=== PATIENT | female | born 1995 ===

== ENCOUNTER 2016-05-05 08:54 | Day surgery (SDC) | payer BC, OTHER ==
[2016-04-29 16:13] VITALS: BMI 29.2
[~2016-05-05 08:54] MED LIST: SODIUM CHLORIDE 0.9% 1,000 ML IV SCH
[2016-05-05] MEDS ORDERED: SODIUM CHLORIDE 0.9% 500 ML IV ONE (09:19)
[2016-05-05 11:22] VITALS: BP 104/69; PULSE 76; RESP 18; TEMP 98
--- NOTE | 2016-05-05 15:03 | CE ---
DATE OF SERVICE: A 20-year-old female who underwent tilt table test for recurrent dizzy spells and presyncope. 12-LEAD ECG REPORT: 12-lead ECG shows sinus rhythm, normal ME, narrow QRS, no delta waves, no epsilon waves, normal QT interval, normal ST segments in the precordial leads. Tilt table test was performed. Baseline blood pressure 105/61 mmHg. Baseline heart rate 72 beats a minute. The patient was tilted upright at an angle of 70 degrees per protocol. There was no change in her heart rate or blood pressure. During the procedure, she was laid supine and she did feel nauseous towards the end of the procedure, but at that time her blood pressure was normal at 111/65 mmm. Heart rate was in the 80s. IMPRESSION: Normal heart rate and blood pressure response to upright tilting.
== END 2016-05-05 11:15 | disposition home or self-care (01) ==
LOC: CATHEP 08:54
PROVIDERS: ATTEND Internal Medicine Clinical Cardiac Electrophysiology
DX: R55 Syncope and collapse (principal); R00.2 Palpitations; Z82.49 Family history of ischemic heart disease and other diseases of the circulatory system; Z87.891 Personal history of nicotine dependence
CPT/HCPCS: 81025; 93005; 93660

== ENCOUNTER → 2016-08-21 | Outpatient (CLI) | payer BC, OTHER ==
--- NOTE | 2016-08-21 14:49 | MR ---
EXAMINATION TYPE: MR brain wo con DATE OF EXAM: 08/21/2016 COMPARISON: 07/31/2015 HISTORY: Migraine without aura CONTRAST: None TECHNIQUE: Multiplanar, multiecho imaging on a 3.0 Rossi magnet is performed through the brain. Stud y is performed within 24 hours of arrival to the hospital. The craniovertebral junction is normal. The pituitary is normal. Diffusion-weighted imaging is performed. No abnormal hyperintensity is present to suggest an acute i ntracranial infarct or acute ischemic change. There are scattered punctate areas of hyperintensity on T2 and Inversion Recovery weighted sequences which are non-specific but can be related to microvascular ischemic changes. These are predominantly within the subcortical white matter. Number and distribution appears similar to prior examination. Ventricles and sulci are appropriate for the patient age. IMPRESSIONS: 1. Multiple scattered bilateral punctate subcortical white matter changes, likely on the basis of chr onic white matter ischemic change. Findings could be related to migraine headaches. These are greater than expected for the patient age but stable from prior study.
== END ==
LOC: RADMRIMAIN 11:58
PROVIDERS: ATTEND Psychiatry & Neurology Neurology
DX: R90.89 Other abnormal findings on diagnostic imaging of central nervous system (principal); G43.009 Migraine without aura, not intractable, without status migrainosus
CPT/HCPCS: 70551

== ENCOUNTER 2017-07-01 16:55 | Inpatient (IN) | payer BC, MEDICAID ==
[2017-07-01] MEDS ORDERED: SODIUM CHLORIDE 0.9% 1,000 ML IV STA (17:20)
--- NOTE | 2017-07-01 17:20 | ED ---
Psych HPI - General Chief Complaint: Psychiatric Symptoms Stated Complaint: SUICIDAL Time Seen by Provider: 07/01/17 17:19 Source: patient Mode of arrival: ambulatory - History of Present Illness Initial Comments: Patient presents for suicidal ideation. Patient states she "just doesn't want to be here anymore". Patient states "it's all just become too much" in regards to her family, states she lives at home with her grandmother, cousin, cousin's girlfriend and baby. Patient states yesterday she took approximately half a bottle of Tylenol pills, but then immediately threw up almost all of them. Denies taking any other pills. Patient cannot give an exact amount of pills that she took. Patient states she is never attempted suicide in the past. States she has cut her wrists in the past however that was a long time ago. States when she was younger she saw a psychiatrist, but no longer falls with psychiatrist. Denies desire to hurt anyone else. Patient has no physical medical complaints at this time. - Related Data Home Medications Medication Instructions Recorded Confirmed Acetaminophen [Tylenol Extra 1,000 mg PO Q8H PRN 07/01/17 07/01/17 Strength] Allergies Allergy/AdvReac Type Severity Reaction Status Date / Time egg Allergy Anaphylaxis Verified 07/01/17 18:01 hydromorphone HCl Allergy Itching Verified 07/01/17 18:01 [From Dilaudid] milk Allergy Anaphylaxis Verified 07/01/17 18:01 gabapentin AdvReac Nausea Verified 07/01/17 18:01 Review of Systems ROS Statement: Those systems with pertinent positive or pertinent negative responses have been documented in the HPI. ROS Other: All systems not noted in ROS Statement are negative. Constitutional: Denies: fever, chills Eyes: Denies: vision change ENT: Denies: throat pain, hearing loss Respiratory: Denies: cough, dyspnea Cardiovascular: Denies: chest pain, palpitations Endocrine: Denies: fatigue Gastrointestinal: Denies: abdominal pain, nausea, vomiting, diarrhea, constipation Genitourinary: Denies: frequency, hematuria Musculoskeletal: Denies: back pain Skin: Denies: rash, change in color Neurological: Denies: headache, weakness, numbness, confusion Psychiatric: Reports: depression, suicidal thoughts. Denies: anxiety, auditory hallucinations, visual hallucinations, homicidal thoughts Past Medical History Past Medical History: GERD/Reflux, GI Bleed Additional Past Medical History / Comment(s): N & V , ABD PAIN History of Any Multi-Drug Resistant Organisms: C-DIFF Date of last positivie culture/infection: 2016 MDRO Source:: Stool Past Surgical History: Cholecystectomy Past Anesthesia/Blood Transfusion Reactions: No Reported Reaction Past Psychological History: Depression Smoking Status: Current every day smoker Past Alcohol Use History: Occasional Past Drug Use History: None Reported - Past Family History Mother Additional Family Medical History / Comment(s): NONE Father Additional Family Medical History / Comment(s): NONE General Exam - General Exam Comments Initial Comments: Sitting up in bed. No acute distress. Does not appear in pain. Well- appearing. Patient speaks softly, appears depressed. Limitations: no limitations General appearance: alert, in no apparent distress Head exam: Present: atraumatic, normocephalic Eye exam: Present: normal appearance, PERRL, EOMI ENT exam: Present: normal exam, normal oropharynx, mucous membranes moist Neck exam: Present: normal inspection Respiratory exam: Present: normal lung sounds bilaterally. Absent: respiratory distress, wheezes, rales Cardiovascular Exam: Present: regular rate, normal rhythm GI/Abdominal exam: Present: soft. Absent: distended, tenderness, guarding, rebound Extremities exam: Present: normal inspection Back exam: Present: normal inspection Neurological exam: Present: alert, oriented X3, other (GCS 15. Conversing normally. Alert and oriented 4. No focal neuro deficits on exam.) Psychiatric exam: Present: depressed, flat affect, suicidal ideation Skin exam: Present: warm, dry, intact, normal color. Absent: rash, cyanosis, diaphoretic, erythema, urticaria Course Vital Signs 07/01/17 07/01/17 17:01 19:27 Temperature 98.4 F Pulse Rate 117 H 96 Respiratory 20 18 Rate Blood Pressure 127/73 112/58 O2 Sat by Pulse 99 99 Oximetry Medical Decision Making - Medical Decision Making Isn't actively suicidal. Patient attempted suicide yesterday with pills. We' ll evaluate for any medical problems related to ingestion yesterday. EKG sinus tachycardia, heart rate 107, no ST or T-wave changes appreciated. QRS 94 ms, QTC 469 ms. No significant lab abnormalities UDS shows benzos. Liver panel normal, acetaminophen level negative. Patient seen by psychiatry in the ER. 20:46 Psych team states they will admit patient. Pt updated with plan. - Lab Data Result diagrams: 07/01/17 17:51 07/01/17 17:51 Lab Results 07/01/17 07/01/17 07/01/17 Range/Units 17:51 17:51 17:59 WBC 10.8 H (3.8-10.6) k/uL RBC 4.72 (3.80-5.40) m/uL Hgb 14.3 (11.4-16.0) gm/dL Hct 41.3 (34.0-46.0) % MCV 87.5 (80.0-100.0) fL MCH 30.2 (25.0-35.0) pg MCHC 34.5 (31.0-37.0) g/dL RDW 13.1 (11.5-15.5) % Plt Count 310 (150-450) k/uL Neutrophils % 64 % Lymphocytes % 28 % Monocytes % 3 % Eosinophils % 3 % Basophils % 0 % Neutrophils # 6.9 (1.3-7.7) k/uL Lymphocytes # 3.1 (1.0-4.8) k/uL Monocytes # 0.4 (0-1.0) k/uL Eosinophils # 0.3 (0-0.7) k/uL Basophils # 0.0 (0-0.2) k/uL Sodium 145 (137-145) mmol/L Potassium 3.9 (3.5-5.1) mmol/L Chloride 105 (98-107) mmol/L Carbon Dioxide 25 (22-30) mmol/L Anion Gap 15 mmol/L BUN 19 H (7-17) mg/dL Creatinine 0.60 (0.52-1.04) mg/dL Est GFR (CKD-EPI)AfAm >90 (>60 ml/min/1.73 sqM) Est GFR (CKD-EPI)NonAf >90 (>60 ml/min/1.73 sqM) Glucose 98 (74-99) mg/dL Calcium 9.8 (8.4-10.2) mg/dL Total Bilirubin 0.3 (0.2-1.3) mg/dL Conjugated Bilirubin 0.0 (0.0-0.3) mg/dL Unconjugated Bilirubin 0.0 (0.0-1.1) mg/dL Delta Bilirubin 0.3 H (0.0-0.2) mg/dL AST 25 (14-36) U/L ALT 22 (9-52) U/L Alkaline Phosphatase 89 (38-126) U/L Total Protein 7.5 (6.3-8.2) g/dL Albumin 4.5 (3.5-5.0) g/dL Urine Color Yellow Urine Appearance Clear (Clear) Urine pH 7.0 (5.0-8.0) Ur Specific [place] 1.023 (1.001-1.035) Urine Protein Trace H (Negative) Urine Glucose (UA) Negative (Negative) Urine Ketones Negative (Negative) Urine Blood Negative (Negative) Urine Nitrite Negative (Negative) Urine Bilirubin Negative (Negative) Urine Urobilinogen <2.0 (<2.0) mg/dL Ur Leukocyte Esterase Small H (Negative) Urine RBC <1 (0-5) /hpf Urine WBC 12 H (0-5) /hpf Ur Squamous Epith Cells 3 (0-4) /hpf Amorphous Sediment Rare H (None) /hpf Urine Mucus Rare H (None) /hpf Urine HCG, Qual (Not Detectd) Salicylates <1.0 mg/dL Urine Opiates Screen Not Detected (NotDetected) Ur Oxycodone Screen Not Detected (NotDetected) Urine Methadone Screen Not Detected (NotDetected) Ur Propoxyphene Screen Not Detected (NotDetected) Acetaminophen <10.0 ug/mL Ur Barbiturates Screen Not Detected (NotDetected) U Tricyclic Antidepress Not Detected (NotDetected) Ur Phencyclidine Scrn Not Detected (NotDetected) Ur Amphetamines Screen Not Detected (NotDetected) U Methamphetamines Scrn Not Detected (NotDetected) U Benzodiazepines Scrn Detected H (NotDetected) Urine Cocaine Screen Not Detected (NotDetected) U Marijuana (THC) Screen Not Detected (NotDetected) Serum Alcohol <10 mg/dL 07/01/17 Range/Units 17:59 WBC (3.8-10.6) k/uL RBC (3.80-5.40) m/uL Hgb (11.4-16.0) gm/dL Hct (34.0-46.0) % MCV (80.0-100.0) fL MCH (25.0-35.0) pg MCHC (31.0-37.0) g/dL RDW (11.5-15.5) % Plt Count (150-450) k/uL Neutrophils % % Lymphocytes % % Monocytes % % Eosinophils % % Basophils % % Neutrophils # (1.3-7.7) k/uL Lymphocytes # (1.0-4.8) k/uL Monocytes # (0-1.0) k/uL Eosinophils # (0-0.7) k/uL Basophils # (0-0.2) k/uL Sodium (137-145) mmol/L Potassium (3.5-5.1) mmol/L Chloride (98-107) mmol/L Carbon Dioxide (22-30) mmol/L Anion Gap mmol/L BUN (7-17) mg/dL Creatinine (0.52-1.04) mg/dL Est GFR (CKD-EPI)AfAm (>60 ml/min/1.73 sqM) Est GFR (CKD-EPI)NonAf (>60 ml/min/1.73 sqM) Glucose (74-99) mg/dL Calcium (8.4-10.2) mg/dL Total Bilirubin (0.2-1.3) mg/dL Conjugated Bilirubin (0.0-0.3) mg/dL Unconjugated Bilirubin (0.0-1.1) mg/dL Delta Bilirubin (0.0-0.2) mg/dL AST (14-36) U/L ALT (9-52) U/L Alkaline Phosphatase (38-126) U/L Total Protein (6.3-8.2) g/dL Albumin (3.5-5.0) g/dL Urine Color Urine Appearance (Clear) Urine pH (5.0-8.0) Ur Specific [place] (1.001-1.035) Urine Protein (Negative) Urine Glucose (UA) (Negative) Urine Ketones (Negative) Urine Blood (Negative) Urine Nitrite (Negative) Urine Bilirubin (Negative) Urine Urobilinogen (<2.0) mg/dL Ur Leukocyte Esterase (Negative) Urine RBC (0-5) /hpf Urine WBC (0-5) /hpf Ur Squamous Epith Cells (0-4) /hpf Amorphous Sediment (None) /hpf Urine Mucus (None) /hpf Urine HCG, Qual Not Detected (Not Detectd) Salicylates mg/dL Urine Opiates Screen (NotDetected) Ur Oxycodone Screen (NotDetected) Urine Methadone Screen (NotDetected) Ur Propoxyphene Screen (NotDetected) Acetaminophen ug/mL Ur Barbiturates Screen (NotDetected) U Tricyclic Antidepress (NotDetected) Ur Phencyclidine Scrn (NotDetected) Ur Amphetamines Screen (NotDetected) U Methamphetamines Scrn (NotDetected) U Benzodiazepines Scrn (NotDetected) Urine Cocaine Screen (NotDetected) U Marijuana (THC) Screen (NotDetected) Serum Alcohol mg/dL Disposition Clinical Impression: Suicidal ideation Disposition: ADMITTED IP TO THIS HOSP Condition: Good
[2017-07-01 18:04] LABS: Basophils % (A) 0 %; Eosinophils # (A) 0.3 k/uL (0-0.7); Eosinophils % (A) 3 %; HCT 41.3 % (34.0-46.0); HGB 14.3 gm/dL (11.4-16.0); Lymphocytes # (A) 3.1 k/uL (1.0-4.8); Lymphocytes % (A) 28 %; MCH 30.2 pg (25.0-35.0); MCHC 34.5 g/dL (31.0-37.0); MCV 87.5 fL (80.0-100.0); Mean Platelet Volume 7.3; Monocytes # (A) 0.4 k/uL (0-1.0); Monocytes % (A) 3 %; Neutrophils # (A) 6.9 k/uL (1.3-7.7); Neutrophils % (A) 64 %; Platelet Count 310 k/uL (150-450); RBC 4.72 m/uL (3.80-5.40); RDW 13.1 % (11.5-15.5); WBC 10.8 k/uL (3.8-10.6)
[2017-07-01 18:15] LABS: ALT 22 U/L (9-52); AST 25 U/L (14-36); Acetaminophen <10.0 ug/mL; Albumin 4.5 g/dL (3.5-5.0); Alcohol <10 mg/dL; Alkaline Phosphatase 89 U/L (38-126); Anion Gap 15 mmol/L; Bilirubin, Delta 0.3 mg/dL (0.0-0.2); Blood Urea Nitrogen 19 mg/dL (7-17); Calcium 9.8 mg/dL (8.4-10.2); Carbon Dioxide 25 mmol/L (22-30); Chloride 105 mmol/L (98-107); Glucose 98 mg/dL (74-99); Potassium 3.9 mmol/L (3.5-5.1); Salicylate <1.0 mg/dL; Sodium 145 mmol/L (137-145); Total Bilirubin 0.3 mg/dL (0.2-1.3); Total Protein 7.5 g/dL (6.3-8.2)
[2017-07-01 18:18] LABS: Amorphous Sediment,Urine Rare /hpf; Appearance,Urine Clear (Clear); Bilirubin,Urine Negative (Negative); Blood,Urine Negative (Negative); Color,Urine Yellow; Glucose,Urine (UA) Negative (Negative); Ketones,Urine Negative (Negative); Leukocyte Esterase,Urine Small (Negative); Mucus,Urine Rare /hpf; Nitrite,Urine Negative (Negative); Protein,Urine Trace (Negative); RBC,Urine <1 /hpf (0-5); Specific Gravity,Urine 1.023 (1.001-1.035); Squamous Epithelial Cell,Urine 3 /hpf (0-4); Urobilinogen,Urine <2.0 mg/dL (<2.0); WBC,Urine 12 /hpf (0-5)
[2017-07-01 18:29] LABS: Amphetamine Screen,Urine Not Detected (NotDetected); Barbiturate Screen,Urine Not Detected (NotDetected); Benzodiazepines Screen,Urine Detected (NotDetected); Cocaine Screen,Urine Not Detected (NotDetected); Methadone Screen, Urine Not Detected (NotDetected); Opiate Screen,Urine Not Detected (NotDetected); Oxycodone Screen, Urine Not Detected (NotDetected); Phencyclidine Screen,Urine Not Detected (NotDetected); Tricyclic Antidepressant,Urine Not Detected (NotDetected); Urn Cannabinoid Scrn Not Detected (NotDetected)
[2017-07-01] MEDS ORDERED: MAG HYDROX/AL HYDROX/SIMETH 30 ML CUP PO PRN (20:52)
[2017-07-01] MEDS ORDERED: LORazepam 1 MG TAB PO PRN (20:52)
[2017-07-01] MEDS ORDERED: ACETAMINOPHEN TAB 325 MG TAB PO PRN (20:52)
[2017-07-01] MEDS ORDERED: ZIPRASIDONE 20 MG VIAL IM PRN (20:52)
[2017-07-01] MEDS ORDERED: MAGNESIUM HYDROXIDE 2,400 MG/10 ML CUP PO PRN (20:52)
[2017-07-01] MEDS ORDERED: LORazepam 2 MG/ML INJ IM PRN (20:54)
[2017-07-02 05:57] VITALS: BMI 35.6
[2017-07-02] MEDS ORDERED: hydrOXYzine PAMOATE 25 MG CAP PO PRN (08:45)
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
[2017-07-02 09:31] LABS: Basophils % (A) 1 %; Eosinophils # (A) 0.3 k/uL (0-0.7); Eosinophils % (A) 3 %; HCT 39.8 % (34.0-46.0); HGB 13.8 gm/dL (11.4-16.0); Lymphocytes # (A) 2.5 k/uL (1.0-4.8); Lymphocytes % (A) 30 %; MCH 30.5 pg (25.0-35.0); MCHC 34.7 g/dL (31.0-37.0); MCV 88.1 fL (80.0-100.0); Monocytes # (A) 0.3 k/uL (0-1.0); Monocytes % (A) 4 %; Neutrophils % (A) 61 %; Platelet Count 304 k/uL (150-450); RBC 4.51 m/uL (3.80-5.40); WBC 8.3 k/uL (3.8-10.6)
[2017-07-02 09:45] LABS: ALT 34 U/L (9-52); AST 21 U/L (14-36); Albumin 4.7 g/dL (3.5-5.0); Alkaline Phosphatase 97 U/L (38-126); Anion Gap 15 mmol/L; Blood Urea Nitrogen 15 mg/dL (7-17); Calcium 9.8 mg/dL (8.4-10.2); Carbon Dioxide 24 mmol/L (22-30); Chloride 105 mmol/L (98-107); Glucose 98 mg/dL (74-99); Potassium 4.2 mmol/L (3.5-5.1); Sodium 144 mmol/L (137-145); Total Bilirubin 0.5 mg/dL (0.2-1.3); Total Protein 7.7 g/dL (6.3-8.2)
[2017-07-02] MEDS: NICOTINE 7MG/24HR PATCH TRANSDERM SCH (10:46)
[2017-07-02] MEDS: DICLOFENAC SODIUM GEL 100 GM TUBE TOPICAL SCH ×3 (14:16→22:36)
--- NOTE | 2017-07-02 14:38 | P.MDCNMH ---
History of Present Illness H&P Date: 07/02/17 Chief Complaint: Depression This is a 22-year-old female patient of Dr. Aldana with a past history of migraine headaches, gastric reflux, C. difficile colitis in 2016 or 2017, tobacco use and dependence. Patient states that she has a headache on the right side of her face into her forehead and back to her neck. She does complain of neck pain. 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 She is right-handed. She states she is not sleeping. When asked about suicidal ideation patient states "not all the time." Patient states that she has a lot of worries and stress but cannot identify these. Patient came into [facility] emergency center for evaluation. She apparently took Tylenol half a bottle the day before and then vomited those up. She has cut her wrists and the past but no previous attempted suicides. She no longer follows with a psychiatrist. Patient's vital signs were stable. Lab work essentially within normal limits. Urinalysis negative for urinary tract infection. Salicylate level acetaminophen and serum alcohol level all negative. Urine drug screen was positive for benzodiazepines. HCG was not detected. TSH was 1.570. Patient was admitted to the mental health unit. Review of Systems All systems: negative Constitutional: Reports chronic headaches, Reports daytime sleepiness, Reports fatigue, Denies chills, Denies fever Eyes: denies blurred vision, denies pain Ears, nose, mouth and throat: Denies headache, Denies sore throat Cardiovascular: Denies chest pain, Denies decreased exercise tolerance, Denies dyspnea on exertion, Denies leg edema, Denies shortness of breath, Denies syncope Respiratory: Denies cough, Denies cough with sputum, Denies dyspnea, Denies excessive sputum, Denies hemoptysis Gastrointestinal: Denies abdominal pain, Denies diarrhea, Denies nausea, Denies vomiting Genitourinary: Denies dysuria, Denies hematuria, Denies urgency Musculoskeletal: Reports neck pain, Denies myalgias Integumentary: Denies pruritus, Denies rash, Denies wounds Neurological: Denies numbness, Denies weakness Psychiatric: Reports change in sleep habits, Reports depression, Reports difficulty concentrating, Reports hopelessness, Reports insomnia, Reports suicidal ideation, Denies anxiety Endocrine: Denies fatigue, Denies weight change Past Medical History Past Medical History: GERD/Reflux, GI Bleed Additional Past Medical History / Comment(s): N & V , ABD PAIN History of Any Multi-Drug Resistant Organisms: C-DIFF Date of last positivie culture/infection: 2016 MDRO Source:: Stool Past Surgical History: Cholecystectomy Past Anesthesia/Blood Transfusion Reactions: No Reported Reaction Smoking Status: Current every day smoker - Past Family History Mother Additional Family Medical History / Comment(s): NONE Father Additional Family Medical History / Comment(s): NONE Medications and Allergies Home Medications Medication Instructions Recorded Confirmed Type Acetaminophen [Tylenol Extra 1,000 mg PO Q8H PRN 07/01/17 07/02/17 History Strength] Allergies Allergy/AdvReac Type Severity Reaction Status Date / Time egg Allergy Anaphylaxis Verified 07/02/17 05:34 hydromorphone HCl Allergy Itching Verified 07/02/17 05:34 [From Dilaudid] milk Allergy Anaphylaxis Verified 07/02/17 05:34 gabapentin AdvReac Nausea Verified 07/02/17 05:34 Physical Exam Vitals: Vital Signs Temp Pulse Pulse Resp BP BP Pulse Ox 07/02/17 06:42 97.7 F 80 18 117/65 07/02/17 05:49 97.1 F L 90 16 138/72 07/01/17 19:27 96 18 112/58 99 07/01/17 17:01 98.4 F 117 H 20 127/73 99 Intake and Output 07/01/17 07/02/17 07/02/17 22:59 06:59 14:59 Other: Weight 108.862 kg 115.9 kg Gen: This is an obese 22-year-old female. She is cooperative and appears to be in no acute distress. HEENT: Head is atraumatic, normocephalic. Pupils equal, round. Sclerae is anicteric. Tenderness to the right occipital area NECK: Supple. No JVD. No lymphadenopathy. No thyromegaly. LUNGS: Clear to auscultation. No wheezes or rhonchi. No intercostal retractions. HEART: Regular rate and rhythm. No murmur. ABDOMEN: Soft. Bowel sounds are present. No masses. No tenderness. EXTREMITIES: No pedal edema. No calf tenderness. NEUROLOGICAL: Patient is awake, alert and oriented x3. Cranial nerves 2 through 12 are grossly intact. Cranial Nerve Examination - Cranial Nerves Cranial Nerve II- Optic: Intact Cranial Nerve III- Oculomotor: Intact Cranial Nerve IV- Trochlear: Intact Cranial Nerve V- Trigeminal: Intact Cranial Nerve - Abducens: Intact Cranial Nerve VII- Facial: Intact Cranial Nerve VIII- Auditory: Intact Cranial Nerve IX- Glossopharyngeal: Intact Cranial Nerve X- Vagus: Intact Cranial Nerve XI- Accessory: Intact Cranial Nerve XII- Hypoglossal: Intact Results CBC & Chem 7: 07/02/17 08:58 07/02/17 08:58 Labs: Abnormal Lab Results - Last 24 Hours (Table) 07/01/17 07/01/17 07/01/17 Range/Units 17:51 17:51 17:59 WBC 10.8 H (3.8-10.6) k/uL BUN 19 H (7-17) mg/dL Delta Bilirubin 0.3 H (0.0-0.2) mg/dL Urine Protein Trace H (Negative) Ur Leukocyte Esterase Small H (Negative) Urine WBC 12 H (0-5) /hpf Amorphous Sediment Rare H (None) /hpf Urine Mucus Rare H (None) /hpf U Benzodiazepines Scrn Detected H (NotDetected) Assessment and Plan Plan: 1. Recurrent depression. Patient admitted to the mental health unit. Continue current plan of care. 2. Gastroesophageal reflux disease, stable. Not actively on medication. 3. History of C. difficile colitis in 2016 or 2016, stable. No active signs of recurrence. 4. Tobacco use and dependence. Nicotine patch. 5. Tension headache. Patient will be placed on Flexeril 5 g twice daily as needed and 10 mg at bedtime as well as Voltaren gel 4 times daily. Patient may also apply heat to the area.. Impression and plan of care have been directed as dictated by the signing physician. Eloina Lara nurse practitioner acting as scribe for signing physician.
[2017-07-02] MEDS: CYCLOBENZAPRINE 5 MG TAB PO PRN (20:59)
[2017-07-02] MEDS: DIVALPROEX ER 500 MG TAB.ER.24H PO SCH (20:59)
[2017-07-02] MEDS: CYCLOBENZAPRINE 10 MG TAB PO SCH (21:00)
[2017-07-03 06:41] VITALS: RESP 16
[2017-07-03] MEDS: NICOTINE 7MG/24HR PATCH TRANSDERM SCH (08:41)
[2017-07-03] MEDS: DICLOFENAC SODIUM GEL 100 GM TUBE TOPICAL SCH ×4 (08:41→21:37)
[2017-07-03] MEDS: CYCLOBENZAPRINE 5 MG TAB PO PRN (09:27)
--- NOTE | 2017-07-03 13:07 | P.PN ---
Progress Note - Text Progress Note Date: 07/03/17 Interval history: Patient is seen in cross coverage today. She says she feels about the same. Her mood is described as "numb." She describes being bothered by auditory hallucinations, describes them currently as whispering type. She thinks she may have had a bad reaction to either Abilify or Zoloft in the past. Mental status exam: She is alert and cooperative with the interview. Her mood is described as "numb." She describes auditory hallucinations which she currently describes as whispering type, she reports that these are bothersome. She denies any current thoughts of harm to self or others. She states that at times she has had thoughts of harm to others but she just doesn't do that. She does not show any current agitation. Plan: We'll initiate low dose of Latuda to help with her report of some auditory hallucinations, could also help augment for mood along with her Depakote. We'll continue to cover this patient through the weekend. Continue to monitor for any medication side effects and her ongoing response to treatment.
[2017-07-03] MEDS: LURASIDONE 40 MG TAB PO SCH (13:41)
[2017-07-03] MEDS: DIVALPROEX ER 500 MG TAB.ER.24H PO SCH (20:04)
[2017-07-03] MEDS: CYCLOBENZAPRINE 10 MG TAB PO SCH (21:37)
[2017-07-04 06:49] VITALS: TEMP 97.7
[2017-07-04] MEDS: NICOTINE 7MG/24HR PATCH TRANSDERM SCH (09:20)
[2017-07-04] MEDS: LURASIDONE 40 MG TAB PO SCH (09:20)
[2017-07-04] MEDS: DICLOFENAC SODIUM GEL 100 GM TUBE TOPICAL SCH ×4 (09:21→21:05)
[2017-07-04] MEDS: CYCLOBENZAPRINE 5 MG TAB PO PRN (12:01)
--- NOTE | 2017-07-04 15:16 | P.PN ---
Progress Note - Text Progress Note Date: 07/04/17 Interval history: Patient is seen again in cross coverage today. She describes that the auditory hallucinations are gone now. She has not been hearing any voices today. She says she feels a little bit tired but it's tolerable in terms of potential medication side effect. She feels like her mood is pretty level. Mental status exam: She is alert and cooperative with the interview. Her speech is fluent, not rapid or pressured. Thought processes are organized. Her mood she describes is level. She denies any auditory or visual hallucinations. She does not verbalize any thoughts of harm to self others. There is no agitation. Plan: We'll maintain current psychotropic medication regimen and continue to monitor for any medication side effects. We'll continue to monitor her ongoing response. Status is improved today.
[2017-07-04] MEDS: DIVALPROEX ER 500 MG TAB.ER.24H PO SCH (21:05)
[2017-07-04] MEDS: CYCLOBENZAPRINE 10 MG TAB PO SCH (21:05)
[2017-07-05 07:07] VITALS: BP 107/60; PULSE 86
[2017-07-05] MEDS: LURASIDONE 40 MG TAB PO SCH (09:45)
[2017-07-05] MEDS: NICOTINE 7MG/24HR PATCH TRANSDERM SCH (09:45)
[2017-07-05] MEDS: DICLOFENAC SODIUM GEL 100 GM TUBE TOPICAL SCH (09:47)
[2017-07-05] MEDS: CYCLOBENZAPRINE 5 MG TAB PO PRN (10:47)
--- NOTE | 2017-07-05 12:26 | P.DS ---
Providers Date of admission: 07/01/17 20:48 Expected date of discharge: 07/05/17 Attending physician: Bismark Mora Consults: 07/01/17 20:52 Consult Physician Routine Consulting Provider: Charley Mckenna Consult Reason/Comments: follow Up H & P Do you want consulting provider notified?: Yes Primary care physician: [facility] Course: Patient had her psychiatric evaluation, physical examination and psychosocial evaluation. After psychiatric examination she was started on Depakote 1500 mg at bedtime for "mood stabilization"and prevention of migraine headaches. She was seen by the weekend psychiatrist who put her on Latuda 20 mg a day. Patient said within 1 hour she stopped hearing voices and started to feel great. This seems to be more of a placebo effect than the pharmacological effect. Patient attended groups but she was not participating in the group activities. She has been socializing with other patients, interacting with staff and taking her medications without any adverse effect. She continues to deny suicide and homicide thoughts. She said she has a music class to attend this evening and would like to be discharged. She also agreed to continue with outpatient treatment. In view of all these it was agreed to discharge her. Condition on discharge: This is a tall overweight ambulatory white female with good hygiene. She is polite friendly and cooperative. She does not show any psychomotor agitation or retardation. Her speech is spontaneous relevant and goal-directed. Her mood is euthymic to cheerful and affect is appropriate. She continues not to have any evidence of psychotic thinking. She continues to deny suicide and homicide thoughts. She is well oriented with good memory concentration general fund of knowledge etc. Her insight and judgment are improving. Diagnosis on discharge: Borderline personality disorder F 60.3. ALLERGY to eggs, hydromorphone, milk and gabapentin. Migraine headaches. 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 Patient Condition at Discharge: Good Plan - Discharge Summary Discharge Rx Participant: No New Discharge Prescriptions: New Divalproex ER [Depakote ER] 1,500 mg PO HS 30 Days #30 tab.er.24h Lurasidone [Latuda] 20 mg PO DAILY 30 Days #30 tab Discontinued Acetaminophen [Tylenol Extra Strength] 1,000 mg PO Q8H PRN PRN Reason: Pain Discharge Medication List Divalproex ER [Depakote ER] 1,500 mg PO HS 30 Days #30 tab.er.24h 07/05/17 [Rx] Lurasidone [Latuda] 20 mg PO DAILY 30 Days #30 tab 07/05/17 [Rx] Follow up Appointment(s)/Referral(s): Dick Aldana MD [Primary Care Provider] - 1 Week
== END 2017-07-05 16:58 | disposition home or self-care (01) | DRG 883 ==
LOC: EC 16:55 → 3MHU 20:48
PROVIDERS: ADMIT Psychiatry & Neurology Psychiatry; ATTEND Psychiatry & Neurology Psychiatry
DX: F60.3 Borderline personality disorder (principal); R45.851 Suicidal ideations; R44.0 Auditory hallucinations; K21.9 Gastro-esophageal reflux disease without esophagitis; F17.210 Nicotine dependence, cigarettes, uncomplicated; Z71.6 Tobacco abuse counseling; G43.909 Migraine, unspecified, not intractable, without status migrainosus; E66.3 Overweight; Z68.36 Body mass index [BMI] 36.0-36.9, adult; R48.0 Dyslexia and alexia; Z91.5 Personal history of self-harm; Z90.49 Acquired absence of other specified parts of digestive tract; Z86.19 Personal history of other infectious and parasitic diseases; Z91.012 Allergy to eggs; Z88.5 Allergy status to narcotic agent; Z88.8 Allergy status to other drugs, medicaments and biological substances; Z91.011 Allergy to milk products; Z81.3 Family history of other psychoactive substance abuse and dependence; Z81.8 Family history of other mental and behavioral disorders
CPT/HCPCS: 36415; 80048; 80053; 80076; 80306; 80320; 81001; 81025; 83520; 84443; 85025; 93005; 96360; 96361; 99285

== ENCOUNTER → 2017-07-12 | Outpatient (CLI) | payer BC, OTHER ==
--- NOTE | 2017-07-12 13:44 | MR ---
EXAMINATION TYPE: MR cervical spine wo con DATE OF EXAM: 07/12/2017 COMPARISON: Prior MR cervical spine 02/10/2016 HISTORY: Neck pain TECHNIQUE: Multiplanar, multisequence images of the cervical spine were acquired. Findings are similar to previous exam. Bilateral neck nodes show a similar appearance C2-C3: No evidence for degenerative disc disease. No disc bulge/herniation or protrusion. No Canal stenosis. Foramina are patent bilaterally. C3-C4: Lateral extension of endplate disc complex encroaches somewhat on the foramina, there is no si gnificant central stenosis. No disc herniation. C4-C5: Lateral extension endplate disc complex causes some foraminal encroachment greater on the left than on the right, no significant central stenosis or disc herniation. C5-C6: Right posterior paracentral extension of endplate disc complex results in anterolateral mass e ffect on the thecal sac, there is lateral extension encroaching on the right neural foramen rather th an left. There is loss of disc height and signal compatible with disc desiccation and degenerative di sc disease. C6-C7: No evidence for degenerative disc disease. No disc bulge/herniation or protrusion. No Canal stenosis. Foramina are patent bilaterally. C7-T1: No evidence for degenerative disc disease. No disc bulge/herniation or protrusion. No Canal stenosis. Foramina are patent bilaterally. Cervical segments are intact. There is normal alignment. Cervical spinal cord is of normal signal. Craniovertebral junction relationships are within normal limits. IMPRESSION: Degenerative disc disease, multilevel foraminal encroachment. Findings are essentially stable.
== END | disposition home or self-care (01) ==
LOC: RADMRIMAIN 12:03
PROVIDERS: ATTEND Psychiatry & Neurology Neurology
DX: M50.30 Other cervical disc degeneration, unspecified cervical region (principal)
CPT/HCPCS: 72141

== ENCOUNTER 2017-09-04 15:53 | Emergency (ER) | payer BC, OTHER ==
[2017-09-04 16:11] VITALS: BP 107/72; PULSE 87; RESP 18; TEMP 98.8
--- NOTE | 2017-09-04 16:17 | ED ---
Lower Extremity Injury HPI - General Chief Complaint: Extremity Injury, Lower Stated Complaint: injured ankles (mis step) Time Seen by Provider: 09/04/17 16:10 Source: patient, RN notes reviewed Mode of arrival: wheelchair Limitations: physical limitation - History of Present Illness Initial Comments: This is a 22-year-old female presents emergency Department with chief complaint of bilateral ankle pain. She states that she was walking sort of missed stepped and states that she rolled both of her ankles. She complains of pain on the lateral aspect of both. She states she's had fractures of both of her ankles in the past. She denies any current foot pain or any paresthesias. Denies any proximal lower leg pain. Patient had no head injury no loss consciousness. Patient states she's able to bear weight slightly her left with the right hurts more when she bears weight. - Related Data Previous Rx's Medication Instructions Recorded Divalproex ER [Depakote ER] 1,500 mg PO HS 30 Days #30 07/05/17 tab.er.24h Ibuprofen [Motrin] 600 mg PO Q8HR PRN #30 tab 09/04/17 Allergies Allergy/AdvReac Type Severity Reaction Status Date / Time egg Allergy Anaphylaxis Verified 09/04/17 16:11 hydromorphone HCl Allergy Itching Verified 09/04/17 16:11 [From Dilaudid] milk Allergy Anaphylaxis Verified 09/04/17 16:11 gabapentin AdvReac Nausea Verified 09/04/17 16:11 Review of Systems ROS Statement: Those systems with pertinent positive or pertinent negative responses have been documented in the HPI. ROS Other: All systems not noted in ROS Statement are negative. Past Medical History Past Medical History: GERD/Reflux, GI Bleed Additional Past Medical History / Comment(s): N & V , ABD PAIN History of Any Multi-Drug Resistant Organisms: C-DIFF Date of last positivie culture/infection: 2016 MDRO Source:: Stool Past Surgical History: Cholecystectomy Past Anesthesia/Blood Transfusion Reactions: No Reported Reaction Past Psychological History: Anxiety, Depression Smoking Status: Current every day smoker Past Alcohol Use History: Occasional Past Drug Use History: None Reported - Past Family History Mother Additional Family Medical History / Comment(s): NONE Father Additional Family Medical History / Comment(s): NONE General Exam Limitations: physical limitation General appearance: alert, in no apparent distress Respiratory exam: Present: normal lung sounds bilaterally. Absent: respiratory distress, wheezes, rales, rhonchi, stridor Cardiovascular Exam: Present: regular rate, normal rhythm, normal heart sounds. Absent: systolic murmur, diastolic murmur, rubs, gallop, clicks Extremities exam: Present: other (Bilateral lower extremities neurovascular intact there is tenderness to both lateral malleoli region there is minimal swelling there is no foot tenderness and there is no proximal tib-fib tenderness ) Skin exam: Present: warm, dry, intact, normal color Course Vital Signs 09/04/17 16:08 Temperature 98.8 F Pulse Rate 87 Respiratory 18 Rate Blood Pressure 107/72 O2 Sat by Pulse 99 Oximetry Medical Decision Making - Medical Decision Making 22-year-old presented for bilateral ankle pain. Patient had an injury from a curb. Patient has no new fracture on x-ray there is noted old fracture in which she knew about. Patient's ankles wear Preet wrap and she will follow-up with her PCP and orthopedics as needed. Disposition Clinical Impression: Right ankle sprain, Left ankle sprain Disposition: HOME SELF-CARE Condition: Stable Instructions: Ankle Sprain (ED) Additional Instructions: Please return to the Emergency Department if symptoms worsen or any other concerns. Prescriptions: Ibuprofen [Motrin] 600 mg PO Q8HR PRN #30 tab PRN Reason: Pain Is patient prescribed a controlled substance at d/c from ED?: No Referrals: Dick Aldana MD [Primary Care Provider] - 1-2 days Time of Disposition: 16:47
--- NOTE | 2017-09-04 16:41 | XR ---
EXAMINATION TYPE: XR ankle complete bilateral DATE OF EXAM: 09/04/2017 CLINICAL HISTORY: Pain after fall injury today TECHNIQUE: Frontal, lateral and oblique images of the bilateral ankles are obtained. COMPARISON: None. FINDINGS: There is no acute fracture/dislocation evident in either ankle. There is 5 mm well-cortic ated defect without soft tissue swelling felt to reflect old avulsion fracture from lateral malleolus in the right ankle. The ankle mortise appears within normal limits bilaterally. The overlying soft tissue appears unremarkable bilaterally. IMPRESSION: There is no acute fracture or dislocation in either ankle.
== END 2017-09-04 16:50 | disposition home or self-care (01) ==
LOC: EC 15:53
DX: S93.401A Sprain of unspecified ligament of right ankle, initial encounter (principal); S93.402A Sprain of unspecified ligament of left ankle, initial encounter; F17.200 Nicotine dependence, unspecified, uncomplicated; Z91.012 Allergy to eggs; Z88.5 Allergy status to narcotic agent; Z91.011 Allergy to milk products; Z88.8 Allergy status to other drugs, medicaments and biological substances; W10.9XXA Fall (on) (from) unspecified stairs and steps, initial encounter; Y93.01 Activity, walking, marching and hiking
CPT/HCPCS: 99283

== ENCOUNTER 2017-11-11 13:06 | Emergency (ER) | payer BC, OTHER ==
[2017-11-11 13:41] VITALS: BP 118/69; PULSE 89; RESP 18; TEMP 97.9
--- NOTE | 2017-11-11 14:21 | XR ---
EXAMINATION TYPE: XR knee complete RT DATE OF EXAM: 11/11/2017 COMPARISON: NONE HISTORY: Pain TECHNIQUE: Four views are submitted. FINDINGS: Joint spaces are preserved. Osseous structures are intact. No acute fracture seen. Small amount of fluid in the suprapatellar bursa. IMPRESSION: 1. No acute fracture or dislocation.
--- NOTE | 2017-11-11 14:23 | XR ---
EXAMINATION TYPE: XR ankle complete RT DATE OF EXAM: 11/11/2017 COMPARISON: 09/04/2017 HISTORY: Pain FINDINGS: Three views of the ankle demonstrate the ankle mortise to be intact and symmetric. The joint spaces are preserved. The osseous structures are intact. Well-corticated density along the lateral malleol us. This is seen on the previous exam. IMPRESSION: 1. No definite acute fracture or dislocation, if symptoms persist follow-up study in 7 to 10 days wou ld be suggested.
--- NOTE | 2017-11-11 14:25 | XR ---
EXAMINATION TYPE: XR foot complete RT DATE OF EXAM: 11/11/2017 COMPARISON: NONE HISTORY: Pain TECHNIQUE: Three views are submitted. FINDINGS: The osseous structures are intact. There is no acute fracture or dislocation. Joint spaces are p reserved. Hammertoe deformities are seen. Arthropathy of the first MTP joint. IMPRESSION: 1. No acute fracture or dislocation. If symptoms persist, follow-up exam in 7 to 10 days could be ob tained.
--- NOTE | 2017-11-11 14:25 | ED ---
Lower Extremity Injury HPI - General Chief Complaint: Extremity Injury, Lower Stated Complaint: Knee/ankle pain Time Seen by Provider: 11/11/17 13:44 Source: patient, RN notes reviewed, old records reviewed Mode of arrival: ambulatory Limitations: no limitations - History of Present Illness Initial Comments: 22-year-old female presents emergency department today with chief complaint of right knee foot and ankle pain. Patient reports that she was doing a jump at dance yesterday and feels she landed and heard a pop in her ankle and complains of pain with full extension of her knee. Patient states she's had no fevers chills component for procedures, numbness or tingling or abdominal pain. She denies any back pain. - Related Data Previous Rx's Medication Instructions Recorded RX: Ibuprofen [Motrin] 600 mg PO Q6HR PRN #20 tab 11/11/17 Allergies Allergy/AdvReac Type Severity Reaction Status Date / Time egg Allergy Anaphylaxis Verified 11/11/17 13:59 hydromorphone HCl Allergy Itching Verified 11/11/17 13:59 [From Dilaudid] milk Allergy Anaphylaxis Verified 11/11/17 13:59 gabapentin AdvReac Nausea Verified 11/11/17 13:59 Review of Systems ROS Statement: Those systems with pertinent positive or pertinent negative responses have been documented in the HPI. ROS Other: All systems not noted in ROS Statement are negative. Past Medical History Past Medical History: GERD/Reflux, GI Bleed Additional Past Medical History / Comment(s): N & V , ABD PAIN History of Any Multi-Drug Resistant Organisms: C-DIFF Date of last positivie culture/infection: 2016 MDRO Source:: Stool Past Surgical History: Cholecystectomy Past Anesthesia/Blood Transfusion Reactions: No Reported Reaction Past Psychological History: Anxiety, Depression Smoking Status: Current every day smoker Past Alcohol Use History: Occasional Past Drug Use History: None Reported - Past Family History Mother Additional Family Medical History / Comment(s): NONE Father Additional Family Medical History / Comment(s): NONE General Exam - General Exam Comments Initial Comments: 22-year-old female. Alert and oriented. No acute distress. Limitations: no limitations General appearance: alert, in no apparent distress Head exam: Present: atraumatic, normocephalic, normal inspection Eye exam: Present: normal appearance, PERRL, EOMI. Absent: scleral icterus, conjunctival injection, periorbital swelling ENT exam: Present: normal exam, mucous membranes moist Neck exam: Present: normal inspection. Absent: tenderness, meningismus, lymphadenopathy Respiratory exam: Present: normal lung sounds bilaterally. Absent: respiratory distress, wheezes, rales, rhonchi, stridor Cardiovascular Exam: Present: regular rate, normal rhythm, normal heart sounds. Absent: systolic murmur, diastolic murmur, rubs, gallop, clicks GI/Abdominal exam: Present: soft, normal bowel sounds. Absent: distended, tenderness, guarding, rebound, rigid Extremities exam: Present: normal inspection, full ROM, normal capillary refill. Absent: tenderness, pedal edema, joint swelling, calf tenderness Back exam: Present: normal inspection Neurological exam: Present: alert, oriented X3, CN II-XII intact Psychiatric exam: Present: normal affect, normal mood Skin exam: Present: warm, dry, intact, normal color. Absent: rash Course Vital Signs 11/11/17 13:38 Temperature 97.9 F Pulse Rate 89 Respiratory 18 Rate Blood Pressure 118/69 O2 Sat by Pulse 96 Oximetry Medical Decision Making - Radiology Data Radiology results: report reviewed X-rays of the negative for any acute fracture dislocation. X-ray of the foot shows no evidence of any acute fracture dislocation. No acute fracture dislocation of the ankle. If symptoms persist follow-up in 7-10 days. Is a well-corticated and severe and lateral malleolus is seen on previous exam. Disposition Clinical Impression: Right ankle sprain, Knee sprain Disposition: HOME SELF-CARE Condition: Good Instructions: Knee Pain (ED), Ankle Sprain (ED) Additional Instructions: Patient has follow-up with orthopedic physician and primary care provider. Return to emergency department if any alarming signs or symptoms occur. Motrin Tylenol for pain. Ice the extremity for 20 minutes every few hours for few days. Prescriptions: RX: Ibuprofen [Motrin] 600 mg PO Q6HR PRN #20 tab PRN Reason: Pain Is patient prescribed a controlled substance at d/c from ED?: No Referrals: Dick Aldana MD [Primary Care Provider] - 1-2 days Mathew Carrizales DO [Doctor of Osteopathic Medicine] - 1-2 days Time of Disposition: 14:29
== END 2017-11-11 14:45 | disposition home or self-care (01) ==
LOC: EC 13:06
DX: S93.401A Sprain of unspecified ligament of right ankle, initial encounter (principal); S83.91XA Sprain of unspecified site of right knee, initial encounter; F17.200 Nicotine dependence, unspecified, uncomplicated; Z91.012 Allergy to eggs; Z88.5 Allergy status to narcotic agent; Z91.011 Allergy to milk products; Z88.8 Allergy status to other drugs, medicaments and biological substances; X58.XXXA Exposure to other specified factors, initial encounter; Y93.39 Activity, other involving climbing, rappelling and jumping off; Y92.009 Unspecified place in unspecified non-institutional (private) residence as the place of occurrence of the external cause
CPT/HCPCS: 99284

== ENCOUNTER 2018-12-16 19:31 | Emergency (ER) | payer BC, OTHER ==
[2018-12-16 19:37] VITALS: BP 122/79; PULSE 92; RESP 18; TEMP 97.7
--- NOTE | 2018-12-16 19:53 | ED ---
General Adult HPI - General Chief complaint: Psychiatric Symptoms Stated complaint: Mental Health Time Seen by Provider: 12/16/18 19:40 Source: patient, RN notes reviewed, old records reviewed Mode of arrival: ambulatory Limitations: no limitations - History of Present Illness Initial comments: 23 female patient with long psychiatric history of present see chief complaint of sensation of bugs on body. Patient was has been ongoing for approximately 2 days. Patient was a serious an inpatient psychiatric admission, as medication changes. Patient denies any suicidal homicidal ideations. Systemic: Pt denies fatigue, fever/chills, rash. Pt denies weakness, night sweats, weight loss. Neuro: Pt denies headache, visual disturbances, syncope or pre-syncope. HEENT: Pt denies ocular discharge or irritation, otalgia, rhinorrhea, pharyngitis or notable lymphadenopathy. Cardiopulmonary: Pt denies chest pain, SOB, heart palpitations, dyspnea on exertion. Abdominal/GI: Pt denies abdominal pain, n/v/d. : Pt denies dysuria, burning w/ urination, frequency/urgency. Denies new onset urinary or bowel incontinence. MSK: Pt denies myalgia, loss of strength or function in extremities. Neuro: Pt denies new onset weakness, paresthesias. - Related Data Home Medications Medication Instructions Recorded Confirmed ARIPiprazole [Abilify] 10 mg PO HS 12/16/18 12/16/18 Cetirizine HCl/Pseudoephedrine 1 tab PO Q12H PRN 12/16/18 12/16/18 [Zyrtec-D Tablet] Cholecalciferol [Vitamin D3 (25 5,000 unit PO DAILY 12/16/18 12/16/18 Mcg = 1000 Iu)] Fenofibrate [Lofibra] 54 mg PO DAILY 12/16/18 12/16/18 Haloperidol [Haldol] 5 mg PO DAILY 12/16/18 12/16/18 Invega Sust Inj Unknown Dose 1 dose IM DIRECTED 12/16/18 12/16/18 Melatonin 10 mg PO HS 12/16/18 12/16/18 [place]-3 Acid Ethyl Esters [Lovaza] 1 gm PO DAILY 12/16/18 12/16/18 Paliperidone [Paliperidone ER] 6 mg PO DAILY 12/16/18 12/16/18 Pantoprazole Sodium [Protonix] 20 mg PO DAILY 12/16/18 12/16/18 Prazosin [Minipress] 2 mg PO HS 12/16/18 12/16/18 Sertraline [Zoloft] 200 mg PO DAILY 12/16/18 12/16/18 hydrOXYzine PAMOATE 50 mg PO TID 12/16/18 12/16/18 traZODone HCL [Desyrel] 100 mg PO HS 12/16/18 12/16/18 Allergies Allergy/AdvReac Type Severity Reaction Status Date / Time egg Allergy Anaphylaxis Verified 12/16/18 20:47 hydromorphone HCl Allergy Itching Verified 12/16/18 20:47 [From Dilaudid] milk Allergy Anaphylaxis Verified 12/16/18 20:47 gabapentin AdvReac Nausea Verified 12/16/18 20:47 Review of Systems ROS Statement: Those systems with pertinent positive or pertinent negative responses have been documented in the HPI. ROS Other: All systems not noted in ROS Statement are negative. Past Medical History Past Medical History: GERD/Reflux, GI Bleed Additional Past Medical History / Comment(s): borderline personality History of Any Multi-Drug Resistant Organisms: C-DIFF Date of last positivie culture/infection: 2016 MDRO Source:: Stool Past Surgical History: Cholecystectomy, Tonsillectomy Past Anesthesia/Blood Transfusion Reactions: No Reported Reaction Past Psychological History: Anxiety, Depression, PTSD, Schizoaffective Disorder Smoking Status: Current every day smoker Past Alcohol Use History: Occasional Past Drug Use History: None Reported - Past Family History Mother Additional Family Medical History / Comment(s): NONE Father Additional Family Medical History / Comment(s): NONE General Exam - General Exam Comments Initial Comments: Constitutional: NAD, AOX3, Pt has pleasant affect. HEENT: NC/AT, trachea midline, neck supple, no lymphadenopathy. Posterior pharynx non erythematous, without exudates. External ears appear normal, without discharge. Mucous membranes moist. Eyes PERRLA, EOM intact. There is no scleral icterus. No pallor noted. Cardiopulmonary: RRR, no murmurs, rubs or gallops, no JVD noted. Lungs CTAB in anterior and posterior andrade. No peripheral edema. Abdominal exam: Abdomen soft and non-distended. Abdomen non-tender to palpation in all 4 quadrants. Bowel sounds active in LLQ. No hepatosplenomegaly. No ecchymosis Neuro: CN II-XII grossly intact. No nuchal rigidity. No raccon eyes, no silva sign, no hemotympanum. No cervical spinal tenderness. MSK: No posterior calf tenderness bilaterally, homans sign negative bilaterally. Posterior tibialis and radial pulse +2 bilaterally. Sensation intact in upper and lower extremities. Full active ROM in upper and lower extremities, 5/5 stregnth. Limitations: no limitations Course Vital Signs 12/16/18 19:32 Temperature 97.7 F Pulse Rate 92 Respiratory 18 Rate Blood Pressure 122/79 O2 Sat by Pulse 98 Oximetry Medical Decision Making - Medical Decision Making 23-year-old female patient with long psychiatric history presents EKG complaining of complaining of sensation of bugs crawling on her period has been ongoing for approximately 2 days. Denies any suicidal or homicidal ideations. Denies any other complaints. Physical exam essentially acute pathology. Patient was evaluated by emergency psychiatric services and cleared for discharge. Patient follow up with psychiatrist. Case discussed with Dr. Atkins. - Lab Data Lab Results 12/16/18 Range/Units 19:44 Urine Opiates Screen Not Detected (NotDetected) Ur Oxycodone Screen Not Detected (NotDetected) Urine Methadone Screen Not Detected (NotDetected) Ur Propoxyphene Screen Not Detected (NotDetected) Ur Barbiturates Screen Not Detected (NotDetected) U Tricyclic Antidepress Not Detected (NotDetected) Ur Phencyclidine Scrn Not Detected (NotDetected) Ur Amphetamines Screen Not Detected (NotDetected) U Methamphetamines Scrn Not Detected (NotDetected) U Benzodiazepines Scrn Not Detected (NotDetected) Urine Cocaine Screen Not Detected (NotDetected) U Marijuana (THC) Screen Not Detected (NotDetected) Disposition Clinical Impression: Psychiatric disorder Disposition: HOME SELF-CARE Condition: Stable Instructions (If sedation given, give patient instructions): Depression (ED) Additional Instructions: Patient to adhere to previously discussed treatment plan and will take medication(s) as directed. Patient to follow up with PCP in 1-2 days. Patient to return to ED if symptoms do not improve. Follow up with psychiatrist tomorrow, return to ER if condition worsens. Is patient prescribed a controlled substance at d/c from ED?: No Referrals: None,Stated [Primary Care Provider] - 1-2 days
[2018-12-16 20:13] LABS: Amphetamine Screen,Urine Not Detected (NotDetected); Barbiturate Screen,Urine Not Detected (NotDetected); Benzodiazepines Screen,Urine Not Detected (NotDetected); Cocaine Screen,Urine Not Detected (NotDetected); Methadone Screen, Urine Not Detected (NotDetected); Opiate Screen,Urine Not Detected (NotDetected); Oxycodone Screen, Urine Not Detected (NotDetected); Phencyclidine Screen,Urine Not Detected (NotDetected); Tricyclic Antidepressant,Urine Not Detected (NotDetected); Urn Cannabinoid Scrn Not Detected (NotDetected)
== END 2018-12-16 22:08 | disposition home or self-care (01) ==
LOC: EC 19:31
DX: F99 Mental disorder, not otherwise specified (principal); K21.9 Gastro-esophageal reflux disease without esophagitis; F32.9 Major depressive disorder, single episode, unspecified; F41.9 Anxiety disorder, unspecified; F25.9 Schizoaffective disorder, unspecified; F43.10 Post-traumatic stress disorder, unspecified; F17.200 Nicotine dependence, unspecified, uncomplicated; Z88.5 Allergy status to narcotic agent; Z88.8 Allergy status to other drugs, medicaments and biological substances; Z91.011 Allergy to milk products; Z91.012 Allergy to eggs; Z79.899 Other long term (current) drug therapy
CPT/HCPCS: 80306; 82075; 99284

== ENCOUNTER 2018-12-26 09:28 | Emergency (ER) | payer BC, OTHER ==
[2018-12-26 09:43] VITALS: RESP 18; TEMP 98.2
[2018-12-26] MEDS ORDERED: SODIUM CHLORIDE 0.9% 1,000 ML IV STA (09:57)
[2018-12-26] MEDS ORDERED: ONDANSETRON 4 MG/2 ML VIAL IVP STA (09:57)
[2018-12-26] MEDS ORDERED: KETOROLAC 30 MG/ML 1 ML VIAL IVP STA (09:57)
[2018-12-26 10:56] LABS: Appearance,Urine Clear (Clear); Bilirubin,Urine Negative (Negative); Blood,Urine Negative (Negative); Color,Urine Yellow; Glucose,Urine (UA) Negative (Negative); Ketones,Urine Negative (Negative); Leukocyte Esterase,Urine Negative (Negative); Nitrite,Urine Negative (Negative); PH, Urine 6.5 (5.0-8.0); Protein,Urine Negative (Negative); Specific Gravity,Urine 1.018 (1.001-1.035); Urobilinogen,Urine <2.0 mg/dL (<2.0)
--- NOTE | 2018-12-26 11:03 | ED ---
Abdominal Pain HPI - General Chief Complaint: Abdominal Pain Stated Complaint: rt abd pain Time Seen by Provider: 12/26/18 09:49 Source: patient, RN notes reviewed Mode of arrival: ambulatory Limitations: no limitations - History of Present Illness Initial Comments: 23-year-old female presents emergency Department chief complaint of right-sided abdominal pain. Patient states his pain has been going on for 1 month. Patient states has not changed. Patient states that she was seen at another emergency department had a CAT scan which she was told she was constipated. She's been taking medications for this with no relief of symptoms. She offers no dysuria no hematuria. Patient denies any current vomiting but states he is nauseated. Patient has no dysuria no hematuria denies any chance . Patient is on multiple antipsychotic medications believes this is what causing her symptoms. - Related Data Home Medications Medication Instructions Recorded Confirmed Cholecalciferol [Vitamin D3 (25 5,000 unit PO DAILY 12/16/18 12/26/18 Mcg = 1000 Iu)] Haloperidol [Haldol] 5 mg PO DAILY 12/16/18 12/26/18 Invega Sust Inj Unknown Dose 1 dose IM Q30D 12/16/18 12/26/18 Pantoprazole Sodium [Protonix] 20 mg PO DAILY 12/16/18 12/26/18 Sertraline [Zoloft] 200 mg PO DAILY 12/16/18 12/26/18 hydrOXYzine PAMOATE 50 mg PO TID 12/16/18 12/26/18 traZODone HCL [Desyrel] 100 mg PO HS 12/16/18 12/26/18 Previous Rx's Medication Instructions Recorded Dicyclomine [Bentyl] 20 mg PO TID #30 tablet 12/26/18 Allergies Allergy/AdvReac Type Severity Reaction Status Date / Time egg Allergy Anaphylaxis Verified 12/26/18 10:15 hydromorphone HCl Allergy Itching Verified 12/26/18 10:15 [From Dilaudid] milk Allergy Anaphylaxis Verified 12/26/18 10:15 gabapentin AdvReac Nausea Verified 12/26/18 10:15 Review of Systems ROS Statement: Those systems with pertinent positive or pertinent negative responses have been documented in the HPI. ROS Other: All systems not noted in ROS Statement are negative. Past Medical History Past Medical History: GERD/Reflux, GI Bleed Additional Past Medical History / Comment(s): borderline personality History of Any Multi-Drug Resistant Organisms: C-DIFF Date of last positivie culture/infection: 2017 MDRO Source:: Stool Past Surgical History: Cholecystectomy, Tonsillectomy Past Anesthesia/Blood Transfusion Reactions: No Reported Reaction Past Psychological History: Anxiety, Depression, PTSD, Schizoaffective Disorder Smoking Status: Current every day smoker Past Alcohol Use History: Occasional Past Drug Use History: None Reported - Past Family History Mother Additional Family Medical History / Comment(s): NONE Father Additional Family Medical History / Comment(s): NONE General Exam Limitations: no limitations General appearance: alert, in no apparent distress Head exam: Present: atraumatic, normocephalic, normal inspection Eye exam: Present: normal appearance, PERRL, EOMI. Absent: scleral icterus, conjunctival injection, periorbital swelling ENT exam: Present: normal exam, normal oropharynx, mucous membranes moist Neck exam: Present: normal inspection, full ROM. Absent: tenderness, meningismus, lymphadenopathy Respiratory exam: Present: normal lung sounds bilaterally. Absent: respiratory distress, wheezes, rales, rhonchi, stridor Cardiovascular Exam: Present: regular rate, normal rhythm, normal heart sounds. Absent: systolic murmur, diastolic murmur, rubs, gallop, clicks GI/Abdominal exam: Present: soft, tenderness (Mild right-sided), normal bowel sounds. Absent: distended, guarding, rebound, rigid Back exam: Absent: CVA tenderness (R), CVA tenderness (L) Course Vital Signs 12/26/18 09:41 Temperature 98.2 F Pulse Rate 92 Respiratory 18 Rate Blood Pressure 112/74 O2 Sat by Pulse 94 L Oximetry Medical Decision Making - Medical Decision Making Patient had labs, urinalysis and ultrasound no acute findings. Patient does have mild thickened endometrial lining though she states she does not have regular menstrual cycles. Patient may have some underlying IBS. She'll follow up with GI and [facility], return for any worsening symptoms. - Lab Data Result diagrams: 12/26/18 10:23 12/26/18 10:23 Lab Results 12/26/18 12/26/18 12/26/18 Range/Units 10:23 10:23 10:23 WBC (3.8-10.6) k/uL RBC (3.80-5.40) m/uL Hgb (11.4-16.0) gm/dL Hct (34.0-46.0) % MCV (80.0-100.0) fL MCH (25.0-35.0) pg MCHC (31.0-37.0) g/dL RDW (11.5-15.5) % Plt Count (150-450) k/uL Neutrophils % % Lymphocytes % % Monocytes % % Eosinophils % % Basophils % % Neutrophils # (1.3-7.7) k/uL Lymphocytes # (1.0-4.8) k/uL Monocytes # (0-1.0) k/uL Eosinophils # (0-0.7) k/uL Basophils # (0-0.2) k/uL Sodium 141 (137-145) mmol/L Potassium 4.6 (3.5-5.1) mmol/L Chloride 106 (98-107) mmol/L Carbon Dioxide 25 (22-30) mmol/L Anion Gap 10 mmol/L BUN 14 (7-17) mg/dL Creatinine 0.60 (0.52-1.04) mg/dL Est GFR (CKD-EPI)AfAm >90 (>60 ml/min/1.73 sqM) Est GFR (CKD-EPI)NonAf >90 (>60 ml/min/1.73 sqM) Glucose 101 H (74-99) mg/dL Calcium 10.1 (8.4-10.2) mg/dL Total Bilirubin 0.3 (0.2-1.3) mg/dL AST 31 (14-36) U/L ALT 47 (9-52) U/L Alkaline Phosphatase 71 (38-126) U/L Total Protein 8.1 (6.3-8.2) g/dL Albumin 4.7 (3.5-5.0) g/dL Amylase 63 (30-110) U/L Lipase 132 (23-300) U/L Urine Color Yellow Urine Appearance Clear (Clear) Urine pH 6.5 (5.0-8.0) Ur Specific [place] 1.018 (1.001-1.035) Urine Protein Negative (Negative) Urine Glucose (UA) Negative (Negative) Urine Ketones Negative (Negative) Urine Blood Negative (Negative) Urine Nitrite Negative (Negative) Urine Bilirubin Negative (Negative) Urine Urobilinogen <2.0 (<2.0) mg/dL Ur Leukocyte Esterase Negative (Negative) Urine HCG, Qual Not Detected (Not Detectd) 12/26/18 Range/Units 10:23 WBC 9.5 (3.8-10.6) k/uL RBC 4.52 (3.80-5.40) m/uL Hgb 13.8 (11.4-16.0) gm/dL Hct 41.2 (34.0-46.0) % MCV 91.2 (80.0-100.0) fL MCH 30.5 (25.0-35.0) pg MCHC 33.5 (31.0-37.0) g/dL RDW 12.4 (11.5-15.5) % Plt Count 331 (150-450) k/uL Neutrophils % 52 % Lymphocytes % 37 % Monocytes % 4 % Eosinophils % 4 % Basophils % 1 % Neutrophils # 5.0 (1.3-7.7) k/uL Lymphocytes # 3.5 (1.0-4.8) k/uL Monocytes # 0.3 (0-1.0) k/uL Eosinophils # 0.4 (0-0.7) k/uL Basophils # 0.1 (0-0.2) k/uL Sodium (137-145) mmol/L Potassium (3.5-5.1) mmol/L Chloride (98-107) mmol/L Carbon Dioxide (22-30) mmol/L Anion Gap mmol/L BUN (7-17) mg/dL Creatinine (0.52-1.04) mg/dL Est GFR (CKD-EPI)AfAm (>60 ml/min/1.73 sqM) Est GFR (CKD-EPI)NonAf (>60 ml/min/1.73 sqM) Glucose (74-99) mg/dL Calcium (8.4-10.2) mg/dL Total Bilirubin (0.2-1.3) mg/dL AST (14-36) U/L ALT (9-52) U/L Alkaline Phosphatase (38-126) U/L Total Protein (6.3-8.2) g/dL Albumin (3.5-5.0) g/dL Amylase (30-110) U/L Lipase (23-300) U/L Urine Color Urine Appearance (Clear) Urine pH (5.0-8.0) Ur Specific [place] (1.001-1.035) Urine Protein (Negative) Urine Glucose (UA) (Negative) Urine Ketones (Negative) Urine Blood (Negative) Urine Nitrite (Negative) Urine Bilirubin (Negative) Urine Urobilinogen (<2.0) mg/dL Ur Leukocyte Esterase (Negative) Urine HCG, Qual (Not Detectd) Disposition Clinical Impression: Abdominal pain Disposition: HOME SELF-CARE Condition: Stable Instructions (If sedation given, give patient instructions): Abdominal Pain (ED) Additional Instructions: Please return to the Emergency Department if symptoms worsen or any other concerns. Prescriptions: Dicyclomine [Bentyl] 20 mg PO TID #30 tablet Is patient prescribed a controlled substance at d/c from ED?: No Referrals: None,Stated [Primary Care Provider] - 1-2 days Fili Gallagher MD [STAFF PHYSICIAN] - 1-2 days Time of Disposition: 11:33
[2018-12-26 11:05] LABS: ALT 47 U/L (9-52); AST 31 U/L (14-36); African American GFR (CKD) >90 (>60 ml/min/1.73 sqM); Albumin 4.7 g/dL (3.5-5.0); Alkaline Phosphatase 71 U/L (38-126); Amylase 63 U/L (30-110); Anion Gap 10 mmol/L; Blood Urea Nitrogen 14 mg/dL (7-17); Calcium 10.1 mg/dL (8.4-10.2); Carbon Dioxide 25 mmol/L (22-30); Chloride 106 mmol/L (98-107); Glucose 101 mg/dL (74-99); Potassium 4.6 mmol/L (3.5-5.1); Sodium 141 mmol/L (137-145); Total Bilirubin 0.3 mg/dL (0.2-1.3); Total Protein 8.1 g/dL (6.3-8.2)
[2018-12-26 11:11] LABS: Basophils # (A) 0.1 k/uL (0-0.2); Basophils % (A) 1 %; Eosinophils # (A) 0.4 k/uL (0-0.7); Eosinophils % (A) 4 %; HCT 41.2 % (34.0-46.0); HGB 13.8 gm/dL (11.4-16.0); Lymphocytes # (A) 3.5 k/uL (1.0-4.8); Lymphocytes % (A) 37 %; MCH 30.5 pg (25.0-35.0); MCHC 33.5 g/dL (31.0-37.0); MCV 91.2 fL (80.0-100.0); Mean Platelet Volume 6.4; Monocytes # (A) 0.3 k/uL (0-1.0); Monocytes % (A) 4 %; Neutrophils % (A) 52 %; Platelet Count 331 k/uL (150-450); RBC 4.52 m/uL (3.80-5.40); RDW 12.4 % (11.5-15.5); WBC 9.5 k/uL (3.8-10.6)
--- NOTE | 2018-12-26 11:16 | US ---
EXAMINATION TYPE: US transvaginal DATE OF EXAM: 12/26/2018 COMPARISON: NONE CLINICAL HISTORY: pain, suprapubic, right sided. Pain TECHNIQUE: Transvaginal (TV). EXAM MEASUREMENTS: Uterus: 5.9 x 3.3 x 5.4 cm Endometrial Stripe: 1.0 cm Right Ovary: 4.8 x 2.6 x 2.3 cm Left Ovary: 4.4 x 2.3 x 2.9 cm 1. Uterus: Retroverted wnl 2. Endometrium: wnl 3. Right Ovary: Follicles seen. 4. Left Ovary: Follicles seen Spectral, color and waveform doppler imaging shows good arterial and venous flow within the ovaries ; there is no evidence for ovarian torsion. 5. Bilateral Adnexa: wnl 6. Posterior cul-de-sac: wnl IMPRESSION: 1. Endometrial stripe measures 1 cm. Correlate with phase of patient's menstrual cycle to exclude end ometrial pathology. Otherwise, no acute process.
[2018-12-26 11:49] VITALS: BP 108/71; PULSE 88
== END 2018-12-26 11:49 | disposition home or self-care (01) ==
LOC: EC 09:28
DX: R10.9 Unspecified abdominal pain (principal); R93.89 Abnormal findings on diagnostic imaging of other specified body structures; R11.0 Nausea; K59.00 Constipation, unspecified; K21.9 Gastro-esophageal reflux disease without esophagitis; F32.9 Major depressive disorder, single episode, unspecified; F41.9 Anxiety disorder, unspecified; F43.10 Post-traumatic stress disorder, unspecified; F25.9 Schizoaffective disorder, unspecified; F17.200 Nicotine dependence, unspecified, uncomplicated; Z88.5 Allergy status to narcotic agent; Z88.8 Allergy status to other drugs, medicaments and biological substances; Z91.011 Allergy to milk products; Z91.012 Allergy to eggs; Z79.899 Other long term (current) drug therapy; Z90.49 Acquired absence of other specified parts of digestive tract
CPT/HCPCS: 36415; 80053; 82150; 83690; 85025; 81003; 81025; 93975; 76830; 99284; 96374; 96375; 96361; J2405; J1885

== ENCOUNTER 2020-04-27 21:25 | Emergency (ER) | payer OTHER ==
[2020-04-27 21:43] VITALS: TEMP 98.2
[2020-04-27] MEDS ORDERED: SODIUM CHLORIDE 0.9% 500 ML 500 ML IV STA (21:59)
[2020-04-27] MEDS ORDERED: ONDANSETRON 4 MG/2 ML VIAL IVP STA (22:06)
--- NOTE | 2020-04-27 22:07 | ED ---
URI HPI - General Chief Complaint: Upper Respiratory Infection Stated Complaint: Vomiting, body aches Time Seen by Provider: 04/27/20 21:51 Source: patient, RN notes reviewed Mode of arrival: ambulatory Limitations: no limitations - History of Present Illness Initial Comments: Patient is a 24-year-old female, complaining of sore throat for the last several days. She notes that she has not had any cough. She notes that her ears there is been sore and difficult to swallow but. She has not or status and states that she doesn't regularly get menstrual cycles. She denied any pain while sitting up in bed during the interview and exam. She is noted that she will but nauseous and can't keep any food down. She denied chest pain shortness of breath headache vomiting diarrhea constipation fever fatigue chills. - Related Data Home Medications Medication Instructions Recorded Confirmed Cholecalciferol [Vitamin D3 (25 5,000 unit PO DAILY 12/16/18 12/26/18 Mcg = 1000 Iu)] Invega Sust Inj Unknown Dose 1 dose IM Q30D 12/16/18 12/26/18 Pantoprazole Sodium [Protonix] 20 mg PO DAILY 12/16/18 12/26/18 Sertraline [Zoloft] 200 mg PO DAILY 12/16/18 12/26/18 haloperidoL [Haldol] 5 mg PO DAILY 12/16/18 12/26/18 hydrOXYzine pamoate [hydrOXYzine 50 mg PO TID 12/16/18 12/26/18 PAMOATE] traZODone HCL [Desyrel] 100 mg PO HS 12/16/18 12/26/18 Previous Rx's Medication Instructions Recorded Dicyclomine [Bentyl] 20 mg PO TID #30 tablet 12/26/18 Allergies Allergy/AdvReac Type Severity Reaction Status Date / Time egg Allergy Anaphylaxis Verified 04/27/20 21:41 hydromorphone HCl Allergy Itching Verified 04/27/20 21:41 [From Dilaudid] milk Allergy Anaphylaxis Verified 04/27/20 21:41 gabapentin AdvReac Nausea Verified 04/27/20 21:41 Review of Systems ROS Statement: Those systems with pertinent positive or pertinent negative responses have been documented in the HPI. ROS Other: All systems not noted in ROS Statement are negative. Past Medical History Past Medical History: GERD/Reflux, GI Bleed Additional Past Medical History / Comment(s): borderline personality, History of Any Multi-Drug Resistant Organisms: C-DIFF Date of last positivie culture/infection: 2016 MDRO Source:: Stool Past Surgical History: Cholecystectomy, Tonsillectomy Past Anesthesia/Blood Transfusion Reactions: No Reported Reaction Past Psychological History: Anxiety, Depression, PTSD, Schizoaffective Disorder Smoking Status: Never smoker Past Alcohol Use History: Occasional Past Drug Use History: None Reported - Past Family History Mother Additional Family Medical History / Comment(s): NONE Father Additional Family Medical History / Comment(s): NONE General Exam Limitations: no limitations General appearance: alert, in no apparent distress, obese Head exam: Present: atraumatic, normocephalic, normal inspection Eye exam: Present: normal appearance, PERRL, EOMI. Absent: scleral icterus, conjunctival injection, periorbital swelling ENT exam: Present: normal exam, mucous membranes moist Neck exam: Present: normal inspection, tenderness (Submandibular bilaterally). Absent: meningismus, lymphadenopathy Respiratory exam: Present: normal lung sounds bilaterally. Absent: respiratory distress, wheezes, rales, rhonchi, stridor Cardiovascular Exam: Present: regular rate, normal rhythm, normal heart sounds. Absent: systolic murmur, diastolic murmur, rubs, gallop, clicks GI/Abdominal exam: Present: soft, normal bowel sounds. Absent: distended, tenderness, guarding, rebound, rigid Extremities exam: Present: normal inspection, full ROM, normal capillary refill. Absent: tenderness, pedal edema, joint swelling, calf tenderness Neurological exam: Present: alert, oriented X3, CN II-XII intact Psychiatric exam: Present: normal mood, flat affect Skin exam: Present: warm, dry, intact, normal color. Absent: rash Course Vital Signs 04/27/20 04/27/20 21:38 22:35 Temperature 98.2 F Pulse Rate 118 H 103 H Respiratory 18 16 Rate Blood Pressure 125/79 124/86 O2 Sat by Pulse 94 L 96 Oximetry Medical Decision Making - Medical Decision Making 24-year-old female complaining of a sore throat. Basic labs, 500 mL bolus of normal saline, 4 mg of Zofran ordered. Strep test negative. Case discussed with Dr. Atkins, was decided patient could discharge home with conservative management. - Lab Data Result diagrams: 04/27/20 22:27 04/27/20 22:27 Lab Results 04/27/20 04/27/20 04/27/20 Range/Units 21:50 22:27 22:27 WBC 9.6 (3.8-10.6) k/uL RBC 4.45 (3.80-5.40) m/uL Hgb 13.3 (11.4-16.0) gm/dL Hct 40.5 (34.0-46.0) % MCV 90.9 (80.0-100.0) fL MCH 29.8 (25.0-35.0) pg MCHC 32.7 (31.0-37.0) g/dL RDW 13.2 (11.5-15.5) % Plt Count 295 (150-450) k/uL MPV 7.6 Neutrophils % 58 % Lymphocytes % 35 % Monocytes % 4 % Eosinophils % 1 % Basophils % 0 % Neutrophils # 5.5 (1.3-7.7) k/uL Lymphocytes # 3.4 (1.0-4.8) k/uL Monocytes # 0.4 (0-1.0) k/uL Eosinophils # 0.1 (0-0.7) k/uL Basophils # 0.0 (0-0.2) k/uL Sodium 134 L (137-145) mmol/L Potassium 4.0 (3.5-5.1) mmol/L Chloride 103 (98-107) mmol/L Carbon Dioxide 20 L (22-30) mmol/L Anion Gap 11 mmol/L BUN 15 (7-17) mg/dL Creatinine 0.55 (0.52-1.04) mg/dL Est GFR (CKD-EPI)AfAm >90 (>60 ml/min/1.73 sqM) Est GFR (CKD-EPI)NonAf >90 (>60 ml/min/1.73 sqM) Glucose 226 H (74-99) mg/dL Calcium 9.3 (8.4-10.2) mg/dL Urine HCG, Qual Not Detected (Not Detectd) Group A Strep Rapid (Negative) 04/27/20 Range/Units 22:35 WBC (3.8-10.6) k/uL RBC (3.80-5.40) m/uL Hgb (11.4-16.0) gm/dL Hct (34.0-46.0) % MCV (80.0-100.0) fL MCH (25.0-35.0) pg MCHC (31.0-37.0) g/dL RDW (11.5-15.5) % Plt Count (150-450) k/uL MPV Neutrophils % % Lymphocytes % % Monocytes % % Eosinophils % % Basophils % % Neutrophils # (1.3-7.7) k/uL Lymphocytes # (1.0-4.8) k/uL Monocytes # (0-1.0) k/uL Eosinophils # (0-0.7) k/uL Basophils # (0-0.2) k/uL Sodium (137-145) mmol/L Potassium (3.5-5.1) mmol/L Chloride (98-107) mmol/L Carbon Dioxide (22-30) mmol/L Anion Gap mmol/L BUN (7-17) mg/dL Creatinine (0.52-1.04) mg/dL Est GFR (CKD-EPI)AfAm (>60 ml/min/1.73 sqM) Est GFR (CKD-EPI)NonAf (>60 ml/min/1.73 sqM) Glucose (74-99) mg/dL Calcium (8.4-10.2) mg/dL Urine HCG, Qual (Not Detectd) Group A Strep Rapid Negative (Negative) Disposition Clinical Impression: Acute upper respiratory infection Disposition: HOME SELF-CARE Condition: Stable Instructions (If sedation given, give patient instructions): Upper Respiratory Infection (ED) Additional Instructions: Please return to the Emergency Department if symptoms worsen or any other concerns. Follow-up with primary care in 2-4 days. Conservative visual with rest, [id number] pain medication for fever and aches, increase oral fluid intake. Is patient prescribed a controlled substance at d/c from ED?: No Referrals: Nonstaff,Physician [Primary Care Provider] - 1-2 days Time of Disposition: 23:01
[2020-04-27 22:35] VITALS: RESP 16
[2020-04-27 22:37] LABS: Basophils % (A) 0 %; Eosinophils # (A) 0.1 k/uL (0-0.7); Eosinophils % (A) 1 %; HCT 40.5 % (34.0-46.0); HGB 13.3 gm/dL (11.4-16.0); Lymphocytes # (A) 3.4 k/uL (1.0-4.8); Lymphocytes % (A) 35 %; MCH 29.8 pg (25.0-35.0); MCHC 32.7 g/dL (31.0-37.0); MCV 90.9 fL (80.0-100.0); Mean Platelet Volume 7.6; Monocytes # (A) 0.4 k/uL (0-1.0); Monocytes % (A) 4 %; Neutrophils # (A) 5.5 k/uL (1.3-7.7); Neutrophils % (A) 58 %; Platelet Count 295 k/uL (150-450); RBC 4.45 m/uL (3.80-5.40); RDW 13.2 % (11.5-15.5); WBC 9.6 k/uL (3.8-10.6)
[2020-04-27 23:01] LABS: African American GFR (CKD) >90 (>60 ml/min/1.73 sqM); Anion Gap 11 mmol/L; Blood Urea Nitrogen 15 mg/dL (7-17); Calcium 9.3 mg/dL (8.4-10.2); Carbon Dioxide 20 mmol/L (22-30); Chloride 103 mmol/L (98-107); Glucose 226 mg/dL (74-99); Non-African American GFR(CKD) >90 (>60 ml/min/1.73 sqM); Sodium 134 mmol/L (137-145)
[2020-04-27] MEDS ORDERED: ONDANSETRON 4 MG ODT STARTER PACK 2 TAB BTL PO STA (23:37)
[2020-04-27 23:51] VITALS: BP 112/78; PULSE 91
== END 2020-04-27 23:50 | disposition home or self-care (01) ==
LOC: EC 21:25
DX: J06.9 Acute upper respiratory infection, unspecified (principal); K21.9 Gastro-esophageal reflux disease without esophagitis; F20.9 Schizophrenia, unspecified; F41.9 Anxiety disorder, unspecified; Z90.49 Acquired absence of other specified parts of digestive tract; Z90.09 Acquired absence of other part of head and neck
CPT/HCPCS: 36415; 80048; 85025; 81025; 87081; 87430; 99283; 96374; J2405; S0119

== ENCOUNTER 2020-07-14 16:24 | Emergency (ER) | payer OTHER ==
[2020-07-14 16:36] VITALS: TEMP 98.3
[2020-07-14] MEDS ORDERED: Acetaminophen-Codeine 300-30mg TAB PO STA (16:55)
--- NOTE | 2020-07-14 16:55 | ED ---
General Adult HPI - General Chief complaint: Fall Stated complaint: fall, R knee injury Time Seen by Provider: 07/14/20 16:43 Source: patient Mode of arrival: wheelchair Limitations: no limitations - History of Present Illness Initial comments: Dictation was produced using [employer] dictation software. please excuse any grammatical, word or spelling errors. Chief Complaint: 25-year-old male presents with medial right knee pain History of Present Illness: Is a 25-year-old female presents today with medial right knee pain. Patient states she was walking up the stairs when she slipped and hurt her right knee. She contused her knee on the stair. 2 weeks ago patient had another fall where she injured her knee and ankle. She's been wearing an immobilizer in the meantime. The ROS documented in this emergency department record has been reviewed and confirmed by me. Those systems with pertinent positive or negative responses h ave been documented in the HPI. All other systems are other negative and/or noncontributory. PHYSICAL EXAM: General Impression: Alert and oriented x3, not in acute distress HEENT: Normocephalic atraumatic, extra-ocular movements intact, pupils equal and reactive to light bilaterally, mucous membranes moist. Cardiovascular: Heart regular rate and rhythm Chest: Able to complete full sentences, no retractions, no tachypnea Abdomen: abdomen soft, non-tender, non-distended, no organomegaly Musculoskeletal: Pulses present and equal in all extremities, no peripheral edema Right knee: No obvious right knee swelling or obvious right knee deformity. She does have tenderness to palpation over the right medial knee just lateral to the patella. Motor: no focal deficits noted Neurological: CN II-XII grossly intact, no focal motor or sensory deficits noted Skin: Intact with no visualized rashes Psych: Normal affect and mood ED course: 25-year-old female with knee pain after fall. Patient denies . She is not sexually active. Vital signs upon arrival are within acceptable limits. X-rays unremarkable. Clinical presentation consistent with knee contusion. Patient be discharged. She is told to follow-up with her orthopedic surgeon. - Related Data Home Medications Medication Instructions Recorded Confirmed Cholecalciferol [Vitamin D3 (25 5,000 unit PO DAILY 12/16/18 12/26/18 Mcg = 1000 Iu)] Invega Sust Inj Unknown Dose 1 dose IM Q30D 12/16/18 12/26/18 Pantoprazole Sodium [Protonix] 20 mg PO DAILY 12/16/18 12/26/18 Sertraline [Zoloft] 200 mg PO DAILY 12/16/18 12/26/18 haloperidoL [Haldol] 5 mg PO DAILY 12/16/18 12/26/18 hydrOXYzine pamoate [hydrOXYzine 50 mg PO TID 12/16/18 12/26/18 PAMOATE] traZODone HCL [Desyrel] 100 mg PO HS 12/16/18 12/26/18 Previous Rx's Medication Instructions Recorded Dicyclomine [Bentyl] 20 mg PO TID #30 tablet 12/26/18 Allergies Allergy/AdvReac Type Severity Reaction Status Date / Time egg Allergy Anaphylaxis Verified 07/14/20 16:36 hydromorphone HCl Allergy Itching Verified 07/14/20 16:36 [From Dilaudid] milk Allergy Anaphylaxis Verified 07/14/20 16:36 gabapentin AdvReac Nausea Verified 07/14/20 16:36 Review of Systems ROS Statement: Those systems with pertinent positive or pertinent negative responses have been documented in the HPI. ROS Other: All systems not noted in ROS Statement are negative. Past Medical History Past Medical History: GERD/Reflux, GI Bleed Additional Past Medical History / Comment(s): borderline personality, History of Any Multi-Drug Resistant Organisms: C-DIFF Date of last positivie culture/infection: 2016 MDRO Source:: Stool Past Surgical History: Cholecystectomy, Tonsillectomy Past Anesthesia/Blood Transfusion Reactions: No Reported Reaction Past Psychological History: Anxiety, Depression, PTSD, Schizoaffective Disorder Smoking Status: Never smoker Past Alcohol Use History: Occasional Past Drug Use History: None Reported - Past Family History Mother Additional Family Medical History / Comment(s): NONE Father Additional Family Medical History / Comment(s): NONE General Exam Limitations: no limitations Course Vital Signs 07/14/20 16:31 Temperature 98.3 F Pulse Rate 109 H Respiratory 20 Rate Blood Pressure 130/87 O2 Sat by Pulse 96 Oximetry Disposition Clinical Impression: Knee contusion Disposition: HOME SELF-CARE Condition: Good Instructions (If sedation given, give patient instructions): Fall Prevention (ED) Is patient prescribed a controlled substance at d/c from ED?: No Referrals: Nonstaff,Physician [Primary Care Provider] - 1-2 days
--- NOTE | 2020-07-14 18:25 | XR ---
Result: History: Pain. Comparison: 11/11/2017.. Technique: 3 views of the right knee. Findings: No acute fracture or dislocation is seen. The visualized osseous structures are in anatomic alignmen t. The joint spaces are preserved. There is no significant knee joint effusion. Impression: No acute osseous abnormality.
[2020-07-14 18:41] VITALS: BP 139/78; PULSE 87; RESP 16
== END 2020-07-14 18:50 | disposition home or self-care (01) ==
LOC: EC 16:24
DX: S80.01XA Contusion of right knee, initial encounter (principal); K21.9 Gastro-esophageal reflux disease without esophagitis; F32.9 Major depressive disorder, single episode, unspecified; F25.9 Schizoaffective disorder, unspecified; Z90.49 Acquired absence of other specified parts of digestive tract; Z90.09 Acquired absence of other part of head and neck; W01.0XXA Fall on same level from slipping, tripping and stumbling without subsequent striking against object, initial encounter; Y93.01 Activity, walking, marching and hiking
CPT/HCPCS: 99283

== ENCOUNTER 2020-11-10 18:19 | Emergency (ER) | payer OTHER ==
[2020-11-10] MEDS ORDERED: methylPREDNISolone SOD SUCCI 125 MG/2 ML VIAL IM ONE (19:15)
[2020-11-10] MEDS ORDERED: ACETAMINOPHEN TAB 500 MG TAB PO STA (19:15)
--- NOTE | 2020-11-10 19:52 | XR ---
EXAMINATION TYPE: XR lumbar spine 2 or 3V DATE OF EXAM: 11/10/2020 COMPARISON: NONE HISTORY: Back pain TECHNIQUE: 3 views FINDINGS: Lumbar vertebra have normal alignment. Posterior elements are intact. There is no compressi on fracture. Sacroiliac joints are normal. There are clips from cholecystectomy. IMPRESSION: Negative lumbar spine exam. No fracture.
--- NOTE | 2020-11-10 20:04 | ED ---
Back Pain HPI - General Chief Complaint: Back Pain/Injury Stated Complaint: back pain Time Seen by Provider: 11/10/20 18:55 Source: patient, RN notes reviewed Limitations: no limitations - History of Present Illness Initial Comments: Patient is a 25 she'll female complaining of bilateral lower back pain. She notes she does sleep on her stomach has been having this pain for the last week. She notes that she did not have any injury or trauma that she knows of. She notes that she is able to walk. She denied any weakness in her lower extremities. She notes that she does get faint radicular symptoms. She denied any saddle anesthesia or difficulties over the bathroom. She denied any bladder or bowel retention or incontinence. She was otherwise well-appearing 25 she'll female in no apparent distress or pain. She denied any chest pain shortness of breath headache nausea vomiting diarrhea constipation fever fatigue chills. - Related Data Home Medications Medication Instructions Recorded Confirmed Cholecalciferol [Vitamin D3 (25 5,000 unit PO DAILY 12/16/18 12/26/18 Mcg = 1000 Iu)] Invega Sust Inj Unknown Dose 1 dose IM Q30D 12/16/18 12/26/18 Pantoprazole Sodium [Protonix] 20 mg PO DAILY 12/16/18 12/26/18 Sertraline [Zoloft] 200 mg PO DAILY 12/16/18 12/26/18 haloperidoL [Haldol] 5 mg PO DAILY 12/16/18 12/26/18 hydrOXYzine pamoate [hydrOXYzine 50 mg PO TID 12/16/18 12/26/18 PAMOATE] traZODone HCL [Desyrel] 100 mg PO HS 12/16/18 12/26/18 Previous Rx's Medication Instructions Recorded Dicyclomine [Bentyl] 20 mg PO TID #30 tablet 12/26/18 Ibuprofen [Motrin] 600 mg PO Q8HR PRN #30 tab 11/10/20 predniSONE 50 mg PO DAILY #5 tab 11/10/20 Allergies Allergy/AdvReac Type Severity Reaction Status Date / Time egg Allergy Anaphylaxis Verified 11/10/20 18:32 hydromorphone HCl Allergy Itching Verified 11/10/20 18:32 [From Dilaudid] milk Allergy Anaphylaxis Verified 11/10/20 18:32 gabapentin AdvReac Nausea Verified 11/10/20 18:32 Review of Systems ROS Statement: Those systems with pertinent positive or pertinent negative responses have been documented in the HPI. ROS Other: All systems not noted in ROS Statement are negative. Past Medical History Past Medical History: GERD/Reflux, GI Bleed Additional Past Medical History / Comment(s): borderline personality, History of Any Multi-Drug Resistant Organisms: C-DIFF Date of last positivie culture/infection: 2016 MDRO Source:: Stool Past Surgical History: Cholecystectomy, Tonsillectomy Past Anesthesia/Blood Transfusion Reactions: No Reported Reaction Past Psychological History: Anxiety, Depression, PTSD, Schizoaffective Disorder Smoking Status: Vaper Past Alcohol Use History: Occasional Past Drug Use History: None Reported - Past Family History Mother Additional Family Medical History / Comment(s): NONE Father Additional Family Medical History / Comment(s): NONE General Exam Limitations: no limitations General appearance: alert, in no apparent distress Head exam: Present: atraumatic, normocephalic, normal inspection Eye exam: Present: normal appearance, PERRL, EOMI. Absent: scleral icterus, conjunctival injection, periorbital swelling Neck exam: Present: normal inspection Respiratory exam: Present: normal lung sounds bilaterally. Absent: respiratory distress, wheezes, rales, rhonchi, stridor Cardiovascular Exam: Present: regular rate, normal rhythm, normal heart sounds. Absent: systolic murmur, diastolic murmur, rubs, gallop, clicks GI/Abdominal exam: Present: soft, normal bowel sounds. Absent: distended, tenderness, guarding, rebound, rigid Extremities exam: Present: normal inspection, tenderness Back exam: Present: normal inspection, tenderness (Bilateral SI) Neurological exam: Present: alert, oriented X3 Psychiatric exam: Present: normal affect, normal mood Skin exam: Present: warm, dry, intact, normal color. Absent: rash Course Vital Signs 11/10/20 18:28 Temperature 98.3 F Pulse Rate 128 H Respiratory 24 Rate Blood Pressure 139/67 O2 Sat by Pulse 99 Oximetry Medical Decision Making - Medical Decision Making 25 she'll female with bilateral low back pain. X-ray lumbar spine, 125 mg of Solu-Medrol, 1000 mg of Tylenol ordered. X-ray negative for any acute fractures dislocations. Case discussed with Dr. Bunn, patient discharge home with follow-up primary care for sciatic back pain - Radiology Data Radiology results: report reviewed, image reviewed X-ray of the lumbar spine: Negative name of the lumbar spine. No fracture. Disposition Clinical Impression: Sciatica Disposition: HOME SELF-CARE Condition: Stable Instructions (If sedation given, give patient instructions): Acute Low Back Pain (ED) Additional Instructions: Please return to the Emergency Department if symptoms worsen or any other concerns. Follow-up primary care 1-2 days. Take prednisone and Motrin as prescribed. Avoid any shortness activity or lifting. Is patient prescribed a controlled substance at d/c from ED?: No Referrals: Nonstaff,Physician [Primary Care Provider] - 1-2 days Time of Disposition: 20:04
[2020-11-10 20:13] VITALS: BP 100/68; PULSE 89; RESP 16; TEMP 97.5
== END 2020-11-10 20:11 | disposition home or self-care (01) ==
LOC: EC 18:19
DX: M54.42 Lumbago with sciatica, left side (principal); M54.41 Lumbago with sciatica, right side; K21.9 Gastro-esophageal reflux disease without esophagitis; F17.290 Nicotine dependence, other tobacco product, uncomplicated; Z88.5 Allergy status to narcotic agent; Z88.8 Allergy status to other drugs, medicaments and biological substances; Z91.012 Allergy to eggs; Z91.011 Allergy to milk products; Z79.899 Other long term (current) drug therapy
CPT/HCPCS: 72100; 99283; 96372; J2930

== ENCOUNTER 2020-11-27 17:39 | Emergency (ER) | payer OTHER ==
[2020-11-27 18:27] VITALS: BP 129/87; PULSE 119; RESP 19; TEMP 98.9
--- NOTE | 2020-11-27 18:44 | ED ---
Lower Extremity Injury HPI - General Chief Complaint: Extremity Injury, Lower Stated Complaint: Injury,Rt Ankle Time Seen by Provider: 11/27/20 18:29 Source: patient, RN notes reviewed Mode of arrival: ambulatory Limitations: no limitations - History of Present Illness Initial Comments: 25-year-old female presented to the ER for right ankle pain. Patient states she rolled ankle one week prior, then again this morning while trying to not trip over with her nephew. Patient states pain is worse on lateral side of the ankle 12/01 pain without relief with ibuprofen. Patient reports swelling in extremity with inability to bear weight on the affected side. Patient denies any pain proximal in the or distal in foot to injury. - Related Data Home Medications Medication Instructions Recorded Confirmed Cholecalciferol [Vitamin D3 (25 5,000 unit PO DAILY 12/16/18 12/26/18 Mcg = 1000 Iu)] Invega Sust Inj Unknown Dose 1 dose IM Q30D 12/16/18 12/26/18 Pantoprazole Sodium [Protonix] 20 mg PO DAILY 12/16/18 12/26/18 Sertraline [Zoloft] 200 mg PO DAILY 12/16/18 12/26/18 haloperidoL [Haldol] 5 mg PO DAILY 12/16/18 12/26/18 hydrOXYzine pamoate [hydrOXYzine 50 mg PO TID 12/16/18 12/26/18 PAMOATE] traZODone HCL [Desyrel] 100 mg PO HS 12/16/18 12/26/18 Previous Rx's Medication Instructions Recorded Dicyclomine [Bentyl] 20 mg PO TID #30 tablet 12/26/18 Ibuprofen [Motrin] 600 mg PO Q8HR PRN #30 tab 11/10/20 predniSONE 50 mg PO DAILY #5 tab 11/10/20 Ibuprofen [Motrin] 600 mg PO Q8HR PRN #20 tab 11/27/20 Allergies Allergy/AdvReac Type Severity Reaction Status Date / Time egg Allergy Anaphylaxis Verified 11/27/20 18:27 hydromorphone HCl Allergy Itching Verified 11/27/20 18:27 [From Dilaudid] milk Allergy Anaphylaxis Verified 11/27/20 18:27 gabapentin AdvReac Nausea Verified 11/27/20 18:27 Review of Systems ROS Statement: Those systems with pertinent positive or pertinent negative responses have been documented in the HPI. ROS Other: All systems not noted in ROS Statement are negative. Past Medical History Past Medical History: GERD/Reflux, GI Bleed Additional Past Medical History / Comment(s): borderline personality, History of Any Multi-Drug Resistant Organisms: C-DIFF Date of last positivie culture/infection: 2016 MDRO Source:: Stool Past Surgical History: Cholecystectomy, Tonsillectomy Past Anesthesia/Blood Transfusion Reactions: No Reported Reaction Past Psychological History: Anxiety, Depression, PTSD, Schizoaffective Disorder Smoking Status: Vaper Past Alcohol Use History: Occasional Past Drug Use History: None Reported - Past Family History Mother Additional Family Medical History / Comment(s): NONE Father Additional Family Medical History / Comment(s): NONE General Exam Limitations: no limitations General appearance: alert, in no apparent distress Head exam: Present: atraumatic, normocephalic, normal inspection Eye exam: Present: normal appearance, PERRL, EOMI. Absent: scleral icterus, conjunctival injection, periorbital swelling ENT exam: Present: normal exam, mucous membranes moist Neck exam: Present: normal inspection. Absent: tenderness, meningismus, lymphadenopathy Respiratory exam: Present: normal lung sounds bilaterally. Absent: respiratory distress, wheezes, rales, rhonchi, stridor Cardiovascular Exam: Present: regular rate, normal rhythm, normal heart sounds. Absent: systolic murmur, diastolic murmur, rubs, gallop, clicks Right Knee exam: Present: normal inspection Lower Leg exam: Present: normal inspection Ankle exam: Present: tenderness (Severe over the lateral aspect), swelling Foot/Toe exam: Present: normal inspection Course Vital Signs 11/27/20 18:24 Temperature 98.9 F Pulse Rate 119 H Respiratory 19 Rate Blood Pressure 129/87 O2 Sat by Pulse 95 Oximetry Medical Decision Making - Medical Decision Making X-rays unremarkable. There is an old calcified area but no acute fracture. Patient had her ankle sprain was placed in a stirrup Aircast will follow-up with orthopedics as needed return parameters were discussed. Disposition Clinical Impression: Right ankle sprain Disposition: HOME SELF-CARE Condition: Stable Instructions (If sedation given, give patient instructions): Ankle Sprain (ED) Additional Instructions: Please return to the Emergency Department if symptoms worsen or any other concerns. Prescriptions: Ibuprofen [Motrin] 600 mg PO Q8HR PRN #20 tab PRN Reason: Pain Is patient prescribed a controlled substance at d/c from ED?: No Referrals: None,Stated [Primary Care Provider] - 1-2 days Time of Disposition: 19:37
[2020-11-27] MEDS ORDERED: HYDROcodone/APAP 5-325MG 1 EACH TAB PO STA (18:47)
[2020-11-27] MEDS ORDERED: ACET/COD 300 MG/30 MG STARTER PACK 6 TAB BTL PO STA (19:37)
--- NOTE | 2020-11-27 20:17 | XR ---
EXAMINATION TYPE: XR ankle complete RT DATE OF EXAM: 11/27/2020 COMPARISON: NONE HISTORY: 25-year-old female rolled ankle today, pain TECHNIQUE: 3 views FINDINGS: Bone fragment measuring 6 mm below the lateral malleolus is corticated. There is anterior and lateral soft tissue swelling noted. Borderline increase in the lateral clear space and 5.7 mm. Talar dome is intact. No acute fracture, subluxation, dislocation is seen. IMPRESSION: 1. Anterior and lateral soft tissue swelling with borderline increased lateral clear space. Consider a high ankle sprain. 2. A 6 mm chronically ununited fracture fragment below the lateral malleolus. Otherwise, no acute oss eous abnormality seen.
== END 2020-11-27 19:50 | disposition home or self-care (01) ==
LOC: EC 17:39
DX: S93.401A Sprain of unspecified ligament of right ankle, initial encounter (principal); K21.9 Gastro-esophageal reflux disease without esophagitis; F32.9 Major depressive disorder, single episode, unspecified; F41.9 Anxiety disorder, unspecified; F25.9 Schizoaffective disorder, unspecified; F17.290 Nicotine dependence, other tobacco product, uncomplicated; Z79.1 Long term (current) use of non-steroidal anti-inflammatories (NSAID); Z79.52 Long term (current) use of systemic steroids; Z79.899 Other long term (current) drug therapy; Z88.5 Allergy status to narcotic agent; Z88.8 Allergy status to other drugs, medicaments and biological substances; Z90.49 Acquired absence of other specified parts of digestive tract; X50.1XXA Overexertion from prolonged static or awkward postures, initial encounter
CPT/HCPCS: 99283

== ENCOUNTER 2021-02-10 14:40 | Inpatient (IN) | payer MEDICARE, MEDICAID ==
--- NOTE | 2021-02-10 16:30 | ED ---
Psych HPI - General Chief Complaint: Psychiatric Symptoms Stated Complaint: Mental Health Time Seen by Provider: 02/10/21 16:22 Source: patient Mode of arrival: ambulatory - History of Present Illness Initial Comments: 25 year-old female patient presents for increased visual and auditory hallucinations and increased suicidal ideation. States that she had a medication change two weeks ago. They stopped her clozaril and increased her Haldol dosage. States that the voices have just gotten worse. States that the voices are telling her to kill herself. Her plan is to overdose on pills. States she has done this before. Has had mental health admission before. She denies taking any extra medications today. Denies any self harm or injuries. Denies alcohol or drug use. Denies any current physical illnesses. Denies chance of . - Related Data Home Medications Medication Instructions Recorded Confirmed FLUoxetine HCL [PROzac] 40 mg PO DAILY 02/10/21 02/10/21 Haloperidol Decanoate [Haldol D] 200 mg IM Q14D 02/10/21 02/10/21 Allergies Allergy/AdvReac Type Severity Reaction Status Date / Time egg Allergy Anaphylaxis Verified 02/10/21 20:28 hydromorphone HCl Allergy Itching Verified 02/10/21 20:28 [From Dilaudid] milk Allergy Anaphylaxis Verified 02/10/21 20:28 gabapentin AdvReac Nausea Verified 02/10/21 20:28 Review of Systems ROS Statement: Those systems with pertinent positive or pertinent negative responses have been documented in the HPI. ROS Other: All systems not noted in ROS Statement are negative. Past Medical History Past Medical History: GERD/Reflux, GI Bleed Additional Past Medical History / Comment(s): borderline personality, History of Any Multi-Drug Resistant Organisms: C-DIFF Date of last positivie culture/infection: 2016 MDRO Source:: Stool Past Surgical History: Cholecystectomy, Tonsillectomy Past Anesthesia/Blood Transfusion Reactions: No Reported Reaction Past Psychological History: Anxiety, Depression, PTSD, Schizoaffective Disorder Smoking Status: Vaper Past Alcohol Use History: Occasional Past Drug Use History: Marijuana - Past Family History Mother Additional Family Medical History / Comment(s): NONE Father Additional Family Medical History / Comment(s): NONE General Exam Limitations: no limitations General appearance: alert, in no apparent distress, other (This is a well- developed, well-nourished adult female in no acute distress.) ENT exam: Present: normal exam, normal oropharynx, mucous membranes moist Respiratory exam: Present: normal lung sounds bilaterally. Absent: respiratory distress, wheezes, rales, rhonchi, stridor Cardiovascular Exam: Present: regular rate, normal rhythm, normal heart sounds. Absent: systolic murmur, diastolic murmur, rubs, gallop, clicks GI/Abdominal exam: Present: soft, normal bowel sounds. Absent: distended, tenderness, guarding, rebound, rigid Neurological exam: Present: alert, oriented X3, CN II-XII intact Psychiatric exam: Present: depressed, flat affect, suicidal ideation. Absent: homicidal ideation Skin exam: Present: warm, dry, intact, normal color. Absent: rash Course Vital Signs 02/10/21 15:37 Temperature 98.7 F Pulse Rate 76 Respiratory 20 Rate Blood Pressure 101/69 O2 Sat by Pulse 95 Oximetry Medical Decision Making - Medical Decision Making 25 old female patient presented for increased visual auditory hallucinations suicidal ideation. She was seen and evaluated by emergency psychiatric services and associated better from inpatient admission. She will be transferred to inpatient mental health unit. She is agreeable to plan. My attending is Dr. Manzo. - Lab Data Lab Results 02/10/21 02/10/21 02/10/21 Range/Units 16:51 16:51 16:51 Urine HCG, Qual Not Detected (Not Detectd) Urine Opiates Screen Not Detected (NotDetected) Ur Oxycodone Screen Not Detected (NotDetected) Urine Methadone Screen Not Detected (NotDetected) Ur Propoxyphene Screen Not Detected (NotDetected) Ur Barbiturates Screen Not Detected (NotDetected) U Tricyclic Antidepress Not Detected (NotDetected) Ur Phencyclidine Scrn Not Detected (NotDetected) Ur Amphetamines Screen Not Detected (NotDetected) U Methamphetamines Scrn Not Detected (NotDetected) U Benzodiazepines Scrn Detected H (NotDetected) Urine Cocaine Screen Not Detected (NotDetected) U Marijuana (THC) Screen Detected H (NotDetected) Coronavirus (PCR) Not Detected (Not Detectd) Disposition Clinical Impression: Hallucinations, Suicidal ideation Disposition: ADMITTED IP TO THIS [facility] Condition: Serious Decision to Admit Reason: Admit from EC Decision Date: 02/10/21 Decision Time: 21:41
[2021-02-10 17:15] LABS: Amphetamine Screen,Urine Not Detected (NotDetected); Benzodiazepines Screen,Urine Detected (NotDetected); Cocaine Screen,Urine Not Detected (NotDetected); Opiate Screen,Urine Not Detected (NotDetected); Phencyclidine Screen,Urine Not Detected (NotDetected); Urn Cannabinoid Scrn Detected (NotDetected)
[2021-02-10 17:16] LABS: Barbiturate Screen,Urine Not Detected (NotDetected); Methadone Screen, Urine Not Detected (NotDetected); Oxycodone Screen, Urine Not Detected (NotDetected); Tricyclic Antidepressant,Urine Not Detected (NotDetected)
[2021-02-10] MEDS ORDERED: MAGNESIUM HYDROXIDE 2,400 MG/10 ML CUP PO PRN (21:35)
[2021-02-10] MEDS ORDERED: MAG HYDROX/AL HYDROX/SIMETH 30 ML CUP PO PRN (21:35)
[2021-02-10] MEDS ORDERED: LORazepam 2 MG/ML INJ IM PRN (21:39)
[2021-02-10] MEDS ORDERED: HALOPERIDOL LACTATE 5 MG/ML 1 ML VIAL IM PRN (22:00)
[2021-02-10 22:37] LABS: Appearance,Urine Clear (Clear); Bilirubin,Urine Negative (Negative); Blood,Urine Negative (Negative); Color,Urine Yellow; Glucose,Urine (UA) Negative (Negative); Ketones,Urine Negative (Negative); Leukocyte Esterase,Urine Negative (Negative); Nitrite,Urine Negative (Negative); PH, Urine 6.5 (5.0-8.0); Protein,Urine Negative (Negative); Specific Gravity,Urine 1.025 (1.001-1.035); Urobilinogen,Urine <2.0 mg/dL (<2.0)
[2021-02-11 07:33] VITALS: RESP 18
[2021-02-11] MEDS ORDERED: FLUoxetine HCL 20 MG CAP PO SCH (09:00)
[2021-02-11] MEDS: NICOTINE 14MG/24HR PATCH TRANSDERM SCH (09:03)
[2021-02-11] MEDS: ACETAMINOPHEN TAB 325 MG TAB PO PRN ×2 (11:28→16:55)
--- NOTE | 2021-02-11 13:11 | P.HP ---
Psychiatric H&P - . H&P Date: 02/11/21 History & Physical: Allergies Allergy/AdvReac Type Severity Reaction Status Date / Time egg Allergy Anaphylaxis Verified 02/10/21 20:28 hydromorphone HCl Allergy Itching Verified 02/10/21 20:28 From Dilaudid milk Allergy Anaphylaxis Verified 02/10/21 20:28 gabapentin AdvReac Nausea Verified 02/10/21 20:28 Vital Signs Temp 98.0 F 02/11/21 07:19 Pulse 74 02/11/21 07:19 Resp 18 02/11/21 07:19 BP 90/50 02/11/21 07:19 Pulse Ox 95 02/10/21 15:37 Intake & Output 02/10/21 02/11/21 02/11/21 18:59 06:59 18:59 Weight 108.862 kg Laboratory Last Values Urine Color Yellow 02/10/21 16:51 Urine Appearance Clear (Clear) 02/10/21 16:51 Urine pH 6.5 (5.0-8.0) 02/10/21 16:51 Ur Specific [place] 1.025 (1.001-1.035) 02/10/21 16:51 Urine Protein Negative (Negative) 02/10/21 16:51 Urine Glucose (UA) Negative (Negative) 02/10/21 16:51 Urine Ketones Negative (Negative) 02/10/21 16:51 Urine Blood Negative (Negative) 02/10/21 16:51 Urine Nitrite Negative (Negative) 02/10/21 16:51 Urine Bilirubin Negative (Negative) 02/10/21 16:51 Urine Urobilinogen <2.0 mg/dL (<2.0) 02/10/21 16:51 Ur Leukocyte Esterase Negative (Negative) 02/10/21 16:51 Urine HCG, Qual Not Detected (Not Detectd) 02/10/21 16:51 Urine Opiates Screen Not Detected (NotDetected) 02/10/21 16:51 Ur Oxycodone Screen Not Detected (NotDetected) 02/10/21 16:51 Urine Methadone Screen Not Detected (NotDetected) 02/10/21 16:51 Ur Propoxyphene Screen Not Detected (NotDetected) 02/10/21 16:51 Ur Barbiturates Screen Not Detected (NotDetected) 02/10/21 16:51 U Tricyclic Antidepress Not Detected (NotDetected) 02/10/21 16:51 Ur Phencyclidine Scrn Not Detected (NotDetected) 02/10/21 16:51 Ur Amphetamines Screen Not Detected (NotDetected) 02/10/21 16:51 U Methamphetamines Scrn Not Detected (NotDetected) 02/10/21 16:51 U Benzodiazepines Scrn Detected (NotDetected) H 02/10/21 16:51 Urine Cocaine Screen Not Detected (NotDetected) 02/10/21 16:51 U Marijuana (THC) Screen Detected (NotDetected) H 02/10/21 16:51 Coronavirus (PCR) Not Detected (Not Detectd) 02/10/21 16:51 02/11/21 13:04 IDENTIFYING DATA: Patient is a 25-year-old female who currently lives with her brother and apartment has no kids and is unmarried. HPI: Patient presented to the hospital and was complaining the ER of increase in auditory hallucinations and suicidal thoughts. Patient apparently mentioned a plan to overdose. Patient is at several psychiatric admissions in the past and the last one was in 2018 on the mental health unit. Patient was admitted voluntarily to the unit and able to speak to advertising copywriter today. She claims that for the past several weeks she has been having increase in auditory hallucinations telling her to kill herself. She was fairly flat in her affect concrete and had a soft tone of voice. She seems that this is been going on since age of 15. She states that the meds usually have helped her in the Clozaril was helping however she was not able to go in for her blood draws at [facility] and was taken off Clozaril. She claims that this was stopped 2 weeks ago. She states that since then the voices having gotten worse. She claims that she sees Dr. Yolette freeman at [facility]. She claims that her thought was to overdose on pills before coming into the hospital. She claims that she still hearing the auditory hallucinations t hat are fairly loud and distressing to her telling her to kill herself. She claims that she is not having suicidal thoughts however today in the hospital. She is claiming she is depressed and anxious. She claims that she is sleeping approximately 3-4 hours a night. Her UDS was positive for benzodiazepines and THC. Patient denies any suicidal or homicidal ideations intent or plan. At this time patient denies any visual hallucinations. Patient denies any flight of ideas racing thoughts and increased in goal directed behavior. Patient admits to using vaping daily, marijuana edibles 1/2 per day. denies any other rec drug use. PAST PSYCHIATRIC HISTORY: Patient states that she has history of schizophrenia. She was on Haldol D 200 mg every 2 weeks and the next dose will be due on 02/19. She is previously on Clozaril however that was discontinued 2 weeks ago. She has had multiple psychiatric hospitalizations her last one on the mental health unit was in 2018 and her previous hospitalization was at [place] in 2019. She currently follows up with Dr. aguilera at [facility]. She claims that she overdosed on pills in June 2019. PMH:denies ALLERGIES: as per EMR CHEMICAL DEPENDENCY HISTORY: as per HPI FAMILY PSYCHIATRIC/SUBSTANCE USE HISTORY: States that "schizophrenia runs in my family" and states that her uncle had schizophrenia and committed suicide. She states that other people in her family have depression and anxiety. SOCIAL HISTORY: Patient was born and raised in [place] near [place]. She states that she has a high school degree and some college. She claims that she has never been to nursing home or skilled nursing. She has no kids and is unmarried. She currently lives with her brother and apartment. She collects [employer]. MENTAL STATUS EXAM: General Appearance: Patient appears to be overweight, stated age is alert, directable, and attempts to cooperate. Patient appears to have poor hygiene and grooming. Behavior: Patient is seated without any agitated behavior. Speech: Patient's speech is fluent and nonpressured. timid, soft tone Mood/Affect: Patient reports their mood is depressed, affect is congruent and constricted. Suicidality/Homicidality: Patient denies having any homicidal ideation intent or plan. Denies any suicidal ideations intent or plan Perceptions: Patient denies any visual hallucinations and admits to auditory hallucinations, command in nature. Though content/process: [place], poverty of content. Logical. Memory and concentration: AOX3, grossly intact for the purposes of this session. Can spell "WORLD" backwards Judgment and insight: poor STRENGTHS/WEAKNESSES: strength is that patient is resilient. Weakness is that patient has poor judgment and is impulsive INTELLECT: average IMPRESSIONS: Schizophrenia, with acute exacerbation Cannabis use disorder mild. Nicotine dependence PLAN: -Patient is admitted under voluntary status to MHU for stabilization of psychiatric symptoms and safety. Patient has signed adult voluntary form and medication consent and is placed in patient's chart. -Medications : Will start patient on a second antipsychotic, Zyprexa 5 mg daily at bedtime for hallucinations/mood adjunct/insomnia. Patient can continue on Haldol D 200 mg IM every 2 weeks with next dose due on 02/19. Increased Prozac to 60 mg daily for mood/anxiety. -Ativan and Haldol PRN for agitation/aggression -Patient was counselled on substance abuse and desired to cut back on use -Patient was informed of the risks, benefits and side effects of the medication and patient verbally consented to taking the medications. Patient signed med consent form and was placed in chart. -Internal Medicine consult to perform medical evaluation and physical. -NRT - nicotine patch -SW on board for discharge planning. Encourage patient to participate in groups to work on coping skills.
[2021-02-11] MEDS: LORazepam 1 MG TAB PO PRN (16:57)
[2021-02-11] MEDS: OLANZapine 5 MG TAB PO SCH (22:17)
--- NOTE | 2021-02-11 23:42 | P.PN ---
Progress Note - Text Progress Note Date: 02/11/21 The patient refused to be seen or evaluated.
[2021-02-12 08:33] LABS: ALT 20 U/L (4-34); AST 18 U/L (14-36); African American GFR (CKD) >90 (>60 ml/min/1.73 sqM); Albumin 4.5 g/dL (3.5-5.0); Alkaline Phosphatase 79 U/L (38-126); Anion Gap 7 mmol/L; Blood Urea Nitrogen 14 mg/dL (7-17); Calcium 9.8 mg/dL (8.4-10.2); Carbon Dioxide 28 mmol/L (22-30); Chloride 103 mmol/L (98-107); Glucose 115 mg/dL (74-99); Non-African American GFR(CKD) >90 (>60 ml/min/1.73 sqM); Potassium 4.7 mmol/L (3.5-5.1); Sodium 138 mmol/L (137-145); Total Bilirubin 0.5 mg/dL (0.2-1.3); Total Protein 7.8 g/dL (6.3-8.2)
[2021-02-12 08:42] LABS: Basophils # (A) 0.1 k/uL (0-0.2); Basophils % (A) 1 %; Eosinophils % (A) 0 %; HCT 45.6 % (34.0-46.0); HGB 14.6 gm/dL (11.4-16.0); Lymphocytes # (A) 3.8 k/uL (1.0-4.8); Lymphocytes % (A) 37 %; MCH 29.8 pg (25.0-35.0); MCV 93.2 fL (80.0-100.0); Mean Platelet Volume 7.5; Monocytes # (A) 0.3 k/uL (0-1.0); Monocytes % (A) 3 %; Neutrophils # (A) 5.9 k/uL (1.3-7.7); Neutrophils % (A) 57 %; Platelet Count 424 k/uL (150-450); RBC 4.89 m/uL (3.80-5.40); RDW 13.7 % (11.5-15.5); WBC 10.4 k/uL (3.8-10.6)
[2021-02-12] MEDS: FLUoxetine HCL 20 MG CAP PO SCH (08:53)
[2021-02-12] MEDS: NICOTINE 14MG/24HR PATCH TRANSDERM SCH (08:57)
[2021-02-12] MEDS: ACETAMINOPHEN TAB 325 MG TAB PO PRN ×2 (09:42→14:33)
--- NOTE | 2021-02-12 16:00 | PN ---
PROGRESS NOTE DATE OF SERVICE: 02/12/2021. CHIEF COMPLAINT: The patient had increasing auditory and visual hallucinations and was making suicide statements. INTERVAL HISTORY: Patient has been doing fair. She had a quiet day yesterday. She was out on the unit. She will tend to wander about. She did attend two groups yesterday. She will engage to a limited extent with others. Mostly she showed a quiet calm manner. She slept well last night. Today she has been up. Again she has been out on the unit. She will walk around slowly. She will pay attention to things going on around her. She does not seem to interact much with others. She did not attend groups today. When I talked with her, she had no specific complaints or concerns. She said she was feeling better today. When we discussed her history, she said that she had been doing fairly well though was not able to keep up with blood draws because she did not have a way of getting to [facility]. As such, about 2 weeks ago her Clozaril was discontinued. She said that especially after that things began going downhill for her. It is noteworthy that she last saw Dr. Martinez on 01/20. At that time she reported, "I hear voices. Sometimes they want me to kill myself. I attempted suicide 5 times in my life." Dr. Martinez documented that she reported thinking about suicide every day. Dr. Martinez indicated that it is important for the patient to continue clozapine, given that she has had 5 previous suicide attempts and continues to report suicidal thinking. It is noted that in the medication log, she had been prescribed medications from August 2017 through December 2017 with medications including lithium, Latuda and Cymbalta. The next entry on the medication log is December 25, 2020; she appeared to be continued on Clozaril 400 mg a day in addition to Haldol Decanoate 200 mg IM every 2 weeks, with the Clozaril being discontinued 01/28/2021. Patient stated that she felt Clozaril had been helpful for her. She notes that overall she is feeling better today, with her mood and outlook being improved. She states that she has not been having suicide thoughts. She notes that she anticipates going to a fpc, which she feels will be a better living situation for her compared to living with her brother, as the house was busy with the brother, his and 3 children. The patient tolerates her psychotropic medications. MENTAL STATUS: Patient sat without restlessness. She seemed to have a somewhat staring gaze. She did not show much change in facial expression in the early part of the interview. Later on she smiled some. She had a stilted manner. She presented in a friendly way. Her mood was quiet though not clearly down or depressed. She did not appear to be distressed. She made some indications that she continues to have auditory hallucinations that come and go. She voiced no thoughts of harm. She was oriented to circumstances and surroundings. ASSESSMENT: I will continue the current diagnosis and treatment plan. Will continue to engage the patient in individual and group therapeutic activities. I will continue psychotropic medications the same, namely Prozac 60 mg a day and Zyprexa 5 mg at bedtime. In addition, she has received Haldol Decanoate. My understanding from the patient is that she will be going to an [facility] and also that [facility] would be able to transport for blood draws. As such, there might be consideration for restarting clozapine, which the patient indicates has been helpful for her and in addition does have potential benefits of reducing risks related to suicidality in the face of psychosis. We will coordinate with Dr. Martinez and [facility] in regard to further treatment planning. We will focus on stabilization and discharge planning. REJI / RANJEET: [id number] / SHERRI
[2021-02-12 16:15] LABS: LDL Cholesterol,Calculated 155.2 mg/dL (0.0-131.0)
[2021-02-12] MEDS: haloperidoL 5 MG TAB PO PRN (16:47)
--- NOTE | 2021-02-12 20:09 | P.HPIM ---
History of Present Illness H&P Date: 02/12/21 25-year-old female admitted to the hospital for hearing voices Denies any chest pain or shortness of breath or any significant other complaints Review of systems and systems has been reviewed all negative and positive findings as per history of present illness Constitutional: No acute distress, conversant, pleasant Eyes: Anicteric sclerae, moist conjunctiva, no lid-lag PERRLA ENMT: NC/AT Oropharynx clear, no erythema, exudates Neck: Supple, FROM, no masses, or JVD No carotid bruits No thyromegaly Lungs: Clear to auscultation Clear to percussion Normal respiratory effort, no accessory muscle use Cardiovascular: Heart regular in rate and rhythm, No murmurs, gallops, or rubs No peripheral edema Abdominal: Soft Nontender, no guarding, rebound or rigidity Abdomen moving with respiration Normoactive bowel sounds No hepatomegaly, No splenomegaly No palpable mass No abdominal wall hernia noted Skin: Normal temperature, tone, texture, turgor No induration No subcutaneous nodules No rash, lesions No ulcers Extremities: No digital cyanosis No clubbing Pedal pulses intact and symmetrical Radial pulses intact and symmetrical Normal gait and station No calf tenderness Psychiatric:Alert and oriented to person, place and time Appropriate affect Intact judgement Neuro: Muscles Strength 5/5 in all 4 extremities Sensation to light touch grossly present throughout Cranial nerves II-XII grossly intact No focal sensory deficits Assessment and plan Delusions and hearing voices continue management per psych team 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 Obesity Past Medical History Past Medical History: GERD/Reflux, GI Bleed Additional Past Medical History / Comment(s): borderline personality, History of Any Multi-Drug Resistant Organisms: C-DIFF Date of last positivie culture/infection: 2016 MDRO Source:: Stool Past Surgical History: Cholecystectomy, Tonsillectomy Past Anesthesia/Blood Transfusion Reactions: No Reported Reaction Past Psychological History: Anxiety, Depression, PTSD, Schizoaffective Disorder Smoking Status: Vaper Past Alcohol Use History: Occasional Past Drug Use History: Marijuana - Past Family History Mother Additional Family Medical History / Comment(s): NONE Father Additional Family Medical History / Comment(s): NONE Medications and Allergies Home Medications Medication Instructions Recorded Confirmed Type FLUoxetine HCL [PROzac] 40 mg PO DAILY 02/10/21 02/10/21 History Haloperidol Decanoate [Haldol D] 200 mg IM Q14D 02/10/21 02/10/21 History Allergies Allergy/AdvReac Type Severity Reaction Status Date / Time egg Allergy Anaphylaxis Verified 02/10/21 20:28 hydromorphone HCl Allergy Itching Verified 02/10/21 20:28 [From Dilaudid] milk Allergy Anaphylaxis Verified 02/10/21 20:28 gabapentin AdvReac Nausea Verified 02/10/21 20:28 Physical Exam Vitals: Vital Signs Temp Pulse BP 02/12/21 13:30 97.4 F L 88 110/62 Results CBC & Chem 7: 02/12/21 07:31 02/12/21 07:31 Labs: Abnormal Lab Results - Last 24 Hours (Table) 02/12/21 Range/Units 07:31 Glucose 115 H (74-99) mg/dL Triglycerides 239.00 H (0.00-149.00) mg/dL Cholesterol 232.00 H (0.00-200.00) mg/dL LDL Cholesterol, Calc 155.2 H (0.0-131.0) mg/dL VLDL Cholesterol, Calc 47.80 H (5.00-40.00) mg/dL HDL Cholesterol 29.00 L (40.00-60.00) mg/dL
[2021-02-12] MEDS: OLANZapine 5 MG TAB PO SCH (20:20)
[2021-02-13] MEDS: NICOTINE 14MG/24HR PATCH TRANSDERM SCH (08:20)
[2021-02-13] MEDS: FLUoxetine HCL 20 MG CAP PO SCH (08:21)
[2021-02-13 12:02] VITALS: BMI 34.4
[2021-02-13] MEDS: ACETAMINOPHEN TAB 325 MG TAB PO PRN (12:55)
--- NOTE | 2021-02-13 13:31 | PN ---
PROGRESS NOTE DATE OF SERVICE: 02/13/2021. CHIEF COMPLAINT: The patient had increasing auditory and visual hallucinations and was making suicide statements. INTERVAL HISTORY: The patient has been doing fair. She had a quiet day yesterday. She was out on the unit. She does interact with others. She attended groups. It is noteworthy that she seems to show a little more psychomotor activity and activation compared to previous days, when she seemed to move more slowly and be less physically reactive to things going on around her. She slept well last night. Today she has been up and out. Again she is showing more responsiveness to her environment. She moves in a more fluid manner. She is reporting that her mood is better. She has attended groups today. Overall she says her mood is better. I did question her about the idea of her having long-term thoughts about suicide. She seems to indicate that there is some lessening of that in the last few days. She is reporting that hallucinations seem to be lessening. She is somewhat vague on that though overall seems to be more comfortable with her thought process. She tolerates her psychotropic medications. MENTAL STATUS EXAM: Patient sat with a little restlessness. She gave fairly good eye contact. She responded to questions appropriately. Her thoughts were clear and coherent. She was not too spontaneous, though she was somewhat interactive. As noted before, she showed a more fluid manner in her movements. She showed more emotional reactivity. Her affect was in a reasonable range. She seemed to be in a fairly good mood. She smiled some. She did not appear to be distressed. She continues to show some issues of thought disorder though indicates that those issues are declining. She voiced no thoughts of harm. She is oriented and alert. ASSESSMENT: I will continue the current diagnosis and treatment plan. I will continue psychotropic medications the same, though I will increase Zyprexa to 10 mg at bedtime to help address psychotic symptoms of auditory hallucinations. Given that we do not have the option of communicating with [facility] through the weekend, I would not make a change in medications, though if she is discharged on Wednesday to [facility], which is a possibility, Dr. Martinez may want to initiate clozapine therapy, which he had indicated in his note. I discussed this with the patient. We will focus on stabilization and discharge planning. MMMARCELLA / AIRAMN: [id number] /
[2021-02-13] MEDS: OLANZapine 10 MG TAB PO SCH (20:42)
[2021-02-13] MEDS: LORazepam 1 MG TAB PO PRN (20:44)
[2021-02-14] MEDS: FLUoxetine HCL 20 MG CAP PO SCH (08:50)
[2021-02-14] MEDS: NICOTINE 14MG/24HR PATCH TRANSDERM SCH (08:51)
[2021-02-14] MEDS: ACETAMINOPHEN TAB 325 MG TAB PO PRN (12:48)
--- NOTE | 2021-02-14 13:14 | PN ---
PROGRESS NOTE DATE OF SERVICE: 02/14/2021. CHIEF COMPLAINT: The patient had increasing auditory and visual hallucinations and was making suicide statements. INTERVAL HISTORY: The patient has been doing fair. She had a quiet day yesterday. She comes out on the unit. She wanders about. She does socialize some with others and in general seems to be a little more comfortable in the milieu. She attends groups and is appropriate in her interactions in groups. She does make an effort to engage. She slept well last night. Today she has been up and continues about the same. She said today that she is feeling better overall and has a better outlook. She acknowledges that she still has auditory hallucinations, though says that the voices are quieter. She also states that there are thoughts she has about self-harm; mainly the voices will tell her to do things like cut herself. She said these voices are not so intrusive or as persistent as they have been. She acknowledges that she has had this kind of thinking for a long time. She said these kinds of voices started up around the age of 15 and have been fairly persistent since then. Today she has no specific complaints or concerns. She tolerates her psychotropic medications. MENTAL STATUS: The patient sat without restlessness. She gave good eye contact. She answered questions with brief responses. Her thoughts were clear. She spoke in a soft voice. She had a somewhat constricted affect, though she had a friendly manner and smiled. Her mood was even. She did not appear to be distressed. She continues to acknowledge auditory hallucinations. She voiced no impulse or plans towards self-harm. Cognition was clear. ASSESSMENT: I will continue the current diagnosis and treatment plan. I will continue psychotropic medications the same. She has been receiving Haldol Decanoate 200 mg IM q.2 weeks. In addition, currently she is on Zyprexa 10 mg daily along with Prozac 60 mg daily. There may be consideration for her getting back on Clozaril, though I will defer that issue to outpatient followup. I anticipate the patient being discharged on Wednesday to [facility]. We will focus on stabilization and discharge planning. MMMARCELLA / AIRAMN: [id number] /
[2021-02-14] MEDS: OLANZapine 10 MG TAB PO SCH (21:05)
[2021-02-14] MEDS: LORazepam 1 MG TAB PO PRN (21:06)
[2021-02-15 07:25] VITALS: TEMP 97.3
[2021-02-15] MEDS: FLUoxetine HCL 20 MG CAP PO SCH (08:31)
[2021-02-15 08:32] VITALS: BP 112/67; PULSE 96
[2021-02-15] MEDS: ACETAMINOPHEN TAB 325 MG TAB PO PRN (10:20)
[2021-02-15] MEDS: OLANZapine 10 MG TAB PO SCH ×2 (16:02→21:21)
--- NOTE | 2021-02-15 17:00 | PN ---
PROGRESS NOTE DATE OF SERVICE: 02/15/2021. CHIEF COMPLAINT: The patient had increasing auditory and visual hallucinations and was making suicide statements. INTERVAL HISTORY: Patient has been doing fair. She had a quiet day yesterday. She comes out on the unit. She tends to have a quiet manner. She will wander about. She will interact some with others. She attended one group yesterday and seemed to engage fairly well in the group. She said she slept fairly well last night. Today she has been up. She attended one group for a short period of time. She said that she thinks the medications may be wearing off, as the voices seem to have been coming back, more so later in the afternoon and evening time. She says that always when she has the voices they tend to say negative things about her or tell her to harm herself. She does not feel that she has impulses or plans in that regard. She generally has a better outlook and her mood has been improving overall. She has been cooperative with care. She tolerates her psychotropic medications. MENTAL STATUS: Patient sat without restlessness. She gave fairly good eye contact. She answered questions with brief responses. Her thoughts were clear. She did not say a lot. She had a somewhat blunted affect and generally had almost a staring gaze and a fixed smile on her face. She did appear to be calm and not distressed. Her mood was even. She continues to report auditory hallucinations with thoughts of self-harm without a plan or intent. She is oriented and alert. ASSESSMENT: I will continue the current diagnosis and treatment plan. I will increase Zyprexa to 10 mg twice a day. She will get an additional dose this afternoon and 10 mg tonight and then tomorrow start a standard b.i.d. dosing. I reviewed medication issues with the patient in regard to indication, potential side effects and concerns relating to metabolics and movement disorder issues. It is noted that she has elevated cholesterol and triglycerides. Along with that, her blood sugar on 02/12 at 0730 hours was 115. This will need to be monitored in regard to potential risks for development of metabolics, especially relating to Zyprexa. On the other hand, she has seemed to show good response to the initial dosing of Zyprexa. It might be reasonable once things get stable to look at switching to an alternative antipsychotic, but at this point I will continue the same. I will check a BMP. We will focus on stabilization and discharge planning. MMMARCELLA / AIRAMN: [id number] /
[2021-02-16] MEDS: FLUoxetine HCL 20 MG CAP PO SCH (08:22)
[2021-02-16] MEDS: OLANZapine 10 MG TAB PO SCH ×2 (08:22→19:02)
[2021-02-16 09:58] LABS: African American GFR (CKD) >90 (>60 ml/min/1.73 sqM); Anion Gap 10 mmol/L; Blood Urea Nitrogen 16 mg/dL (7-17); Calcium 9.5 mg/dL (8.4-10.2); Carbon Dioxide 23 mmol/L (22-30); Chloride 102 mmol/L (98-107); Glucose 221 mg/dL (74-99); Non-African American GFR(CKD) >90 (>60 ml/min/1.73 sqM); Potassium 4.3 mmol/L (3.5-5.1); Sodium 135 mmol/L (137-145)
--- NOTE | 2021-02-16 12:49 | PN ---
PROGRESS NOTE DATE OF SERVICE: 02/16/2021. CHIEF COMPLAINT: The patient had increasing auditory and visual hallucinations and was making suicide statements. INTERVAL HISTORY: Patient has been doing fairly well. She had a quiet day yesterday. She was out on the unit a fair amount of the day. She watched TV. She made some efforts to attend groups. She does not interact too much with others though seems to be generally comfortable in the milieu. She slept fairly well last night. Today she has been up. She spent a fair amount of the morning in her room. When I talked to her, she had no specific complaints or concerns. She is hoping to be discharged soon and anticipates placement at [facility]. She tolerates her psychotropic medications. MENTAL STATUS: Patient sat without restlessness. Eye contact was fairly good. She answered questions with brief responses. She did not say a lot. She tended to have a placid look on her face though did not show much reactivity in her expression. Her affect was a little blunted. She had a quiet calm manner. Her mood was even. She did not appear to be distressed. She continues to show some indications of thought disorder. She voiced no thoughts of harm. Cognition was clear. ASSESSMENT: I will continue current diagnosis and treatment plan. I will continue psychotropic medications the same. The plan appears to be for her to move into [facility]. My understanding is that bed availability is set up for Wednesday. We will focus on stabilization and discharge planning. REJI / RANJEET: [id number] /
[2021-02-16] MEDS: haloperidoL 5 MG TAB PO PRN (18:02)
[2021-02-16] MEDS: LORazepam 1 MG TAB PO PRN (18:02)
[2021-02-17] MEDS: OLANZapine 10 MG TAB PO SCH (08:15)
[2021-02-17] MEDS: FLUoxetine HCL 20 MG CAP PO SCH (08:15)
[2021-02-17] MEDS ORDERED: FLUoxetine HCL 20 MG CAP PO STA (10:28)
--- NOTE | 2021-02-17 11:19 | P.DS ---
Providers Date of admission: 02/10/21 21:23 Expected date of discharge: 02/17/21 Attending physician: Adrian Rodas MD Consults: 02/10/21 21:35 Consult Physician Routine Consulting Provider: Jose M Boudreaux Consult Reason/Comments: medical management Do you want consulting provider notified?: Yes Primary care physician: Stated None - Discharge Diagnosis(es) (1) Schizophrenia, chronic with acute exacerbation Current Visit: Yes Status: Acute Priority: High (2) Cannabis abuse Current Visit: Yes Status: Acute Priority: Medium (3) Nicotine dependence Current Visit: Yes Status: Acute Priority: Low Hospital Course: Admission HPI: Admission note was completed by comic writer "Patient is a 25-year-old female who currently lives with her brother and apartment has no kids and is unmarried. Patient presented to the hospital and was complaining the ER of increase in a uditory hallucinations and suicidal thoughts. Patient apparently mentioned a plan to overdose. Patient is at several psychiatric admissions in the past and the last one was in 2018 on the mental health unit. Patient was admitted voluntarily to the unit and able to speak to comic writer today. She claims that for the past several weeks she has been having increase in auditory hallucinations telling her to kill herself. She was fairly flat in her affect concrete and had a soft tone of voice. She seems that this is been going on since age of 15. She states that the meds usually have helped her in the Clozaril was helping however she was not able to go in for her blood draws at [facility] and was taken off Clozaril. She claims that this was stopped 2 weeks ago. She states that since then the voices having gotten worse. She claims that she sees Dr. Yolette freeman at [facility]. She claims that her thought was to overdose on pills before coming into the hospital. She claims that she still hearing the auditory hallucinations that are fairly loud and distressing to her telling her to kill herself. She claims that she is not having suicidal thoughts however today in the hospital. She is claiming she is depressed and anxious. She claims that she is sleeping approximately 3-4 hours a night. Her UDS was positive for benzodiazepines and THC. Patient denies any suicidal or homicidal ideations intent or plan. At this time patient denies any visual hallucinations. Patient denies any flight of ideas racing thoughts and increased in goal directed behavior. Patient admits to using vaping daily, marijuana edibles 1/2 per day. denies any other rec drug use." Hospital course: Upon admission to the unit patient was directable and agreeable to commence treatment and signed adult voluntary form . Patient got along well with other patients on the unit and followed unit protocol. Patient was compliant with the medications and denied any side effects throughout hospital course. Patient was started on her Prozac however was increased to dose of 80 mg a day for mood/anxiety. Patient was receiving Haldol D 200 mg every 2 weeks and will be due for her next dose on 02/19/21 at [facility]. Patient was started on another antipsychotic Zyprexa and increased to a dose of 10 mg twice a day for supplementation for patient's hallucinations/psychosis. Patient spoke of her stressors and engaged in therapy both group and individual. Patient was also seen by medical team for history and physical exam. Throughout the course of the hospitalization patient gradually improved with regards to mood, anxiety, sleep and returned back to their baseline level of functioning. Patient did endorse having chronic auditory hallucinations which have improved significantly and are much less distressing to her. On the day of discharge patient denied any suicidal or homicidal ideations intent or plan denied any visual hallucinations. Patient endorsed wanting to live for her health and family and her neices and nephews. she was more future oriented and had an improved affect. The patient denied any access to guns or weapons. Patient denied any paranoia and did not endorse any delusions. Patient does have a significant history of substance abuse and was counseled on abstaining from all substances including alcohol and marijuana. Patient elected to do outpatient substance use treatment program through [facility]. Patient was also counseled on the medications and need for regular compliance and was encouraged to follow-up with their outpatient appointment for mental health and also for primary care. Patient will be discharged today to [facility] and will be followed by a next step program through [facility] due to patient's severity of her mental health condition. Mental status exam: General Appearance: Patient appears to be overweight, wearing glasses, stated age is alert, pleasant, and cooperative. Patient is in no acute distress and has improved hygiene and grooming Behavior: Patient is calmly seated without any agitated behavior. Speech: Patient's speech is fluent and nonpressured. Mood/Affect: Patient reports their mood is "better", affect is congruent and euthymic. Suicidality/Homicidality: Patient denies having any suicidal or homicidal ideation intent or plan. Perceptions: Patient denies any auditory or visual hallucinations. Though content/process: There is no evidence of any delusional thought content and thought process is concrete. more future oriented Memory and concentration: AOX3, grossly intact for the purposes of this session. Can spell "WORLD" backwards correctly. Judgment and insight: improved with guarded prognosis Impression: Schizophrenia chronic with acute exacerbation Cannabis abuse Nicotine dependence Plan: -Continue with discharge today as patient has improved and stabilized psychiatrically and is not currently an imminent threat to herself and/or others. Patient will remain at chronically elevated risk for harm to self and/or others due to her chronically poor insight and judgment and chronic severity of her hallucinations. -Continue medications: Patient can continue with Haldol D 200 mg IM every 2 weeks with next dose being due on 02/19/21. Continue with Zyprexa for supplementation 10 mg twice a day for hallucinations/mood adjunct/insomnia. Continue Prozac 80 mg daily for mood/anxiety -Patient was counseled on the need for medication compliance and appropriate follow-up at mental health and also primary care for medical issues. Patient verbalized understanding and agreed. -Social work to work with [facility] to arrange for patient's discharge today to [facility]. Social work also to arrange for patients follow up appointments with [facility] for psychiatric care along with follow up with primary care provider. Patient will also be followed closely by next step program through [facility]. -Patient counseled on abstaining from recreational drugs and marijuana and alcohol. Was informed/educated on the adverse effects on their physical and mental health. Patient verbally agreed and understood. -Patient was instructed to return to the hospital or seek immediate medical care if their psychiatric or medical symptoms do worsen or reoccur. Allergies Allergy/AdvReac Type Severity Reaction Status Date / Time egg Allergy Anaphylaxis Verified 02/13/21 09:23 hydromorphone HCl Allergy Itching Verified 02/13/21 09:23 [From Dilaudid] milk Allergy Anaphylaxis Verified 02/13/21 09:23 gabapentin AdvReac Nausea Verified 02/13/21 09:23 Laboratory Results WBC 10.4 k/uL (3.8-10.6) 02/12/21 07:31 RBC 4.89 m/uL (3.80-5.40) 02/12/21 07:31 Hgb 14.6 gm/dL (11.4-16.0) 02/12/21 07:31 Hct 45.6 % (34.0-46.0) 02/12/21 07:31 MCV 93.2 fL (80.0-100.0) 02/12/21 07:31 MCH 29.8 pg (25.0-35.0) 02/12/21 07:31 MCHC 32.0 g/dL (31.0-37.0) 02/12/21 07:31 RDW 13.7 % (11.5-15.5) 02/12/21 07:31 Plt Count 424 k/uL (150-450) 02/12/21 07:31 MPV 7.5 02/12/21 07:31 Neutrophils % 57 % 02/12/21 07:31 Lymphocytes % 37 % 02/12/21 07:31 Monocytes % 3 % 02/12/21 07:31 Eosinophils % 0 % 02/12/21 07:31 Basophils % 1 % 02/12/21 07:31 Neutrophils # 5.9 k/uL (1.3-7.7) 02/12/21 07:31 Lymphocytes # 3.8 k/uL (1.0-4.8) 02/12/21 07:31 Monocytes # 0.3 k/uL (0-1.0) 02/12/21 07:31 Eosinophils # 0.0 k/uL (0-0.7) 02/12/21 07:31 Basophils # 0.1 k/uL (0-0.2) 02/12/21 07:31 Sodium 135 mmol/L (137-145) L 02/16/21 08:48 Potassium 4.3 mmol/L (3.5-5.1) 02/16/21 08:48 Chloride 102 mmol/L (98-107) 02/16/21 08:48 Carbon Dioxide 23 mmol/L (22-30) 02/16/21 08:48 Anion Gap 10 mmol/L 02/16/21 08:48 BUN 16 mg/dL (7-17) 02/16/21 08:48 Creatinine 0.65 mg/dL (0.52-1.04) 02/16/21 08:48 Est GFR (CKD-EPI)AfAm >90 (>60 ml/min/1.73 sqM) 02/16/21 08:48 Est GFR (CKD-EPI)NonAf >90 (>60 ml/min/1.73 sqM) 02/16/21 08:48 Glucose 221 mg/dL (74-99) H 02/16/21 08:48 Calcium 9.5 mg/dL (8.4-10.2) 02/16/21 08:48 Total Bilirubin 0.5 mg/dL (0.2-1.3) 02/12/21 07:31 AST 18 U/L (14-36) 02/12/21 07:31 ALT 20 U/L (4-34) 02/12/21 07:31 Alkaline Phosphatase 79 U/L (38-126) 02/12/21 07:31 Total Protein 7.8 g/dL (6.3-8.2) 02/12/21 07:31 Albumin 4.5 g/dL (3.5-5.0) 02/12/21 07:31 Triglycerides 239.00 mg/dL (0.00-149.00) H 02/12/21 07:31 Cholesterol 232.00 mg/dL (0.00-200.00) H 02/12/21 07:31 LDL Cholesterol, Calc 155.2 mg/dL (0.0-131.0) H 02/12/21 07:31 VLDL Cholesterol, Calc 47.80 mg/dL (5.00-40.00) H 02/12/21 07:31 HDL Cholesterol 29.00 mg/dL (40.00-60.00) L 02/12/21 07:31 Cholesterol/HDL Ratio 8.00 Ratio 02/12/21 07:31 TSH 1.180 mIU/L (0.465-4.680) 02/12/21 07:31 Urine Color Yellow 02/10/21 16:51 Urine Appearance Clear (Clear) 02/10/21 16:51 Urine pH 6.5 (5.0-8.0) 02/10/21 16:51 Ur Specific [place] 1.025 (1.001-1.035) 02/10/21 16:51 Urine Protein Negative (Negative) 02/10/21 16:51 Urine Glucose (UA) Negative (Negative) 02/10/21 16:51 Urine Ketones Negative (Negative) 02/10/21 16:51 Urine Blood Negative (Negative) 02/10/21 16:51 Urine Nitrite Negative (Negative) 02/10/21 16:51 Urine Bilirubin Negative (Negative) 02/10/21 16:51 Urine Urobilinogen <2.0 mg/dL (<2.0) 02/10/21 16:51 Ur Leukocyte Esterase Negative (Negative) 02/10/21 16:51 Urine HCG, Qual Not Detected (Not Detectd) 02/10/21 16:51 Urine Opiates Screen Not Detected (NotDetected) 02/10/21 16:51 Ur Oxycodone Screen Not Detected (NotDetected) 02/10/21 16:51 Urine Methadone Screen Not Detected (NotDetected) 02/10/21 16:51 Ur Propoxyphene Screen Not Detected (NotDetected) 02/10/21 16:51 Ur Barbiturates Screen Not Detected (NotDetected) 02/10/21 16:51 U Tricyclic Antidepress Not Detected (NotDetected) 02/10/21 16:51 Ur Phencyclidine Scrn Not Detected (NotDetected) 02/10/21 16:51 Ur Amphetamines Screen Not Detected (NotDetected) 02/10/21 16:51 U Methamphetamines Scrn Not Detected (NotDetected) 02/10/21 16:51 U Benzodiazepines Scrn Detected (NotDetected) H 02/10/21 16:51 Urine Cocaine Screen Not Detected (NotDetected) 02/10/21 16:51 U Marijuana (THC) Screen Detected (NotDetected) H 02/10/21 16:51 Coronavirus (PCR) Not Detected (Not Detectd) 02/10/21 16:51 Vital Signs Temp 97.3 F L 02/15/21 07:25 Pulse 96 02/15/21 08:32 Resp 18 02/15/21 07:25 BP 112/67 02/15/21 08:32 Pulse Ox 95 02/10/21 15:37 Intake & Output 02/16/21 02/17/21 02/17/21 18:59 06:59 18:59 Weight 114.2 kg Patient Condition at Discharge: Stable Plan - Discharge Summary New Discharge Prescriptions: New OLANZapine [ZyPREXA] 10 mg PO BID 30 Days tab Continue Haloperidol Decanoate [Haldol D] 200 mg IM Q14D #1 each Changed FLUoxetine HCL [PROzac] 80 mg PO DAILY 30 Days cap Discharge Medication List FLUoxetine HCL [PROzac] 80 mg PO DAILY 30 Days cap 02/17/21 [Rx] Haloperidol Decanoate [Haldol D] 200 mg IM Q14D #1 each 02/17/21 [Rx] OLANZapine [ZyPREXA] 10 mg PO BID 30 Days tab 02/17/21 [Rx] Follow up Appointment(s)/Referral(s): None,Stated [Primary Care Provider] - 1-2 days Activity/Diet/Wound Care/Special Instructions: Activity and diet as tolerated. Avoid the use of street drugs and alcohol. Take all medications as prescribed. When you are in need of refills on your medications please contact your medical provider and/or outpatient psychiatrist to have this done. Please go to scheduled outpatient appointment for aftercare treatment. If symptoms return or become worse, call the crisis line at and/or go to the nearest emergency room for evaluation Discharge Disposition: OTHER INSTITUTION NOT DEFINED
[2021-02-17] MEDS: ACETAMINOPHEN TAB 325 MG TAB PO PRN (12:45)
[2021-02-18] MEDS ORDERED: FLUoxetine HCL 20 MG CAP PO SCH (09:00)
== END 2021-02-17 14:25 | disposition home or self-care (01) | DRG 885 ==
LOC: EC 14:40 → 3MHU 21:23
PROVIDERS: ADMIT Psychiatry & Neurology Psychiatry; ATTEND Psychiatry & Neurology Psychiatry
DX: F25.9 Schizoaffective disorder, unspecified (principal); R45.851 Suicidal ideations; F12.10 Cannabis abuse, uncomplicated; F17.290 Nicotine dependence, other tobacco product, uncomplicated; E66.9 Obesity, unspecified; E78.00 Pure hypercholesterolemia, unspecified; F32.A Depression, unspecified; F43.10 Post-traumatic stress disorder, unspecified; F60.3 Borderline personality disorder; G47.00 Insomnia, unspecified; Z79.899 Other long term (current) drug therapy; Z81.8 Family history of other mental and behavioral disorders; Z91.51 Personal history of suicidal behavior; Z20.822 Contact with and (suspected) exposure to COVID-19
CPT/HCPCS: 80048; 80053; 80061; 80306; 81003; 81025; 82075; 84443; 85025; 87635; 99285

== ENCOUNTER 2021-02-20 19:11 | Emergency (ER) | payer MEDICARE, OTHER ==
[2021-02-20 20:34] VITALS: BP 114/75; PULSE 87; RESP 16; TEMP 98
--- NOTE | 2021-02-20 21:08 | XR ---
EXAMINATION TYPE: XR knee complete RT DATE OF EXAM: 02/20/2021 COMPARISON: 07/14/2020 HISTORY: 25 years Female. STUDY INDICATION GIVEN: pain . TECHNIQUE: 3 radiographs of the right knee IMPRESSION: Small knee joint effusion. No acute fracture or dislocation.
--- NOTE | 2021-02-20 21:56 | ED ---
General Adult HPI - General Chief complaint: Extremity Problem,Nontraumatic Stated complaint: Right Knee Pain Time Seen by Provider: 02/20/21 21:31 Source: patient, EMS Mode of arrival: EMS Limitations: physical limitation - History of Present Illness Initial comments: 25 year-old female patient presents to the emergency department today for evaluation of right knee pain after injury. Rates that she was walking her knee hyperextended. States she felt a popping sensation. States she does have history of knee problems so whenever she has issues she gets it checked out. She denies any pain radiating down the leg. Denies numbness or tingling to the foot. Denies taking anything for pain. Denies chance of . - Related Data Previous Rx's Medication Instructions Recorded FLUoxetine HCL [PROzac] 80 mg PO DAILY 30 Days cap 02/17/21 Haloperidol Decanoate [Haldol D] 200 mg IM Q14D #1 each 02/17/21 OLANZapine [ZyPREXA] 10 mg PO BID 30 Days tab 02/17/21 Ibuprofen [Motrin] 600 mg PO Q8HR PRN #30 tab 02/20/21 Allergies Allergy/AdvReac Type Severity Reaction Status Date / Time egg Allergy Anaphylaxis Verified 02/20/21 20:31 hydromorphone HCl Allergy Itching Verified 02/20/21 20:31 [From Dilaudid] milk Allergy Anaphylaxis Verified 02/20/21 20:31 gabapentin AdvReac Nausea Verified 02/20/21 20:31 Review of Systems ROS Statement: Those systems with pertinent positive or pertinent negative responses have been documented in the HPI. ROS Other: All systems not noted in ROS Statement are negative. Past Medical History Past Medical History: GERD/Reflux, GI Bleed Additional Past Medical History / Comment(s): borderline personality, History of Any Multi-Drug Resistant Organisms: C-DIFF Date of last positivie culture/infection: 2016 MDRO Source:: Stool Past Surgical History: Cholecystectomy, Tonsillectomy Past Anesthesia/Blood Transfusion Reactions: No Reported Reaction Past Psychological History: Anxiety, Depression, PTSD, Schizoaffective Disorder Smoking Status: Former smoker - Past Family History Mother Additional Family Medical History / Comment(s): NONE Father Additional Family Medical History / Comment(s): NONE General Exam Limitations: physical limitation General appearance: alert, in no apparent distress Respiratory exam: Present: normal lung sounds bilaterally. Absent: respiratory distress, wheezes, rales, rhonchi, stridor Cardiovascular Exam: Present: regular rate, normal rhythm, normal heart sounds. Absent: systolic murmur, diastolic murmur, rubs, gallop, clicks Extremities exam: Present: normal inspection, full ROM, tenderness (Anterior knee), normal capillary refill, other (No pain or laxity with valgus or varus maneuvers. Negative drawer tests. Skin is otherwise pink, warm, dry. Cap refill less than 3 seconds. Pedal and posttibial pulses 2+.). Absent: pedal edema, joint swelling, calf tenderness Neurological exam: Present: alert, oriented X3, CN II-XII intact Psychiatric exam: Present: normal affect, normal mood Skin exam: Present: warm, dry, intact, normal color. Absent: rash Course Vital Signs 02/20/21 20:31 Temperature 98.0 F Pulse Rate 87 Respiratory 16 Rate Blood Pressure 114/75 O2 Sat by Pulse 96 Oximetry Medical Decision Making - Medical Decision Making 25-year-old female patient presents for evaluation of right knee pain. States she had an injury while walking. Physical examinations unremarkable. There is no soft tissue swelling. Neurovascular status is intact. Pedal and posttibial pulses 2+. X-ray showed small knee joint effusion. She is given an Preet wrap. Instructed to rest, ice, elevate for the next week. If her symptoms are not improved she is instructed to follow-up with her internet e commerce specialist. Return parameters were discussed in detail. She verbalizes understanding and agrees with this plan. My attending is Dr. Atkins. - Radiology Data Radiology results: report reviewed, image reviewed 3 views of the right knee are obtained. Report reviewed in its entirety. Impression by Dr. Chan shows small knee joint effusion. No acute fracture dislocation. Disposition Clinical Impression: Right knee injury Disposition: HOME SELF-CARE Condition: Good Instructions (If sedation given, give patient instructions): Swollen Knee Joint (ED), Knee Pain (ED) Additional Instructions: Use Preet wrap for comfort and support. Rest, ice, elevate the knee for the next week. Take Tylenol and Motrin for pain control. Follow-up with the primary care physician for recheck in 1-2 days. Follow up with orthopedics if symptoms are not improved over the next week. Follow up with orthopedics for Return for any new, worsening, or concerning symptoms. Prescriptions: Ibuprofen [Motrin] 600 mg PO Q8HR PRN #30 tab PRN Reason: Pain Is patient prescribed a controlled substance at d/c from ED?: No Referrals: None,Stated [Primary Care Provider] - 1-2 days Time of Disposition: 21:55
== END 2021-02-20 22:11 | disposition home or self-care (01) ==
LOC: EC 19:11
DX: S89.91XA Unspecified injury of right lower leg, initial encounter (principal); K21.9 Gastro-esophageal reflux disease without esophagitis; F32.A Depression, unspecified; F41.9 Anxiety disorder, unspecified; F25.9 Schizoaffective disorder, unspecified; Z87.891 Personal history of nicotine dependence; Z79.899 Other long term (current) drug therapy; X50.1XXA Overexertion from prolonged static or awkward postures, initial encounter; Y93.01 Activity, walking, marching and hiking
CPT/HCPCS: 99283

== ENCOUNTER 2021-03-07 21:20 | Emergency (ER) | payer MEDICARE, OTHER ==
[2021-03-07 21:42] VITALS: BP 108/72; PULSE 95; RESP 20; TEMP 97.7
--- NOTE | 2021-03-07 22:07 | XR ---
EXAMINATION TYPE: XR hand complete RT DATE OF EXAM: 03/07/2021 COMPARISON: NONE HISTORY: Pain TECHNIQUE: 3 view FINDINGS: Metacarpals are intact. I see no fracture nor dislocation. Joint spaces are normal. IMPRESSION: Negative right hand exam. No fracture.
--- NOTE | 2021-03-07 22:07 | XR ---
EXAMINATION TYPE: XR wrist complete RT DATE OF EXAM: 03/07/2021 COMPARISON: NONE HISTORY: Pain TECHNIQUE: 4 views FINDINGS: Carpal bones appear intact. I see no fracture nor dislocation. Scaphoid appears normal. IMPRESSION: Normal right wrist.
[2021-03-07] MEDS ORDERED: ACETAMINOPHEN TAB 325 MG TAB PO STA (22:26)
[2021-03-07] MEDS ORDERED: IBUPROFEN 600 MG TAB PO STA (22:26)
--- NOTE | 2021-03-07 22:27 | ED ---
Upper Extremity HPI - General Chief Complaint: Extremity Injury, Upper Stated Complaint: Fall-R hand injury Time Seen by Provider: 03/07/21 22:18 Source: patient Mode of arrival: ambulatory Limitations: no limitations - History of Present Illness Initial Comments: 25 year-old female patient presents to the emergency department for evaluation of right wrist pain. Patient states that she was walking when her knee gave out and she fell. Patient is up to catch herself and or the wrist. States she has pain over the ulnar aspect of the wrist. Denies any numbness or tingling to the fingers. Denies any elbow pain. She denies hitting her head or losing consciousness. States that she does have knee problems this happens a lot. Denies any pain to the knees. Denies any use of blood thinning medications or clotting disorders. Denies taking any medication prior to coming in. Denies any chance of . - Related Data Previous Rx's Medication Instructions Recorded FLUoxetine HCL [PROzac] 80 mg PO DAILY 30 Days cap 02/17/21 Haloperidol Decanoate [Haldol D] 200 mg IM Q14D #1 each 02/17/21 OLANZapine [ZyPREXA] 10 mg PO BID 30 Days tab 02/17/21 Ibuprofen [Motrin] 600 mg PO Q8HR PRN #30 tab 02/20/21 Ibuprofen [Motrin] 600 mg PO Q8HR PRN #30 tab 03/07/21 Allergies Allergy/AdvReac Type Severity Reaction Status Date / Time egg Allergy Anaphylaxis Verified 03/07/21 21:42 hydromorphone HCl Allergy Itching Verified 03/07/21 21:42 [From Dilaudid] milk Allergy Anaphylaxis Verified 03/07/21 21:42 gabapentin AdvReac Nausea Verified 03/07/21 21:42 Review of Systems ROS Statement: Those systems with pertinent positive or pertinent negative responses have been documented in the HPI. ROS Other: All systems not noted in ROS Statement are negative. Past Medical History Past Medical History: GERD/Reflux, GI Bleed Additional Past Medical History / Comment(s): borderline personality, History of Any Multi-Drug Resistant Organisms: C-DIFF Date of last positivie culture/infection: 2016 MDRO Source:: Stool Past Surgical History: Cholecystectomy, Tonsillectomy Past Anesthesia/Blood Transfusion Reactions: No Reported Reaction Past Psychological History: Anxiety, Depression, PTSD, Schizoaffective Disorder Smoking Status: Current every day smoker Past Alcohol Use History: None Reported Past Drug Use History: None Reported - Past Family History Mother Additional Family Medical History / Comment(s): NONE Father Additional Family Medical History / Comment(s): NONE General Exam Limitations: no limitations General appearance: alert, in no apparent distress, other (This is a well- developed, well-nourished adult female in no acute distress.) Neck exam: Present: normal inspection, full ROM, other (Nontender, no step-off, no deformity to firm midline palpation of the posterior cervical spine. Full range of motion without pain or limitation.). Absent: tenderness, meningismus, lymphadenopathy Respiratory exam: Present: normal lung sounds bilaterally. Absent: respiratory distress, wheezes, rales, rhonchi, stridor Cardiovascular Exam: Present: regular rate, normal rhythm, normal heart sounds. Absent: systolic murmur, diastolic murmur, rubs, gallop, clicks Extremities exam: Present: full ROM, tenderness (Over the ulnar aspect of the right wrist. No anatomical snuffbox tenderness.), normal capillary refill, other (There is mild surrounding swelling to the right wrist. Skin is otherwise pink, warm, dry. Cap refill less than 3 seconds. Radial pulses are 2+.). Absent: normal inspection, pedal edema, joint swelling, calf tenderness Back exam: Present: normal inspection, other (Nontender, no step-off, no deformity to firm midline palpation of the thoracic and lumbar vertebrae. Full range of motion without pain or limitation.). Absent: vertebral tenderness Neurological exam: Present: alert, oriented X3, CN II-XII intact Psychiatric exam: Present: normal affect, normal mood Skin exam: Present: warm, dry, intact, normal color. Absent: rash Course Vital Signs 03/07/21 21:40 Temperature 97.7 F Pulse Rate 95 Respiratory 20 Rate Blood Pressure 108/72 O2 Sat by Pulse 99 Oximetry Medical Decision Making - Medical Decision Making 25 old female patient presents for evaluation of right wrist pain and swelling after a fall. Physical examination did reveal mild soft tissue swelling. Tenderness over the ulnar aspect. No anatomical snuffbox tenderness. Neurovascular status is intact. X-rays negative. We did discuss brain as a cause for her symptoms. She is placed in an Preet wrap. Given medication for pain. She is instructed to follow-up with the primary care physician for rechec k in 1-2 days. Instructed to have repeat x-rays after 7-10 days if her symptoms persist. Return parameters were discussed in detail. She verbalizes understanding and is discharged in stable condition. My attending of Dr. Little. Disposition Clinical Impression: Right wrist sprain Disposition: HOME SELF-CARE Condition: Good Instructions (If sedation given, give patient instructions): Wrist Sprain (ED) Additional Instructions: Use Preet wrap for compression and support. Take medications as directed for pain control. Rest, ice, elevate the wrist. Follow-up with the primary care physician or community outreach specialist in 1 week if her symptoms are getting worse or have not improved. Return to the emergency department immediately for any new, worsening, or concerning symptoms. Prescriptions: Ibuprofen [Motrin] 600 mg PO Q8HR PRN #30 tab PRN Reason: Pain Is patient prescribed a controlled substance at d/c from ED?: No Referrals: Errol Shepard MD [STAFF PHYSICIAN] - 1-2 days Time of Disposition: 22:27
== END 2021-03-07 22:39 | disposition home or self-care (01) ==
LOC: EC 21:20
DX: S63.501A Unspecified sprain of right wrist, initial encounter (principal); F41.9 Anxiety disorder, unspecified; F32.A Depression, unspecified; F43.10 Post-traumatic stress disorder, unspecified; F25.9 Schizoaffective disorder, unspecified; F17.200 Nicotine dependence, unspecified, uncomplicated; W18.30XA Fall on same level, unspecified, initial encounter
CPT/HCPCS: 99283

== ENCOUNTER 2021-03-22 11:15 | Emergency (ER) | payer MEDICARE, OTHER ==
[2021-03-22] MEDS ORDERED: SODIUM CHLORIDE 0.9% 2,000 ML IV STA (11:43)
[2021-03-22] MEDS ORDERED: KETOROLAC 15 MG/ML 1 ML VIAL IVP STA (11:43)
[2021-03-22 12:05] LABS: Basophils # (A) 0.1 k/uL (0-0.2); Basophils % (A) 1 %; Eosinophils # (A) 0.1 k/uL (0-0.7); Eosinophils % (A) 1 %; HCT 39.9 % (34.0-46.0); HGB 13.2 gm/dL (11.4-16.0); Lymphocytes # (A) 3.1 k/uL (1.0-4.8); Lymphocytes % (A) 31 %; MCH 30.2 pg (25.0-35.0); MCHC 33.1 g/dL (31.0-37.0); MCV 91.2 fL (80.0-100.0); Mean Platelet Volume 7.9; Monocytes # (A) 0.4 k/uL (0-1.0); Monocytes % (A) 4 %; Neutrophils # (A) 6.3 k/uL (1.3-7.7); Neutrophils % (A) 63 %; Platelet Count 237 k/uL (150-450); RBC 4.38 m/uL (3.80-5.40); RDW 13.8 % (11.5-15.5); WBC 10.1 k/uL (3.8-10.6)
[2021-03-22 12:07] LABS: Appearance,Urine Clear (Clear); Bilirubin,Urine Negative (Negative); Blood,Urine Negative (Negative); Color,Urine Yellow; Glucose,Urine (UA) 4+ (Negative); Ketones,Urine 1+ (Negative); Leukocyte Esterase,Urine Negative (Negative); Nitrite,Urine Negative (Negative); PH, Urine 6.5 (5.0-8.0); Protein,Urine Negative (Negative); Specific Gravity,Urine 1.023 (1.001-1.035); Urobilinogen,Urine <2.0 mg/dL (<2.0)
[2021-03-22 12:17] LABS: ALT 56 U/L (4-34); AST 52 U/L (14-36); African American GFR (CKD) >90 (>60 ml/min/1.73 sqM); Albumin 4.2 g/dL (3.5-5.0); Alkaline Phosphatase 76 U/L (38-126); Amylase 63 U/L (30-110); Anion Gap 7 mmol/L; Blood Urea Nitrogen 12 mg/dL (7-17); Carbon Dioxide 26 mmol/L (22-30); Chloride 101 mmol/L (98-107); Glucose 273 mg/dL (74-99); Lipase 180 U/L (23-300); Non-African American GFR(CKD) >90 (>60 ml/min/1.73 sqM); Potassium 4.3 mmol/L (3.5-5.1); Sodium 134 mmol/L (137-145); Total Bilirubin 0.4 mg/dL (0.2-1.3); Total Protein 7.6 g/dL (6.3-8.2)
--- NOTE | 2021-03-22 12:24 | ED ---
Abdominal Pain HPI - General Chief Complaint: Abdominal Pain Stated Complaint: Lower R side Abd pain Time Seen by Provider: 03/22/21 11:28 Source: patient, RN notes reviewed Mode of arrival: ambulatory Limitations: no limitations - History of Present Illness Initial Comments: 25-year-old female presents emergency Department with chief complaint of right- sided abdominal pain. Patient states started yesterday morning with sudden onset of pain. Does hurt with movement. Patient's her prior cholecystomy. She states radiates to her right flank and right lower quadrant no history kidney stones. Patient has slight nausea no vomiting no reported fever patient occurring antibiotics for UTI. Patient denies any other complaints. - Related Data Home Medications Medication Instructions Recorded Confirmed Albuterol Inhaler [Ventolin Hfa 2 puff INHALATION RT-QID 03/22/21 03/22/21 Inhaler] Allergy Relief 1 tab PO DAILY@0800 03/22/21 03/22/21 Benztropine Mesylate [Cogentin] 1 mg PO TID PRN 03/22/21 03/22/21 Nitrofurantoin Monohyd/M-Cryst 100 mg PO BID@0800,2100 03/22/21 03/22/21 [Macrobid] cloZAPine [Clozaril] 100 mg PO HS 03/22/21 03/22/21 Previous Rx's Medication Instructions Recorded Haloperidol Decanoate [Haldol D] 200 mg IM Q14D #1 each 02/17/21 Ibuprofen [Motrin] 600 mg PO Q8HR PRN #30 tab 03/07/21 Ondansetron Odt [Zofran Odt] 4 mg PO Q8HR PRN #10 tab 03/22/21 Allergies Allergy/AdvReac Type Severity Reaction Status Date / Time egg Allergy Anaphylaxis Verified 03/22/21 11:50 hydromorphone HCl Allergy Itching Verified 03/22/21 11:50 [From Dilaudid] milk Allergy Anaphylaxis Verified 03/22/21 11:50 gabapentin AdvReac Nausea Verified 03/22/21 11:50 Review of Systems ROS Statement: Those systems with pertinent positive or pertinent negative responses have been documented in the HPI. ROS Other: All systems not noted in ROS Statement are negative. Past Medical History Past Medical History: GERD/Reflux, GI Bleed Additional Past Medical History / Comment(s): borderline personality, History of Any Multi-Drug Resistant Organisms: C-DIFF Date of last positivie culture/infection: 2017 MDRO Source:: Stool Past Surgical History: Cholecystectomy, Tonsillectomy Past Anesthesia/Blood Transfusion Reactions: No Reported Reaction Past Psychological History: Anxiety, Depression, PTSD, Schizoaffective Disorder Smoking Status: Current every day smoker Past Alcohol Use History: None Reported Past Drug Use History: None Reported - Past Family History Mother Additional Family Medical History / Comment(s): NONE Father Additional Family Medical History / Comment(s): NONE General Exam Limitations: no limitations General appearance: alert, in no apparent distress Head exam: Present: atraumatic, normocephalic, normal inspection Eye exam: Present: normal appearance, PERRL, EOMI. Absent: scleral icterus, conjunctival injection, periorbital swelling ENT exam: Present: normal exam, normal oropharynx, mucous membranes moist Neck exam: Present: normal inspection, full ROM. Absent: tenderness, meningismus, lymphadenopathy Respiratory exam: Present: normal lung sounds bilaterally. Absent: respiratory distress, wheezes, rales, rhonchi, stridor Cardiovascular Exam: Present: normal rhythm, tachycardia, normal heart sounds. Absent: systolic murmur, diastolic murmur, rubs, gallop, clicks GI/Abdominal exam: Present: soft, tenderness, normal bowel sounds. Absent: distended, guarding, rebound, rigid Back exam: Present: CVA tenderness (R). Absent: CVA tenderness (L) Skin exam: Present: warm, dry, intact, normal color. Absent: rash Course Vital Signs 03/22/21 03/22/21 11:25 13:48 Temperature 97.9 F 97.6 F Pulse Rate 127 H 115 H Respiratory 16 18 Rate Blood Pressure 131/75 121/85 O2 Sat by Pulse 94 L 96 Oximetry Medical Decision Making - Medical Decision Making I did discuss case with Dr. Wiggins. Patient is not having acute changes revealed lactic is unremarkable, afebrile and no leukocytosis. Patient will be given strict return parameters. Patient follow-up in office. - Lab Data Result diagrams: 03/22/21 11:48 03/22/21 11:48 Lab Results 03/22/21 03/22/21 03/22/21 Range/Units 11:48 11:48 11:48 WBC 10.1 (3.8-10.6) k/uL RBC 4.38 (3.80-5.40) m/uL Hgb 13.2 (11.4-16.0) gm/dL Hct 39.9 (34.0-46.0) % MCV 91.2 (80.0-100.0) fL MCH 30.2 (25.0-35.0) pg MCHC 33.1 (31.0-37.0) g/dL RDW 13.8 (11.5-15.5) % Plt Count 237 (150-450) k/uL MPV 7.9 Neutrophils % 63 % Lymphocytes % 31 % Monocytes % 4 % Eosinophils % 1 % Basophils % 1 % Neutrophils # 6.3 (1.3-7.7) k/uL Lymphocytes # 3.1 (1.0-4.8) k/uL Monocytes # 0.4 (0-1.0) k/uL Eosinophils # 0.1 (0-0.7) k/uL Basophils # 0.1 (0-0.2) k/uL Sodium (137-145) mmol/L Potassium (3.5-5.1) mmol/L Chloride (98-107) mmol/L Carbon Dioxide (22-30) mmol/L Anion Gap mmol/L BUN (7-17) mg/dL Creatinine (0.52-1.04) mg/dL Est GFR (CKD-EPI)AfAm (>60 ml/min/1.73 sqM) Est GFR (CKD-EPI)NonAf (>60 ml/min/1.73 sqM) Glucose (74-99) mg/dL Lactic Ac Sepsis Rflx Plasma Lactic Acid Benito (0.7-2.0) mmol/L Calcium (8.4-10.2) mg/dL Total Bilirubin (0.2-1.3) mg/dL AST (14-36) U/L ALT (4-34) U/L Alkaline Phosphatase (38-126) U/L Total Protein (6.3-8.2) g/dL Albumin (3.5-5.0) g/dL Amylase (30-110) U/L Lipase (23-300) U/L Urine Color Yellow Urine Appearance Clear (Clear) Urine pH 6.5 (5.0-8.0) Ur Specific [place] 1.023 (1.001-1.035) Urine Protein Negative (Negative) Urine Glucose (UA) 4+ H (Negative) Urine Ketones 1+ H (Negative) Urine Blood Negative (Negative) Urine Nitrite Negative (Negative) Urine Bilirubin Negative (Negative) Urine Urobilinogen <2.0 (<2.0) mg/dL Ur Leukocyte Esterase Negative (Negative) Urine HCG, Qual Not Detected (Not Detectd) Coronavirus (PCR) (Not Detectd) 03/22/21 03/22/21 03/22/21 Range/Units 11:48 11:48 12:18 WBC (3.8-10.6) k/uL RBC (3.80-5.40) m/uL Hgb (11.4-16.0) gm/dL Hct (34.0-46.0) % MCV (80.0-100.0) fL MCH (25.0-35.0) pg MCHC (31.0-37.0) g/dL RDW (11.5-15.5) % Plt Count (150-450) k/uL MPV Neutrophils % % Lymphocytes % % Monocytes % % Eosinophils % % Basophils % % Neutrophils # (1.3-7.7) k/uL Lymphocytes # (1.0-4.8) k/uL Monocytes # (0-1.0) k/uL Eosinophils # (0-0.7) k/uL Basophils # (0-0.2) k/uL Sodium 134 L (137-145) mmol/L Potassium 4.3 (3.5-5.1) mmol/L Chloride 101 (98-107) mmol/L Carbon Dioxide 26 (22-30) mmol/L Anion Gap 7 mmol/L BUN 12 (7-17) mg/dL Creatinine 0.50 L (0.52-1.04) mg/dL Est GFR (CKD-EPI)AfAm >90 (>60 ml/min/1.73 sqM) Est GFR (CKD-EPI)NonAf >90 (>60 ml/min/1.73 sqM) Glucose 273 H (74-99) mg/dL Lactic Ac Sepsis Rflx Y Plasma Lactic Acid Benito 2.6 H* (0.7-2.0) mmol/L Calcium 10.0 (8.4-10.2) mg/dL Total Bilirubin 0.4 (0.2-1.3) mg/dL AST 52 H (14-36) U/L ALT 56 H (4-34) U/L Alkaline Phosphatase 76 (38-126) U/L Total Protein 7.6 (6.3-8.2) g/dL Albumin 4.2 (3.5-5.0) g/dL Amylase 63 (30-110) U/L Lipase 180 (23-300) U/L Urine Color Urine Appearance (Clear) Urine pH (5.0-8.0) Ur Specific [place] (1.001-1.035) Urine Protein (Negative) Urine Glucose (UA) (Negative) Urine Ketones (Negative) Urine Blood (Negative) Urine Nitrite (Negative) Urine Bilirubin (Negative) Urine Urobilinogen (<2.0) mg/dL Ur Leukocyte Esterase (Negative) Urine HCG, Qual (Not Detectd) Coronavirus (PCR) (Not Detectd) 03/22/21 03/22/21 Range/Units 14:23 14:53 WBC (3.8-10.6) k/uL RBC (3.80-5.40) m/uL Hgb (11.4-16.0) gm/dL Hct (34.0-46.0) % MCV (80.0-100.0) fL MCH (25.0-35.0) pg MCHC (31.0-37.0) g/dL RDW (11.5-15.5) % Plt Count (150-450) k/uL MPV Neutrophils % % Lymphocytes % % Monocytes % % Eosinophils % % Basophils % % Neutrophils # (1.3-7.7) k/uL Lymphocytes # (1.0-4.8) k/uL Monocytes # (0-1.0) k/uL Eosinophils # (0-0.7) k/uL Basophils # (0-0.2) k/uL Sodium (137-145) mmol/L Potassium (3.5-5.1) mmol/L Chloride (98-107) mmol/L Carbon Dioxide (22-30) mmol/L Anion Gap mmol/L BUN (7-17) mg/dL Creatinine (0.52-1.04) mg/dL Est GFR (CKD-EPI)AfAm (>60 ml/min/1.73 sqM) Est GFR (CKD-EPI)NonAf (>60 ml/min/1.73 sqM) Glucose (74-99) mg/dL Lactic Ac Sepsis Rflx Plasma Lactic Acid Benito 1.3 (0.7-2.0) mmol/L Calcium (8.4-10.2) mg/dL Total Bilirubin (0.2-1.3) mg/dL AST (14-36) U/L ALT (4-34) U/L Alkaline Phosphatase (38-126) U/L Total Protein (6.3-8.2) g/dL Albumin (3.5-5.0) g/dL Amylase (30-110) U/L Lipase (23-300) U/L Urine Color Urine Appearance (Clear) Urine pH (5.0-8.0) Ur Specific [place] (1.001-1.035) Urine Protein (Negative) Urine Glucose (UA) (Negative) Urine Ketones (Negative) Urine Blood (Negative) Urine Nitrite (Negative) Urine Bilirubin (Negative) Urine Urobilinogen (<2.0) mg/dL Ur Leukocyte Esterase (Negative) Urine HCG, Qual (Not Detectd) Coronavirus (PCR) Not Detected (Not Detectd) Disposition Clinical Impression: Abdominal pain, Appendicolith Disposition: HOME SELF-CARE Condition: Stable Instructions (If sedation given, give patient instructions): Abdominal Pain (ED) Additional Instructions: Please return to the Emergency Department if symptoms worsen or any other concerns. Prescriptions: Ondansetron Odt [Zofran Odt] 4 mg PO Q8HR PRN #10 tab PRN Reason: Nausea Is patient prescribed a controlled substance at d/c from ED?: No Referrals: None,Stated [Primary Care Provider] - 1-2 days Joana Wiggins MD [STAFF PHYSICIAN] - 1-2 days Time of Disposition: 15:14
--- NOTE | 2021-03-22 12:39 | CT ---
EXAMINATION TYPE: CT abdomen pelvis wo con DATE OF EXAM: 03/22/2021 COMPARISON: 01/30/2015 HISTORY: Right flank pain CT DLP: 1596 mGycm Automated exposure control for dose reduction was used. TECHNIQUE: Helical acquisition of images was performed from the lung bases through the pelvis. FINDINGS: . There are 2 groundglass opacities in the lung bases bilaterally. The findings raise the question of pneumonia possibly Covid in origin. There is subtle calcification within the appendix which does not appear enlarged and there is no kevin appendiceal inflammation. There is no free intraperitoneal air or fluid. The possibility of an early appendicitis is not entirely excluded. This was not present on the prior study. There are no renal or ureteral calcifications. There is no hydronephrosis. There are surgical absence of the gallbladder. The bowel loops are normal in caliber and there is no evidence of obstruction. There is no pelvic mass or adenopathy. The osseous structures are intact. IMPRESSION: 1. Small groundglass densities within the lung bases raising the question of Covid pneumonia or other inflammatory process. 2. Suggestion of calcification involving the appendix/appendicolith without dilatation of the appendi x or periappendiceal inflammation. Findings raise the question of early appendicitis and clinical cor relation and short-term follow-up is recommended.
[2021-03-22 13:49] VITALS: BP 121/85; RESP 18; TEMP 97.6
[2021-03-22] MEDS ORDERED: SODIUM CHLORIDE 0.9% 1,000 ML IV ONE (14:06)
[2021-03-22] MEDS ORDERED: ONDANSETRON 4 MG/2 ML VIAL IVP STA (14:07)
[2021-03-22] MEDS ORDERED: MORPHINE SULFATE 4 MG/ML SYRINGE IVP STA (14:07)
[2021-03-22 16:02] VITALS: PULSE 106
== END 2021-03-22 15:40 | disposition home or self-care (01) ==
LOC: EC 11:15
DX: K38.1 Appendicular concretions (principal); K21.9 Gastro-esophageal reflux disease without esophagitis; F41.9 Anxiety disorder, unspecified; F32.A Depression, unspecified; F43.12 Post-traumatic stress disorder, chronic; F25.9 Schizoaffective disorder, unspecified; F17.200 Nicotine dependence, unspecified, uncomplicated; Z88.5 Allergy status to narcotic agent; Z90.49 Acquired absence of other specified parts of digestive tract; Z20.822 Contact with and (suspected) exposure to COVID-19
CPT/HCPCS: 99284; 96374; 96375 ×2; 96361 ×4; 36415; 80053; 82150; 83605; 83690; 85025; 81003; 81025; 87635; 74176; J2270; J2405; J1885

== ENCOUNTER 2021-03-23 13:36 | Emergency (ER) | payer MEDICARE, OTHER ==
[2021-03-23 13:57] VITALS: TEMP 98
[2021-03-23] MEDS ORDERED: KETOROLAC 15 MG/ML 1 ML VIAL IVP STA (14:18)
[2021-03-23] MEDS ORDERED: ONDANSETRON 4 MG/2 ML VIAL IVP STA (14:18)
[2021-03-23] MEDS ORDERED: SODIUM CHLORIDE 0.9% 1,000 ML IV STA (14:18)
[2021-03-23 14:49] LABS: Appearance,Urine Clear (Clear); Basophils # (A) 0.1 k/uL (0-0.2); Basophils % (A) 1 %; Bilirubin,Urine Negative (Negative); Blood,Urine Negative (Negative); Color,Urine Yellow; Eosinophils # (A) 0.1 k/uL (0-0.7); Eosinophils % (A) 1 %; Glucose,Urine (UA) 3+ (Negative); HCT 37.6 % (34.0-46.0); HGB 12.6 gm/dL (11.4-16.0); Ketones,Urine 1+ (Negative); Leukocyte Esterase,Urine Negative (Negative); Lymphocytes # (A) 2.7 k/uL (1.0-4.8); Lymphocytes % (A) 32 %; MCH 30.6 pg (25.0-35.0); MCHC 33.5 g/dL (31.0-37.0); MCV 91.3 fL (80.0-100.0); Mean Platelet Volume 8.1; Monocytes # (A) 0.3 k/uL (0-1.0); Monocytes % (A) 4 %; Neutrophils # (A) 5.1 k/uL (1.3-7.7); Neutrophils % (A) 59 %; Nitrite,Urine Negative (Negative); PH, Urine 6.5 (5.0-8.0); Platelet Count 242 k/uL (150-450); Protein,Urine Negative (Negative); RBC 4.12 m/uL (3.80-5.40); RDW 14.4 % (11.5-15.5); Specific Gravity,Urine 1.022 (1.001-1.035); Urobilinogen,Urine <2.0 mg/dL (<2.0); WBC 8.7 k/uL (3.8-10.6)
[2021-03-23 14:59] LABS: ALT 64 U/L (4-34); AST 57 U/L (14-36); African American GFR (CKD) >90 (>60 ml/min/1.73 sqM); Albumin 4.3 g/dL (3.5-5.0); Alkaline Phosphatase 66 U/L (38-126); Anion Gap 6 mmol/L; Blood Urea Nitrogen 11 mg/dL (7-17); Calcium 9.7 mg/dL (8.4-10.2); Carbon Dioxide 26 mmol/L (22-30); Chloride 105 mmol/L (98-107); Glucose 144 mg/dL (74-99); Lipase 156 U/L (23-300); Non-African American GFR(CKD) >90 (>60 ml/min/1.73 sqM); Potassium 4.5 mmol/L (3.5-5.1); Sodium 137 mmol/L (137-145); Total Bilirubin 0.5 mg/dL (0.2-1.3); Total Protein 7.7 g/dL (6.3-8.2)
--- NOTE | 2021-03-23 16:31 | US ---
EXAMINATION TYPE: US pelvis complete transvag DATE OF EXAM: 03/23/2021 COMPARISON: NONE CLINICAL HISTORY: rlq pain. EC patient with 3 days, RLQ and right back pain, nausea and vomiting; his tory of PCOS since age 14 and no menstrual cycles per patient TECHNIQUE: Transvaginal (TV) and Transabdominal (TA) . Transabdominal sonographic images of the pel vis were acquired. Transvaginal sonographic images were medically necessary to better assess the fol lowing anatomy: ovaries Date of LMP: NA EXAM MEASUREMENTS: Uterus: 6.0 x 4.7 x 2.9 cm Endometrial Stripe: 1.1 cm Right Ovary: 5.0 x 3.2 x 3.0 cm Left Ovary: 5.8 x 2.6 x 2.4 cm 1. Uterus: Retroverted; arcuate appearance to upper uterus as endometrium divides superiorly 2. Endometrium: unable to correlate thickness with no menstrual cycles; arcuate appearance to upper endometrium 3. Right Ovary: enlarged ovary; multiple small follicles especially more numerous in periphery 4. Left Ovary: enlarged ovary; multiple small follicles especially more numerous in periphery Spectral, color and Pulse waveform Doppler imaging shows good arterial and venous flow within the o varies; there is no evidence for ovarian torsion. 5. Bilateral Adnexa: wnl 6. Posterior cul-de-sac: wnl IMPRESSION: Enlarged ovaries with multiple small cysts. No solid adnexal mass. No evidence of ovarian torsion. No evidence of endometrial mass. 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
--- NOTE | 2021-03-23 17:08 | ED ---
Abdominal Pain HPI - General Chief Complaint: Abdominal Pain Stated Complaint: Follow Up Visit,N/V, Abd.Pain Time Seen by Provider: 03/23/21 13:43 Source: patient Mode of arrival: ambulatory Limitations: no limitations - History of Present Illness Initial Comments: 25 year old female with past medical history of reflux presents to the emergency department for continued abdominal pain. Patient was seen yesterday for right lower quadrant pain. States that it is sharp in nature and she has associated nausea. Patient unable to eat or drink any food. Laboratory studies were conducted and a CT was performed. The patient had an appendicolith but no other signs of appendicitis. She was told that if the pain does not get any better to return to the emergency room. She reports that her pain has gotten worse. She denies taking any medications for pain control. Denies concern for . No abnormal vaginal bleeding or discharge. Reports to some diarrhea. No other alleviating, precipitating or modifying factors - Related Data Home Medications Medication Instructions Recorded Confirmed Albuterol Inhaler [Ventolin Hfa 2 puff INHALATION RT-QID 03/22/21 03/23/21 Inhaler] Allergy Relief 1 tab PO DAILY@0800 03/22/21 03/23/21 Benztropine Mesylate [Cogentin] 1 mg PO TID PRN 03/22/21 03/23/21 Nitrofurantoin Monohyd/M-Cryst 100 mg PO BID@0800,2100 03/22/21 03/23/21 [Macrobid] cloZAPine [Clozaril] 100 mg PO HS 03/22/21 03/23/21 Previous Rx's Medication Instructions Recorded Haloperidol Decanoate [Haldol D] 200 mg IM Q14D #1 each 02/17/21 Ibuprofen [Motrin] 600 mg PO Q8HR PRN #30 tab 03/07/21 Ondansetron Odt [Zofran Odt] 4 mg PO Q8HR PRN #10 tab 03/22/21 Allergies Allergy/AdvReac Type Severity Reaction Status Date / Time egg Allergy Anaphylaxis Verified 03/23/21 14:05 hydromorphone HCl Allergy Itching Verified 03/23/21 14:05 [From Dilaudid] milk Allergy Anaphylaxis Verified 03/23/21 14:05 gabapentin AdvReac Nausea Verified 03/23/21 14:05 Review of Systems ROS Statement: Those systems with pertinent positive or pertinent negative responses have been documented in the HPI. ROS Other: All systems not noted in ROS Statement are negative. Past Medical History Past Medical History: GERD/Reflux, GI Bleed Additional Past Medical History / Comment(s): borderline personality, History of Any Multi-Drug Resistant Organisms: C-DIFF Date of last positivie culture/infection: 2016 MDRO Source:: Stool Past Surgical History: Cholecystectomy, Tonsillectomy Past Anesthesia/Blood Transfusion Reactions: No Reported Reaction Past Psychological History: Anxiety, Depression, PTSD, Schizoaffective Disorder Smoking Status: Current every day smoker Past Alcohol Use History: None Reported Past Drug Use History: None Reported - Past Family History Mother Additional Family Medical History / Comment(s): NONE Father Additional Family Medical History / Comment(s): NONE General Exam Limitations: no limitations Course Vital Signs 03/23/21 03/23/21 13:49 18:05 Temperature 98 F Pulse Rate 121 H 106 H Respiratory 18 20 Rate Blood Pressure 128/85 134/86 O2 Sat by Pulse 96 95 Oximetry Medical Decision Making - Medical Decision Making Upon arrival patient is placed in room 18. IV is established. Patient was given 4 mg of Zofran, 15 g Toradol and a liter bolus of normal saline. I did review the patient's workup from yesterday. Repeat laboratory studies are performed. White count is 8.7 from previous of 10.1. Ultrasound of the pelvis and right lower quadrants performed which demonstrates bilateral enlarged ovaries with multiple cysts. No evidence of ovarian torsion. Ultrasound right lower quadrant fails to demonstrate evidence of appendicitis. Patient is reevaluated and has improvement in her symptoms. Discuss the diagnosis, differential treatment options. Patient's pain is not clinically in the site of the appendix on ultrasound of her patient will be discharged home and instructed to follow up with primary care doctor. Also provided with information for Dr. Melo's office. Instructed to eat bland diet and advance as tolerated. Return to the emergency room for any worsening symptoms. Patient discharged home in stable condition - Lab Data Result diagrams: 03/23/21 14:43 03/23/21 14:43 Lab Results 03/23/21 03/23/21 03/23/21 Range/Units 14:43 14:43 14:43 WBC 8.7 (3.8-10.6) k/uL RBC 4.12 (3.80-5.40) m/uL Hgb 12.6 (11.4-16.0) gm/dL Hct 37.6 (34.0-46.0) % MCV 91.3 (80.0-100.0) fL MCH 30.6 (25.0-35.0) pg MCHC 33.5 (31.0-37.0) g/dL RDW 14.4 (11.5-15.5) % Plt Count 242 (150-450) k/uL MPV 8.1 Neutrophils % 59 % Lymphocytes % 32 % Monocytes % 4 % Eosinophils % 1 % Basophils % 1 % Neutrophils # 5.1 (1.3-7.7) k/uL Lymphocytes # 2.7 (1.0-4.8) k/uL Monocytes # 0.3 (0-1.0) k/uL Eosinophils # 0.1 (0-0.7) k/uL Basophils # 0.1 (0-0.2) k/uL Sodium (137-145) mmol/L Potassium (3.5-5.1) mmol/L Chloride (98-107) mmol/L Carbon Dioxide (22-30) mmol/L Anion Gap mmol/L BUN (7-17) mg/dL Creatinine (0.52-1.04) mg/dL Est GFR (CKD-EPI)AfAm (>60 ml/min/1.73 sqM) Est GFR (CKD-EPI)NonAf (>60 ml/min/1.73 sqM) Glucose (74-99) mg/dL Plasma Lactic Acid Benito (0.7-2.0) mmol/L Calcium (8.4-10.2) mg/dL Total Bilirubin (0.2-1.3) mg/dL AST (14-36) U/L ALT (4-34) U/L Alkaline Phosphatase (38-126) U/L Total Protein (6.3-8.2) g/dL Albumin (3.5-5.0) g/dL Lipase (23-300) U/L Urine Color Yellow Urine Appearance Clear (Clear) Urine pH 6.5 (5.0-8.0) Ur Specific [place] 1.022 (1.001-1.035) Urine Protein Negative (Negative) Urine Glucose (UA) 3+ H (Negative) Urine Ketones 1+ H (Negative) Urine Blood Negative (Negative) Urine Nitrite Negative (Negative) Urine Bilirubin Negative (Negative) Urine Urobilinogen <2.0 (<2.0) mg/dL Ur Leukocyte Esterase Negative (Negative) Urine HCG, Qual Not Detected (Not Detectd) 03/23/21 03/23/21 Range/Units 14:43 14:43 WBC (3.8-10.6) k/uL RBC (3.80-5.40) m/uL Hgb (11.4-16.0) gm/dL Hct (34.0-46.0) % MCV (80.0-100.0) fL MCH (25.0-35.0) pg MCHC (31.0-37.0) g/dL RDW (11.5-15.5) % Plt Count (150-450) k/uL MPV Neutrophils % % Lymphocytes % % Monocytes % % Eosinophils % % Basophils % % Neutrophils # (1.3-7.7) k/uL Lymphocytes # (1.0-4.8) k/uL Monocytes # (0-1.0) k/uL Eosinophils # (0-0.7) k/uL Basophils # (0-0.2) k/uL Sodium 137 (137-145) mmol/L Potassium 4.5 (3.5-5.1) mmol/L Chloride 105 (98-107) mmol/L Carbon Dioxide 26 (22-30) mmol/L Anion Gap 6 mmol/L BUN 11 (7-17) mg/dL Creatinine 0.45 L (0.52-1.04) mg/dL Est GFR (CKD-EPI)AfAm >90 (>60 ml/min/1.73 sqM) Est GFR (CKD-EPI)NonAf >90 (>60 ml/min/1.73 sqM) Glucose 144 H (74-99) mg/dL Plasma Lactic Acid Benito 1.7 (0.7-2.0) mmol/L Calcium 9.7 (8.4-10.2) mg/dL Total Bilirubin 0.5 (0.2-1.3) mg/dL AST 57 H (14-36) U/L ALT 64 H (4-34) U/L Alkaline Phosphatase 66 (38-126) U/L Total Protein 7.7 (6.3-8.2) g/dL Albumin 4.3 (3.5-5.0) g/dL Lipase 156 (23-300) U/L Urine Color Urine Appearance (Clear) Urine pH (5.0-8.0) Ur Specific [place] (1.001-1.035) Urine Protein (Negative) Urine Glucose (UA) (Negative) Urine Ketones (Negative) Urine Blood (Negative) Urine Nitrite (Negative) Urine Bilirubin (Negative) Urine Urobilinogen (<2.0) mg/dL Ur Leukocyte Esterase (Negative) Urine HCG, Qual (Not Detectd) Disposition Clinical Impression: Appendicolith, Abdominal pain Disposition: HOME SELF-CARE Condition: Stable Instructions (If sedation given, give patient instructions): Abdominal Pain (ED) Additional Instructions: Alternate taking Motrin and Tylenol for pain control. Slowly advance your diet. I want you to follow-up with Dr. Wiggins who is the surgeon who originally w as involved in your case. Return to emergency room for any new or worsening symptoms Is patient prescribed a controlled substance at d/c from ED?: No Referrals: None,Stated [Primary Care Provider] - 1-2 days Joana Wiggins MD [STAFF PHYSICIAN] - 1-2 days Time of Disposition: 17:52
--- NOTE | 2021-03-23 17:34 | US ---
EXAMINATION TYPE: US abdomen APPY DATE OF EXAM: 03/23/2021 COMPARISON: CT, pelvic US CLINICAL HISTORY: rlq pain. EC patient with RLQ pain, right back pain, nausea and vomiting x 3 days APPENDIX: appendix is not seen by TA US today. US at area of pain superior and medial to right groin: appendix not seen here and no free fluid is se en here. IMPRESSION: No discrete solid or cystic mass in the right lower quadrant. Appendix not seen. No evidence of appen dicitis.
[2021-03-23 18:10] VITALS: BP 134/86; PULSE 106; RESP 20
== END 2021-03-23 18:06 | disposition home or self-care (01) ==
LOC: EC 13:36
DX: K38.1 Appendicular concretions (principal); K21.9 Gastro-esophageal reflux disease without esophagitis; F41.9 Anxiety disorder, unspecified; F32.A Depression, unspecified; F43.12 Post-traumatic stress disorder, chronic; F25.9 Schizoaffective disorder, unspecified; F17.200 Nicotine dependence, unspecified, uncomplicated; Z88.5 Allergy status to narcotic agent; Z90.49 Acquired absence of other specified parts of digestive tract
CPT/HCPCS: 99284; 96374; 96375; 96361; 36415; 80053; 83605; 83690; 85025; 81003; 81025; 93975; 76705; 76856; 76830; J2405; J1885

== ENCOUNTER 2021-03-30 04:57 | Inpatient (IN) | payer MEDICARE, OTHER ==
[2021-03-30] MEDS ORDERED: SODIUM CHLORIDE 0.9% 1,000 ML IV ONE (05:24)
[2021-03-30 05:57] LABS: ALT 50 U/L (4-34); AST 44 U/L (14-36); African American GFR (CKD) >90 (>60 ml/min/1.73 sqM); Albumin 4.4 g/dL (3.5-5.0); Alkaline Phosphatase 80 U/L (38-126); Anion Gap 14 mmol/L; Blood Urea Nitrogen 11 mg/dL (7-17); Calcium 9.3 mg/dL (8.4-10.2); Carbon Dioxide 22 mmol/L (22-30); Chloride 102 mmol/L (98-107); Glucose 241 mg/dL (74-99); Non-African American GFR(CKD) >90 (>60 ml/min/1.73 sqM); Potassium 3.7 mmol/L (3.5-5.1); Sodium 138 mmol/L (137-145); Total Bilirubin 0.6 mg/dL (0.2-1.3); Total Protein 7.8 g/dL (6.3-8.2)
--- NOTE | 2021-03-30 06:02 | XR ---
EXAMINATION TYPE: XR chest 2V DATE OF EXAM: 03/30/2021 COMPARISON: Chest x-ray May 19, 2015 HISTORY: Cough and difficulty in breathing. TECHNIQUE: Frontal and lateral views of the chest are obtained. FINDINGS: There are bilateral multifocal increased opacities. Diminished inspiration is seen. No pl eural effusion or pneumothorax is evident. The cardiac silhouette size is more prominent , measuring upper limits of normal. The osseous structures are intact. IMPRESSION: Bilateral multifocal increased opacities favor covid-19 infection infiltrates are felt p resent. Correlate clinically.
--- NOTE | 2021-03-30 06:10 | CT ---
EXAMINATION TYPE: CT abdomen pelvis wo con DATE OF EXAM: 03/30/2021 HISTORY: pain, right lower quadrant tenderness. CT DLP: 1436 mGycm. Automated Exposure Control for Dose Reduction was Utilized. TECHNIQUE: CT scan of the abdomen and pelvis is performed without oral or IV contrast. COMPARISON: Prior CT March 22, 2021 FINDINGS: Within the limitations of a non-contrast study, the following observations are made. LUNG BASES: Persistent mild to moderate posterior bibasilar linear scarring and/or atelectasis. More prominent posterior bibasilar groundglass opacities. LIVER/GB: Hepatomegaly with heterogeneous hypodense appearance of the liver redemonstrated. Cholecyst ectomy clips again seen.. PANCREAS: No significant abnormality is seen. SPLEEN: No significant abnormality is seen. ADRENALS: No significant abnormality is seen. KIDNEYS: No significant abnormality is seen. BOWEL: Normal size slightly hyperdense appendix redemonstrated. No surrounding inflammatory change. N o suspicious bowel dilatation. GENITAL ORGANS: Anteverted uterus redemonstrated. Ovaries are symmetric and remain within normal limi ts in size axial image 134 LYMPH NODES: No greater than 1cm abdominal or pelvic lymph nodes are appreciated. OSSEOUS STRUCTURES: No significant abnormality is seen. OTHER: No significant additional abnormality is seen. IMPRESSION: 1. Worsening posterior bilateral groundglass opacities suggestive of covid-19 infection, correlate cl inically. 2. Stable appearance of the appendix. Possible appendicoliths. No surrounding inflammatory change to suggest acute appendicitis. 3. Redemonstration of hepatomegaly and diffuse fatty hepatocellular disease. 4. No new or acute findings are evident otherwise.
[2021-03-30] MEDS ORDERED: HYDROcodone/APAP 5-325MG 1 EACH TAB PO STA (06:45)
[2021-03-30] MEDS ORDERED: ACETAMINOPHEN TAB 325 MG TAB PO STA (06:45)
[2021-03-30 06:47] LABS: Appearance,Urine Clear (Clear); Bilirubin,Urine Negative (Negative); Blood,Urine Negative (Negative); Color,Urine Light Yellow; Glucose,Urine (UA) Negative (Negative); Ketones,Urine Negative (Negative); Leukocyte Esterase,Urine Negative (Negative); Nitrite,Urine Negative (Negative); PH, Urine 5.5 (5.0-8.0); Protein,Urine Negative (Negative); Specific Gravity,Urine 1.008 (1.001-1.035); Urobilinogen,Urine <2.0 mg/dL (<2.0)
[2021-03-30 07:52] LABS: Basophils % (A) 0 %; Eosinophils % (A) 0 %; HCT 40.1 % (34.0-46.0); HGB 12.7 gm/dL (11.4-16.0); Lymphocytes # (A) 1.6 k/uL (1.0-4.8); Lymphocytes % (A) 10 %; MCHC 31.7 g/dL (31.0-37.0); MCV 94.7 fL (80.0-100.0); Mean Platelet Volume 8.8; Monocytes # (A) 0.4 k/uL (0-1.0); Monocytes % (A) 2 %; Neutrophils # (A) 13.6 k/uL (1.3-7.7); Neutrophils % (A) 84 %; Platelet Count 354 k/uL (150-450); RBC 4.23 m/uL (3.80-5.40); RDW 15.5 % (11.5-15.5); WBC 16.2 k/uL (3.8-10.6)
--- NOTE | 2021-03-30 08:10 | ED ---
General Adult HPI - General Chief complaint: Shortness of Breath Stated complaint: SOB, abdominal pain Time Seen by Provider: 03/30/21 04:59 Source: patient, EMS Mode of arrival: EMS Limitations: no limitations - History of Present Illness Initial comments: This patient is a 25-year-old woman brought to be evaluated for fever and shortness of breath. Over the course the evening she's been getting more short of breath. She does have a cough as well. Patient denies chest pain. No leg pain or swelling. -: hour(s) Location: chest Severity scale (1-10): 0 Improves with: none Worsens with: none Associated Symptoms: cough, fever/chills Treatments Prior to Arrival: none - Related Data Home Medications Medication Instructions Recorded Confirmed Albuterol Inhaler [Ventolin Hfa 2 puff INHALATION RT-QID 03/22/21 03/23/21 Inhaler] Allergy Relief 1 tab PO DAILY@0800 03/22/21 03/23/21 Benztropine Mesylate [Cogentin] 1 mg PO TID PRN 03/22/21 03/23/21 Nitrofurantoin Monohyd/M-Cryst 100 mg PO BID@0800,2100 03/22/21 03/23/21 [Macrobid] cloZAPine [Clozaril] 100 mg PO HS 03/22/21 03/23/21 Previous Rx's Medication Instructions Recorded Haloperidol Decanoate [Haldol D] 200 mg IM Q14D #1 each 02/17/21 Ibuprofen [Motrin] 600 mg PO Q8HR PRN #30 tab 03/07/21 Ondansetron Odt [Zofran Odt] 4 mg PO Q8HR PRN #10 tab 03/22/21 Allergies Allergy/AdvReac Type Severity Reaction Status Date / Time egg Allergy Anaphylaxis Verified 03/23/21 14:05 hydromorphone HCl Allergy Itching Verified 03/23/21 14:05 [From Dilaudid] milk Allergy Anaphylaxis Verified 03/23/21 14:05 gabapentin AdvReac Nausea Verified 03/23/21 14:05 Review of Systems ROS Statement: Those systems with pertinent positive or pertinent negative responses have been documented in the HPI. ROS Other: All systems not noted in ROS Statement are negative. Constitutional: Reports: fever, chills. Denies: weakness ENT: Reports: congestion Respiratory: Reports: cough, dyspnea. Denies: hemoptysis Cardiovascular: Denies: chest pain, palpitations, orthopnea, edema, syncope Gastrointestinal: Reports: diarrhea. Denies: abdominal pain, nausea, vomiting, constipation Genitourinary: Denies: dysuria, hematuria Musculoskeletal: Denies: back pain Skin: Denies: rash Neurological: Denies: headache, weakness, numbness Past Medical History Past Medical History: GERD/Reflux, GI Bleed Additional Past Medical History / Comment(s): borderline personality, History of Any Multi-Drug Resistant Organisms: C-DIFF Date of last positivie culture/infection: 2016 MDRO Source:: Stool Past Surgical History: Cholecystectomy, Tonsillectomy Past Anesthesia/Blood Transfusion Reactions: No Reported Reaction Past Psychological History: Anxiety, Depression, PTSD, Schizoaffective Disorder Smoking Status: Current every day smoker Past Alcohol Use History: Rare Past Drug Use History: None Reported - Past Family History Mother Additional Family Medical History / Comment(s): NONE Father Additional Family Medical History / Comment(s): NONE General Exam Limitations: no limitations General appearance: alert, in no apparent distress Head exam: Present: atraumatic, normocephalic Eye exam: Present: normal appearance ENT exam: Present: mucous membranes dry Neck exam: Present: normal inspection, full ROM Respiratory exam: Absent: wheezes, rales, rhonchi, stridor Cardiovascular Exam: Present: normal rhythm, tachycardia, normal heart sounds. Absent: systolic murmur, diastolic murmur, rubs, gallop GI/Abdominal exam: Present: soft, tenderness (Mild right lower quadrant tenderness without rebound or guarding). Absent: distended, guarding, rebound, rigid, mass Extremities exam: Present: normal inspection, normal capillary refill. Absent: pedal edema, calf tenderness Back exam: Present: normal inspection. Absent: CVA tenderness (R), CVA tenderness (L) Neurological exam: Present: alert Skin exam: Present: warm, dry, intact, normal color. Absent: rash Course Vital Signs 03/30/21 03/30/21 03/30/21 04:59 06:43 08:07 Temperature 101.3 F H 100.2 F H Pulse Rate 150 H 137 H 119 H Respiratory 22 20 18 Rate Blood Pressure 141/86 116/80 104/81 O2 Sat by Pulse 94 L 94 L 95 Oximetry Medical Decision Making - Medical Decision Making Patient is 25-year-old woman here for some dyspnea and fever. There is mild cough. On arrival she is febrile and tachycardic. The exam does reveal some right lower quadrant tenderness and she states she does have history of appendicolith therefore computed tomography scan is performed which does show appendicolith but no inflammation. The patient does have chronic virus. Vital signs improved markedly from arrival after fluids and antipyretic. - Lab Data Result diagrams: 03/30/21 07:41 03/30/21 05:34 Lab Results 03/30/21 03/30/21 03/30/21 Range/Units 05:34 05:34 06:42 WBC (3.8-10.6) k/uL RBC (3.80-5.40) m/uL Hgb (11.4-16.0) gm/dL Hct (34.0-46.0) % MCV (80.0-100.0) fL MCH (25.0-35.0) pg MCHC (31.0-37.0) g/dL RDW (11.5-15.5) % Plt Count (150-450) k/uL MPV Neutrophils % % Lymphocytes % % Monocytes % % Eosinophils % % Basophils % % Neutrophils # (1.3-7.7) k/uL Lymphocytes # (1.0-4.8) k/uL Monocytes # (0-1.0) k/uL Eosinophils # (0-0.7) k/uL Basophils # (0-0.2) k/uL Sodium 138 (137-145) mmol/L Potassium 3.7 (3.5-5.1) mmol/L Chloride 102 (98-107) mmol/L Carbon Dioxide 22 (22-30) mmol/L Anion Gap 14 mmol/L BUN 11 (7-17) mg/dL Creatinine 0.56 (0.52-1.04) mg/dL Est GFR (CKD-EPI)AfAm >90 (>60 ml/min/1.73 sqM) Est GFR (CKD-EPI)NonAf >90 (>60 ml/min/1.73 sqM) Glucose 241 H (74-99) mg/dL Calcium 9.3 (8.4-10.2) mg/dL Total Bilirubin 0.6 (0.2-1.3) mg/dL AST 44 H (14-36) U/L ALT 50 H (4-34) U/L Alkaline Phosphatase 80 (38-126) U/L Total Protein 7.8 (6.3-8.2) g/dL Albumin 4.4 (3.5-5.0) g/dL Urine Color Light Yellow Urine Appearance Clear (Clear) Urine pH 5.5 (5.0-8.0) Ur Specific [place] 1.008 (1.001-1.035) Urine Protein Negative (Negative) Urine Glucose (UA) Negative (Negative) Urine Ketones Negative (Negative) Urine Blood Negative (Negative) Urine Nitrite Negative (Negative) Urine Bilirubin Negative (Negative) Urine Urobilinogen <2.0 (<2.0) mg/dL Ur Leukocyte Esterase Negative (Negative) Urine HCG, Qual (Not Detectd) Coronavirus (PCR) Detected A (Not Detectd) 03/30/21 03/30/21 Range/Units 06:42 07:41 WBC 16.2 H (3.8-10.6) k/uL RBC 4.23 (3.80-5.40) m/uL Hgb 12.7 (11.4-16.0) gm/dL Hct 40.1 (34.0-46.0) % MCV 94.7 (80.0-100.0) fL MCH 30.0 (25.0-35.0) pg MCHC 31.7 (31.0-37.0) g/dL RDW 15.5 (11.5-15.5) % Plt Count 354 (150-450) k/uL MPV 8.8 Neutrophils % 84 % Lymphocytes % 10 % Monocytes % 2 % Eosinophils % 0 % Basophils % 0 % Neutrophils # 13.6 H (1.3-7.7) k/uL Lymphocytes # 1.6 (1.0-4.8) k/uL Monocytes # 0.4 (0-1.0) k/uL Eosinophils # 0.0 (0-0.7) k/uL Basophils # 0.0 (0-0.2) k/uL Sodium (137-145) mmol/L Potassium (3.5-5.1) mmol/L Chloride (98-107) mmol/L Carbon Dioxide (22-30) mmol/L Anion Gap mmol/L BUN (7-17) mg/dL Creatinine (0.52-1.04) mg/dL Est GFR (CKD-EPI)AfAm (>60 ml/min/1.73 sqM) Est GFR (CKD-EPI)NonAf (>60 ml/min/1.73 sqM) Glucose (74-99) mg/dL Calcium (8.4-10.2) mg/dL Total Bilirubin (0.2-1.3) mg/dL AST (14-36) U/L ALT (4-34) U/L Alkaline Phosphatase (38-126) U/L Total Protein (6.3-8.2) g/dL Albumin (3.5-5.0) g/dL Urine Color Urine Appearance (Clear) Urine pH (5.0-8.0) Ur Specific [place] (1.001-1.035) Urine Protein (Negative) Urine Glucose (UA) (Negative) Urine Ketones (Negative) Urine Blood (Negative) Urine Nitrite (Negative) Urine Bilirubin (Negative) Urine Urobilinogen (<2.0) mg/dL Ur Leukocyte Esterase (Negative) Urine HCG, Qual Not Detected (Not Detectd) Coronavirus (PCR) (Not Detectd) Disposition Clinical Impression: COVID-19 Disposition: ADMITTED IP TO THIS HOSP Condition: Fair Instructions (If sedation given, give patient instructions): Coronavirus Disease 2019 (COVID-19) Is patient prescribed a controlled substance at d/c from ED?: No Referrals: None,Stated [Primary Care Provider] - 1-2 days
[2021-03-30] MEDS ORDERED: NALOXONE 0.4 MG/ML 1 ML VIAL IV PRN (08:26)
[2021-03-30] MEDS ORDERED: ACETAMINOPHEN TAB 325 MG TAB PO PRN (08:26)
[2021-03-30] MEDS: SODIUM CHLORIDE 0.9% 1,000 ML IV SCH ×2 (09:27→10:34)
[2021-03-30] MEDS: ENOXAPARIN 40 MG/0.4 ML SYRINGE SQ SCH (10:20)
[2021-03-30] MEDS: ONDANSETRON 4 MG/2 ML VIAL IVP PRN (10:34)
--- NOTE | 2021-03-30 11:11 | P.HPIM ---
History of Present Illness Patient is a 25-year-old female came in with compensative diarrhea nausea vomiting has been going on for about a week. Patient also having shortness of breath because of which patient came to Hospital patient is found to be hypoxic requiring 6 L infarction patient is found to have COVID-[address] pneumonia patient had a CT of the abdomen which showed infiltrates in the chest consistent with the COVID-19 pneumonia abdominal x-rays essentially within normal limits. Patient had 2 episodes of diarrhea today. Patient is bit tachycardic today. D-dimer is being obtained. Beta-hCG is being obtained. Patient is not vaccinated for COVI D-19. REVIEW OF SYSTEMS: CONSTITUTIONAL: No fever, no malaise, no fatigue. HEENT: No recent visual problems or hearing problems. Denied any sore throat. CARDIOVASCULAR: No chest pain, orthopnea, PND, no palpitations, no syncope. PULMONARY: no hemoptysis. GASTROINTESTINAL: As mentioned in HPI NEUROLOGICAL: No headaches, no weakness, no numbness. HEMATOLOGICAL: Denies any bleeding or petechiae. GENITOURINARY: Denies any burning micturition, frequency, or urgency. MUSCULOSKELETAL/RHEUMATOLOGICAL: Denies any joint pain, swelling, or any muscle pain. ENDOCRINE: Denies any polyuria or polydipsia. The rest of the 14-point review of systems is negative. PHYSICAL EXAMINATION: GENERAL: The patient is alert and oriented x3, not in any acute distress. Well developed, well nourished. Obese HEENT: Pupils are round and equally reacting to light. EOMI. No scleral icterus. No conjunctival pallor. Normocephalic, atraumatic. No pharyngeal erythema. No thyromegaly. CARDIOVASCULAR: S1 and S2 present. No murmurs, rubs, or gallops. PULMONARY: Chest is clear to auscultation, no wheezing or crackles. ABDOMEN: Soft, nontender, nondistended, normoactive bowel sounds. No palpable organomegaly. MUSCULOSKELETAL: No joint swelling or deformity. EXTREMITIES: No cyanosis, clubbing, or pedal edema. NEUROLOGICAL: Gross neurological examination did not reveal any focal deficits. SKIN: No rashes. Assessment and plan -Acute hypoxic respiratory failure secondary to COVID-19 pneumonia: Patient will be continued on respiratory support, patient will be started on Decadron. Patient will be started on cord vitamins. Patient probably will not qualify for Remdesivir. Pulmonology will be consulted. 1 sepsis secondary to COVID-19 -Tachycardia: Probably secondary to dehydration patient's IV fluids will be increased 1 25 mL per hour -Diarrhea: Secondary to COVID-19 infection -Hypoglycemia will obtain hemoglobin A1c patient will be started on sliding scale insulin patient blood sugars are expected to go up because of systemic steroids -Mildly elevated liver enzymes secondary to COVID-19 infection -Schizoaffective disorder for which patient is on clozril which will be continued patient doesn't have any neutropenia at this time DVT prophylaxis: In Rx and d-dimer will be obtained Past Medical History Past Medical History: GERD/Reflux, GI Bleed Additional Past Medical History / Comment(s): borderline personality, History of Any Multi-Drug Resistant Organisms: C-DIFF Date of last positivie culture/infection: 2016 MDRO Source:: Stool Past Surgical History: Cholecystectomy, Tonsillectomy Past Anesthesia/Blood Transfusion Reactions: No Reported Reaction Past Psychological History: Anxiety, Depression, PTSD, Schizoaffective Disorder Smoking Status: Current every day smoker Past Alcohol Use History: Rare Past Drug Use History: None Reported - Past Family History Mother Additional Family Medical History / Comment(s): NONE Father Additional Family Medical History / Comment(s): NONE Medications and Allergies Home Medications Medication Instructions Recorded Confirmed Type Haloperidol Decanoate [Haldol D] 200 mg IM Q14D #1 each 02/17/21 03/30/21 Rx Albuterol Inhaler [Ventolin Hfa 2 puff INHALATION RT-QID 03/22/21 03/30/21 History Inhaler] Allergy Relief 1 tab PO DAILY 03/22/21 03/30/21 History Benztropine Mesylate [Cogentin] 1 mg PO TID PRN 03/22/21 03/30/21 History cloZAPine [Clozaril] 200 mg PO HS 03/22/21 03/30/21 History Allergies Allergy/AdvReac Type Severity Reaction Status Date / Time egg Allergy Anaphylaxis Verified 03/30/21 09:03 hydromorphone HCl Allergy Itching Verified 03/30/21 09:03 [From Dilaudid] milk Allergy Anaphylaxis Verified 03/30/21 09:03 gabapentin AdvReac Nausea Verified 03/30/21 09:03 Physical Exam Vitals: Vital Signs Temp Pulse Pulse Resp BP BP Pulse Ox 03/30/21 10:29 99.2 F 126 H 127/78 94 L 03/30/21 08:54 99.7 F H 120 H 18 114/71 90 L 03/30/21 08:07 100.2 F H 119 H 18 104/81 95 03/30/21 06:43 137 H 20 116/80 94 L 03/30/21 04:59 101.3 F H 150 H 22 141/86 94 L Intake and Output 03/29/21 03/30/21 03/30/21 22:59 06:59 14:59 Other: Weight 120.656 kg Results CBC & Chem 7: 03/30/21 07:41 03/30/21 05:34 Labs: Abnormal Lab Results - Last 24 Hours (Table) 03/30/21 03/30/21 03/30/21 Range/Units 05:34 05:34 07:41 WBC 16.2 H (3.8-10.6) k/uL Neutrophils # 13.6 H (1.3-7.7) k/uL Glucose 241 H (74-99) mg/dL AST 44 H (14-36) U/L ALT 50 H (4-34) U/L Coronavirus (PCR) Detected A (Not Detectd)
[2021-03-30] MEDS ORDERED: dexAMETHasone 2 MG TAB PO SCH (11:15)
[2021-03-30] MEDS ORDERED: DEXAMETHASONE SOD PHOSPHATE 10 MG/ML 1 ML VIAL IVP SCH (12:00)
[2021-03-30] MEDS: HYDROcodone/APAP 7.5-325MG 1 EACH TAB PO PRN ×2 (14:21→19:39)
[2021-03-30] MEDS: DEXAMETHASONE SOD PHOSPHATE 10 MG/ML 1 ML VIAL IVP SCH (14:31)
[2021-03-30] MEDS: INSULIN ASPART (NovoLOG) 100 UNIT/ML VIAL SQ SCH ×3 (14:32→21:29)
--- NOTE | 2021-03-30 14:53 | P.CNPUL ---
History of Present Illness Consult date: 03/30/21 Reason for consult: dyspnea, hypoxemia History of present illness: 25-year-old here patient hospitalized for COVID 19 pneumonia. The patient was in the emergency department approximately a week ago for diarrhea and abdominal pain. At that time, the testing was not done and the patient was discharged home.. The patient is coming in with similar complaints of diarrhea and some vague abdominal discomfort in addition to shortness of breath and cough and the patient was found to be hypoxic and the patient was placed on 6 L of O2 nasal cannula. CAT scan of the abdomen was done and showed infiltrates in lung bases bilaterally consistent with COVID 19 pneumonia. The patient had a chest x-ray also showed diffuse bilateral pulmonary infiltrates. She is still having some liquid the bowel movements. No emesis. No altered mentation. No sputum production. The patient is not vaccinated as the patient stated that she is having ALLERGIC reactions to eggs and she thought that the vaccine had eggs. She is doing well otherwise. She has history of mental health issues including schizoaffective disorder and she [facility] in a jail. The white cell count is 16.2 with a hemoglobin of 12.7, glucose of 241 and she is nondiabetic. UA is negative. Inflammatory markers are still pending for now. Review of Systems Constitutional: Reports fatigue, Reports weakness, Reports weight gain Eyes: denies as per HPI, denies blurred vision, denies bulging eye, denies decreased vision, denies diplopia, denies discharge, denies dry eye, denies irritation, denies itching, denies pain, denies photophobia, denies loss of peripheral vision, denies loss of vision, denies tunnel vision/blind spots Ears: deny: decreased hearing, ear discharge, earache, tinnitus Ears, nose, mouth and throat: Denies headache, Denies sore throat Breasts: absent: as per HPI, change in shape, gynecomastia, masses, nipple disch arge, pain, skin changes, swelling Cardiovascular: Reports decreased exercise tolerance, Reports dyspnea on exertion Respiratory: Reports cough, Reports dyspnea Gastrointestinal: Reports as per HPI, Reports diarrhea, Reports nausea Genitourinary: Reports as per HPI Menstruation: Reports as per HPI Musculoskeletal: Reports as per HPI Musculoskeletal: absent: ankle pain, ankle stiffness, ankle swelling Integumentary: Reports as per HPI Neurological: Reports as per HPI, Reports weakness Psychiatric: Reports as per HPI (She has history of schizoaffective disorder) Endocrine: Reports as per HPI Hematologic/Lymphatic: Reports as per HPI Allergic/Immunologic: Reports as per HPI Past Medical History Past Medical History: GERD/Reflux, GI Bleed Additional Past Medical History / Comment(s): borderline personality, History of Any Multi-Drug Resistant Organisms: C-DIFF Date of last positivie culture/infection: 2016 MDRO Source:: Stool Past Surgical History: Cholecystectomy, Tonsillectomy Past Anesthesia/Blood Transfusion Reactions: No Reported Reaction Past Psychological History: Anxiety, Depression, PTSD, Schizoaffective Disorder Smoking Status: Current every day smoker Past Alcohol Use History: Rare Past Drug Use History: None Reported - Past Family History Mother Additional Family Medical History / Comment(s): NONE Father Additional Family Medical History / Comment(s): NONE Medications and Allergies Home Medications Medication Instructions Recorded Confirmed Type Haloperidol Decanoate [Haldol D] 200 mg IM Q14D #1 each 02/17/21 03/30/21 Rx Albuterol Inhaler [Ventolin Hfa 2 puff INHALATION RT-QID 03/22/21 03/30/21 History Inhaler] Allergy Relief 1 tab PO DAILY 03/22/21 03/30/21 History Benztropine Mesylate [Cogentin] 1 mg PO TID PRN 03/22/21 03/30/21 History cloZAPine [Clozaril] 200 mg PO HS 03/22/21 03/30/21 History Allergies Allergy/AdvReac Type Severity Reaction Status Date / Time egg Allergy Anaphylaxis Verified 03/30/21 09:03 hydromorphone HCl Allergy Itching Verified 03/30/21 09:03 [From Dilaudid] milk Allergy Anaphylaxis Verified 03/30/21 09:03 gabapentin AdvReac Nausea Verified 03/30/21 09:03 Physical Exam Vitals: Vital Signs Temp Pulse Pulse Resp BP BP Pulse Ox 03/30/21 14:00 99.3 F 119 H 136/76 95 03/30/21 10:29 99.2 F 126 H 127/78 94 L 03/30/21 08:54 99.7 F H 120 H 18 114/71 90 L 03/30/21 08:07 100.2 F H 119 H 18 104/81 95 03/30/21 06:43 137 H 20 116/80 94 L 03/30/21 04:59 101.3 F H 150 H 22 141/86 94 L Intake and Output 03/29/21 03/30/21 03/30/21 22:59 06:59 14:59 Other: Weight 120.656 kg 120.656 kg GENERAL: The patient is alert and oriented x3, not in any acute distress. Well d eveloped, well nourished. Obese HEENT: Pupils are round and equally reacting to light. EOMI. No scleral icterus. No conjunctival pallor. Normocephalic, atraumatic. No pharyngeal erythema. No thyromegaly. CARDIOVASCULAR: S1 and S2 present. No murmurs, rubs, or gallops. PULMONARY: Chest is clear to auscultation, no wheezing or crackles. ABDOMEN: Soft, nontender, nondistended, normoactive bowel sounds. No palpable organomegaly. MUSCULOSKELETAL: No joint swelling or deformity. EXTREMITIES: No cyanosis, clubbing, or pedal edema. NEUROLOGICAL: Gross neurological examination did not reveal any focal deficits. SKIN: No rashes. Results - Laboratory Findings CBC and BMP: 03/30/21 07:41 03/30/21 05:34 Abnormal lab findings: Abnormal Labs 03/30/21 03/30/21 03/30/21 05:34 05:34 07:41 WBC 16.2 H Neutrophils # 13.6 H Glucose 241 H AST 44 H ALT 50 H Coronavirus (PCR) Detected A Assessment and Plan Plan: 1 acute hypoxic respiratory failure currently on 6 L of O2 nasal cannula secondary to Coumadin 19 infection/pneumonia 2 acute COVID 19 infection/pneumonia 3 abdominal pain and diarrhea consistent with COVID 19 infection 4 hyperglycemia, probably diabetic 5 schizoaffective disorder and borderline personality disorder and the patient lives in a jail Plan Titrate oxygen. His saturation above 90% Continue Decadron Outside the window for Remdesivir treatment Check inflammatory markers IV fluids The coagulation with Lovenox Monitor the blood sugar and put the patient on sliding scale insulin coverage and consider underlying diabetes and obtain an HbA1c Resume all medication including medications being used for mental health. We'll continue to follow.
[2021-03-30] MEDS ORDERED: BENZTROPINE MESYLATE 1 MG TAB PO PRN (16:14)
[2021-03-30 16:51] LABS: Glucose,Whole Blood 254 mg/dL (75-99)
[2021-03-30] MEDS ORDERED: guaiFENesin SYRUP 100MG/5ML 200 MG/10 ML CUP PO PRN (17:54)
[2021-03-30] MEDS: ASCORBIC ACID 500 MG TAB PO SCH (21:09)
[2021-03-30] MEDS: FAMOTIDINE 20 MG TAB PO SCH (21:09)
[2021-03-30] MEDS: Acetaminophen-Codeine 300-30mg TAB PO PRN (21:12)
[2021-03-30] MEDS: cloZAPine 100 MG TAB PO SCH (21:24)
[2021-03-30 21:27] LABS: Glucose,Whole Blood 318 mg/dL (75-99)
[2021-03-31] MEDS: ALBUTEROL HFA INHALER INHALATION SCH ×8 (02:18→21:26)
[2021-03-31 07:46] LABS: Glucose,Whole Blood 170 mg/dL (75-99)
[2021-03-31] MEDS: INSULIN ASPART (NovoLOG) 100 UNIT/ML VIAL SQ SCH ×4 (09:05→20:39)
[2021-03-31] MEDS: ENOXAPARIN 40 MG/0.4 ML SYRINGE SQ SCH (09:05)
[2021-03-31] MEDS: DEXAMETHASONE SOD PHOSPHATE 10 MG/ML 1 ML VIAL IVP SCH (09:05)
[2021-03-31] MEDS: ASCORBIC ACID 500 MG TAB PO SCH ×2 (09:06→20:18)
[2021-03-31] MEDS: ZINC SULFATE 220 MG CAP PO SCH (09:06)
[2021-03-31] MEDS: FAMOTIDINE 20 MG TAB PO SCH ×2 (09:06→20:18)
[2021-03-31] MEDS: CHOLECALCIFEROL 25 MCG (1000 IU) TABLET PO SCH (09:06)
[2021-03-31 09:07] LABS: African American GFR (CKD) 154.8 (60.0-200.0); Albumin/Globulin Ratio 1.54 (1.60-3.17); Anion Gap 10.5 mmol/L (10.00-18.00); BUN/Creat Ratio 15.8 Ratio (12.00-20.00); Blood Urea Nitrogen 7.9 mg/dL (9.0-27.0); Calcium 8.9 mg/dL (8.7-10.3); Carbon Dioxide 26.5 mmol/L (20.0-27.5); Globulin 2.6 g/dL (1.6-3.3); Magnesium 2.2 mg/dL (1.5-2.4); Non-African American GFR(CKD) 133.6 (60.0-200.0); Potassium 4.2 mmol/L (3.5-5.5); Total Bilirubin 0.2 mg/dL (0.30-1.20); Total Protein 6.6 g/dL (6.2-8.2)
[2021-03-31] MEDS: Acetaminophen-Codeine 300-30mg TAB PO PRN ×4 (09:09→20:18)
[2021-03-31 11:15] LABS: Glucose,Whole Blood 227 mg/dL (75-99)
[2021-03-31 12:20] LABS: HCT 33.9 % (37.2-46.3); HGB 10.6 g/dL (12.0-15.0); MCH 28.9 pg (27.0-32.0); MCHC 31.3 g/dL (32.0-37.0); MCV 92.4 fL (80.0-97.0); Mean Platelet Volume 10.5 fL (9.5-12.2); NRBC Per 100 WBC 0 /100 WBCS (0.0-0.0); Platelet Count 330 X 10*3/uL (140-440); RBC 3.67 X 10*6/uL (4.10-5.20); WBC 15.36 X 10*3/uL (4.50-10.00)
--- NOTE | 2021-03-31 12:24 | P.GSCN ---
<Nila Mathias - Last Filed: 03/31/21 12:10> History of Present Illness Consult date: 03/31/21 Reason for Consult: Abdominal pain History of present illness: CHIEF COMPLAINT: Abdominal pain, shortness of breath HISTORY OF PRESENT ILLNESS: This is a 25-year-old female who presented to the emergency department yesterday with complaints of shortness of breath, fever, cough and abdominal pain. Patient states she's had abdominal pain in her right lower quadrant over the last 3-4 weeks duration. States that she was supposed to follow up with somebody outpatient this week, however patient states she came into the emergency room for further evaluation. Gen. surgery was consulted for abdominal pain. Patient states the pain is in the right lower quadrant and radiates around her back. She states she's had some nausea and vomiting and loose stools for the last 4 days up to 5-6 bowel movements a day. Denies any blood in her stools. Have a max temp of 101.3 on admission. She's been afebrile for last 24 hours. She tested positive for vasquez virus. The patient does have a history of C. diff in 2017. CT of the abdomen and pelvis showed worsening posterior bilateral groundglass opacities suggestive of COVID-19 infection. Stable appearance of appendix. Possible appendicolith. No surrounding inflammatory change to suggest acute appendicitis. Hepatomegaly and diffuse fatty hepatocellular disease. PAST MEDICAL HISTORY: C. diff, GERD, anxiety, depression, schizoaffective disorder, PTSD PAST SURGICAL HISTORY: Cholecystectomy 2010, tonsillectomy MEDICATIONS: See list. ALLERGIES: See list. SOCIAL HISTORY: No illicit drug use. Current every day smoker REVIEW OF SYSTEMS: CONSTITUTIONAL: Denies fever or chills. HEENT: Denies blurred vision, vision changes, or eye pain. Denies hemoptysis CARDIOVASCULAR: Denies chest pain or pressure. RESPIRATORY: No shortness of breath. GASTROINTESTINAL: See HPI for pertinent findings HEMATOLOGIC: Denies bleeding disorders. GENITOURINARY: Denies any blood in urine or increased urinary frequency. SKIN: Denies pruitis. Denies rash. PHYSICAL EXAM: VITAL SIGNS: Reviewed GENERAL: Well-developed in no acute distress. HEENT: No sclera icterus. Extraocular movements grossly intact. Moist buccal mucosa. Head is atraumatic, normocephalic. No nasal drainage. ABDOMEN: Soft. Obese. Nondistended. Tenderness with palpation to right lower quadrant. NEUROLOGIC: Alert and oriented. Cranial nerves II through XII grossly intact. LABORATORY DATA: WBC 16.2 hemoglobin 12.7 platelet count 354,000 Sodium 141 potassium 4.2 BUN 7.9 creatinine 0.5 glucose 231 hemoglobin A1c 8.0 Total bilirubin 0.2 AST 19 ALT 44 alkaline phosphatase 65 IMAGING: CT of the abdomen and pelvis showed worsening posterior bilateral groundglass opacities suggestive of COVID-19 infection. Stable appearance of appendix. Possible appendicolith. No surrounding inflammatory change to suggest acute appendicitis. Hepatomegaly and diffuse fatty hepatocellular disease. ASSESSMENT: 1. Abdominal pain, no acute findings. Stable appearance of appendix. Possible appendicolth Per CT abdomen and pelvis. 2. COVID-19 infection 3. Obesity 4. Hepatomegaly diffuse hepatocellular disease seen on CT of abdomen and pelvis PLAN: 1. Continue symptomatic and supportive care 2. C. diff 3. Diet as tolerated 4. Further recommendations forthcoming per surgeon Thank you for this consultation, we will continue to follow. The impression and plan of care has been dictated as directed. Dr. Alberts I performed a history and examination of this patient, discussed the same with the dictator. I agree with the dictator's note ,documented as a scribe. Any additional findings or plans will be noted. Past Medical History Past Medical History: GERD/Reflux, GI Bleed Additional Past Medical History / Comment(s): borderline personality, History of Any Multi-Drug Resistant Organisms: C-DIFF Year Discovered:: 2016 MDRO Source:: Stool Past Surgical History: Cholecystectomy, Tonsillectomy Past Anesthesia/Blood Transfusion Reactions: No Reported Reaction Past Psychological History: Anxiety, Depression, PTSD, Schizoaffective Disorder Smoking Status: Current every day smoker Past Alcohol Use History: Rare Past Drug Use History: None Reported - Past Family History Mother Additional Family Medical History / Comment(s): NONE Father Additional Family Medical History / Comment(s): NONE Medications and Allergies Home Medications Medication Instructions Recorded Confirmed Type RX: Haloperidol Decanoate [Haldol 200 mg IM Q14D #1 each 02/17/21 03/30/21 Rx D] Albuterol Inhaler [Ventolin Hfa 2 puff INHALATION RT-QID 03/22/21 03/30/21 History Inhaler] Allergy Relief 1 tab PO DAILY 03/22/21 03/30/21 History Benztropine Mesylate [Cogentin] 1 mg PO TID PRN 03/22/21 03/30/21 History cloZAPine [Clozaril] 200 mg PO HS 03/22/21 03/30/21 History Allergies Allergy/AdvReac Type Severity Reaction Status Date / Time egg Allergy Anaphylaxis Verified 03/30/21 09:03 hydromorphone HCl Allergy Itching Verified 03/30/21 09:03 [From Dilaudid] milk Allergy Anaphylaxis Verified 03/30/21 09:03 gabapentin AdvReac Nausea Verified 03/30/21 09:03 Surgical - Exam Vital Signs Temp Pulse Resp BP Pulse Ox 101.3 F H 150 H 22 141/86 94 L 03/30/21 04:59 03/30/21 04:59 03/30/21 04:59 03/30/21 04:59 03/30/21 04:59 Results - Labs 03/30/21 07:41 03/31/21 05:05 Abnormal Lab Results - Last 24 Hours (Table) 03/30/21 03/30/21 03/30/21 Range/Units 07:41 16:49 21:26 BUN (9.0-27.0) mg/dL Creatinine (0.6-1.5) mg/dL Glucose (70-110) mg/dL POC Glucose (mg/dL) 254 H 318 H (75-99) mg/dL Hemoglobin A1c 8.0 H (0.0-6.0) % Total Bilirubin (0.30-1.20) mg/dL Albumin/Globulin Ratio (1.60-3.17) g/dL 03/31/21 03/31/21 Range/Units 05:05 07:44 BUN 7.9 L (9.0-27.0) mg/dL Creatinine 0.5 L (0.6-1.5) mg/dL Glucose 231 H (70-110) mg/dL POC Glucose (mg/dL) 170 H (75-99) mg/dL Hemoglobin A1c (0.0-6.0) % Total Bilirubin 0.20 L (0.30-1.20) mg/dL Albumin/Globulin Ratio 1.54 L (1.60-3.17) g/dL Diabetes panel 03/30/21 03/31/21 Range/Units 07:41 05:05 Sodium 141 (135-145) mmol/L Potassium 4.2 (3.5-5.5) mmol/L Chloride 104 (96-109) mmol/L Carbon Dioxide 26.5 (20.0-27.5) mmol/L BUN 7.9 L (9.0-27.0) mg/dL Creatinine 0.5 L (0.6-1.5) mg/dL Glucose 231 H (70-110) mg/dL Hemoglobin A1c 8.0 H (0.0-6.0) % Calcium 8.9 (8.7-10.3) mg/dL AST 19 (13-35) U/L ALT 44 (8-44) U/L Alkaline Phosphatase 65 (41-126) U/L Total Protein 6.6 (6.2-8.2) g/dL Albumin 4.0 (3.8-4.9) g/dL Calcium panel 03/31/21 Range/Units 05:05 Calcium 8.9 (8.7-10.3) mg/dL Albumin 4.0 (3.8-4.9) g/dL Pituitary panel 03/31/21 Range/Units 05:05 Sodium 141 (135-145) mmol/L Potassium 4.2 (3.5-5.5) mmol/L Chloride 104 (96-109) mmol/L Carbon Dioxide 26.5 (20.0-27.5) mmol/L BUN 7.9 L (9.0-27.0) mg/dL Creatinine 0.5 L (0.6-1.5) mg/dL Glucose 231 H (70-110) mg/dL Calcium 8.9 (8.7-10.3) mg/dL Adrenal panel 03/31/21 Range/Units 05:05 Sodium 141 (135-145) mmol/L Potassium 4.2 (3.5-5.5) mmol/L Chloride 104 (96-109) mmol/L Carbon Dioxide 26.5 (20.0-27.5) mmol/L BUN 7.9 L (9.0-27.0) mg/dL Creatinine 0.5 L (0.6-1.5) mg/dL Glucose 231 H (70-110) mg/dL Calcium 8.9 (8.7-10.3) mg/dL Total Bilirubin 0.20 L (0.30-1.20) mg/dL AST 19 (13-35) U/L ALT 44 (8-44) U/L Alkaline Phosphatase 65 (41-126) U/L Total Protein 6.6 (6.2-8.2) g/dL Albumin 4.0 (3.8-4.9) g/dL <Aquiles Alberts - Last Filed: 03/31/21 19:00> History of Present Illness History of present illness: I have personally seen and examined the patient, reviewed the [employer] /PAs history, exam and MDM and agree with the assessment and plan as written. Based on total visit time, I have performed more than 50% of the visit. As above. Patient with right lower quadrant abdominal pain that radiates to the back. Her last 2 CAT scans were reviewed. Appendix is free of inflammatory changes. The size appears normal. There may be some enhancement in the lumen consistent with small appendicoliths or previous medications. Etiology unclear. Could be related to the patient's current Covid infection and subtle ischemia to the right colon. Again no inflammatory changes of the bowel are seen either. We'll consult gynecology to be sure they do not think there is a gynecologic source of her discomfort. We'll follow with you. Surgical - Exam Vital Signs Temp Pulse Resp BP Pulse Ox 101.3 F H 150 H 22 141/86 94 L 03/30/21 04:59 03/30/21 04:59 03/30/21 04:59 03/30/21 04:59 03/30/21 04:59 Results - Labs 03/31/21 05:05 03/31/21 05:05 Abnormal Lab Results - Last 24 Hours (Table) 03/30/21 03/31/21 03/31/21 Range/Units 21:26 05:05 05:05 WBC 15.36 H (4.50-10.00) X 10*3/uL RBC 3.67 L (4.10-5.20) X 10*6/uL Hgb 10.6 L (12.0-15.0) g/dL Hct 33.9 L (37.2-46.3) % MCHC 31.3 L (32.0-37.0) g/dL RDW 16.0 H (11.5-14.5) % BUN 7.9 L (9.0-27.0) mg/dL Creatinine 0.5 L (0.6-1.5) mg/dL Glucose 231 H (70-110) mg/dL POC Glucose (mg/dL) 318 H (75-99) mg/dL Total Bilirubin 0.20 L (0.30-1.20) mg/dL Albumin/Globulin Ratio 1.54 L (1.60-3.17) g/dL 03/31/21 03/31/21 03/31/21 Range/Units 07:44 11:14 17:04 WBC (4.50-10.00) X 10*3/uL RBC (4.10-5.20) X 10*6/uL Hgb (12.0-15.0) g/dL Hct (37.2-46.3) % MCHC (32.0-37.0) g/dL RDW (11.5-14.5) % BUN (9.0-27.0) mg/dL Creatinine (0.6-1.5) mg/dL Glucose (70-110) mg/dL POC Glucose (mg/dL) 170 H 227 H 335 H (75-99) mg/dL Total Bilirubin (0.30-1.20) mg/dL Albumin/Globulin Ratio (1.60-3.17) g/dL Diabetes panel 03/31/21 Range/Units 05:05 Sodium 141 (135-145) mmol/L Potassium 4.2 (3.5-5.5) mmol/L Chloride 104 (96-109) mmol/L Carbon Dioxide 26.5 (20.0-27.5) mmol/L BUN 7.9 L (9.0-27.0) mg/dL Creatinine 0.5 L (0.6-1.5) mg/dL Glucose 231 H (70-110) mg/dL Calcium 8.9 (8.7-10.3) mg/dL AST 19 (13-35) U/L ALT 44 (8-44) U/L Alkaline Phosphatase 65 (41-126) U/L Total Protein 6.6 (6.2-8.2) g/dL Albumin 4.0 (3.8-4.9) g/dL Calcium panel 03/31/21 Range/Units 05:05 Calcium 8.9 (8.7-10.3) mg/dL Albumin 4.0 (3.8-4.9) g/dL Pituitary panel 03/31/21 Range/Units 05:05 Sodium 141 (135-145) mmol/L Potassium 4.2 (3.5-5.5) mmol/L Chloride 104 (96-109) mmol/L Carbon Dioxide 26.5 (20.0-27.5) mmol/L BUN 7.9 L (9.0-27.0) mg/dL Creatinine 0.5 L (0.6-1.5) mg/dL Glucose 231 H (70-110) mg/dL Calcium 8.9 (8.7-10.3) mg/dL Adrenal panel 03/31/21 Range/Units 05:05 Sodium 141 (135-145) mmol/L Potassium 4.2 (3.5-5.5) mmol/L Chloride 104 (96-109) mmol/L Carbon Dioxide 26.5 (20.0-27.5) mmol/L BUN 7.9 L (9.0-27.0) mg/dL Creatinine 0.5 L (0.6-1.5) mg/dL Glucose 231 H (70-110) mg/dL Calcium 8.9 (8.7-10.3) mg/dL Total Bilirubin 0.20 L (0.30-1.20) mg/dL AST 19 (13-35) U/L ALT 44 (8-44) U/L Alkaline Phosphatase 65 (41-126) U/L Total Protein 6.6 (6.2-8.2) g/dL Albumin 4.0 (3.8-4.9) g/dL
--- NOTE | 2021-03-31 15:45 | P.PN ---
Subjective Progress Note Date: 03/31/21 Patient is a 25-year-old female came in with compensative diarrhea nausea vomiting has been going on for about a week. Patient also having shortness of breath because of which patient came to Hospital patient is found to be hypoxic requiring 6 L infarction patient is found to have COVID-[address] pneumonia patient had a CT of the abdomen which showed infiltrates in the chest consistent with the COVID-19 pneumonia abdominal x-rays essentially within normal limits. Patient had 2 episodes of diarrhea today. Patient is bit tachycardic today. D-dimer is being obtained. Beta-hCG is being obtained. Patient is not vaccinated for COVID-19. Labs: WBC is 15.36, hemoglobin is 10.6, platelets are 3:30, sodium is 141, potassium 4.2, BUN 7.9, creatinine 0.5, calcium 8.9, magnesium 2.2 Review of systems: Constitutional: No reports of fatigue, fever, or chills Cardiovascular: No reports of chest pain or palpitations Respiratory: No reports of shortness of breath or cough GI: No reports of nausea, vomiting, or diarrhea : No reports of dysuria or retention Neurovascular: No reports of weakness or numbness All medications have been reviewed Active Medications Acetaminophen (Acetaminophen Tab 325 Mg Tab) 650 mg PO Q6HR PRN PRN Reason: Mild Pain or Fever > 100.5 Last Admin: 03/30/21 10:34 Dose: 650 mg Documented by: Acetaminophen/Codeine Phosphate (Acetaminophen-Codeine 300-30mg Tab) 1 each PO Q4HR PRN PRN Reason: Pain Last Admin: 03/31/21 13:07 Dose: 1 each Documented by: Albuterol Sulfate (Albuterol Hfa Inhaler) 2 puff INHALATION RT-QID [facility] Last Admin: 03/31/21 13:05 Dose: 2 puff Documented by: Ascorbic Acid (Ascorbic Acid 500 Mg Tab) 500 mg PO BID [facility] Last Admin: 03/31/21 09:06 Dose: 500 mg Documented by: Benztropine Mesylate (Benztropine Mesylate 1 Mg Tab) 1 mg PO TID PRN PRN Reason: TREMORS/WITHDRAWL Cholecalciferol (Cholecalciferol 25 Mcg (1000 Iu) Tablet) 25 mcg PO DAILY [facility] Last Admin: 03/31/21 09:06 Dose: 25 mcg Documented by: Clozapine (Clozapine 100 Mg Tab) 200 mg PO HS [facility] Stop: 04/02/21 23:00 Last Admin: 03/30/21 21:24 Dose: 200 mg Documented by: Dexamethasone Sodium Phosphate (Dexamethasone Sod Phosphate 10 Mg/Ml 1 Ml Vial) 6 mg IVP DAILY [facility] Last Admin: 03/31/21 09:05 Dose: 6 mg Documented by: Enoxaparin Sodium (Enoxaparin 40 Mg/0.4 Ml Syringe) 40 mg SQ DAILY [facility] Last Admin: 03/31/21 09:05 Dose: 40 mg Documented by: Famotidine (Famotidine 20 Mg Tab) 20 mg PO BID [facility] Last Admin: 03/31/21 09:06 Dose: 20 mg Documented by: Guaifenesin (Guaifenesin Syrup 100mg/5ml 200 Mg/10 Ml Cup) 200 mg PO Q6HR PRN PRN Reason: Cough Sodium Chloride (Saline 0.9%) 1,000 mls @ 125 mls/hr IV .Q8H [facility] Last Admin: 03/30/21 10:34 Dose: 75 mls/hr Documented by: Insulin Aspart (Insulin Aspart (Novolog) 100 Unit/Ml Vial) 0 unit SQ ACHS [facility]; Protocol Last Admin: 03/31/21 12:33 Dose: 3 unit Documented by: Naloxone HCl (Naloxone 0.4 Mg/Ml 1 Ml Vial) 0.2 mg IV Q2M PRN PRN Reason: Opioid Reversal Ondansetron HCl (Ondansetron 4 Mg/2 Ml Vial) 4 mg IVP Q8HR PRN PRN Reason: Nausea And Vomiting Last Admin: 03/30/21 10:34 Dose: 4 mg Documented by: Zinc Sulfate (Zinc Sulfate 220 Mg Cap) 220 mg PO DAILY [facility] Last Admin: 03/31/21 09:06 Dose: 220 mg Documented by: PHYSICAL EXAMINATION: GENERAL: The patient is alert and oriented x3, not in any acute distress. Well developed, well nourished. Obese, currently on 6 L of oxygen via nasal cannula HEENT: Pupils are round and equally reacting to light. EOMI. No scleral icterus. No conjunctival pallor. Normocephalic, atraumatic. No pharyngeal erythema. No thyromegaly. CARDIOVASCULAR: S1 and S2 present. No murmurs, rubs, or gallops. PULMONARY: Chest is clear to auscultation, no wheezing or crackles. ABDOMEN: Soft, non-tender, non-distended, normoactive bowel sounds. No palpable organomegaly. MUSCULOSKELETAL: No joint swelling or deformity. EXTREMITIES: No cyanosis, clubbing, or pedal edema. NEUROLOGICAL: Gross neurological examination did not reveal any focal deficits. SKIN: No rashes. Assessment and plan: - Acute hypoxic respiratory failure secondary to COVID-19 pneumonia: Patient will be continued on respiratory support, patient will continue on Decadron and is also receiving vitamin C and zinc with pulmonary following. Currently on 6 L via nasal cannula - sepsis secondary to COVID-19 - Tachycardia: Probably secondary to dehydration continue IV fluids - Diarrhea: Secondary to COVID-19 infection, general surgery consulted and C. diff ordered recommending conservative management as images were negative - Hyperglycemia, hemoglobin A1c is 8.0, continue on sliding scale insulin patient blood sugars are expected to go up because of systemic steroids - Mildly elevated liver enzymes secondary to COVID-19 infection - Schizoaffective disorder for which patient is on clozril which will be continued patient doesn't have any neutropenia at this time - DVT prophylaxis: Subcutaneous Lovenox Plan: Recommend to continue with current medications and vitamin and zinc supplements along with Lovenox and encourage the patient increase activity as tolerated. Patient continues to sleep most of the day and requires encouragement. Patient continues on 6 L of oxygen via nasal cannula and continues to state she has mira rtness of breath and discussed with the patient about increasing activity and encouraging oral intake. Will add incentive spirometer and repeat labs for the morning. General surgery consulted for abdominal pain and currently pending. We'll add d-dimer and repeat labs in a.m. Objective - Vital Signs Vital signs: Vital Signs Temp 98.7 F 03/31/21 10:00 Pulse 115 H 03/31/21 10:00 Resp 16 03/31/21 10:00 BP 111/65 03/31/21 10:00 Pulse Ox 92 L 03/31/21 10:00 Intake & Output 03/30/21 03/31/21 03/31/21 18:59 06:59 18:59 Intake Total 360 1500 Output Total 650 Balance -290 1500 Weight 120.656 kg Intake: IV 1500 Sodium Chloride 0.9% 1, 1500 000 ml @ 125 mls/hr IV . Q8H [facility] Rx#:[id number] Oral 360 Output: Urine 650 Other: # Voids 2 # Bowel Movements 3 - Labs CBC & Chem 7: 03/31/21 05:05 03/31/21 05:05 Labs: Abnormal Lab Results - Last 24 Hours (Table) 03/30/21 03/30/21 03/30/21 Range/Units 07:41 16:49 21:26 WBC (4.50-10.00) X 10*3/uL RBC (4.10-5.20) X 10*6/uL Hgb (12.0-15.0) g/dL Hct (37.2-46.3) % MCHC (32.0-37.0) g/dL RDW (11.5-14.5) % BUN (9.0-27.0) mg/dL Creatinine (0.6-1.5) mg/dL Glucose (70-110) mg/dL POC Glucose (mg/dL) 254 H 318 H (75-99) mg/dL Hemoglobin A1c 8.0 H (0.0-6.0) % Total Bilirubin (0.30-1.20) mg/dL Albumin/Globulin Ratio (1.60-3.17) g/dL 03/31/21 03/31/21 03/31/21 Range/Units 05:05 05:05 07:44 WBC 15.36 H (4.50-10.00) X 10*3/uL RBC 3.67 L (4.10-5.20) X 10*6/uL Hgb 10.6 L (12.0-15.0) g/dL Hct 33.9 L (37.2-46.3) % MCHC 31.3 L (32.0-37.0) g/dL RDW 16.0 H (11.5-14.5) % BUN 7.9 L (9.0-27.0) mg/dL Creatinine 0.5 L (0.6-1.5) mg/dL Glucose 231 H (70-110) mg/dL POC Glucose (mg/dL) 170 H (75-99) mg/dL Hemoglobin A1c (0.0-6.0) % Total Bilirubin 0.20 L (0.30-1.20) mg/dL Albumin/Globulin Ratio 1.54 L (1.60-3.17) g/dL 03/31/21 Range/Units 11:14 WBC (4.50-10.00) X 10*3/uL RBC (4.10-5.20) X 10*6/uL Hgb (12.0-15.0) g/dL Hct (37.2-46.3) % MCHC (32.0-37.0) g/dL RDW (11.5-14.5) % BUN (9.0-27.0) mg/dL Creatinine (0.6-1.5) mg/dL Glucose (70-110) mg/dL POC Glucose (mg/dL) 227 H (75-99) mg/dL Hemoglobin A1c (0.0-6.0) % Total Bilirubin (0.30-1.20) mg/dL Albumin/Globulin Ratio (1.60-3.17) g/dL
[2021-03-31 17:05] LABS: Glucose,Whole Blood 335 mg/dL (75-99)
--- NOTE | 2021-03-31 17:13 | P.PN ---
Subjective Progress Note Date: 03/31/21 Principal diagnosis: Acute hypoxic respiratory failure second to COVID-19 pneumonia 25-year-old here patient hospitalized for COVID 19 pneumonia. The patient was in the emergency department approximately a week ago for diarrhea and abdominal pain. At that time, the testing was not done and the patient was discharged home.. The patient is coming in with similar complaints of diarrhea and some vague abdominal discomfort in addition to shortness of breath and cough and the patient was found to be hypoxic and the patient was placed on 6 L of O2 nasal cannula. CAT scan of the abdomen was done and showed infiltrates in lung bases bilaterally consistent with COVID 19 pneumonia. The patient had a chest x-ray also showed diffuse bilateral pulmonary infiltrates. She is still having some liquid the bowel movements. No emesis. No altered mentation. No sputum production. The patient is not vaccinated as the patient stated that she is having ALLERGIC reactions to eggs and she thought that the vaccine had eggs. She is doing well otherwise. She has history of mental health issues including schizoaffective disorder and she lives in a snf. The white cell count is 16.2 with a hemoglobin of 12.7, glucose of 241 and she is nondiabetic. UA is negative. Inflammatory markers are still pending for now. Reevaluated today on 03/31/2021, patient remains on 6 L nasal cannula, high flow, O2 saturations 92%. Continues to have some shortness of breath, intermittent cough, no wheezing, no chest pain. No nausea no vomiting no abdominal pain. Her blood sugar is high as 335 being addressed by the admitting physician. Continues to have leukocytosis with WBC count of 15.36 hemoglobin is 10.6. Patient remains on the COVID-19 cocktail. Remains on Lovenox 40 mg subcu daily ascorbic acid, patient is out of the window for Remdesivir. Objective - Vital Signs Vital signs: Vital Signs Temp 98.7 F 03/31/21 10:00 Pulse 115 H 03/31/21 10:00 Resp 16 03/31/21 10:00 BP 111/65 03/31/21 10:00 Pulse Ox 92 L 03/31/21 10:00 Intake & Output 03/30/21 03/31/21 03/31/21 18:59 06:59 18:59 Intake Total 360 1500 Output Total 650 Balance -290 1500 Weight 120.656 kg Intake: IV 1500 Sodium Chloride 0.9% 1, 1500 000 ml @ 125 mls/hr IV . Q8H [facility] Rx#:[id number] Oral 360 Output: Urine 650 Other: # Voids 2 # Bowel Movements 3 - Exam Physical Exam: Revealed a 25-year-old female in no distress. On 6 L nasal cannula. Head: Atraumatic normocephalic. HEENT:[Neck is supple.] [No neck masses.] [No thyromegaly.] [No JVD.] Chest: [Symmetrical expansion crackles at the bases. Cardiac Exam: [Normal S1 and S2, no S3 gallop, no murmur.] Abdomen: [Soft, nontender, no megaly, no rebound, no guarding, normal bowel sounds.] Extremities: [No clubbing, no edema, no cyanosis.] Neurological Exam: [No focal neurologic deficit.] Alert and oriented 3. Psychiatric: Normal mood affect and normal mental status examination. Skin: No rashes. - Labs CBC & Chem 7: 03/31/21 05:05 03/31/21 05:05 Labs: Abnormal Lab Results - Last 24 Hours (Table) 03/30/21 03/31/21 03/31/21 Range/Units 21:26 05:05 05:05 WBC 15.36 H (4.50-10.00) X 10*3/uL RBC 3.67 L (4.10-5.20) X 10*6/uL Hgb 10.6 L (12.0-15.0) g/dL Hct 33.9 L (37.2-46.3) % MCHC 31.3 L (32.0-37.0) g/dL RDW 16.0 H (11.5-14.5) % BUN 7.9 L (9.0-27.0) mg/dL Creatinine 0.5 L (0.6-1.5) mg/dL Glucose 231 H (70-110) mg/dL POC Glucose (mg/dL) 318 H (75-99) mg/dL Total Bilirubin 0.20 L (0.30-1.20) mg/dL Albumin/Globulin Ratio 1.54 L (1.60-3.17) g/dL 02/07/22 02/07/22 02/07/22 Range/Units 07:44 11:14 17:04 WBC (4.50-10.00) X 10*3/uL RBC (4.10-5.20) X 10*6/uL Hgb (12.0-15.0) g/dL Hct (37.2-46.3) % MCHC (32.0-37.0) g/dL RDW (11.5-14.5) % BUN (9.0-27.0) mg/dL Creatinine (0.6-1.5) mg/dL Glucose (70-110) mg/dL POC Glucose (mg/dL) 170 H 227 H 335 H (75-99) mg/dL Total Bilirubin (0.30-1.20) mg/dL Albumin/Globulin Ratio (1.60-3.17) g/dL Assessment and Plan Assessment: Impression: Acute hypoxic respiratory failure secondary to COVID-19 pneumonia Multiple GI symptoms stated to COVID-19 infection Hyperglycemia, patient is probably diabetic. Schizoaffective disorder. Recommendation: Continue oxygen and titrate accordingly Continue Decadron. Continue prophylactic Lovenox. Continue COVID-19 cocktail. Patient outside the window for Remdesivir. We'll continue to follow. Time with Patient: Less than 30
[2021-03-31] MEDS: SODIUM CHLORIDE 0.9% 1,000 ML IV SCH ×2 (20:17→23:34)
[2021-03-31] MEDS: cloZAPine 100 MG TAB PO SCH (20:18)
[2021-03-31 20:25] LABS: Glucose,Whole Blood 305 mg/dL (75-99)
[2021-04-01] MEDS: Acetaminophen-Codeine 300-30mg TAB PO PRN ×5 (04:40→21:26)
[2021-04-01 06:30] LABS: African American GFR (CKD) >90 (>60 ml/min/1.73 sqM); Anion Gap 7 mmol/L; Blood Urea Nitrogen 13 mg/dL (7-17); Carbon Dioxide 29 mmol/L (22-30); Chloride 104 mmol/L (98-107); Glucose 149 mg/dL (74-99); Non-African American GFR(CKD) >90 (>60 ml/min/1.73 sqM); Potassium 4.2 mmol/L (3.5-5.1); Sodium 140 mmol/L (137-145)
[2021-04-01 06:38] LABS: Basophils % (A) 0 %; Eosinophils % (A) 0 %; HCT 34.5 % (34.0-46.0); HGB 10.9 gm/dL (11.4-16.0); Lymphocytes # (A) 3.1 k/uL (1.0-4.8); Lymphocytes % (A) 18 %; MCH 30.1 pg (25.0-35.0); MCHC 31.7 g/dL (31.0-37.0); MCV 94.9 fL (80.0-100.0); Monocytes # (A) 0.7 k/uL (0-1.0); Monocytes % (A) 4 %; Neutrophils # (A) 12.9 k/uL (1.3-7.7); Neutrophils % (A) 76 %; Platelet Count 384 k/uL (150-450); RBC 3.63 m/uL (3.80-5.40); RDW 14.9 % (11.5-15.5); WBC 16.9 k/uL (3.8-10.6)
[2021-04-01 07:27] LABS: Glucose,Whole Blood 127 mg/dL (75-99)
[2021-04-01] MEDS: ALBUTEROL HFA INHALER INHALATION SCH ×4 (08:28→19:31)
[2021-04-01] MEDS: ZINC SULFATE 220 MG CAP PO SCH (08:39)
[2021-04-01] MEDS: ASCORBIC ACID 500 MG TAB PO SCH ×2 (08:39→21:26)
[2021-04-01] MEDS: CHOLECALCIFEROL 25 MCG (1000 IU) TABLET PO SCH (08:39)
[2021-04-01] MEDS: FAMOTIDINE 20 MG TAB PO SCH ×2 (08:40→21:26)
[2021-04-01] MEDS: DEXAMETHASONE SOD PHOSPHATE 10 MG/ML 1 ML VIAL IVP SCH (08:40)
[2021-04-01] MEDS: ENOXAPARIN 40 MG/0.4 ML SYRINGE SQ SCH (08:40)
[2021-04-01] MEDS: INSULIN ASPART (NovoLOG) 100 UNIT/ML VIAL SQ SCH ×4 (08:41→21:25)
[2021-04-01] MEDS ORDERED: HALOPERIDOL DECANOATE 100 MG/ML 1 ML VIAL IM SCH (09:00)
--- NOTE | 2021-04-01 09:15 | P.OBCN ---
History of Present Illness Consult date: 04/01/21 Reason for consult: pelvic pain Chief complaint: covid, RLQ pain History of present illness: 25 year old G0 presented to hospital complaining of right flank pain radiating down to the RLQ. She also has covid requiring oxygen. CT and pelvic US were WNL. The ovaries are somewhat enlarged with fits with her history of PCOS. She admits to never having a period. We discussed this could lead to more problems and I would like to follow up with her in my office a few weeks after discharge to help with this. Her flank/RLQ pain is worse with raising her arms and moving. Review of Systems All systems: negative Constitutional: Denies chills, Denies fever Eyes: denies blurred vision, denies pain Ears, nose, mouth and throat: Denies headache, Denies sore throat Cardiovascular: Denies chest pain, Denies shortness of breath Respiratory: Denies cough Gastrointestinal: Denies abdominal pain, Denies diarrhea, Denies nausea, Denies vomiting Genitourinary: Denies dysuria, Denies hematuria Musculoskeletal: Denies myalgias Integumentary: Denies pruritus, Denies rash Neurological: Denies numbness, Denies weakness Psychiatric: Denies anxiety, Denies depression Endocrine: Denies fatigue, Denies weight change Past Medical History Past Medical History: GERD/Reflux, GI Bleed Additional Past Medical History / Comment(s): borderline personality, schizophrenia, hx attempted suicide a few weeks ago-now lives in a care home and her brother is trying to become her guardian. History of Any Multi-Drug Resistant Organisms: C-DIFF Year Discovered:: 2017 MDRO Source:: Stool Past Surgical History: Cholecystectomy, Tonsillectomy Past Anesthesia/Blood Transfusion Reactions: No Reported Reaction Past Psychological History: Anxiety, Depression, PTSD, Schizoaffective Disorder Smoking Status: Current every day smoker Past Alcohol Use History: Rare Past Drug Use History: None Reported - Past Family History Mother Additional Family Medical History / Comment(s): NONE Father Additional Family Medical History / Comment(s): NONE Medications and Allergies Home Medications Medication Instructions Recorded Confirmed Type Haloperidol Decanoate [Haldol D] 200 mg IM Q14D #1 each 02/17/21 03/30/21 Rx Albuterol Inhaler [Ventolin Hfa 2 puff INHALATION RT-QID 03/22/21 03/30/21 History Inhaler] Allergy Relief 1 tab PO DAILY 03/22/21 03/30/21 History Benztropine Mesylate [Cogentin] 1 mg PO TID PRN 03/22/21 03/30/21 History cloZAPine [Clozaril] 200 mg PO HS 03/22/21 03/30/21 History Allergies Allergy/AdvReac Type Severity Reaction Status Date / Time egg Allergy Anaphylaxis Verified 03/30/21 09:03 hydromorphone HCl Allergy Itching Verified 03/30/21 09:03 [From Dilaudid] milk Allergy Anaphylaxis Verified 03/30/21 09:03 gabapentin AdvReac Nausea Verified 03/30/21 09:03 Exam Osteopathic Statement: *. No significant issues noted on an osteopathic structural exam other than those noted in the History and Physical/Consult. Vital Signs Temp Pulse Resp BP Pulse Ox 04/01/21 06:01 98.1 F 107 H 20 114/78 91 L 04/01/21 02:00 98.1 F 109 H 21 118/76 94 L 03/31/21 20:00 97.3 F L 109 H 22 117/66 90 L 03/31/21 18:00 97.7 F 113 H 16 123/74 94 L 03/31/21 10:00 98.7 F 115 H 16 111/65 92 L Intake and Output 03/31/21 04/01/21 04/01/21 22:59 06:59 14:59 Intake Total 605 950 Balance 605 950 Intake: IV 125 950 Sodium Chloride 0.9% 1, 125 950 000 ml @ 125 mls/hr IV . Q8H LOYD Rx#:[id number] Oral 480 Other: # Voids 1 Abdomen: soft, nontender to palpation though pt states the right flank wraping to the RLQ is tender Results Result Diagrams: 04/01/21 05:43 04/01/21 05:43 Abnormal Lab Results - Last 24 Hours (Table) 03/31/21 03/31/21 03/31/21 Range/Units 05:05 11:14 17:04 WBC 15.36 H (4.50-10.00) X 10*3/uL RBC 3.67 L (4.10-5.20) X 10*6/uL Hgb 10.6 L (12.0-15.0) g/dL Hct 33.9 L (37.2-46.3) % MCHC 31.3 L (32.0-37.0) g/dL RDW 16.0 H (11.5-14.5) % Neutrophils # (1.3-7.7) k/uL Glucose (74-99) mg/dL POC Glucose (mg/dL) 227 H 335 H (75-99) mg/dL 03/31/21 04/01/21 04/01/21 Range/Units 20:24 05:43 05:43 WBC 16.9 H (4.50-10.00) X 10*3/uL RBC 3.63 L (4.10-5.20) X 10*6/uL Hgb 10.9 L (12.0-15.0) g/dL Hct (37.2-46.3) % MCHC (32.0-37.0) g/dL RDW (11.5-14.5) % Neutrophils # 12.9 H (1.3-7.7) k/uL Glucose 149 H (74-99) mg/dL POC Glucose (mg/dL) 305 H (75-99) mg/dL 04/01/21 Range/Units 07:25 WBC (4.50-10.00) X 10*3/uL RBC (4.10-5.20) X 10*6/uL Hgb (12.0-15.0) g/dL Hct (37.2-46.3) % MCHC (32.0-37.0) g/dL RDW (11.5-14.5) % Neutrophils # (1.3-7.7) k/uL Glucose (74-99) mg/dL POC Glucose (mg/dL) 127 H (75-99) mg/dL Assessment and Plan (1) COVID-19 Current Visit: Yes Status: Acute Code(s): U07.1 - COVID-19 SNOMED Code(s): 493579463 (2) Abdominal pain Current Visit: No Status: Acute Code(s): R10.9 - UNSPECIFIED ABDOMINAL PAIN SNOMED Code(s): 67915899 (3) Flank pain Current Visit: Yes Status: Acute Code(s): R10.9 - UNSPECIFIED ABDOMINAL PAIN SNOMED Code(s): 140678714 (4) PCOS (polycystic ovarian syndrome) Current Visit: Yes Status: Acute Code(s): E28.2 - POLYCYSTIC OVARIAN SYNDROME SNOMED Code(s): 375951538 (5) Primary amenorrhea Current Visit: Yes Status: Acute Code(s): N91.0 - PRIMARY AMENORRHEA SNOMED Code(s): 429212749 Plan: 1.the pain could be related to covid or musculoskeletal since it is worse with certain movements 2. she will fu in my office for primary amneorrhea and PCOS
--- NOTE | 2021-04-01 10:29 | P.PN ---
Subjective Progress Note Date: 04/01/21 Principal diagnosis: COVID-19 pneumonia 25-year-old here patient hospitalized for COVID 19 pneumonia. The patient was in the emergency department approximately a week ago for diarrhea and abdominal pain. At that time, the testing was not done and the patient was discharged rodríguez e.. The patient is coming in with similar complaints of diarrhea and some vague abdominal discomfort in addition to shortness of breath and cough and the patient was found to be hypoxic and the patient was placed on 6 L of O2 nasal cannula. CAT scan of the abdomen was done and showed infiltrates in lung bases bilaterally consistent with COVID 19 pneumonia. The patient had a chest x-ray also showed diffuse bilateral pulmonary infiltrates. She is still having some liquid the bowel movements. No emesis. No altered mentation. No sputum production. The patient is not vaccinated as the patient stated that she is having ALLERGIC reactions to eggs and she thought that the vaccine had eggs. She is doing well otherwise. She has history of mental health issues including schizoaffective disorder and she lives in a intermediate. The white cell count is 16.2 with a hemoglobin of 12.7, glucose of 241 and she is nondiabetic. UA is negative. Inflammatory markers are still pending for now. Reevaluated today on 03/31/2021, patient remains on 6 L nasal cannula, high flow, O2 saturations 92%. Continues to have some shortness of breath, intermittent cough, no wheezing, no chest pain. No nausea no vomiting no abdominal pain. Her blood sugar is high as 335 being addressed by the admitting physician. Continues to have leukocytosis with WBC count of 15.36 hemoglobin is 10.6. Patient remains on the COVID-19 cocktail. Remains on Lovenox 40 mg subcu daily ascorbic acid, patient is out of the window for Remdesivir. The patient is seen today 04/01/2021 in follow-up on the regular medical floor. She is currently sitting up in a chair at the bedside. Awake and alert in no acute distress. Maintaining O2 saturations in the 90s on 6 L high flow nasal cannula. She's afebrile. Hemodynamically stable. white count 16.9. Hemoglobin 10.9. D-dimer 0.48. Sodium 140. Potassium 4.2. BUN 13. Creatinine 0.52. Blood glucose 149. She is continued on Decadron, Lovenox, vitamin supplements. Objective - Vital Signs Vital signs: Vital Signs Temp 98.1 F 04/01/21 06:01 Pulse 107 H 04/01/21 06:01 Resp 20 04/01/21 06:01 BP 114/78 04/01/21 06:01 Pulse Ox 91 L 04/01/21 06:01 Intake & Output 03/31/21 04/01/21 04/01/21 18:59 06:59 18:59 Intake Total 1555 Balance 1555 Intake: IV 1075 Sodium Chloride 0.9% 1, 1075 000 ml @ 125 mls/hr IV . Q8H LOYD Rx#:[id number] Oral 480 Other: # Voids 1 - Exam GENERAL EXAM: Alert, pleasant 25-year-old female, on 6 L nasal cannula, comfortable in no apparent distress. HEAD: Normocephalic. EYES: Normal reaction of pupils, equal size. NOSE: Clear with pink turbinates. THROAT: No erythema or exudates. NECK: No masses, no JVD. CHEST: No chest wall deformity. LUNGS: Equal air entry with coarse crackles in the bilateral bases. CVS: S1 and S2 normal with no audible murmur, regular rhythm. ABDOMEN: No hepatosplenomegaly, normal bowel sounds, no guarding or rigidity. SPINE: No scoliosis or deformity SKIN: No rashes CENTRAL NERVOUS SYSTEM: No focal deficits, tone is normal in all 4 extremities. EXTREMITIES: There is no peripheral edema. No clubbing, no cyanosis. Per ipheral pulses are intact. - Labs CBC & Chem 7: 04/01/21 05:43 04/01/21 05:43 Labs: Abnormal Lab Results - Last 24 Hours (Table) 03/31/21 03/31/21 03/31/21 Range/Units 05:05 11:14 17:04 WBC 15.36 H (4.50-10.00) X 10*3/uL RBC 3.67 L (4.10-5.20) X 10*6/uL Hgb 10.6 L (12.0-15.0) g/dL Hct 33.9 L (37.2-46.3) % MCHC 31.3 L (32.0-37.0) g/dL RDW 16.0 H (11.5-14.5) % Neutrophils # (1.3-7.7) k/uL Glucose (74-99) mg/dL POC Glucose (mg/dL) 227 H 335 H (75-99) mg/dL 03/31/21 04/01/21 04/01/21 Range/Units 20:24 05:43 05:43 WBC 16.9 H (4.50-10.00) X 10*3/uL RBC 3.63 L (4.10-5.20) X 10*6/uL Hgb 10.9 L (12.0-15.0) g/dL Hct (37.2-46.3) % MCHC (32.0-37.0) g/dL RDW (11.5-14.5) % Neutrophils # 12.9 H (1.3-7.7) k/uL Glucose 149 H (74-99) mg/dL POC Glucose (mg/dL) 305 H (75-99) mg/dL 04/01/21 Range/Units 07:25 WBC (4.50-10.00) X 10*3/uL RBC (4.10-5.20) X 10*6/uL Hgb (12.0-15.0) g/dL Hct (37.2-46.3) % MCHC (32.0-37.0) g/dL RDW (11.5-14.5) % Neutrophils # (1.3-7.7) k/uL Glucose (74-99) mg/dL POC Glucose (mg/dL) 127 H (75-99) mg/dL Assessment and Plan Assessment: 1 Acute hypoxic respiratory failure secondary to acute COVID-19 pneumonia. Outside the window for Remdesivir. Not qualifying for Baricitinib. 2 Abdominal discomfort secondary to COVID-19 infection. Computed tomography scan of the abdomen and pelvis revealed no acute findings 3 Hyperglycemia with suspected underlying diabetes. The patient is on Decadron 4 Obesity 5 Chronic tobacco dependence 6 History of PTSD 7 Schizoaffective disorder Plan: The patient was seen and evaluated Currently stable from the pulmonary standpoint Continue Decadron, Lovenox, vitamin supplements Follow-up chest x-ray, inflammatory markers in a.m. Titrate down the FiO2 as tolerated Increase her activity as tolerated Add incentive spirometer We will continue to follow I, the cosigning physician, performed a history & physical examination of the patient. Lungs sounds crackles in the bilateral basesr. Maintaining good O2 saturations in the 90s on 6 L/m per nasal cannula. I discussed the assessment and plan of care with my nurse practitioner, Mariah Balderrama. I attest to the above note as dictated by her.
[2021-04-01] MEDS: ONDANSETRON 4 MG/2 ML VIAL IVP PRN ×2 (10:52→19:49)
[2021-04-01 11:42] LABS: Glucose,Whole Blood 198 mg/dL (75-99)
--- NOTE | 2021-04-01 12:42 | P.PN ---
<Nila Mathias - Last Filed: 04/01/21 12:34> Subjective Progress Note Date: 04/01/21 CHIEF COMPLAINT: Abdominal pain HISTORY OF PRESENT ILLNESS: 25-year-old female who presented to the emergency de partment with complaints of shortness of breath, cough, and right lower quadrant abdominal pain. Today she seen and evaluated as a follow-up. She states she continues to have some right lower quadrant discomfort as well as flank pain. She's had some mild nausea but no vomiting. She's been afebrile. She has been admitted with COVID-19 pneumonia. PHYSICAL EXAM: VITAL SIGNS: Reviewed. GENERAL: Well-developed in no acute distress. HEENT: No sclera icterus. Extraocular movements grossly intact. Moist buccal mucosa. Head is atraumatic, normocephalic. ABDOMEN: Soft. Nondistended. Mild tenderness right lower quadrant and flank. NEUROLOGIC: Alert and oriented. Cranial nerves II through XII grossly intact. ASSESSMENT: 1. Abdominal pain, no acute findings. Stable appearance of appendix. Possible appendicolth Per CT abdomen and pelvis. 2. COVID-19 infection 3. Obesity 4. Hepatomegaly diffuse hepatocellular disease seen on CT of abdomen and pelvis 5. Amenorrhea PLAN: 1. Continue symptomatic and supportive care 2. C. diff ordered 3. Diet as tolerated 4. Gynecology consulted Thank you for this consultation, we will continue to follow. The impression and plan of care has been dictated as directed. Dr. Alberts I performed a history and examination of this patient, discussed the same with the dictator. I agree with the dictator's note ,documented as a scribe. Any additional findings or plans will be noted. Objective - Vital Signs Vital signs: Vital Signs Temp 98.1 F 04/01/21 06:01 Pulse 107 H 04/01/21 06:01 Resp 20 04/01/21 06:01 BP 114/78 04/01/21 06:01 Pulse Ox 91 L 04/01/21 06:01 Intake & Output 03/31/21 04/01/21 04/01/21 18:59 06:59 18:59 Intake Total 1555 Balance 1555 Intake: IV 1075 Sodium Chloride 0.9% 1, 1075 000 ml @ 125 mls/hr IV . Q8H LOYD Rx#:[id number] Oral 480 Other: # Voids 1 - Labs CBC & Chem 7: 04/01/21 05:43 04/01/21 05:43 Labs: Abnormal Lab Results - Last 24 Hours (Table) 03/31/21 03/31/21 03/31/21 Range/Units 05:05 05:05 11:14 WBC 15.36 H (4.50-10.00) X 10*3/uL RBC 3.67 L (4.10-5.20) X 10*6/uL Hgb 10.6 L (12.0-15.0) g/dL Hct 33.9 L (37.2-46.3) % MCHC 31.3 L (32.0-37.0) g/dL RDW 16.0 H (11.5-14.5) % Neutrophils # (1.3-7.7) k/uL BUN 7.9 L (9.0-27.0) mg/dL Creatinine 0.5 L (0.6-1.5) mg/dL Glucose 231 H (70-110) mg/dL POC Glucose (mg/dL) 227 H (75-99) mg/dL Total Bilirubin 0.20 L (0.30-1.20) mg/dL Albumin/Globulin Ratio 1.54 L (1.60-3.17) g/dL 03/31/21 03/31/21 04/01/21 Range/Units 17:04 20:24 05:43 WBC 16.9 H (4.50-10.00) X 10*3/uL RBC 3.63 L (4.10-5.20) X 10*6/uL Hgb 10.9 L (12.0-15.0) g/dL Hct (37.2-46.3) % MCHC (32.0-37.0) g/dL RDW (11.5-14.5) % Neutrophils # 12.9 H (1.3-7.7) k/uL BUN (9.0-27.0) mg/dL Creatinine (0.6-1.5) mg/dL Glucose (70-110) mg/dL POC Glucose (mg/dL) 335 H 305 H (75-99) mg/dL Total Bilirubin (0.30-1.20) mg/dL Albumin/Globulin Ratio (1.60-3.17) g/dL 04/01/21 04/01/21 Range/Units 05:43 07:25 WBC (4.50-10.00) X 10*3/uL RBC (4.10-5.20) X 10*6/uL Hgb (12.0-15.0) g/dL Hct (37.2-46.3) % MCHC (32.0-37.0) g/dL RDW (11.5-14.5) % Neutrophils # (1.3-7.7) k/uL BUN (9.0-27.0) mg/dL Creatinine (0.6-1.5) mg/dL Glucose 149 H (70-110) mg/dL POC Glucose (mg/dL) 127 H (75-99) mg/dL Total Bilirubin (0.30-1.20) mg/dL Albumin/Globulin Ratio (1.60-3.17) g/dL <Aquiles Alberts - Last Filed: 04/01/21 16:38> Subjective I have personally seen and examined the patient, reviewed the BORDER PATROL OFFICER /PAs history, exam and MDM and agree with the assessment and plan as written. Based on total visit time, I have performed more than 50% of the visit. As above. Patient says her breathing is about the same as yesterday. Her right lower abdominal and right flank pain unchanged as well. Appreciate RESIDENCY DIRECTOR evaluation. Continue diet as tolerated. Will follow. Objective - Vital Signs Vital signs: Vital Signs Temp 98.6 F 04/01/21 14:00 Pulse 114 H 04/01/21 14:00 Resp 20 04/01/21 14:00 BP 107/59 04/01/21 14:00 Pulse Ox 93 L 04/01/21 14:00 Intake & Output 03/31/21 04/01/21 04/01/21 18:59 06:59 18:59 Intake Total 1555 Balance 1555 Intake: IV 1075 Sodium Chloride 0.9% 1, 1075 000 ml @ 125 mls/hr IV . Q8H LOYD Rx#:[id number] Oral 480 Other: # Voids 1 - Labs CBC & Chem 7: 04/01/21 05:43 04/01/21 05:43 Labs: Abnormal Lab Results - Last 24 Hours (Table) 03/31/21 03/31/21 04/01/21 Range/Units 17:04 20:24 05:43 WBC 16.9 H (3.8-10.6) k/uL RBC 3.63 L (3.80-5.40) m/uL Hgb 10.9 L (11.4-16.0) gm/dL Neutrophils # 12.9 H (1.3-7.7) k/uL Glucose (74-99) mg/dL POC Glucose (mg/dL) 335 H 305 H (75-99) mg/dL 04/01/21 04/01/21 04/01/21 Range/Units 05:43 07:25 11:40 WBC (3.8-10.6) k/uL RBC (3.80-5.40) m/uL Hgb (11.4-16.0) gm/dL Neutrophils # (1.3-7.7) k/uL Glucose 149 H (74-99) mg/dL POC Glucose (mg/dL) 127 H 198 H (75-99) mg/dL
[2021-04-01] MEDS: SODIUM CHLORIDE 0.9% 1,000 ML IV SCH (14:32)
[2021-04-01 16:41] LABS: Glucose,Whole Blood 388 mg/dL (75-99)
[2021-04-01 21:17] LABS: Glucose,Whole Blood 326 mg/dL (75-99)
[2021-04-01] MEDS: cloZAPine 100 MG TAB PO SCH (21:26)
--- NOTE | 2021-04-02 01:08 | P.PN ---
Subjective Progress Note Date: 04/01/21 Patient is a 25-year-old female came in with compensative diarrhea nausea vomiting has been going on for about a week. Patient also having shortness of breath because of which patient came to Hospital patient is found to be hypoxic requiring 6 L infarction patient is found to have COVID-[address] pneumonia patient had a CT of the abdomen which showed infiltrates in the chest consistent with the COVID-19 pneumonia abdominal x-rays essentially within normal limits. Patient had 2 episodes of diarrhea today. Patient is bit tachycardic today. D-dimer is being obtained. Beta-hCG is being obtained. Patient is not vaccinated for COVID-19. 04/01/2021 Patient is seen in follow up today and currently sitting up in the chair awake and continues on 6L via NC. Encouraged IS use and increasing activity as tole rated. TYING IN MACHINE OPERATOR evaluated the patient for her abdominal pain and will follow up outpatient. General surgery following and cdiff ordered. Patient denies any chest pain or fevers at this time. Patient continues on IV dexamethasone and vitamin and zinc supplements. Labs: WBC is 16.9, hemoglobin is 10.9, platelets are 384, sodium is 140, potassium 4.2, BUN 13, creatinine 0.52, calcium 9.0, d dimer is 0.48 Review of systems: Constitutional: No reports of fatigue, fever, or chills Cardiovascular: No reports of chest pain or palpitations Respiratory: reports continued shortness of breath and cough GI: No reports of nausea, vomiting, or diarrhea : No reports of dysuria or retention Neurovascular: reports of weakness denies numbness All medications have been reviewed Active Medications Acetaminophen (Acetaminophen Tab 325 Mg Tab) 650 mg PO Q6HR PRN PRN Reason: Mild Pain or Fever > 100.5 Last Admin: 03/30/21 10:34 Dose: 650 mg Documented by: Acetaminophen/Codeine Phosphate (Acetaminophen-Codeine 300-30mg Tab) 1 each PO Q4HR PRN PRN Reason: Pain Last Admin: 04/01/21 21:26 Dose: 1 each Documented by: Albuterol Sulfate (Albuterol Hfa Inhaler) 2 puff INHALATION RT-QID [facility] Last Admin: 04/01/21 19:31 Dose: 2 puff Documented by: Ascorbic Acid (Ascorbic Acid 500 Mg Tab) 500 mg PO BID [facility] Last Admin: 04/01/21 21:26 Dose: 500 mg Documented by: Benztropine Mesylate (Benztropine Mesylate 1 Mg Tab) 1 mg PO TID PRN PRN Reason: TREMORS/WITHDRAWL Cholecalciferol (Cholecalciferol 25 Mcg (1000 Iu) Tablet) 25 mcg PO DAILY [facility] Last Admin: 04/01/21 08:39 Dose: 25 mcg Documented by: Clozapine (Clozapine 100 Mg Tab) 200 mg PO HS [facility] Stop: 04/02/21 23:00 Last Admin: 04/01/21 21:26 Dose: 200 mg Documented by: Dexamethasone Sodium Phosphate (Dexamethasone Sod Phosphate 10 Mg/Ml 1 Ml Vial) 6 mg IVP DAILY [facility] Last Admin: 04/01/21 08:40 Dose: 6 mg Documented by: Enoxaparin Sodium (Enoxaparin 40 Mg/0.4 Ml Syringe) 40 mg SQ DAILY [facility] Last Admin: 04/01/21 08:40 Dose: 40 mg Documented by: Famotidine (Famotidine 20 Mg Tab) 20 mg PO BID [facility] Last Admin: 04/01/21 21:26 Dose: 20 mg Documented by: Guaifenesin (Guaifenesin Syrup 100mg/5ml 200 Mg/10 Ml Cup) 200 mg PO Q6HR PRN PRN Reason: Cough Last Admin: 04/01/21 18:08 Dose: 200 mg Documented by: Haloperidol Decanoate (Haloperidol Decanoate 100 Mg/Ml 1 Ml Vial) 200 mg IM Q 14D [facility] Last Admin: 04/01/21 08:41 Dose: 200 mg Documented by: Sodium Chloride (Saline 0.9%) 1,000 mls @ 125 mls/hr IV .Q8H [facility] Last Admin: 04/01/21 14:32 Dose: Not Given Documented by: Insulin Aspart (Insulin Aspart (Novolog) 100 Unit/Ml Vial) 0 unit SQ [facility]; Protocol Last Admin: 04/01/21 21:25 Dose: 6 unit Documented by: Naloxone HCl (Naloxone 0.4 Mg/Ml 1 Ml Vial) 0.2 mg IV Q2M PRN PRN Reason: Opioid Reversal Ondansetron HCl (Ondansetron 4 Mg/2 Ml Vial) 4 mg IVP Q8HR PRN PRN Reason: Nausea And Vomiting Last Admin: 04/01/21 19:49 Dose: 4 mg Documented by: Zinc Sulfate (Zinc Sulfate 220 Mg Cap) 220 mg PO DAILY [facility] Last Admin: 04/01/21 08:39 Dose: 220 mg Documented by: PHYSICAL EXAMINATION: GENERAL: The patient is alert and oriented x3, not in any acute distress. Well developed, well nourished. Obese, currently on 6 L of oxygen via nasal cannula HEENT: Pupils are round and equally reacting to light. EOMI. No scleral icterus. No conjunctival pallor. Normocephalic, atraumatic. No pharyngeal erythema. No thyromegaly. CARDIOVASCULAR: S1 and S2 present. No murmurs, rubs, or gallops. PULMONARY: Chest is clear to auscultation, no wheezing or crackles. ABDOMEN: Soft, non-tender, non-distended, normoactive bowel sounds. No palpable organomegaly. MUSCULOSKELETAL: No joint swelling or deformity. EXTREMITIES: No cyanosis, clubbing, or pedal edema. NEUROLOGICAL: Gross neurological examination did not reveal any focal deficits. SKIN: No rashes. Assessment and plan: - Acute hypoxic respiratory failure secondary to COVID-19 pneumonia: Patient w ill be continued on respiratory support, patient will continue on Decadron and is also receiving vitamin C and zinc with pulmonary following. Currently on 6 L via nasal cannula - sepsis secondary to COVID-19 - Tachycardia: Probably secondary to dehydration continue IV fluids - Diarrhea: Secondary to COVID-19 infection, general surgery follwing and C. diff ordered recommending conservative management as images were negative, obgyn consulted for abdominal pain. - Hyperglycemia, hemoglobin A1c is 8.0, continue on sliding scale insulin patient blood sugars are expected to go up because of systemic steroids, continue accuchecks and sliding scale - Mildly elevated liver enzymes secondary to COVID-19 infection - Schizoaffective disorder for which patient is on clozril which will be continued patient doesn't have any neutropenia at this time - DVT prophylaxis: Subcutaneous Lovenox Plan: Recommend to continue with current medications and vitamin and zinc supplements along with Lovenox and encourage the patient increase activity as tolerated. Patient continues to sleep most of the day and requires encouragement. Patient continues on 6 L of oxygen via nasal cannula and continues to state she has shortness of breath and discussed with the patient about increasing activity and encouraging oral intake. Continue to encourage incentive spirometer. D dimer was negative. Wean FI02 as tolerated. Objective - Vital Signs Vital signs: Vital Signs Temp 98.1 F 04/01/21 06:01 Pulse 107 H 04/01/21 06:01 Resp 20 04/01/21 06:01 BP 114/78 04/01/21 06:01 Pulse Ox 91 L 04/01/21 06:01 Intake & Output 03/31/21 04/01/21 04/01/21 18:59 06:59 18:59 Intake Total 1555 Balance 1555 Intake: IV 1075 Sodium Chloride 0.9% 1, 1075 000 ml @ 125 mls/hr IV . Q8H [facility] Rx#:[id number] Oral 480 Other: # Voids 1 - Labs CBC & Chem 7: 04/01/21 05:43 04/01/21 05:43 Labs: Abnormal Lab Results - Last 24 Hours (Table) 03/31/21 03/31/21 03/31/21 Range/Units 05:05 05:05 11:14 WBC 15.36 H (4.50-10.00) X 10*3/uL RBC 3.67 L (4.10-5.20) X 10*6/uL Hgb 10.6 L (12.0-15.0) g/dL Hct 33.9 L (37.2-46.3) % MCHC 31.3 L (32.0-37.0) g/dL RDW 16.0 H (11.5-14.5) % Neutrophils # (1.3-7.7) k/uL BUN 7.9 L (9.0-27.0) mg/dL Creatinine 0.5 L (0.6-1.5) mg/dL Glucose 231 H (70-110) mg/dL POC Glucose (mg/dL) 227 H (75-99) mg/dL Total Bilirubin 0.20 L (0.30-1.20) mg/dL Albumin/Globulin Ratio 1.54 L (1.60-3.17) g/dL 03/31/21 03/31/21 04/01/21 Range/Units 17:04 20:24 05:43 WBC 16.9 H (4.50-10.00) X 10*3/uL RBC 3.63 L (4.10-5.20) X 10*6/uL Hgb 10.9 L (12.0-15.0) g/dL Hct (37.2-46.3) % MCHC (32.0-37.0) g/dL RDW (11.5-14.5) % Neutrophils # 12.9 H (1.3-7.7) k/uL BUN (9.0-27.0) mg/dL Creatinine (0.6-1.5) mg/dL Glucose (70-110) mg/dL POC Glucose (mg/dL) 335 H 305 H (75-99) mg/dL Total Bilirubin (0.30-1.20) mg/dL Albumin/Globulin Ratio (1.60-3.17) g/dL 04/01/21 04/01/21 Range/Units 05:43 07:25 WBC (4.50-10.00) X 10*3/uL RBC (4.10-5.20) X 10*6/uL Hgb (12.0-15.0) g/dL Hct (37.2-46.3) % MCHC (32.0-37.0) g/dL RDW (11.5-14.5) % Neutrophils # (1.3-7.7) k/uL BUN (9.0-27.0) mg/dL Creatinine (0.6-1.5) mg/dL Glucose 149 H (70-110) mg/dL POC Glucose (mg/dL) 127 H (75-99) mg/dL Total Bilirubin (0.30-1.20) mg/dL Albumin/Globulin Ratio (1.60-3.17) g/dL
[2021-04-02] MEDS: SODIUM CHLORIDE 0.9% 1,000 ML IV SCH (04:40)
[2021-04-02 07:08] LABS: Glucose,Whole Blood 135 mg/dL (75-99)
[2021-04-02] MEDS: ALBUTEROL HFA INHALER INHALATION SCH ×4 (08:03→19:58)
--- NOTE | 2021-04-02 08:16 | XR ---
EXAMINATION TYPE: XR chest 1V portable DATE OF EXAM: 04/02/2021 COMPARISON: Chest x-ray 03/30/2021 HISTORY: Shortness of breath TECHNIQUE: Single frontal view of the chest is obtained. FINDINGS: Patchy densities present in the bilateral lungs similar to prior exam. Lung volumes are lo w. There is no evident pneumothorax or pleural effusion. Cardiomediastinal silhouette shows a similar appearance. Bones are unchanged. IMPRESSION: Correlate for pneumonia.
[2021-04-02] MEDS: ASCORBIC ACID 500 MG TAB PO SCH ×2 (08:40→20:50)
[2021-04-02] MEDS: INSULIN ASPART (NovoLOG) 100 UNIT/ML VIAL SQ SCH ×4 (08:40→20:49)
[2021-04-02] MEDS: ENOXAPARIN 40 MG/0.4 ML SYRINGE SQ SCH (08:40)
[2021-04-02] MEDS: CHOLECALCIFEROL 25 MCG (1000 IU) TABLET PO SCH (08:40)
[2021-04-02] MEDS: ZINC SULFATE 220 MG CAP PO SCH (08:40)
[2021-04-02] MEDS: FAMOTIDINE 20 MG TAB PO SCH ×2 (08:40→20:50)
[2021-04-02] MEDS: DEXAMETHASONE SOD PHOSPHATE 10 MG/ML 1 ML VIAL IVP SCH (08:41)
[2021-04-02] MEDS: Acetaminophen-Codeine 300-30mg TAB PO PRN ×2 (08:41→15:17)
[2021-04-02] MEDS: ONDANSETRON 4 MG/2 ML VIAL IVP PRN (08:48)
[2021-04-02 09:33] LABS: Clozapine (Clozaril) 684 ng/mL (200-700); Norclozapine 309 ng/mL (200-700)
--- NOTE | 2021-04-02 11:00 | P.PN ---
<Nila Mathias - Last Filed: 04/02/21 10:58> Subjective Progress Note Date: 04/02/21 CHIEF COMPLAINT: Abdominal pain HISTORY OF PRESENT ILLNESS: 25-year-old female who presented to the emergency de partment with complaints of shortness of breath, cough, and right lower quadrant abdominal pain. She has been admitted with COVID-19 pneumoniaToday she seen and evaluated as a follow-up. She states she continues to have some right lower quadrant discomfort as well as flank pain. Denies any nausea or vomiting. She's not had any bowel movements or diarrhea for 2 days. Stool cultures and C. diff are pending collection. Patient was seen yesterday by Dr. Del Valle who recommends outpatient follow-up for amenorrhea and PCOS. Patient remains afebrile. PHYSICAL EXAM: VITAL SIGNS: Reviewed. GENERAL: Well-developed in no acute distress. HEENT: No sclera icterus. Extraocular movements grossly intact. Moist buccal mucosa. Head is atraumatic, normocephalic. ABDOMEN: Soft. Nondistended. Mild tenderness right lower quadrant and flank. NEUROLOGIC: Alert and oriented. Cranial nerves II through XII grossly intact. ASSESSMENT: 1. Abdominal pain, no acute findings. Stable appearance of appendix. Possible appendicolth Per CT abdomen and pelvis. 2. COVID-19 infection 3. Obesity 4. Hepatomegaly diffuse hepatocellular disease seen on CT of abdomen and pelvis 5. Amenorrhea PLAN: 1. Continue symptomatic and supportive care 2. C. diff ordered 3. Diet as tolerated 4. Gynecology consulted, appreciate their recommendations Thank you for this consultation, we will continue to follow. The impression and plan of care has been dictated as directed. Dr. Alberts I performed a history and examination of this patient, discussed the same with the dictator. I agree with the dictator's note ,documented as a scribe. Any additional findings or plans will be noted. Objective - Vital Signs Vital signs: Vital Signs Temp 97.5 F L 04/02/21 05:39 Pulse 99 04/02/21 05:39 Resp 18 04/02/21 05:39 BP 133/80 04/02/21 05:39 Pulse Ox 93 L 04/02/21 08:03 Intake & Output 04/01/21 04/02/21 04/02/21 18:59 06:59 18:59 Other: Voiding Method Toilet # Voids 2 - Labs CBC & Chem 7: 04/01/21 05:43 04/01/21 05:43 Labs: Abnormal Lab Results - Last 24 Hours (Table) 04/01/21 04/01/21 04/01/21 Range/Units 11:40 16:40 21:15 POC Glucose (mg/dL) 198 H 388 H 326 H (75-99) mg/dL 04/02/21 Range/Units 07:07 POC Glucose (mg/dL) 135 H (75-99) mg/dL <Aquiles Alberts - Last Filed: 04/02/21 12:27> Subjective I have personally seen and examined the patient, reviewed the [employer] FINISHER /PAs history, exam and MDM and agree with the assessment and plan as written. Based on total visit time, I have performed more than 50% of the visit. As above. Patient seems to be having less pain. Oxygen requirements about the same. Continue diet. Will follow. Objective - Vital Signs Vital signs: Vital Signs Temp 98.9 F 04/02/21 09:35 Pulse 109 H 04/02/21 09:35 Resp 19 04/02/21 09:35 BP 101/63 04/02/21 09:35 Pulse Ox 92 L 04/02/21 09:35 Intake & Output 04/01/21 04/02/21 04/02/21 18:59 06:59 18:59 Other: Voiding Method Toilet Toilet # Voids 2 - Labs CBC & Chem 7: 04/01/21 05:43 04/01/21 05:43 Labs: Abnormal Lab Results - Last 24 Hours (Table) 04/01/21 04/01/21 04/02/21 Range/Units 16:40 21:15 07:07 POC Glucose (mg/dL) 388 H 326 H 135 H (75-99) mg/dL 04/02/21 Range/Units 11:09 POC Glucose (mg/dL) 228 H (75-99) mg/dL
[2021-04-02 11:11] LABS: Glucose,Whole Blood 228 mg/dL (75-99)
--- NOTE | 2021-04-02 11:18 | P.PN ---
Subjective Progress Note Date: 04/02/21 Principal diagnosis: COVID-19 pneumonia 25-year-old here patient hospitalized for COVID 19 pneumonia. The patient was in the emergency department approximately a week ago for diarrhea and abdominal pain. At that time, the testing was not done and the patient was discharged rodríguez e.. The patient is coming in with similar complaints of diarrhea and some vague abdominal discomfort in addition to shortness of breath and cough and the patient was found to be hypoxic and the patient was placed on 6 L of O2 nasal cannula. CAT scan of the abdomen was done and showed infiltrates in lung bases bilaterally consistent with COVID 19 pneumonia. The patient had a chest x-ray also showed diffuse bilateral pulmonary infiltrates. She is still having some liquid the bowel movements. No emesis. No altered mentation. No sputum production. The patient is not vaccinated as the patient stated that she is having ALLERGIC reactions to eggs and she thought that the vaccine had eggs. She is doing well otherwise. She has history of mental health issues including schizoaffective disorder and she lives in a alf. The white cell count is 16.2 with a hemoglobin of 12.7, glucose of 241 and she is nondiabetic. UA is negative. Inflammatory markers are still pending for now. Reevaluated today on 03/31/2021, patient remains on 6 L nasal cannula, high flow, O2 saturations 92%. Continues to have some shortness of breath, intermittent cough, no wheezing, no chest pain. No nausea no vomiting no abdominal pain. Her blood sugar is high as 335 being addressed by the admitting physician. Continues to have leukocytosis with WBC count of 15.36 hemoglobin is 10.6. Patient remains on the COVID-19 cocktail. Remains on Lovenox 40 mg subcu daily ascorbic acid, patient is out of the window for Remdesivir. The patient is seen today 04/01/2021 in follow-up on the regular medical floor. She is currently sitting up in a chair at the bedside. Awake and alert in no acute distress. Maintaining O2 saturations in the 90s on 6 L high flow nasal cannula. She's afebrile. Hemodynamically stable. white count 16.9. Hemoglobin 10.9. D-dimer 0.48. Sodium 140. Potassium 4.2. BUN 13. Creatinine 0.52. Blood glucose 149. She is continued on Decadron, Lovenox, vitamin supplements. The patient today 04/02/2021 in follow-up on the regular medical floor. She is currently resting comfortably in bed. Awake and alert in no acute distress. Maintaining O2 saturations in the 90s on 6 L high flow nasal cannula. She remains afebrile. Hemodynamically stable. Chest x-ray continued to show consistent bilateral patchy densities consistent with COVID-19 pneumonia. No significant change. Blood glucose 228. She is continued on vitamin supplements, Decadron, Lovenox. Objective - Vital Signs Vital signs: Vital Signs Temp 98.9 F 04/02/21 09:35 Pulse 109 H 04/02/21 09:35 Resp 19 04/02/21 09:35 BP 101/63 04/02/21 09:35 Pulse Ox 92 L 04/02/21 09:35 Intake & Output 04/01/21 04/02/21 04/02/21 18:59 06:59 18:59 Other: Voiding Method Toilet Toilet # Voids 2 - Exam GENERAL EXAM: Alert, pleasant 25-year-old female, resting comfortably in bed, on 6 L nasal cannula, comfortable in no apparent distress. HEAD: Normocephalic. EYES: Normal reaction of pupils, equal size. NOSE: Clear with pink turbinates. THROAT: No erythema or exudates. NECK: No masses, no JVD. CHEST: No chest wall deformity. LUNGS: Equal air entry with coarse crackles in the bilateral bases. CVS: S1 and S2 normal with no audible murmur, regular rhythm. ABDOMEN: No hepatosplenomegaly, normal bowel sounds, no guarding or rigidity. SPINE: No scoliosis or deformity SKIN: No rashes CENTRAL NERVOUS SYSTEM: No focal deficits, tone is normal in all 4 extremities. EXTREMITIES: There is no peripheral edema. No clubbing, no cyanosis. Peripheral pulses are intact. - Labs CBC & Chem 7: 04/01/21 05:43 04/01/21 05:43 Labs: Abnormal Lab Results - Last 24 Hours (Table) 04/01/21 04/01/21 04/01/21 Range/Units 11:40 16:40 21:15 POC Glucose (mg/dL) 198 H 388 H 326 H (75-99) mg/dL 04/02/21 04/02/21 Range/Units 07:07 11:09 POC Glucose (mg/dL) 135 H 228 H (75-99) mg/dL Assessment and Plan Assessment: 1 Acute hypoxic respiratory failure secondary to acute COVID-19 pneumonia. Outside the window for Remdesivir. Not qualifying for Baricitinib. 2 Abdominal discomfort secondary to COVID-19 infection. Computed tomography scan of the abdomen and pelvis revealed no acute findings 3 Hyperglycemia with suspected underlying diabetes. The patient is on Decadron 4 Obesity 5 Chronic tobacco dependence 6 History of PTSD 7 Schizoaffective disorder Plan: The patient was seen and evaluated Chest x-ray reviewed, stable Continue Decadron, Lovenox, vitamin supplements Titrate down the FiO2 as tolerated This was decreased to 5 L nasal cannula Possible discharge with home oxygen in a.m. Increase her activity as tolerated Increase the use of the incentive spirometer We will continue to follow I, the cosigning physician, performed a history & physical examination of the patient. Lungs sounds crackles in the bilateral basesr. Maintaining good O2 saturations in the 90s on 5 L/m per nasal cannula. I discussed the assessment and plan of care with my nurse practitioner, Mariah Balderrama. I attest to the above n ote as dictated by her.
--- NOTE | 2021-04-02 15:09 | P.PN ---
Subjective Progress Note Date: 04/02/21 Patient is a 25-year-old female came in with compensative diarrhea nausea vomiting has been going on for about a week. Patient also having shortness of breath because of which patient came to Hospital patient is found to be hypoxic requiring 6 L infarction patient is found to have COVID-[address] pneumonia patient had a CT of the abdomen which showed infiltrates in the chest consistent with the COVID-19 pneumonia abdominal x-rays essentially within normal limits. Patient had 2 episodes of diarrhea today. Patient is bit tachycardic today. D-dimer is being obtained. Beta-hCG is being obtained. Patient is not vaccinated for COVID-19. 04/01/2021 Patient is seen in follow up today and currently sitting up in the chair awake and continues on 6L via NC. Encouraged IS use and increasing activity as tole rated. CREMATORY OPERATOR evaluated the patient for her abdominal pain and will follow up outpatient. General surgery following and cdiff ordered. Patient denies any chest pain or fevers at this time. Patient continues on IV dexamethasone and vitamin and zinc supplements. 04/02/2021 Patient is seen today with no acute overnight issues noted. Patient continues to have shortness of breath and needs encouragement to use incentive spirometer and get up out of the bed. Patient mostly sleeping all day. Patient denies any abdominal pain today. Blood sugars elevated most likely due to steroids and will continue a sliding scale and Accu-Cheks. Patient is maintained on subcutaneous Lovenox along with dexamethasone vitamin and zinc supplements and will continue. Patient titrating oxygen as tolerated and currently on 5 L. Follow-up chest x-ray today shows correlate for pneumonia with continued patchy densities present in the bilateral lung similar to previous exam with low lung volumes and no evident pneumothorax or pleural effusion noted. Labs: WBC is 16.9, hemoglobin is 10.9, platelets are 384, sodium is 140, potassium 4.2, BUN 13, creatinine 0.52, calcium 9.0, d dimer is 0.48 Review of systems: Constitutional: No reports of fatigue, fever, or chills Cardiovascular: No reports of chest pain or palpitations Respiratory: reports continued shortness of breath and cough GI: No reports of nausea, vomiting, or diarrhea : No reports of dysuria or retention Neurovascular: reports of weakness denies numbness All medications have been reviewed Active Medications Acetaminophen (Acetaminophen Tab 325 Mg Tab) 650 mg PO Q6HR PRN PRN Reason: Mild Pain or Fever > 100.5 Last Admin: 03/30/21 10:34 Dose: 650 mg Documented by: Acetaminophen/Codeine Phosphate (Acetaminophen-Codeine 300-30mg Tab) 1 each PO Q4HR PRN PRN Reason: Pain Last Admin: 04/02/21 08:41 Dose: 1 each Documented by: Albuterol Sulfate (Albuterol Hfa Inhaler) 2 puff INHALATION RT-QID [facility] Last Admin: 04/02/21 12:07 Dose: 2 puff Documented by: Ascorbic Acid (Ascorbic Acid 500 Mg Tab) 500 mg PO BID [facility] Last Admin: 04/02/21 08:40 Dose: 500 mg Documented by: Benztropine Mesylate (Benztropine Mesylate 1 Mg Tab) 1 mg PO TID PRN PRN Reason: TREMORS/WITHDRAWL Cholecalciferol (Cholecalciferol 25 Mcg (1000 Iu) Tablet) 25 mcg PO DAILY [facility] Last Admin: 04/02/21 08:40 Dose: 25 mcg Documented by: Clozapine (Clozapine 100 Mg Tab) 200 mg PO [facility] Stop: 04/02/21 23:00 Last Admin: 04/01/21 21:26 Dose: 200 mg Documented by: Clozapine (Clozapine 100 Mg Tab) 200 mg PO [facility] Stop: 04/09/21 23:59 Dexamethasone Sodium Phosphate (Dexamethasone Sod Phosphate 10 Mg/Ml 1 Ml Vial) 6 mg IVP DAILY [facility] Last Admin: 04/02/21 08:41 Dose: 6 mg Documented by: Enoxaparin Sodium (Enoxaparin 40 Mg/0.4 Ml Syringe) 40 mg SQ DAILY [facility] Last Admin: 04/02/21 08:40 Dose: 40 mg Documented by: Famotidine (Famotidine 20 Mg Tab) 20 mg PO BID [facility] Last Admin: 04/02/21 08:40 Dose: 20 mg Documented by: Guaifenesin (Guaifenesin Syrup 100mg/5ml 200 Mg/10 Ml Cup) 200 mg PO Q6HR PRN PRN Reason: Cough Last Admin: 04/01/21 18:08 Dose: 200 mg Documented by: Haloperidol Decanoate (Haloperidol Decanoate 100 Mg/Ml 1 Ml Vial) 200 mg IM Q14D [facility] Last Admin: 04/01/21 08:41 Dose: 200 mg Documented by: Sodium Chloride (Saline 0.9%) 1,000 mls @ 125 mls/hr IV .Q8H [facility] Last Admin: 04/02/21 04:40 Dose: Not Given Documented by: Insulin Aspart (Insulin Aspart (Novolog) 100 Unit/Ml Vial) 0 unit SQ ACHS [facility]; Protocol Last Admin: 04/02/21 12:42 Dose: 3 unit Documented by: Naloxone HCl (Naloxone 0.4 Mg/Ml 1 Ml Vial) 0.2 mg IV Q2M PRN PRN Reason: Opioid Reversal Ondansetron HCl (Ondansetron 4 Mg/2 Ml Vial) 4 mg IVP Q8HR PRN PRN Reason: Nausea And Vomiting Last Admin: 04/02/21 08:48 Dose: 4 mg Documented by: Zinc Sulfate (Zinc Sulfate 220 Mg Cap) 220 mg PO DAILY [facility] Last Admin: 04/02/21 08:40 Dose: 220 mg Documented by: PHYSICAL EXAMINATION: GENERAL: The patient is alert and oriented x3, not in any acute distress. Well developed, well nourished. Obese, currently on 5 L of oxygen via nasal cannula HEENT: Pupils are round and equally reacting to light. EOMI. No scleral icterus. No conjunctival pallor. Normocephalic, atraumatic. No pharyngeal erythema. No thyromegaly. CARDIOVASCULAR: S1 and S2 present. No murmurs, rubs, or gallops. PULMONARY: Chest is clear to auscultation, no wheezing or crackles. ABDOMEN: Soft, non-tender, non-distended, normoactive bowel sounds. No palpable organomegaly. MUSCULOSKELETAL: No joint swelling or deformity. EXTREMITIES: No cyanosis, clubbing, or pedal edema. NEUROLOGICAL: Gross neurological examination did not reveal any focal deficits. SKIN: No rashes. Assessment and plan: - Acute hypoxic respiratory failure secondary to COVID-19 pneumonia: Patient will be continued on respiratory support, patient will continue on Decadron and is also receiving vitamin C and zinc along with Lovenox with pulmonary following. Currently on 5 L via nasal cannula - sepsis secondary to COVID-19 - Tachycardia: Probably secondary to dehydration continue IV fluids - Diarrhea: Secondary to COVID-19 infection, general surgery following and C. diff ordered recommending conservative management as images were negative, obgyn consulted for abdominal pain and will follow-up with patient in the outpatient setting for amenorrhea and PCOS . - History of PCOS - Hyperglycemia, hemoglobin A1c is 8.0, continue on sliding scale insulin patient blood sugars are expected to be elevated because of systemic steroids, continue accuchecks and sliding scale - Mildly elevated liver enzymes secondary to COVID-19 infection - Schizoaffective disorder for which patient is on clozril which will be continued patient doesn't have any neutropenia at this time - DVT prophylaxis: Subcutaneous Lovenox - GI prophylaxis - Full code Plan: Recommend to continue with current medications and vitamin and zinc supplements along with Lovenox and encourage the patient increase activity as tolerated. Patient continues to sleep most of the day and requires encouragement. Patient continues on 5 L of oxygen via nasal cannula and continues to state she has shortness of breath and discussed with the patient about increasing activity and encouraging oral intake. Continue to encourage incentive spirometer. D dimer was negative. Wean FI02 as tolerated. Patient does take clozapine and clozaril levels were 684 and non-clozapine is 309 Discussed with case management as patient currently resides at a [facility] health [facility] living and awaiting callback from electrical supervisor to discuss requiring oxygen on discharge. Patient currently titrated down to 5 L and maintaining oxygen saturations above 90% with possible discharge in 24-48 hours. Objective - Vital Signs Vital signs: Vital Signs Temp 97.5 F L 04/02/21 05:39 Pulse 99 04/02/21 05:39 Resp 18 04/02/21 05:39 BP 133/80 04/02/21 05:39 Pulse Ox 93 L 04/02/21 08:03 Intake & Output 04/01/21 04/02/21 04/02/21 18:59 06:59 18:59 Other: Voiding Method Toilet # Voids 2 - Labs CBC & Chem 7: 04/01/21 05:43 04/01/21 05:43 Labs: Abnormal Lab Results - Last 24 Hours (Table) 04/01/21 04/01/21 04/01/21 Range/Units 11:40 16:40 21:15 POC Glucose (mg/dL) 198 H 388 H 326 H (75-99) mg/dL 04/02/21 Range/Units 07:07 POC Glucose (mg/dL) 135 H (75-99) mg/dL
[2021-04-02] MEDS ORDERED: ONDANSETRON 4 MG TAB PO PRN (15:24)
[2021-04-02 16:16] LABS: Glucose,Whole Blood 181 mg/dL (75-99)
[2021-04-02 20:18] LABS: Glucose,Whole Blood 217 mg/dL (75-99)
[2021-04-02] MEDS: cloZAPine 100 MG TAB PO SCH (20:49)
[2021-04-03 06:53] LABS: Glucose,Whole Blood 131 mg/dL (75-99)
[2021-04-03] MEDS: ALBUTEROL HFA INHALER INHALATION SCH ×3 (07:35→15:10)
[2021-04-03] MEDS: ASCORBIC ACID 500 MG TAB PO SCH (08:47)
[2021-04-03] MEDS: FAMOTIDINE 20 MG TAB PO SCH (08:47)
[2021-04-03] MEDS: CHOLECALCIFEROL 25 MCG (1000 IU) TABLET PO SCH (08:47)
[2021-04-03] MEDS: INSULIN ASPART (NovoLOG) 100 UNIT/ML VIAL SQ SCH ×3 (08:47→17:04)
[2021-04-03] MEDS: ENOXAPARIN 40 MG/0.4 ML SYRINGE SQ SCH (08:47)
[2021-04-03] MEDS: ZINC SULFATE 220 MG CAP PO SCH (08:47)
[2021-04-03] MEDS: Acetaminophen-Codeine 300-30mg TAB PO PRN ×3 (08:51→17:59)
[2021-04-03] MEDS ORDERED: dexAMETHasone 2 MG TAB PO SCH (09:00)
[2021-04-03 09:55] VITALS: RESP 17
[2021-04-03 11:18] LABS: Glucose,Whole Blood 153 mg/dL (75-99)
--- NOTE | 2021-04-03 11:44 | P.PN ---
Subjective Progress Note Date: 04/03/21 On 04/03/2021 patient seen in follow-up on medical surgical floor, she is resting comfortably in bed, denies any worsening dyspnea, her lung sounds are clear, no rhonchi no wheezing, no crackles. She is currently on 3 L of oxygen the pulse ox of 94%, she reports a little cough, which is dry, no phlegm pr oduction. No chest discomfort. Her last chest x-ray from yesterday on 04/02/2021 shows that she densities in the bilateral lung similar to the prior exam. No acute events overnight, no fever or chills, vital signs have been stable. Regarding her COVID-19 infection patient remains on Decadron 6 mg daily, prophylactic Lovenox 40 mg daily, she is on multivitamins, she is on Pepcid and cough syrup. Objective - Vital Signs Vital signs: Vital Signs Temp 98.7 F 04/03/21 09:43 Pulse 104 H 04/03/21 09:43 Resp 17 04/03/21 09:43 BP 103/70 04/03/21 09:43 Pulse Ox 94 L 04/03/21 09:43 Intake & Output 04/02/21 04/03/21 04/03/21 18:59 06:59 18:59 Intake Total 1080 Balance 1080 Intake: Oral 1080 Other: Voiding Method Toilet Toilet # Voids 4 2 - Exam GENERAL EXAM: Alert, very pleasant, 25-year-old white female, on 3 L of oxygen with a pulse ox of 94%, sitting up on the bed, comfortable in no apparent distress. HEAD: Normocephalic/atraumatic. EYES: Normal reaction of pupils, equal size. Conjunctiva pink, sclera white. NOSE: Clear with pink turbinates. THROAT: No erythema or exudates. NECK: No masses, no JVD, no thyroid enlargement, no adenopathy. CHEST: No chest wall deformity. Symmetrical expansion. LUNGS: Equal air entry with no crackles, wheeze, rhonchi or dullness. CVS: Regular rate and rhythm, normal S1 and S2, no gallops, no murmurs, no rubs ABDOMEN: Soft, nontender. No hepatosplenomegaly, normal bowel sounds, no gu arding or rigidity. EXTREMITIES: No clubbing, no edema, no cyanosis, 2+ pulses and upper and lower e xtremities. MUSCULOSKELETAL: Muscle strength and tone normal. SPINE: No scoliosis or deformity SKIN: No rashes CENTRAL NERVOUS SYSTEM: Alert and oriented -3. No focal deficits, tone is normal in all 4 extremities. PSYCHIATRIC: Alert and oriented -3. Appropriate affect. Intact judgment and insight. - Labs CBC & Chem 7: 04/01/21 05:43 04/01/21 05:43 Labs: Abnormal Lab Results - Last 24 Hours (Table) 04/02/21 04/02/21 04/03/21 Range/Units 16:14 20:16 06:51 POC Glucose (mg/dL) 181 H 217 H 131 H (75-99) mg/dL 04/03/21 Range/Units 11:15 POC Glucose (mg/dL) 153 H (75-99) mg/dL Assessment and Plan Plan: Assessment: #1. Acute hypoxic respiratory failure secondary to acute COVID-19 pneumonia. Patient was outside the window for Remdesivir, and did not qualify for Baricitinib, patient continues on Decadron 6 mg daily, and prophylactic Lovenox #2. Abdominal discomfort, CT scan of the abdomen and pelvis showed no acute findings. #3. Hyperglycemia with a component of steroid-induced hyperglycemia. Patient is suspected to have underlying diabetes mellitus. Currently he remains on Decadron 6 mg daily #4. Morbid obesity with BMI of 38.2 kg/m #5. Chronic tobacco dependence #6. History of PTSD #7. Schizoaffective disorder Plan: Clinically patient denies any worsening dyspnea, she remains on 3 L of oxygen Breathing comfortably, no acute events overnight, minimal cough, No fever or chills Obtain home oxygen assessment Patient could be considered for discharge home today if cleared by medicine She can finish ten-day course of Decadron 6 mg daily for a total of 10 days No prophylactic anticoagulation needed upon discharge, continue vitamin supplements Outpatient follow-up with Dr. Tenorio in the office in 1 weeks I performed a history & physical examination of the patient and discussed their management with my nurse practitioner, Hina Montes. I reviewed the nurse practitioner's note and agree with the documented findings and plan of care. Lung sounds are positive for dim breath sounds throughout the lung andrade. The findings and the impression was discussed with the patient. I attest to the documentation by the nurse practitioner. Time with Patient: Less than 30
--- NOTE | 2021-04-03 14:35 | P.PN ---
<Nila Mathias - Last Filed: 04/03/21 14:32> Subjective Progress Note Date: 04/03/21 CHIEF COMPLAINT: Abdominal pain HISTORY OF PRESENT ILLNESS: 25-year-old female who presented to the emergency de partment with complaints of shortness of breath, cough, and right lower quadrant abdominal pain. She has been admitted with COVID-19 pneumonia. Today she seen and evaluated as a follow-up. She reports she just has generalized discomfort. She is still requiring 3 L of nasal cannula. States that she overall just feels sick. She's had no further diarrhea, denies any nausea or vomiting. Abdominal pain improved some. PHYSICAL EXAM: VITAL SIGNS: Reviewed. GENERAL: Well-developed in no acute distress. HEENT: No sclera icterus. Extraocular movements grossly intact. Moist buccal mucosa. Head is atraumatic, normocephalic. ABDOMEN: Soft. Nondistended. Mild tenderness right lower quadrant and flank as well as left flank. NEUROLOGIC: Alert and oriented. Cranial nerves II through XII grossly intact. ASSESSMENT: 1. Abdominal pain, no acute findings. Stable appearance of appendix. Possible appendicolth Per CT abdomen and pelvis. 2. COVID-19 infection 3. Obesity 4. Hepatomegaly diffuse hepatocellular disease seen on CT of abdomen and pelvis 5. Amenorrhea PLAN: 1. Continue symptomatic and supportive care 2. C. diff ordered 3. Diet as tolerated 4. Gynecology consulted, appreciate their recommendations 5. Defer rest of patient's care to medical management and pulmonology for COVID-19 infection Thank you for this consultation. The impression and plan of care has been dictated as directed. Dr. Alberts I performed a history and examination of this patient, discussed the same with the dictator. I agree with the dictator's note ,documented as a scribe. Any additional findings or plans will be noted. Objective - Vital Signs Vital signs: Vital Signs Temp 98.7 F 04/03/21 09:43 Pulse 104 H 04/03/21 09:43 Resp 17 04/03/21 09:43 BP 103/70 04/03/21 09:43 Pulse Ox 94 L 04/03/21 09:43 Intake & Output 04/02/21 04/03/21 04/03/21 18:59 06:59 18:59 Intake Total 1080 Balance 1080 Intake: Oral 1080 Other: Voiding Method Toilet Toilet # Voids 4 2 - Labs CBC & Chem 7: 04/01/21 05:43 04/01/21 05:43 Labs: Abnormal Lab Results - Last 24 Hours (Table) 04/02/21 04/02/21 04/02/21 Range/Units 11:09 16:14 20:16 POC Glucose (mg/dL) 228 H 181 H 217 H (75-99) mg/dL 04/03/21 Range/Units 06:51 POC Glucose (mg/dL) 131 H (75-99) mg/dL <[email or web address] - Last Filed: 04/03/21 17:29> Subjective I have personally seen and examined the patient, reviewed the [employer] /PAs history, exam and MDM and agree with the assessment and plan as written. Based on total visit time, I have performed more than 50% of the visit. Patient says her pain is improved. It is now involving the left lower quadrant and left back. Tenderness is certainly less. If discharged today follow-up 2 weeks. If patient stays overnight recheck CBC in the morning. Objective - Vital Signs Vital signs: Vital Signs Temp 98.8 F 04/03/21 13:37 Pulse 111 H 04/03/21 13:37 Resp 17 04/03/21 13:37 BP 123/74 04/03/21 13:37 Pulse Ox 94 L 04/03/21 15:10 Intake & Output 04/02/21 04/03/21 04/03/21 18:59 06:59 18:59 Intake Total 1080 Balance 1080 Intake: Oral 1080 Other: Voiding Method Toilet Toilet # Voids 4 2 - Labs CBC & Chem 7: 04/01/21 05:43 04/01/21 05:43 Labs: Abnormal Lab Results - Last 24 Hours (Table) 04/02/21 04/03/21 04/03/21 Range/Units 20:16 06:51 11:15 POC Glucose (mg/dL) 217 H 131 H 153 H (75-99) mg/dL 04/03/21 Range/Units 16:25 POC Glucose (mg/dL) 318 H (75-99) mg/dL
[2021-04-03 14:39] VITALS: BP 123/74; PULSE 111; TEMP 98.8
[2021-04-03 16:27] LABS: Glucose,Whole Blood 318 mg/dL (75-99)
[2021-04-03] MEDS ORDERED: cloZAPine 100 MG TAB PO SCH (21:00)
--- NOTE | 2021-04-04 09:37 | P.DS ---
Providers Date of admission: 03/30/21 08:26 Expected date of discharge: 04/03/21 Attending physician: Gildardo Mcclain Consults: 03/30/21 11:03 Consult Physician Routine Consulting Provider: Abdon Mustafa Consult Reason/Comments: COVID Do you want consulting provider notified?: Yes 03/30/21 21:04 Consult Physician Routine Consulting Provider: Aquiles Alberts Consult Reason/Comments: abdominal pain Do you want consulting provider notified?: Yes 04/01/21 08:47 Consult Physician Routine Consulting Provider: Danii Del Valle Consult Reason/Comments: right lower quadrant pain Do you want consulting provider notified?: Already Contacted Primary care physician: Stated None Hospital Course: Final diagnosis - Acute hypoxic respiratory failure secondary to COVID-19 pneumonia - sepsis secondary to COVID-19 - Tachycardia: Probably secondary to dehydration, improved - Diarrhea: Secondary to COVID-19 infection - History of PCOS and amenorrhea - Hyperglycemia, hemoglobin A1c is 8.0 - Mildly elevated liver enzymes secondary to COVID-19 infection - Schizoaffective disorder - DVT prophylaxis - GI prophylaxis - Full code Discharge disposition Patient is being discharged in a stable condition with guarded prognosis to [facility]. Patient will follow-up with her primary care provider in the outpatient setting upon discharge. Patient is to also follow-up with gyne cology, general surgery, and pulmonary in the outpatient setting as scheduled. She will continue on dexamethasone for 5 days along with vitamin and zinc supplements to complete the course. Total time taken is greater than 35 minutes. Hospital course This is a 25 are old female who came in with nausea vomiting and diarrhea that been ongoing for 1 week and also having some shortness of breath and found to be hypoxic and also found a COVID-19 pneumonia positive and was being closely monitored. Patient was evaluated by general surgery and will follow-up in the outpatient setting along with gynecology as patient was having some continued abdominal pain and does have history of PCOS along with amenorrhea and has never had a period and will need outpatient follow-up with further testing. Patient is on extensive psychiatric medications and has been [facility] a [facility]. Family members working on guardianship at this time. Patient requiring oxygen and will continue with 3 L of oxygen via nasal cannula secondary to COVID-19 and will follow up with pulmonary in the outpatient setting in the next 2-3 weeks. Encouraged the patient to continue with incentive spirometer and coughing and deep breathing and also continued oral intake. Currently no reports of chest pain, worsening shortness of breath, or palpitations. Patient is afebrile. No reports of nausea or vomiting and patient is tolerating diet. Patient will be going to [facility] today. PHYSICAL EXAMINATION: GENERAL: The patient is alert and oriented x3, not in any acute distress. Well developed, well nourished. Obese, currently on 3 L of oxygen via nasal cannula HEENT: Pupils are round and equally reacting to light. EOMI. No scleral icterus. No conjunctival pallor. Normocephalic, atraumatic. No pharyngeal erythema. No thyromegaly. CARDIOVASCULAR: S1 and S2 present. No murmurs, rubs, or gallops. PULMONARY: Chest is clear to auscultation, no wheezing or crackles. ABDOMEN: Soft, non-tender, non-distended, normoactive bowel sounds. No palpable organomegaly. MUSCULOSKELETAL: No joint swelling or deformity. EXTREMITIES: No cyanosis, clubbing, or pedal edema. NEUROLOGICAL: Gross neurological examination did not reveal any focal deficits. SKIN: No rashes. Please refer to medication reconciliation sheet for a list of medications. Patient Condition at Discharge: Fair Plan - Discharge Summary Discharge Rx Participant: No New Discharge Prescriptions: New dexAMETHasone ORAL [Hexadrol] 6 mg PO DAILY 5 Days #15 tab Zinc Sulfate [Orazinc] 220 mg PO DAILY 14 Days #14 cap Famotidine [Pepcid] 20 mg PO BID 15 Days #30 tab guaiFENesin SYRUP 100MG/5ML [Robitussin] 200 mg PO Q6HR PRN #120 ml PRN Reason: Cough Acetaminophen Tab [Tylenol] 650 mg PO Q6HR PRN tab PRN Reason: Mild Pain Or Fever > 100.5 Acetaminophen-Codeine 300-30mg [Tylenol w/codeine #3] 1 each PO Q4HR PRN #6 tab PRN Reason: Pain Cholecalciferol [Vitamin D3 (25 Mcg = 1000 Iu)] 25 mcg PO DAILY 30 Days #30 tablet Ascorbic Acid [Vitamin C] 500 mg PO BID 30 Days #60 tab Ondansetron [Zofran] 4 mg PO Q8HR PRN #20 tab PRN Reason: Nausea And Vomiting Continue Haloperidol Decanoate [Haldol D] 200 mg IM Q14D #1 each Albuterol Inhaler [Ventolin Hfa Inhaler] 2 puff INHALATION RT-QID Benztropine Mesylate [Cogentin] 1 mg PO TID PRN PRN Reason: TREMORS/WITHDRAWL cloZAPine [Clozaril] 200 mg PO HS Allergy Relief 1 tab PO DAILY Discharge Medication List Haloperidol Decanoate [Haldol D] 200 mg IM Q14D #1 each 02/17/21 [Rx] Albuterol Inhaler [Ventolin Hfa Inhaler] 2 puff INHALATION RT-QID 03/22/21 [History] Allergy Relief 1 tab PO DAILY 03/22/21 [History] Benztropine Mesylate [Cogentin] 1 mg PO TID PRN 03/22/21 [History] cloZAPine [Clozaril] 200 mg PO HS 03/22/21 [History] Acetaminophen Tab [Tylenol] 650 mg PO Q6HR PRN tab 04/03/21 [Rx] Acetaminophen-Codeine 300-30mg [Tylenol w/codeine #3] 1 each PO Q4HR PRN #6 tab 04/03/21 [Rx] Ascorbic Acid [Vitamin C] 500 mg PO BID 30 Days #60 tab 04/03/21 [Rx] Cholecalciferol [Vitamin D3 (25 Mcg = 1000 Iu)] 25 mcg PO DAILY 30 Days #30 tablet 04/03/21 [Rx] Famotidine [Pepcid] 20 mg PO BID 15 Days #30 tab 04/03/21 [Rx] Ondansetron [Zofran] 4 mg PO Q8HR PRN #20 tab 04/03/21 [Rx] Zinc Sulfate [Orazinc] 220 mg PO DAILY 14 Days #14 cap 04/03/21 [Rx] dexAMETHasone ORAL [Hexadrol] 6 mg PO DAILY 5 Days #15 tab 04/03/21 [Rx] guaiFENesin SYRUP 100MG/5ML [Robitussin] 200 mg PO Q6HR PRN #120 ml 04/03/21 [Rx] Follow up Appointment(s)/Referral(s): Aquiles Alberts MD [Medical Doctor] - 04/10/21 8:45 am Nina Yee MD [STAFF PHYSICIAN] - 2 Weeks (Please call office for your appointment. Thank you.) [facility] [NON-STAFF] - As Needed (oxygen ) Danii Del Valle DO [Doctor of Osteopathic Medicine] - 3 Weeks (Office closed. Please call for your appointment. 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 Please call: #[phone] Patient is returning to [facility] Activity as tolerated Continue taking medications as prescribed Patient will need to continue with dexamethasone for the next 5 days and then may discontinue Patient continued vitamin and zinc supplements and zinc for 2 weeks and then may discontinue Continue with incentive spirometer at least 10 times every hour while awake Continue with oxygen secondary to COVID-19 at 3 L via nasal cannula Follow-up with pulmonary outpatient in the next few weeks Follow-up with primary care provider on discharge Continue current diet Follow-up with SUPERVISOR [employer]ARAGE in the outpatient setting in the next 3-4 weeks Discharge Disposition: TRANSFER TO SNF/ECF
== END 2021-04-03 18:16 | DRG 871 ==
LOC: EC 04:57 → 4SSUR 08:26
PROVIDERS: ADMIT Hospitalist; ATTEND Hospitalist
DX: A41.89 Other specified sepsis (principal); J12.82 Pneumonia due to coronavirus disease 2019; J96.01 Acute respiratory failure with hypoxia; U07.1 COVID-19; A08.39 Other viral enteritis; E11.65 Type 2 diabetes mellitus with hyperglycemia; E28.2 Polycystic ovarian syndrome; E66.01 Morbid (severe) obesity due to excess calories; E86.0 Dehydration; F17.210 Nicotine dependence, cigarettes, uncomplicated; F25.9 Schizoaffective disorder, unspecified; F32.A Depression, unspecified; F43.10 Post-traumatic stress disorder, unspecified; F60.3 Borderline personality disorder; T38.0X5A Adverse effect of glucocorticoids and synthetic analogues, initial encounter; Z68.38 Body mass index [BMI] 38.0-38.9, adult; Z79.899 Other long term (current) drug therapy; Z90.49 Acquired absence of other specified parts of digestive tract; Z91.51 Personal history of suicidal behavior; Z90.89 Acquired absence of other organs; Z88.5 Allergy status to narcotic agent; Z88.8 Allergy status to other drugs, medicaments and biological substances; Z91.012 Allergy to eggs; Z91.011 Allergy to milk products; Z86.19 Personal history of other infectious and parasitic diseases
CPT/HCPCS: 36415; 71045; 71046; 74176; 80048; 80053; 80159; 81003; 81025; 83036; 83735; 85025; 85027; 85379; 87635; 94640; 94760; 96360; 96361; 99285

== ENCOUNTER 2021-04-20 18:46 | Emergency (ER) | payer MEDICARE, OTHER ==
[2021-04-20] MEDS ORDERED: SODIUM CHLORIDE 0.9% 1,000 ML IV STA (19:12)
--- NOTE | 2021-04-20 19:17 | ED ---
General Adult HPI - General Chief complaint: Abdominal Pain Stated complaint: Abdominal Pain Time Seen by Provider: 04/20/21 19:08 Source: patient, EMS, RN notes reviewed, old records reviewed Mode of arrival: EMS Limitations: no limitations - History of Present Illness Initial comments: 25-year-old female presents from a [facility] complaining of right lower quadrant abdominal pain for one month. Patient states that she was seen here 2 weeks ago for the same pain and was told she has stones in her appendix. She was told to follow-up with her doctor and she has a scheduled appointment with the primary care doctor on May 12. She was also told that she may have diabetes and to monitor her blood sugar however at the [facility] they will not check her sugar until she has a diagnosis from her doctor. She has had nausea and 2 episodes of diarrhea today. She denies any fevers. She denies any vaginal discharge or dysuria. -: month(s) (1) Location: abdomen (Right lower quadrant) Radiation: non-radiation Severity scale (1-10): 6 Quality: constant Consistency: constant Improves with: none Worsens with: other (Palpation) Associated Symptoms: denies other symptoms Treatments Prior to Arrival: none - Related Data Home Medications Medication Instructions Recorded Confirmed Albuterol Inhaler [Ventolin Hfa 2 puff INHALATION RT-QID 03/22/21 04/20/21 Inhaler] Allergy Relief 1 tab PO DAILY 03/22/21 04/20/21 cloZAPine [Clozaril] 100 mg PO HS 03/22/21 04/20/21 Famotidine [Pepcid] 20 mg PO HS 04/20/21 04/20/21 Previous Rx's Medication Instructions Recorded Haloperidol Decanoate [Haldol D] 200 mg IM Q14D #1 each 02/17/21 Ascorbic Acid [Vitamin C] 500 mg PO BID 30 Days #60 tab 04/03/21 Cholecalciferol [Vitamin D3 (25 25 mcg PO DAILY 30 Days #30 tablet 04/03/21 Mcg = 1000 Iu)] Allergies Allergy/AdvReac Type Severity Reaction Status Date / Time egg Allergy Anaphylaxis Verified 04/20/21 19:23 hydromorphone HCl Allergy Itching Verified 04/20/21 19:23 [From Dilaudid] milk Allergy Anaphylaxis Verified 04/20/21 19:23 gabapentin AdvReac Nausea Verified 04/20/21 19:23 Review of Systems ROS Statement: Those systems with pertinent positive or pertinent negative responses have been documented in the HPI. ROS Other: All systems not noted in ROS Statement are negative. Past Medical History Past Medical History: GERD/Reflux, GI Bleed Additional Past Medical History / Comment(s): borderline personality, schizophrenia, hx attempted suicide a few weeks ago-now lives in a [facility] and her brother is trying to become her guardian. History of Any Multi-Drug Resistant Organisms: C-DIFF Date of last positivie culture/infection: 2016 MDRO Source:: Stool Past Surgical History: Cholecystectomy, Tonsillectomy Past Anesthesia/Blood Transfusion Reactions: No Reported Reaction Past Psychological History: Anxiety, Depression, PTSD, Schizoaffective Disorder Smoking Status: Current every day smoker, Vaper Past Alcohol Use History: Occasional Past Drug Use History: None Reported - Past Family History Mother Additional Family Medical History / Comment(s): NONE Father Additional Family Medical History / Comment(s): NONE General Exam Limitations: no limitations General appearance: alert, in no apparent distress Neck exam: Present: full ROM. Absent: tenderness, meningismus Respiratory exam: Present: normal lung sounds bilaterally Cardiovascular Exam: Present: tachycardia GI/Abdominal exam: Present: soft, tenderness (Right lower quadrant). Absent: distended, guarding, rebound, rigid Extremities exam: Present: normal capillary refill. Absent: pedal edema Back exam: Present: normal inspection, full ROM. Absent: tenderness, CVA tenderness (R), CVA tenderness (L), rash noted Neurological exam: Present: alert, oriented X3, normal gait Psychiatric exam: Present: normal affect, normal mood Skin exam: Present: warm, dry, normal color. Absent: rash, cyanosis, diaphoretic, petechiae Course Vital Signs 04/20/21 04/20/21 18:54 21:07 Temperature 98.2 F 98.7 F Pulse Rate 122 H 115 H Respiratory 18 16 Rate Blood Pressure 131/90 109/75 O2 Sat by Pulse 96 97 Oximetry Medical Decision Making - Medical Decision Making 25-year-old nontoxic appearing female presents complaining of continued right l ower quadrant abdominal pain for one month. Patient states that she was seen here 2 weeks ago for the same pain. She has been afebrile. There is no leukocytosis. Urinalysis is clear, test is negative. Her right lower quadrant is minimally tender but states that this is the same pain that she's had for over a month. She has had CAT scans and ultrasounds for this same pain multiple times in the past. Last CT showed appendicoliths. She also has a history of polycystic ovarian syndrome. I did not repeat her CAT scan or ultrasound as patient states that this is the same pain that she's had for over a month. Her nausea and diarrhea is likely pain related to a viral illness. I am uncertain as to the cause of her chronic right lower quadrant abdominal pain. I advised patient to take Motrin 600 mg every 6-8 hours and use warm compresses to the site of pain. I recommended she follow up with her primary care doctor as scheduled and return to the emergency room with any new or concerning symptoms including increased pain, fevers or nausea and vomiting. She is agreeable to this plan of care. - Lab Data Result diagrams: 04/20/21 19:32 04/20/21 19:32 Lab Results 04/20/21 04/20/21 04/20/21 Range/Units 19:32 19:32 19:32 WBC 10.2 (3.8-10.6) k/uL RBC 4.09 (3.80-5.40) m/uL Hgb 12.5 (11.4-16.0) gm/dL Hct 37.5 (34.0-46.0) % MCV 91.6 (80.0-100.0) fL MCH 30.7 (25.0-35.0) pg MCHC 33.5 (31.0-37.0) g/dL RDW 14.6 (11.5-15.5) % Plt Count 246 (150-450) k/uL MPV 7.5 Neutrophils % 61 % Lymphocytes % 33 % Monocytes % 4 % Eosinophils % 0 % Basophils % 1 % Neutrophils # 6.1 (1.3-7.7) k/uL Lymphocytes # 3.3 (1.0-4.8) k/uL Monocytes # 0.4 (0-1.0) k/uL Eosinophils # 0.0 (0-0.7) k/uL Basophils # 0.1 (0-0.2) k/uL ESR 12 (0-20) mm/hr Sodium (137-145) mmol/L Potassium (3.5-5.1) mmol/L Chloride (98-107) mmol/L Carbon Dioxide (22-30) mmol/L Anion Gap mmol/L BUN (7-17) mg/dL Creatinine (0.52-1.04) mg/dL Est GFR (CKD-EPI)AfAm (>60 ml/min/1.73 sqM) Est GFR (CKD-EPI)NonAf (>60 ml/min/1.73 sqM) Glucose (74-99) mg/dL Calcium (8.4-10.2) mg/dL Total Bilirubin (0.2-1.3) mg/dL AST (14-36) U/L ALT (4-34) U/L Alkaline Phosphatase (38-126) U/L C-Reactive Protein (<1.0) mg/dL Total Protein (6.3-8.2) g/dL Albumin (3.5-5.0) g/dL Amylase (30-110) U/L Lipase (23-300) U/L Urine Color Yellow Urine Appearance Cloudy H (Clear) Urine pH 7.5 (5.0-8.0) Ur Specific Henderson 1.021 (1.001-1.035) Urine Protein Trace H (Negative) Urine Glucose (UA) Negative (Negative) Urine Ketones Negative (Negative) Urine Blood Negative (Negative) Urine Nitrite Negative (Negative) Urine Bilirubin Negative (Negative) Urine Urobilinogen <2.0 (<2.0) mg/dL Ur Leukocyte Esterase Negative (Negative) Urine WBC 4 (0-5) /hpf Ur Squamous Epith Cells 1 (0-4) /hpf Amorphous Sediment Moderate H (None) /hpf Urine HCG, Qual Not Detected (Not Detectd) 04/20/21 Range/Units 19:32 WBC (3.8-10.6) k/uL RBC (3.80-5.40) m/uL Hgb (11.4-16.0) gm/dL Hct (34.0-46.0) % MCV (80.0-100.0) fL MCH (25.0-35.0) pg MCHC (31.0-37.0) g/dL RDW (11.5-15.5) % Plt Count (150-450) k/uL MPV Neutrophils % % Lymphocytes % % Monocytes % % Eosinophils % % Basophils % % Neutrophils # (1.3-7.7) k/uL Lymphocytes # (1.0-4.8) k/uL Monocytes # (0-1.0) k/uL Eosinophils # (0-0.7) k/uL Basophils # (0-0.2) k/uL ESR (0-20) mm/hr Sodium 139 (137-145) mmol/L Potassium 3.9 (3.5-5.1) mmol/L Chloride 101 (98-107) mmol/L Carbon Dioxide 28 (22-30) mmol/L Anion Gap 10 mmol/L BUN 19 H (7-17) mg/dL Creatinine 0.59 (0.52-1.04) mg/dL Est GFR (CKD-EPI)AfAm >90 (>60 ml/min/1.73 sqM) Est GFR (CKD-EPI)NonAf >90 (>60 ml/min/1.73 sqM) Glucose 182 H (74-99) mg/dL Calcium 9.4 (8.4-10.2) mg/dL Total Bilirubin 0.5 (0.2-1.3) mg/dL AST 33 (14-36) U/L ALT 39 H (4-34) U/L Alkaline Phosphatase 70 (38-126) U/L C-Reactive Protein 1.1 H (<1.0) mg/dL Total Protein 7.3 (6.3-8.2) g/dL Albumin 4.2 (3.5-5.0) g/dL Amylase 67 (30-110) U/L Lipase 297 (23-300) U/L Urine Color Urine Appearance (Clear) Urine pH (5.0-8.0) Ur Specific Henderson (1.001-1.035) Urine Protein (Negative) Urine Glucose (UA) (Negative) Urine Ketones (Negative) Urine Blood (Negative) Urine Nitrite (Negative) Urine Bilirubin (Negative) Urine Urobilinogen (<2.0) mg/dL Ur Leukocyte Esterase (Negative) Urine WBC (0-5) /hpf Ur Squamous Epith Cells (0-4) /hpf Amorphous Sediment (None) /hpf Urine HCG, Qual (Not Detectd) Disposition Clinical Impression: Abdominal pain Disposition: HOME SELF-CARE Condition: Good Instructions (If sedation given, give patient instructions): Abdominal Pain (ED) Additional Instructions: Take Tylenol and Motrin as needed for pain. You can take Tylenol every 6 hours and Motrin every 8 hours as needed. Use warm compresses to the site for pain relief. Return to the emergency room with any new or concerning symptoms including increased pain, fevers or persistent nausea or vomiting. Keep your appointment with the primary care doctor next month. Is patient prescribed a controlled substance at d/c from ED?: No Referrals: None,Stated [Primary Care Provider] - 1-2 days Time of Disposition: 20:38
[2021-04-20 19:56] LABS: Basophils # (A) 0.1 k/uL (0-0.2); Basophils % (A) 1 %; Eosinophils % (A) 0 %; HCT 37.5 % (34.0-46.0); HGB 12.5 gm/dL (11.4-16.0); Lymphocytes # (A) 3.3 k/uL (1.0-4.8); Lymphocytes % (A) 33 %; MCH 30.7 pg (25.0-35.0); MCHC 33.5 g/dL (31.0-37.0); MCV 91.6 fL (80.0-100.0); Mean Platelet Volume 7.5; Monocytes # (A) 0.4 k/uL (0-1.0); Monocytes % (A) 4 %; Neutrophils # (A) 6.1 k/uL (1.3-7.7); Neutrophils % (A) 61 %; Platelet Count 246 k/uL (150-450); RBC 4.09 m/uL (3.80-5.40); RDW 14.6 % (11.5-15.5); WBC 10.2 k/uL (3.8-10.6)
[2021-04-20 20:07] LABS: Amorphous Sediment,Urine Moderate /hpf; Appearance,Urine Cloudy (Clear); Bilirubin,Urine Negative (Negative); Blood,Urine Negative (Negative); Color,Urine Yellow; Glucose,Urine (UA) Negative (Negative); Ketones,Urine Negative (Negative); Leukocyte Esterase,Urine Negative (Negative); Nitrite,Urine Negative (Negative); PH, Urine 7.5 (5.0-8.0); Protein,Urine Trace (Negative); Specific Gravity,Urine 1.021 (1.001-1.035); Squamous Epithelial Cell,Urine 1 /hpf (0-4); Urobilinogen,Urine <2.0 mg/dL (<2.0); WBC,Urine 4 /hpf (0-5)
[2021-04-20 20:11] LABS: ALT 39 U/L (4-34); AST 33 U/L (14-36); African American GFR (CKD) >90 (>60 ml/min/1.73 sqM); Albumin 4.2 g/dL (3.5-5.0); Alkaline Phosphatase 70 U/L (38-126); Amylase 67 U/L (30-110); Anion Gap 10 mmol/L; Blood Urea Nitrogen 19 mg/dL (7-17); C Reactive Protein 1.1 mg/dL (<1.0); Calcium 9.4 mg/dL (8.4-10.2); Carbon Dioxide 28 mmol/L (22-30); Chloride 101 mmol/L (98-107); Glucose 182 mg/dL (74-99); Lipase 297 U/L (23-300); Non-African American GFR(CKD) >90 (>60 ml/min/1.73 sqM); Potassium 3.9 mmol/L (3.5-5.1); Sodium 139 mmol/L (137-145); Total Bilirubin 0.5 mg/dL (0.2-1.3); Total Protein 7.3 g/dL (6.3-8.2)
[2021-04-20 21:02] LABS: Erythrocyte Sedimentation Rate 12 mm/hr (0-20)
[2021-04-20 21:11] VITALS: BP 109/75; PULSE 115; RESP 16; TEMP 98.7
== END 2021-04-20 21:08 | disposition home or self-care (01) ==
LOC: EC 18:46
DX: R10.31 Right lower quadrant pain (principal); K21.9 Gastro-esophageal reflux disease without esophagitis; F41.9 Anxiety disorder, unspecified; F32.A Depression, unspecified; F43.10 Post-traumatic stress disorder, unspecified; F25.9 Schizoaffective disorder, unspecified; F17.290 Nicotine dependence, other tobacco product, uncomplicated; Z90.49 Acquired absence of other specified parts of digestive tract
CPT/HCPCS: 36415; 80053; 81001; 81025; 82150; 83690; 85025; 85652; 86140; 96360; 99284

== ENCOUNTER → 2021-04-24 | Outpatient (CLI) | payer MEDICARE, OTHER ==
--- NOTE | 2021-04-24 12:52 | CT ---
EXAMINATION TYPE: CT abdomen pelvis w con DATE OF EXAM: 04/24/2021 COMPARISON: CT dated 03/30/2021 HISTORY: appendicitis CT DLP: 2121.70 mGycm Automated exposure control for dose reduction was used. TECHNIQUE: Helical acquisition of images was performed from the lung bases through the pelvis. CONTRAST: Performed with Oral Contrast and with IV Contrast, patient injected with 100 mL of Isovue 300. FINDINGS: LUNG BASES: Bilateral basal linear thick pulmonary atelectasis with resolution of the previously seen nodular infiltration bilaterally. LIVER/GB: Enlarged liver measuring 25.8 cm with diffuse hypodense parenchyma likely representing rick re hepatic steatosis. Please correlate with liver function tests. With this limitation, no definite h epatic focal lesion identified. Previous cholecystectomy. PANCREAS: No significant abnormality is seen. SPLEEN: No significant abnormality is seen. ADRENALS: No significant abnormality is seen. KIDNEYS: Left upper renal pole hypodensity, not appreciated in 2015 CT scan. It could represent a nehal al cyst, for ultrasound confirmation. Otherwise unremarkable kidneys. FREE AIR: No free air is visualized. RETROPERITONEAL ADENOPATHY: No pathologically enlarged REPRODUCTIVE ORGANS: Retroverted uterus with no gross uterine mass. Bilateral ovarian follicles/cysts , suboptimally assessed and expected for the patient's age. No gross adnexal mass. URINARY BLADDER: No significant abnormality is seen. PELVIC ADENOPATHY: No pathologically enlarged OSSEOUS STRUCTURES: No significant abnormality is seen. BOWEL: Unremarkable nondistended stomach, duodenum and small bowel. Moderate fecal loading of the co mir. Segments of mild nonspecific colonic wall thickening. Normal appendix. OTHER: Unremarkable abdominal aorta and major abdominal arteries. No sizable ascites. IMPRESSION: 1. No evidence of acute appendicitis. Normal appendix. 2. Large liver with markedly hypodense hepatic parenchyma suggestive of severe hepatic steatosis, ple ase correlate with liver function tests. 3. Bilateral ovarian follicles/cysts, suboptimally assessed and could be normal for the patient's age . Further pelvic ultrasound assessment can be considered if clinically required. 4. Indeterminate left upper pole renal hypodensity which could represent a renal cyst, for elective u ltrasound confirmation. Other incidental findings as described above.
== END | disposition home or self-care (01) ==
LOC: RADCTMAIN 10:34
PROVIDERS: ATTEND Surgery
DX: N83.02 Follicular cyst of left ovary (principal); N83.01 Follicular cyst of right ovary; K76.89 Other specified diseases of liver
CPT/HCPCS: 74177; Q9967

== ENCOUNTER 2021-05-16 19:20 | Emergency (ER) | payer MEDICARE, OTHER ==
[2021-05-16 20:10] VITALS: RESP 18; TEMP 98
--- NOTE | 2021-05-16 20:43 | XR ---
EXAMINATION TYPE: XR ankle complete RT DATE OF EXAM: 05/16/2021 8:32 PM INDICATION: Patient age:Female; 25 years old; Reason for study: fall/pain; COMPARISON: Radiograph 11/27/2020 TECHNIQUE: The right ankle is imaged in 3 projections. FINDINGS: Remote injury to the right fibulocalcaneal ligament with a 6 mm chronically ununited fracture fragmen t below the lateral malleolus. There is no evidence of acute osseous pathology. The joint spaces are well-preserved without evidenc e of subluxation or dislocation. Kager's fat pad is intact. Mild soft tissue swelling around the ankl e. No radiopaque foreign bodies are identified. IMPRESSION: 1. No evidence of acute fracture. 2. Subcutaneous swelling around the ankle likely secondary to underlying soft tissue injury.
--- NOTE | 2021-05-16 20:55 | XR ---
EXAMINATION TYPE: XR knee complete RT DATE OF EXAM: 05/16/2021 8:32 PM INDICATION: Patient age:Female; 25 years old; Reason for study: fall/pain; COMPARISON: 02/20/2021. TECHNIQUE: The Right knee(s) was examined in 3 projections. FINDINGS: No evidence of any acute osseous pathology, joint space narrowing, soft tissue swelling, or joint effusion is noted. IMPRESSION: 1. No acute osseous pathology.
[2021-05-16] MEDS ORDERED: IBUPROFEN 600 MG TAB PO STA ×2 (23:08→23:26)
--- NOTE | 2021-05-16 23:16 | ED ---
Lower Extremity Injury HPI - General Chief Complaint: Extremity Injury, Lower Stated Complaint: Fall, Right ankle and knee injury Time Seen by Provider: 05/16/21 22:49 Source: patient, RN notes reviewed Mode of arrival: ambulatory - History of Present Illness Initial Comments: Patient with a history of diabetes mellitus, gastrointestinal bleeding, and acid reflux presents to the emergency department complaining of right knee and ankle pain after she tripped walking home from work. Patient states she twisted her right ankle and then fell onto her right knee. No break in skin integrity. There is no head or neck injury. Patient not on blood thinners. Patient denies any distal paresthesias. Pain is dull and sharp in nature exacerbated by movement and attempted ambulation. Patient states she is able to ambulate with some increased pain. No headache, no fever or chills, no changes in vision or hearing, no sore throat or difficulty with speech, no neck pain, no chest pain or shortness of breath, no abdominal pain, no nausea or vomiting, no changes in urination or bowel movements, no numbness or tingling, no skin rashes or lesions. - Related Data Home Medications Medication Instructions Recorded Confirmed Albuterol Inhaler [Ventolin Hfa 2 puff INHALATION RT-QID 03/22/21 04/20/21 Inhaler] Allergy Relief 1 tab PO DAILY 03/22/21 04/20/21 cloZAPine [Clozaril] 100 mg PO HS 03/22/21 04/20/21 Famotidine [Pepcid] 20 mg PO HS 04/20/21 04/20/21 Previous Rx's Medication Instructions Recorded Haloperidol Decanoate [Haldol D] 200 mg IM Q14D #1 each 02/17/21 Ascorbic Acid [Vitamin C] 500 mg PO BID 30 Days #60 tab 04/03/21 Cholecalciferol [Vitamin D3 (25 25 mcg PO DAILY 30 Days #30 tablet 04/03/21 Mcg = 1000 Iu)] Acetaminophen [Tylenol] 500 mg PO Q4-6H PRN #24 tab 05/16/21 Ibuprofen [Motrin] 600 mg PO Q8HR PRN #30 tab 05/16/21 Allergies Allergy/AdvReac Type Severity Reaction Status Date / Time egg Allergy Anaphylaxis Verified 05/16/21 20:10 hydromorphone HCl Allergy Itching Verified 05/16/21 20:10 [From Dilaudid] milk Allergy Anaphylaxis Verified 05/16/21 20:10 gabapentin AdvReac Nausea Verified 05/16/21 20:10 Review of Systems ROS Statement: Those systems with pertinent positive or pertinent negative responses have been documented in the HPI. ROS Other: All systems not noted in ROS Statement are negative. Past Medical History Past Medical History: Diabetes Mellitus, GERD/Reflux, GI Bleed Additional Past Medical History / Comment(s): borderline personality, schizophrenia, hx attempted suicide a few weeks ago-[facility] and her brother is trying to become her guardian. History of Any Multi-Drug Resistant Organisms: C-DIFF Date of last positivie culture/infection: 2017 MDRO Source:: Stool Past Surgical History: Cholecystectomy, Tonsillectomy Past Anesthesia/Blood Transfusion Reactions: No Reported Reaction Past Psychological History: Anxiety, Depression, PTSD, Schizoaffective Disorder Smoking Status: Current every day smoker, Vaper Past Alcohol Use History: Occasional Past Drug Use History: None Reported - Past Family History Mother Additional Family Medical History / Comment(s): NONE Father Additional Family Medical History / Comment(s): NONE General Exam - General Exam Comments Initial Comments: Patient in no distress. Heart rate 84 by auscultation and radial pulse. Did review the initial vital signs. Patient not tachycardic this time. Vital signs normalized. No respiratory distress. General appearance: alert, in no apparent distress Head exam: Present: atraumatic, normocephalic, normal inspection Eye exam: Present: normal appearance, PERRL, EOMI. Absent: scleral icterus, conjunctival injection, periorbital swelling ENT exam: Present: normal exam, mucous membranes moist Neck exam: Present: normal inspection. Absent: tenderness, meningismus, lymphadenopathy Respiratory exam: Present: normal lung sounds bilaterally. Absent: respiratory distress, wheezes, rales, rhonchi, stridor Cardiovascular Exam: Present: regular rate, normal rhythm, normal heart sounds. Absent: systolic murmur, diastolic murmur, rubs, gallop, clicks GI/Abdominal exam: Present: soft, normal bowel sounds. Absent: distended, tenderness, guarding, rebound, rigid Extremities exam: Present: normal inspection (No tenderness over the fifth metatarsal. No Achilles or calcaneal tenderness. No evidence of infectious process or vascular insult.), full ROM, tenderness (Mild tenderness to the anterior aspect of the right knee and the lateral aspect of the right ankle.), normal capillary refill, other (Ligaments are stable as tested. Pedal pulses are intact. Distal sensation intact.). Absent: pedal edema, joint swelling, calf tenderness Back exam: Present: normal inspection Neurological exam: Present: alert, oriented X3, CN II-XII intact Psychiatric exam: Present: normal affect, normal mood Skin exam: Present: warm, dry, intact, normal color. Absent: rash Course Vital Signs 05/16/21 20:05 Temperature 98.0 F Pulse Rate 110 H Respiratory 18 Rate Blood Pressure 106/64 O2 Sat by Pulse 94 L Oximetry Medical Decision Making - Medical Decision Making We'll treat conservatively for ligament sprains. There was no evidence of acute fracture. Patient did have an old fracture noted on the ankle films. Conservative therapy with ibuprofen and acetaminophen. Follow-up with orthopedics. Ankle splint. Patient was told to return to the ER for any signs or symptoms worsen. Told to return immediately if any other problems arise. All questions answered. Treatment plan discussed. Patient in agreement Every effort has been made to ensure accuracy of this dictation. However, due to the limitations of electronic medical records and dictation devices, errors in charting still occur. - Radiology Data Radiology results: report reviewed, image reviewed (Nonunion old fracture noted to the lateral aspect of the right ankle. No acute pathology as read by radiology. I did review these films as well.) Disposition Clinical Impression: Sprain of anterior talofibular ligament of right ankle, Right knee sprain Disposition: HOME SELF-CARE Condition: Stable Instructions (If sedation given, give patient instructions): Ankle Sprain (ED), Knee Sprain (ED) Additional Instructions: Acetaminophen, ibuprofen as directed, ankle splint, follow-up with orthopedics as directed. Elevation, ice 20 minutes on and off for times daily. Follow-up with your regular physician as directed. Return to the ER immediately if any symptoms worsen, new symptoms arise, or any other problems develop. Prescriptions: Ibuprofen [Motrin] 600 mg PO Q8HR PRN #30 tab PRN Reason: Pain Acetaminophen [Tylenol] 500 mg PO Q4-6H PRN #24 tab PRN Reason: Pain Is patient prescribed a controlled substance at d/c from ED?: No Referrals: Nilda Thorne DO [Doctor of Osteopathic Medicine] - 05/20/21 Time of Disposition: 23:15
[2021-05-16 23:35] VITALS: BP 140/81; PULSE 78
== END 2021-05-17 00:25 | disposition home or self-care (01) ==
LOC: EC 19:20
DX: S93.491A Sprain of other ligament of right ankle, initial encounter (principal); S83.91XA Sprain of unspecified site of right knee, initial encounter; E11.9 Type 2 diabetes mellitus without complications; K21.9 Gastro-esophageal reflux disease without esophagitis; F41.9 Anxiety disorder, unspecified; F32.A Depression, unspecified; F43.10 Post-traumatic stress disorder, unspecified; F25.9 Schizoaffective disorder, unspecified; F17.290 Nicotine dependence, other tobacco product, uncomplicated; Z88.5 Allergy status to narcotic agent; Z90.49 Acquired absence of other specified parts of digestive tract; W01.0XXA Fall on same level from slipping, tripping and stumbling without subsequent striking against object, initial encounter
CPT/HCPCS: 99283; 73562; 73610; L4350

== ENCOUNTER 2021-08-27 11:54 | Emergency (ER) | payer MEDICARE, OTHER ==
[2021-08-27 12:16] VITALS: RESP 16; TEMP 98.5
--- NOTE | 2021-08-27 13:05 | ED ---
Dizziness HPI - General Chief Complaint: Dizziness Stated Complaint: Weakness/Dizziness Time Seen by Provider: 08/27/21 12:51 Source: patient Mode of arrival: ambulatory Limitations: no limitations - History of Present Illness Initial Comments: Patient is a 26-year-old female who sent to the emergency room by Dr. Juan campbell [facility] after having 24 hours of significant lethargy and drowsiness followed by generalized weakness along with paresthesias and dizziness with nausea. She did have her lithium and clozaril level checked. These medications w ere stopped yesterday due to excessive sedation per her soon to be [id number] who is in the emergency room as well at this time. Her brother has guardianship over her but has allowed his fiance to be an advocate for her. She and her family member deny any seizure activity, EtOH or drug abuse. She was taking her medications as prescribed according to the patient and her family. She denies any chest pain or shortness of breath. She denies any focal weakness, headache, ear pain or tinnitus. She denies any suicidal or homicidal thoughts but does admit to auditory hallucinations which she reports to how her to kill herself often. She reports that she has no plans on acting on the voices that she hears and these are baseline for her. She has no suicide plan and has not had a suicide attempt in quite some time. She has no other complaints or concerns at this time. - Related Data Home Medications Medication Instructions Recorded Confirmed Albuterol Inhaler [Ventolin Hfa 2 puff INHALATION RT-QID 03/22/21 04/20/21 Inhaler] Allergy Relief 1 tab PO DAILY 03/22/21 04/20/21 cloZAPine [Clozaril] 100 mg PO HS 03/22/21 04/20/21 Famotidine [Pepcid] 20 mg PO HS 04/20/21 04/20/21 Previous Rx's Medication Instructions Recorded Haloperidol Decanoate [Haldol D] 200 mg IM Q14D #1 each 02/17/21 Ascorbic Acid [Vitamin C] 500 mg PO BID 30 Days #60 tab 04/03/21 Cholecalciferol [Vitamin D3 (25 25 mcg PO DAILY 30 Days #30 tablet 04/03/21 Mcg = 1000 Iu)] Acetaminophen [Tylenol] 500 mg PO Q4-6H PRN #24 tab 03/25/22 Ibuprofen [Motrin] 600 mg PO Q8HR PRN #30 tab 05/16/21 predniSONE [Deltasone] 40 mg PO DAILY 3 Days #6 tab 05/28/21 Allergies Allergy/AdvReac Type Severity Reaction Status Date / Time egg Allergy Anaphylaxis Verified 08/27/21 12:16 hydromorphone HCl Allergy Itching Verified 08/27/21 12:16 [From Dilaudid] milk Allergy Anaphylaxis Verified 08/27/21 12:16 gabapentin AdvReac Nausea Verified 08/27/21 12:16 Review of Systems ROS Statement: Those systems with pertinent positive or pertinent negative responses have been documented in the HPI. ROS Other: All systems not noted in ROS Statement are negative. Past Medical History Past Medical History: Diabetes Mellitus, GERD/Reflux, GI Bleed Additional Past Medical History / Comment(s): borderline personality, schizophrenia, hx attempted suicide, her brother is her guardian. History of Any Multi-Drug Resistant Organisms: C-DIFF Date of last positivie culture/infection: 2016 MDRO Source:: Stool Past Surgical History: Cholecystectomy, Tonsillectomy Past Anesthesia/Blood Transfusion Reactions: No Reported Reaction Past Psychological History: Anxiety, Depression, PTSD, Schizoaffective Disorder Smoking Status: Current every day smoker, Vaper Past Alcohol Use History: Occasional Past Drug Use History: None Reported - Past Family History Mother Additional Family Medical History / Comment(s): NONE Father Additional Family Medical History / Comment(s): NONE General Exam Limitations: no limitations General appearance: alert, in no apparent distress Head exam: Present: atraumatic, normocephalic, normal inspection Eye exam: Present: normal appearance, PERRL, EOMI. Absent: scleral icterus, conjunctival injection, nystagmus, periorbital swelling ENT exam: Present: normal exam, mucous membranes moist Expanded TM/Canal exam: Effusion: Right TM, Left TM (serous) Mouth exam: Present: normal external inspection Throat exam: normal inspection Neck exam: Present: normal inspection. Absent: lymphadenopathy Respiratory exam: Present: normal lung sounds bilaterally. Absent: respiratory distress, wheezes, rales, rhonchi, stridor Cardiovascular Exam: Present: regular rate, normal rhythm, normal heart sounds. Absent: systolic murmur, diastolic murmur, rubs, gallop, clicks GI/Abdominal exam: Present: soft, normal bowel sounds. Absent: distended, tenderness, guarding, rebound, rigid Extremities exam: Present: normal inspection, full ROM, normal capillary refill. Absent: tenderness, pedal edema, joint swelling, calf tenderness Neurological exam: Present: alert, oriented X3, CN II-XII intact Psychiatric exam: Present: flat affect Skin exam: Present: warm, dry, intact, normal color. Absent: rash Course Vital Signs 08/27/21 08/27/21 08/27/21 12:14 14:00 14:30 Temperature 98.5 F Pulse Rate 113 H 100 104 H Respiratory 16 16 16 Rate Blood Pressure 116/78 122/80 100/81 O2 Sat by Pulse 96 98 98 Oximetry 08/27/21 16:37 Temperature Pulse Rate 75 Respiratory 16 Rate Blood Pressure 111/74 O2 Sat by Pulse 98 Oximetry Medical Decision Making - Medical Decision Making High concern for psychosis and or depression rather than underlying medical condition however will check underlying etiology with CMP, CBC, UA, EKG, CT of the brain along with lithium level, clopazil level and drug and alcohol screen. Will continue to monitor closely and maintain safety. Slightly elevated glucose and ALT otherwise labs unremarkable. [place]put[place] level undetectable. Urine drug screen positive for tricyclics otherwise no illicit drugs. MARISSA 0.00. EKG without acute abnormalities. CT of the brain without acute intracranial processes. Overall exam normal with the exception of serous bila teral otitis media which is likely a chronic condition. Not contributory to overall generalized symptoms. Patient medically cleared for psychiatric evaluation. Will await EPS evaluation. Patient continues to rest, and comfortably. Safety maintain. 1740 patient has been cleared by EPS for discharge home in the care of her brother with a safety plan in place and follow-up with [facility] tomorrow. She is now complaining of a headache which she was not having when she initially came in. Pain is mild; she is requesting Tylenol for pain will provide 1 g of Tylenol. Will add [place] attesting to her diagnostic testing now in the setting of weakness with headache. Headache improved with Tylenol. COVID screening negative. Will discharge home with daily antihistamine for bilateral serous otitis media. Encouraged follow-up with [facility] as advised tomorrow and follow-up with primary care provider. Case discussed with Dr. Steele. - Lab Data Result diagrams: 08/27/21 14:15 08/27/21 14:15 Lab Results 08/27/21 08/27/21 08/27/21 Range/Units 14:15 14:15 14:15 WBC 8.8 (3.8-10.6) k/uL RBC 4.43 (3.80-5.40) m/uL Hgb 13.4 (11.4-16.0) gm/dL Hct 40.0 (34.0-46.0) % MCV 90.2 (80.0-100.0) fL MCH 30.2 (25.0-35.0) pg MCHC 33.4 (31.0-37.0) g/dL RDW 13.7 (11.5-15.5) % Plt Count 301 (150-450) k/uL MPV 8.1 Neutrophils % 65 % Lymphocytes % 28 % Monocytes % 4 % Eosinophils % 2 % Basophils % 1 % Neutrophils # 5.7 (1.3-7.7) k/uL Lymphocytes # 2.5 (1.0-4.8) k/uL Monocytes # 0.3 (0-1.0) k/uL Eosinophils # 0.1 (0-0.7) k/uL Basophils # 0.1 (0-0.2) k/uL Sodium 139 (137-145) mmol/L Potassium 4.1 (3.5-5.1) mmol/L Chloride 105 (98-107) mmol/L Carbon Dioxide 26 (22-30) mmol/L Anion Gap 8 mmol/L BUN 13 (7-17) mg/dL Creatinine 0.45 L (0.52-1.04) mg/dL Est GFR (CKD-EPI)AfAm >90 (>60 ml/min/1.73 sqM) Est GFR (CKD-EPI)NonAf >90 (>60 ml/min/1.73 sqM) Glucose 129 H (74-99) mg/dL Calcium 9.3 (8.4-10.2) mg/dL Total Bilirubin 0.2 (0.2-1.3) mg/dL AST 29 (14-36) U/L ALT 38 H (4-34) U/L Alkaline Phosphatase 74 (38-126) U/L Ammonia (<30) umol/L Total Protein 7.2 (6.3-8.2) g/dL Albumin 4.4 (3.5-5.0) g/dL Urine Color Yellow Urine Appearance Cloudy H (Clear) Urine pH 6.5 (5.0-8.0) Ur Specific [place] 1.022 (1.001-1.035) Urine Protein Negative (Negative) Urine Glucose (UA) Negative (Negative) Urine Ketones Negative (Negative) Urine Blood Trace H (Negative) Urine Nitrite Negative (Negative) Urine Bilirubin Negative (Negative) Urine Urobilinogen <2.0 (<2.0) mg/dL Ur Leukocyte Esterase Negative (Negative) Urine RBC 19 H (0-5) /hpf Urine WBC 3 (0-5) /hpf Ur Squamous Epith Cells 1 (0-4) /hpf Urine Bacteria Rare H (None) /hpf Urine Mucus Occasional H (None) /hpf Urine Opiates Screen Not Detected (NotDetected) Ur Oxycodone Screen Not Detected (NotDetected) Urine Methadone Screen Not Detected (NotDetected) Ur Propoxyphene Screen Not Detected (NotDetected) Ur Barbiturates Screen Not Detected (NotDetected) U Tricyclic Antidepress Detected H (NotDetected) Ur Phencyclidine Scrn Not Detected (NotDetected) Ur Amphetamines Screen Not Detected (NotDetected) U Methamphetamines Scrn Not Detected (NotDetected) U Benzodiazepines Scrn Not Detected (NotDetected) [place]put[place] <0.2 mmol/L Urine Cocaine Screen Not Detected (NotDetected) U Marijuana (THC) Screen Not Detected (NotDetected) Coronavirus (PCR) (Not Detectd) 08/27/21 08/27/21 Range/Units 14:15 17:45 WBC (3.8-10.6) k/uL RBC (3.80-5.40) m/uL Hgb (11.4-16.0) gm/dL Hct (34.0-46.0) % MCV (80.0-100.0) fL MCH (25.0-35.0) pg MCHC (31.0-37.0) g/dL RDW (11.5-15.5) % Plt Count (150-450) k/uL MPV Neutrophils % % Lymphocytes % % Monocytes % % Eosinophils % % Basophils % % Neutrophils # (1.3-7.7) k/uL Lymphocytes # (1.0-4.8) k/uL Monocytes # (0-1.0) k/uL Eosinophils # (0-0.7) k/uL Basophils # (0-0.2) k/uL Sodium (137-145) mmol/L Potassium (3.5-5.1) mmol/L Chloride (98-107) mmol/L Carbon Dioxide (22-30) mmol/L Anion Gap mmol/L BUN (7-17) mg/dL Creatinine (0.52-1.04) mg/dL Est GFR (CKD-EPI)AfAm (>60 ml/min/1.73 sqM) Est GFR (CKD-EPI)NonAf (>60 ml/min/1.73 sqM) Glucose (74-99) mg/dL Calcium (8.4-10.2) mg/dL Total Bilirubin (0.2-1.3) mg/dL AST (14-36) U/L ALT (4-34) U/L Alkaline Phosphatase (38-126) U/L Ammonia 17 (<30) umol/L Total Protein (6.3-8.2) g/dL Albumin (3.5-5.0) g/dL Urine Color Urine Appearance (Clear) Urine pH (5.0-8.0) Ur Specific [place] (1.001-1.035) Urine Protein (Negative) Urine Glucose (UA) (Negative) Urine Ketones (Negative) Urine Blood (Negative) Urine Nitrite (Negative) Urine Bilirubin (Negative) Urine Urobilinogen (<2.0) mg/dL Ur Leukocyte Esterase (Negative) Urine RBC (0-5) /hpf Urine WBC (0-5) /hpf Ur Squamous Epith Cells (0-4) /hpf Urine Bacteria (None) /hpf Urine Mucus (None) /hpf Urine Opiates Screen (NotDetected) Ur Oxycodone Screen (NotDetected) Urine Methadone Screen (NotDetected) Ur Propoxyphene Screen (NotDetected) Ur Barbiturates Screen (NotDetected) U Tricyclic Antidepress (NotDetected) Ur Phencyclidine Scrn (NotDetected) Ur Amphetamines Screen (NotDetected) U Methamphetamines Scrn (NotDetected) U Benzodiazepines Scrn (NotDetected) [place] mmol/L Urine Cocaine Screen (NotDetected) U Marijuana (THC) Screen (NotDetected) Coronavirus (PCR) Not Detected (Not Detectd) - EKG Data EKG Comments: Sinus tachycardia, ventricular rate 108 bpm, MS interval 128 ms, QRS duration 97 ms, QT/QTC 343/406 ms, PRT axes 31, 94, 30 When compared to previous EKG there are: no significant change Disposition Clinical Impression: Bilateral serous otitis media Disposition: HOME SELF-CARE Condition: Stable Instructions (If sedation given, give patient instructions): Dizziness (ED), Fluid In The Ear (Serous Otitis Media) (ED), Suicide Prevention (ED) Additional Instructions: Change positions slowly. Encouraged use of daily antihistamine (Claritin). Please follow-up with her psychiatrist tomorrow morning as scheduled. Seek immediate medical attention for any suicidal thoughts, ideation or plan. Please follow-up with your primary care provider. Please return to the Emergency Department if symptoms worsen or any other concerns. Is patient prescribed a controlled substance at d/c from ED?: No Referrals: Nilda Panchal NPC [REFERRING] - 1-2 days Time of Disposition: 18:18
[2021-08-27 14:45] LABS: Basophils # (A) 0.1 k/uL (0-0.2); Basophils % (A) 1 %; Eosinophils # (A) 0.1 k/uL (0-0.7); Eosinophils % (A) 2 %; HGB 13.4 gm/dL (11.4-16.0); Lymphocytes # (A) 2.5 k/uL (1.0-4.8); Lymphocytes % (A) 28 %; MCH 30.2 pg (25.0-35.0); MCHC 33.4 g/dL (31.0-37.0); MCV 90.2 fL (80.0-100.0); Mean Platelet Volume 8.1; Monocytes # (A) 0.3 k/uL (0-1.0); Monocytes % (A) 4 %; Neutrophils # (A) 5.7 k/uL (1.3-7.7); Neutrophils % (A) 65 %; Platelet Count 301 k/uL (150-450); RBC 4.43 m/uL (3.80-5.40); RDW 13.7 % (11.5-15.5); WBC 8.8 k/uL (3.8-10.6)
[2021-08-27 14:51] LABS: Appearance,Urine Cloudy (Clear); Bacteria,Urine Rare /hpf; Bilirubin,Urine Negative (Negative); Blood,Urine Trace (Negative); Color,Urine Yellow; Glucose,Urine (UA) Negative (Negative); Ketones,Urine Negative (Negative); Leukocyte Esterase,Urine Negative (Negative); Mucus,Urine Occasional /hpf; Nitrite,Urine Negative (Negative); PH, Urine 6.5 (5.0-8.0); Protein,Urine Negative (Negative); RBC,Urine 19 /hpf (0-5); Specific Gravity,Urine 1.022 (1.001-1.035); Squamous Epithelial Cell,Urine 1 /hpf (0-4); Urobilinogen,Urine <2.0 mg/dL (<2.0); WBC,Urine 3 /hpf (0-5)
[2021-08-27 14:57] LABS: Amphetamine Screen,Urine Not Detected (NotDetected); Barbiturate Screen,Urine Not Detected (NotDetected); Benzodiazepines Screen,Urine Not Detected (NotDetected); Cocaine Screen,Urine Not Detected (NotDetected); Methadone Screen, Urine Not Detected (NotDetected); Opiate Screen,Urine Not Detected (NotDetected); Oxycodone Screen, Urine Not Detected (NotDetected); Phencyclidine Screen,Urine Not Detected (NotDetected); Tricyclic Antidepressant,Urine Detected (NotDetected); Urn Cannabinoid Scrn Not Detected (NotDetected)
--- NOTE | 2021-08-27 14:59 | CT ---
EXAMINATION TYPE: CT brain wo con DATE OF EXAM: 08/27/2021 COMPARISON: CT brain 03/14/2015 HISTORY: ams CT DLP: 1115.4 mGycm. Automated Exposure Control for Dose Reduction was Utilized. TECHNIQUE: CT scan of the head is performed without contrast. FINDINGS: There is some artifact on the exam. There is no acute intracranial hemorrhage, mass effect , or midline shift identified. The ventricles and sulci are within normal limits in size. The globe s are intact and the visualized sinuses are clear. IMPRESSION: No acute intracranial hemorrhage, mass effect, or midline shift is seen.
[2021-08-27 15:01] LABS: ALT 38 U/L (4-34); AST 29 U/L (14-36); African American GFR (CKD) >90 (>60 ml/min/1.73 sqM); Albumin 4.4 g/dL (3.5-5.0); Alkaline Phosphatase 74 U/L (38-126); Anion Gap 8 mmol/L; Blood Urea Nitrogen 13 mg/dL (7-17); Calcium 9.3 mg/dL (8.4-10.2); Carbon Dioxide 26 mmol/L (22-30); Chloride 105 mmol/L (98-107); Glucose 129 mg/dL (74-99); Lithium <0.2 mmol/L; Non-African American GFR(CKD) >90 (>60 ml/min/1.73 sqM); Potassium 4.1 mmol/L (3.5-5.1); Sodium 139 mmol/L (137-145); Total Bilirubin 0.2 mg/dL (0.2-1.3); Total Protein 7.2 g/dL (6.3-8.2)
[2021-08-27] MEDS ORDERED: ACETAMINOPHEN TAB 500 MG TAB PO STA (17:34)
[2021-08-27] MEDS ORDERED: ACETAMINOPHEN TAB 325 MG TAB PO STA (17:36)
[2021-08-27 18:40] VITALS: BP 113/76; PULSE 81
[2021-08-28 08:36] LABS: Clozapine (Clozaril) 179 ng/mL (200-700); Norclozapine 204 ng/mL (200-700)
== END 2021-08-27 18:40 | disposition home or self-care (01) ==
LOC: EEVIPCON 11:54 → EC 11:54
DX: H65.93 Unspecified nonsuppurative otitis media, bilateral (principal); Z20.822 Contact with and (suspected) exposure to COVID-19; E11.9 Type 2 diabetes mellitus without complications; K21.9 Gastro-esophageal reflux disease without esophagitis; F32.A Depression, unspecified; F41.9 Anxiety disorder, unspecified; F25.9 Schizoaffective disorder, unspecified; F17.290 Nicotine dependence, other tobacco product, uncomplicated; Z79.51 Long term (current) use of inhaled steroids; Z79.899 Other long term (current) drug therapy
CPT/HCPCS: 36415; 70450; 80053; 80159; 80178; 80306; 81001; 82075; 82140; 85025; 87635; 93005; 99285

== ENCOUNTER 2022-01-02 17:00 | Emergency (ER) | payer MEDICARE, OTHER ==
[2022-01-02 18:13] VITALS: TEMP 98.5
[2022-01-02] MEDS ORDERED: MORPHINE SULFATE 4 MG/ML SYRINGE IV STA (21:38)
[2022-01-02] MEDS ORDERED: SODIUM CHLORIDE 0.9% 1,000 ML IV STA (21:38)
[2022-01-02] MEDS ORDERED: ONDANSETRON 4 MG/2 ML VIAL IVP STA (21:38)
--- NOTE | 2022-01-02 21:45 | ED ---
General Adult HPI - General Chief complaint: Abdominal Pain Stated complaint: ABD pain Time Seen by Provider: 01/02/22 21:25 Source: patient, RN notes reviewed Mode of arrival: ambulatory Limitations: no limitations - History of Present Illness Initial comments: 26-year-old female presents to the emergency Department with complaints of diffuse lower abdominal pain that radiates to the right flank and back, onset this morning. Patient states her symptoms are accompanied by nausea and vomiting. Reports some dysuria and frequency. States she took some Tylenol today with little to no improvement. No aggravating or alleviating factors. Denies fever, chills, headache, dizziness, chest pain, constipation, diarrhea, or hematuria. - Related Data Home Medications Medication Instructions Recorded Confirmed Albuterol Inhaler [Ventolin Hfa 2 puff INHALATION RT-QID 03/22/21 04/20/21 Inhaler] Allergy Relief 1 tab PO DAILY 03/22/21 04/20/21 cloZAPine [Clozaril] 100 mg PO HS 03/22/21 04/20/21 Famotidine [Pepcid] 20 mg PO HS 04/20/21 04/20/21 Previous Rx's Medication Instructions Recorded Haloperidol Decanoate [Haldol D] 200 mg IM Q14D #1 each 02/17/21 Ascorbic Acid [Vitamin C] 500 mg PO BID 30 Days #60 tab 04/03/21 Cholecalciferol [Vitamin D3 (25 25 mcg PO DAILY 30 Days #30 tablet 04/03/21 Mcg = 1000 Iu)] Acetaminophen [Tylenol] 500 mg PO Q4-6H PRN #24 tab 05/16/21 Ibuprofen [Motrin] 600 mg PO Q8HR PRN #30 tab 05/16/21 predniSONE [Deltasone] 40 mg PO DAILY 3 Days #6 tab 05/28/21 Ibuprofen [Motrin] 600 mg PO Q8HR PRN #30 tab 01/03/22 Allergies Allergy/AdvReac Type Severity Reaction Status Date / Time egg Allergy Anaphylaxis Verified 01/02/22 18:13 hydromorphone HCl Allergy Itching Verified 01/02/22 18:13 [From Dilaudid] milk Allergy Anaphylaxis Verified 01/02/22 18:13 gabapentin AdvReac Nausea Verified 01/02/22 18:13 Review of Systems ROS Statement: Those systems with pertinent positive or pertinent negative responses have been documented in the HPI. ROS Other: All systems not noted in ROS Statement are negative. Past Medical History Past Medical History: Diabetes Mellitus, GERD/Reflux, GI Bleed Additional Past Medical History / Comment(s): borderline personality, schizophrenia, hx attempted suicide, her brother is her guardian. History of Any Multi-Drug Resistant Organisms: C-DIFF Date of last positivie culture/infection: 2016 MDRO Source:: Stool Past Surgical History: Cholecystectomy, Tonsillectomy Past Anesthesia/Blood Transfusion Reactions: No Reported Reaction Past Psychological History: Anxiety, Depression, PTSD, Schizoaffective Disorder Smoking Status: Current every day smoker, Vaper Past Alcohol Use History: Occasional Past Drug Use History: None Reported - Past Family History Mother Additional Family Medical History / Comment(s): NONE Father Additional Family Medical History / Comment(s): NONE General Exam Limitations: no limitations (Well-developed, well-nourished female in no acute distress. Initial temperature 98.5, pulse 110, respirations 20, blood pressure 118/72, pulse ox 96% on room air.) General appearance: alert, in no apparent distress ENT exam: Present: normal exam, normal oropharynx, mucous membranes moist Respiratory exam: Present: normal lung sounds bilaterally. Absent: respiratory distress, wheezes, rales, rhonchi, stridor, chest wall tenderness Cardiovascular Exam: Present: regular rate, normal rhythm, normal heart sounds, other (Patient was initially tachycardic, however upon reassessment heart rate is in the mid 80s.). Absent: systolic murmur, diastolic murmur, rubs, gallop, clicks GI/Abdominal exam: Present: soft, tenderness (Diffuse lower abdominal tenderness upon palpation.), normal bowel sounds. Absent: distended, guarding, rebound, rigid Back exam: Present: CVA tenderness (R), CVA tenderness (L) Neurological exam: Present: alert, oriented X3, CN II-XII intact, normal gait Psychiatric exam: Present: flat affect Skin exam: Present: warm, dry, intact, normal color. Absent: rash Course Vital Signs 01/02/22 01/02/22 18:11 23:07 Temperature 98.5 F Pulse Rate 110 H 99 Respiratory 20 14 Rate Blood Pressure 118/72 112/72 O2 Sat by Pulse 96 95 Oximetry - Reevaluation(s) Reevaluation #1: 01/02/22 21:40 Medical record reviewed. 01/02/22 23:00 Upon reassessment, patient appears comfortable, however rates pain 9 out of 10. Will reassess after CT. 01/03/22 00:15 Patient updated on results. She is reassured by these findings. He will be given a repeat dose of pain medication prior to departure. Instructed on follow-up care. Medical Decision Making - Medical Decision Making 26-year-old female with past medical history of diabetes and GERD presents to the emergency department for evaluation of lower abdominal pain. Upon exam, shawna lomeli is well-appearing and in no acute distress. Upon exam, patient does have tenderness upon palpation of the lower abdomen, most notably in the RLQ. Given the location of her pain and accompanying symptoms, appendicitis and kidney stones are of concern. Laboratory studies were reviewed with no significant findings making it highly unlikely that there is an acute process occurring. This was discussed with patient and she wished to proceed with imaging. CT was obtained showing stable hepatomegaly. Patient was given IV fluids, Zofran, and morphine with improvement. She will be discharged home for follow-up with her PCP for recheck. Return parameters were discussed in detail. Patient ric erbalizes understanding and agrees with it: Anabel. - Lab Data Result diagrams: 01/02/22 21:40 01/02/22 21:40 Lab Results 01/02/22 01/02/22 01/02/22 Range/Units 21:40 21:40 21:40 WBC 11.0 H (3.8-10.6) k/uL RBC 4.81 (3.80-5.40) m/uL Hgb 14.9 (11.4-16.0) gm/dL Hct 43.3 (34.0-46.0) % MCV 90.0 (80.0-100.0) fL MCH 31.0 (25.0-35.0) pg MCHC 34.4 (31.0-37.0) g/dL RDW 12.9 (11.5-15.5) % Plt Count 294 (150-450) k/uL MPV 9.0 Neutrophils % 57 % Lymphocytes % 36 % Monocytes % 5 % Eosinophils % 0 % Basophils % 1 % Neutrophils # 6.3 (1.3-7.7) k/uL Lymphocytes # 3.9 (1.0-4.8) k/uL Monocytes # 0.5 (0-1.0) k/uL Eosinophils # 0.1 (0-0.7) k/uL Basophils # 0.1 (0-0.2) k/uL Sodium 140 (137-145) mmol/L Potassium 4.1 (3.5-5.1) mmol/L Chloride 103 (98-107) mmol/L Carbon Dioxide 28 (22-30) mmol/L Anion Gap 9 mmol/L BUN 13 (7-17) mg/dL Creatinine 0.51 L (0.52-1.04) mg/dL Est GFR (CKD-EPI)AfAm >90 (>60 ml/min/1.73 sqM) Est GFR (CKD-EPI)NonAf >90 (>60 ml/min/1.73 sqM) Glucose 133 H (74-99) mg/dL Calcium 10.0 (8.4-10.2) mg/dL Total Bilirubin 0.4 (0.2-1.3) mg/dL AST 24 (14-36) U/L ALT 27 (4-34) U/L Alkaline Phosphatase 89 (38-126) U/L Total Protein 7.6 (6.3-8.2) g/dL Albumin 4.8 (3.5-5.0) g/dL Lipase 178 (23-300) U/L Urine Color Yellow Urine Appearance Clear (Clear) Urine pH 6.0 (5.0-8.0) Ur Specific [place] 1.015 (1.001-1.035) Urine Protein Negative (Negative) Urine Glucose (UA) Negative (Negative) Urine Ketones Negative (Negative) Urine Blood Negative (Negative) Urine Nitrite Negative (Negative) Urine Bilirubin Negative (Negative) Urine Urobilinogen <2.0 (<2.0) mg/dL Ur Leukocyte Esterase Negative (Negative) Urine HCG, Qual (Not Detectd) 01/02/22 Range/Units 21:40 WBC (3.8-10.6) k/uL RBC (3.80-5.40) m/uL Hgb (11.4-16.0) gm/dL Hct (34.0-46.0) % MCV (80.0-100.0) fL MCH (25.0-35.0) pg MCHC (31.0-37.0) g/dL RDW (11.5-15.5) % Plt Count (150-450) k/uL MPV Neutrophils % % Lymphocytes % % Monocytes % % Eosinophils % % Basophils % % Neutrophils # (1.3-7.7) k/uL Lymphocytes # (1.0-4.8) k/uL Monocytes # (0-1.0) k/uL Eosinophils # (0-0.7) k/uL Basophils # (0-0.2) k/uL Sodium (137-145) mmol/L Potassium (3.5-5.1) mmol/L Chloride (98-107) mmol/L Carbon Dioxide (22-30) mmol/L Anion Gap mmol/L BUN (7-17) mg/dL Creatinine (0.52-1.04) mg/dL Est GFR (CKD-EPI)AfAm (>60 ml/min/1.73 sqM) Est GFR (CKD-EPI)NonAf (>60 ml/min/1.73 sqM) Glucose (74-99) mg/dL Calcium (8.4-10.2) mg/dL Total Bilirubin (0.2-1.3) mg/dL AST (14-36) U/L ALT (4-34) U/L Alkaline Phosphatase (38-126) U/L Total Protein (6.3-8.2) g/dL Albumin (3.5-5.0) g/dL Lipase (23-300) U/L Urine Color Urine Appearance (Clear) Urine pH (5.0-8.0) Ur Specific [place] (1.001-1.035) Urine Protein (Negative) Urine Glucose (UA) (Negative) Urine Ketones (Negative) Urine Blood (Negative) Urine Nitrite (Negative) Urine Bilirubin (Negative) Urine Urobilinogen (<2.0) mg/dL Ur Leukocyte Esterase (Negative) Urine HCG, Qual Not Detected (Not Detectd) - Radiology Data Radiology results: report reviewed, image reviewed CT abdomen and pelvis with contrast was obtained. Report was reviewed in its entirety. Impression per Dr. Pierre is hepatomegaly. Normal appendix. There is some mild subsegmental atelectasis in the posterior lung bases which is improved compared to old exam. Hepatomegaly unchanged. Disposition Clinical Impression: Abdominal pain Disposition: HOME SELF-CARE Condition: Stable Instructions (If sedation given, give patient instructions): Abdominal Pain (ED) Additional Instructions: May take Motrin 3 times daily if needed for pain. Take with food. Apply warm compress or heating pad to low back. Increase intake of fluids. Establish care with PCP for further evaluation and treatment. Return to the emergency department with any new, worsening, or concerning symptoms. Prescriptions: Ibuprofen [Motrin] 600 mg PO Q8HR PRN #30 tab PRN Reason: Pain Is patient prescribed a controlled substance at d/c from ED?: No Referrals: None,Stated [Primary Care Provider] - 1-2 days Gracy Pandya MD [STAFF PHYSICIAN] - 1-2 days Time of Disposition: 01:11
[2022-01-02 22:11] LABS: Basophils # (A) 0.1 k/uL (0-0.2); Basophils % (A) 1 %; Eosinophils # (A) 0.1 k/uL (0-0.7); Eosinophils % (A) 0 %; HCT 43.3 % (34.0-46.0); HGB 14.9 gm/dL (11.4-16.0); Lymphocytes # (A) 3.9 k/uL (1.0-4.8); Lymphocytes % (A) 36 %; MCHC 34.4 g/dL (31.0-37.0); Monocytes # (A) 0.5 k/uL (0-1.0); Monocytes % (A) 5 %; Neutrophils # (A) 6.3 k/uL (1.3-7.7); Neutrophils % (A) 57 %; Platelet Count 294 k/uL (150-450); RBC 4.81 m/uL (3.80-5.40); RDW 12.9 % (11.5-15.5)
[2022-01-02 22:14] LABS: Appearance,Urine Clear (Clear); Bilirubin,Urine Negative (Negative); Blood,Urine Negative (Negative); Color,Urine Yellow; Glucose,Urine (UA) Negative (Negative); Ketones,Urine Negative (Negative); Leukocyte Esterase,Urine Negative (Negative); Nitrite,Urine Negative (Negative); Protein,Urine Negative (Negative); Specific Gravity,Urine 1.015 (1.001-1.035); Urobilinogen,Urine <2.0 mg/dL (<2.0)
[2022-01-02 23:08] VITALS: BP 112/72; PULSE 99; RESP 14
[2022-01-02 23:13] LABS: ALT 27 U/L (4-34); AST 24 U/L (14-36); African American GFR (CKD) >90 (>60 ml/min/1.73 sqM); Albumin 4.8 g/dL (3.5-5.0); Alkaline Phosphatase 89 U/L (38-126); Anion Gap 9 mmol/L; Blood Urea Nitrogen 13 mg/dL (7-17); Carbon Dioxide 28 mmol/L (22-30); Chloride 103 mmol/L (98-107); Glucose 133 mg/dL (74-99); Lipase 178 U/L (23-300); Non-African American GFR(CKD) >90 (>60 ml/min/1.73 sqM); Potassium 4.1 mmol/L (3.5-5.1); Sodium 140 mmol/L (137-145); Total Bilirubin 0.4 mg/dL (0.2-1.3); Total Protein 7.6 g/dL (6.3-8.2)
--- NOTE | 2022-01-03 00:02 | CT ---
EXAMINATION TYPE: CT abdomen pelvis w con DATE OF EXAM: 01/02/2022 COMPARISON: 04/24/2021 HISTORY: RLQ ABD PAIN CT DLP: 1765.6 mGycm Automated exposure control for dose reduction was used. CONTRAST: Performed with IV Contrast, patient injected with 100 mL of Isovue 300. Images obtained from the diaphragm to the floor the pelvis with the IV contrast. The lung bases show some patchy atelectasis. Heart size is normal. No pericardial effusion. No pleura l effusion. There are clips from cholecystectomy. Liver and spleen are intact. The stomach is intact. No pancreat ic mass. There is no adrenal mass. Kidneys show satisfactory contrast opacification. No hydronephrosis. Ureter s are not dilated. No retroperitoneal adenopathy. The bladder distends smoothly. No inguinal hernia. No evidence of a pelvic mass. Uterus is anteverted. There is 3.2 semirounded posterior pelvic density that is likely left ovary. No adnexal mass. Appendix is medial and appears normal. There is no mesenteric edema. No ascites or free air. No sign of bowel obstruction. Liver is enlarged and measures 24 cm. The lumbar spine is intact. No compressio n fracture. Posterior elements are intact. The bony pelvis is intact. Hip joints appear normal. Sacro iliac joints appear normal. IMPRESSION: Hepatomegaly. Normal appendix. There is some mild subsegmental atelectasis in the posterior lung base s which is improved compared to old exam. Hepatomegaly unchanged.
[2022-01-03] MEDS ORDERED: MORPHINE SULFATE 2 MG/ML SYRINGE IVP ONE (00:15)
== END 2022-01-03 01:47 | disposition home or self-care (01) ==
LOC: EC 17:00
DX: R10.30 Lower abdominal pain, unspecified (principal); E11.9 Type 2 diabetes mellitus without complications; K21.9 Gastro-esophageal reflux disease without esophagitis; F41.9 Anxiety disorder, unspecified; F32.A Depression, unspecified; F17.200 Nicotine dependence, unspecified, uncomplicated; Z79.899 Other long term (current) drug therapy; Z91.018 Allergy to other foods; Z88.5 Allergy status to narcotic agent
CPT/HCPCS: 36415; 80053; 83690; 85025; 81003; 81025; 74177; 99284; 96374; 96375 ×2; 96361 ×4; J2270 ×2; J2405; Q9967

== ENCOUNTER 2022-01-27 18:18 | Inpatient (IN) | payer MEDICARE, MEDICAID ==
[2022-01-27] MEDS ORDERED: BENZONATATE 100 MG CAP PO STA (20:06)
[2022-01-27] MEDS ORDERED: BENZOCAINE/MENTHOL LOZENG 1 EACH LOZENGE MUCOUS MEM STA (20:06)
[2022-01-27] MEDS ORDERED: ACETAMINOPHEN TAB 325 MG TAB PO STA (20:07)
[2022-01-27 20:27] LABS: Appearance,Urine Clear (Clear); Bilirubin,Urine Negative (Negative); Blood,Urine Negative (Negative); Color,Urine Light Yellow; Glucose,Urine (UA) Negative (Negative); Ketones,Urine Negative (Negative); Leukocyte Esterase,Urine Negative (Negative); Nitrite,Urine Negative (Negative); PH, Urine 6.5 (5.0-8.0); Protein,Urine Negative (Negative); Specific Gravity,Urine 1.017 (1.001-1.035); Urobilinogen,Urine <2.0 mg/dL (<2.0)
[2022-01-27 20:57] LABS: Amphetamine Screen,Urine Not Detected (NotDetected); Barbiturate Screen,Urine Not Detected (NotDetected); Benzodiazepines Screen,Urine Not Detected (NotDetected); Cocaine Screen,Urine Not Detected (NotDetected); Methadone Screen, Urine Not Detected (NotDetected); Opiate Screen,Urine Not Detected (NotDetected); Oxycodone Screen, Urine Not Detected (NotDetected); Phencyclidine Screen,Urine Not Detected (NotDetected); Tricyclic Antidepressant,Urine Not Detected (NotDetected); Urn Cannabinoid Scrn Detected (NotDetected)
[2022-01-27] MEDS ORDERED: NALOXONE 0.4 MG/ML 1 ML VIAL IV PRN (22:57)
--- NOTE | 2022-01-27 23:37 | ED ---
Psych HPI - General Chief Complaint: Psychiatric Symptoms Stated Complaint: Mental Health Time Seen by Provider: 01/27/22 19:12 Source: patient Mode of arrival: ambulatory - History of Present Illness Initial Comments: Patient is a 26-year-old female who presents to the emergency department for suicidal ideation and intent. Patient reports symptoms for the past 3 days. Her plan is to hang herself, still very soft, or take pills. She also admits to homicidal ideation without plan. Patient reports visual hallucinations which included shadows. Also reports auditory hallucinations which are voices telling her to kill herself. Patient has history of schizophrenia and has been off her schizophrenia meds for the past 2 weeks. Patient quit cold turkey. Denies fever, chills, chest pain, shortness of breath, abdominal pain, nausea, vomiting, burning with urination. Patient does report cough and sore throat for the past couple days. She admits to occasional marijuana use otherwise denies drug use. Denies alcohol use. - Related Data Home Medications Medication Instructions Recorded Confirmed Atorvastatin [Lipitor] 10 mg PO DAILY 01/27/22 01/27/22 Desvenlafaxine Succinate [Pristiq] 100 mg PO DAILY 01/27/22 01/27/22 Metoclopramide [Reglan] 10 mg PO Q8H PRN 01/27/22 01/27/22 Montelukast Sodium [Singulair] 10 mg PO DAILY 01/27/22 01/27/22 metFORMIN HCL ER [Glucophage XR] 1,000 mg PO DAILY 01/27/22 01/27/22 Previous Rx's Medication Instructions Recorded Ibuprofen [Motrin] 600 mg PO Q8HR PRN #30 tab 01/03/22 Allergies Allergy/AdvReac Type Severity Reaction Status Date / Time egg Allergy Anaphylaxis Verified 01/27/22 18:56 hydromorphone HCl Allergy Itching Verified 01/27/22 18:56 [From Dilaudid] milk Allergy Anaphylaxis Verified 01/27/22 18:56 gabapentin AdvReac Nausea Verified 01/27/22 18:56 Review of Systems ROS Statement: Those systems with pertinent positive or pertinent negative responses have been documented in the HPI. ROS Other: All systems not noted in ROS Statement are negative. Past Medical History Past Medical History: Diabetes Mellitus, GERD/Reflux, GI Bleed Additional Past Medical History / Comment(s): borderline personality, schizophrenia, hx attempted suicide, her brother is her guardian. History of Any Multi-Drug Resistant Organisms: C-DIFF Date of last positivie culture/infection: 2016 MDRO Source:: Stool Past Surgical History: Cholecystectomy, Tonsillectomy Past Anesthesia/Blood Transfusion Reactions: No Reported Reaction Past Psychological History: Anxiety, Depression, PTSD, Schizoaffective Disorder, Schizophrenia Smoking Status: Current every day smoker, Vaper Past Alcohol Use History: Occasional Past Drug Use History: None Reported - Past Family History Mother Additional Family Medical History / Comment(s): NONE Father Additional Family Medical History / Comment(s): NONE General Exam Limitations: no limitations General appearance: alert, in no apparent distress Head exam: Present: atraumatic, normocephalic, normal inspection Eye exam: Present: normal appearance, PERRL, EOMI. Absent: scleral icterus, conjunctival injection, periorbital swelling ENT exam: Present: normal oropharynx Neck exam: Present: normal inspection. Absent: tenderness, meningismus, lymphadenopathy Respiratory exam: Present: normal lung sounds bilaterally. Absent: respiratory distress, wheezes, rales, rhonchi, stridor Cardiovascular Exam: Present: regular rate, normal rhythm, normal heart sounds. Absent: systolic murmur, diastolic murmur, rubs, gallop, clicks GI/Abdominal exam: Present: soft, normal bowel sounds. Absent: distended, tenderness, guarding, rebound, rigid Neurological exam: Present: alert, oriented X3, CN II-XII intact Psychiatric exam: Present: normal affect, normal mood Skin exam: Present: warm, dry, intact, normal color. Absent: rash Course Vital Signs 01/27/22 01/27/22 18:51 22:42 Temperature 97 F L 97.8 F Pulse Rate 82 78 Respiratory 16 16 Rate Blood Pressure 158/95 126/85 O2 Sat by Pulse 96 98 Oximetry Medical Decision Making - Medical Decision Making This is a 26-year-old female presenting with suicidal ideation with plan and intent, as well as hallucinations. Patient evaluated by EPS and will be admitted. Dr. Falcon is my attending. - Lab Data Lab Results 01/27/22 01/27/22 Range/Units 19:27 22:55 Urine Color Light Yellow Urine Appearance Clear (Clear) Urine pH 6.5 (5.0-8.0) Ur Specific [place] 1.017 (1.001-1.035) Urine Protein Negative (Negative) Urine Glucose (UA) Negative (Negative) Urine Ketones Negative (Negative) Urine Blood Negative (Negative) Urine Nitrite Negative (Negative) Urine Bilirubin Negative (Negative) Urine Urobilinogen <2.0 (<2.0) mg/dL Ur Leukocyte Esterase Negative (Negative) Urine Opiates Screen Not Detected (NotDetected) Ur Oxycodone Screen Not Detected (NotDetected) Urine Methadone Screen Not Detected (NotDetected) Ur Propoxyphene Screen Not Detected (NotDetected) Ur Barbiturates Screen Not Detected (NotDetected) U Tricyclic Antidepress Not Detected (NotDetected) Ur Phencyclidine Scrn Not Detected (NotDetected) Ur Amphetamines Screen Not Detected (NotDetected) U Methamphetamines Scrn Not Detected (NotDetected) U Benzodiazepines Scrn Not Detected (NotDetected) Urine Cocaine Screen Not Detected (NotDetected) U Marijuana (THC) Screen Detected H (NotDetected) Coronavirus (PCR) Not Detected (Not Detectd) Disposition Clinical Impression: Hallucinations, Suicidal ideation, Homicidal ideation, Suicidal intent, Sore throat, Cough Disposition: ADMITTED IP TO THIS [facility] Condition: Good Referrals: None,Stated [Primary Care Provider] - 1-2 days
[2022-01-28] MEDS ORDERED: HALOPERIDOL LACTATE 5 MG/ML 1 ML VIAL IM PRN (00:48)
[2022-01-28] MEDS ORDERED: LORazepam 2 MG/ML INJ IM PRN (00:49)
[2022-01-28] MEDS ORDERED: IBUPROFEN 600 MG TAB PO PRN (01:00)
--- NOTE | 2022-01-28 03:05 | P.CONS ---
History of Present Illness - Reason for Consult Consult date: 01/28/22 - History of Present Illness The patient is a 26-year-old female with a PMH of type II DM in [facility] who presented to the emergency room with complaints of depression and suicidal ideation. The patient was admitted to the mental health unit where she was seen and evaluated with the mental health unit RN Lisa at the bedside. The patient reported that she has recently been seeing people in shadows are there and also hearing things which is causing her quite a bit of distress. She had reportedly expressed plans to want to hang herself. She reports daily one pack of cigarettes use and recreational marijuana use. She reports chronic mild nausea for which she takes [id number] medications. She denied any additional physical complaints at the time of interview. Denies experiencing chest discomfort, shortness of breath, fever, chills or cough, vomiting, abdominal pain, diarrhea. Review of systems: Pertinent positives and negatives as discussed in HPI, a complete review of systems was performed and all other systems are negative. Physical examination: General: non toxic, no distress, appears at stated age, morbidly obese Derm: no unusual rashes/lesions, no unusual ecchymoses, warm, dry Head: atraumatic, normocephalic, symmetric Eyes: EOMI, no lid lag, anicteric sclera ENT: Nose and ears atraumatic, no thrush, no pharyngeal erythema Neck: trachea midline, supple Mouth: no lip lesion, mucus membranes moist Cardiovascular: S1S2 reg, no murmur, no edema Lungs: CTA bilateral, no rhonchi, no rales , no accessory muscle use Abdominal: soft, nontender to palpation, no guarding Ext: no gross muscle atrophy, no contractures, Neuro: No gross focal neuro deficits noted Psych: Alert, oriented, appropriate affect Assessment/plan Type II DM/PCOS -Continue home metformin dose Tobacco and marijuana abuse -Advised on the importance of cessation Depression with suicidal ideation -As per psychiatry Thank you for allowing us to participate in the care of this patient. We will follow peripherally. Do not hesitate to contact us with questions. Someone can be reached from the [facility] hospitalist group at all hours of the day at [phone]. Past Medical History Past Medical History: Diabetes Mellitus, GERD/Reflux, GI Bleed Additional Past Medical History / Comment(s): borderline personality, schizophrenia, hx attempted suicide, her brother is her guardian. History of Any Multi-Drug Resistant Organisms: C-DIFF Year Discovered:: 2017 MDRO Source:: Stool Past Surgical History: Cholecystectomy, Tonsillectomy Past Anesthesia/Blood Transfusion Reactions: No Reported Reaction Past Psychological History: Anxiety, Depression, PTSD, Schizoaffective Disorder, Schizophrenia Smoking Status: Current every day smoker, Vaper Past Alcohol Use History: Occasional Additional Past Alcohol Use History / Comment(s): states she does not drink Past Drug Use History: Marijuana - Past Family History Mother Additional Family Medical History / Comment(s): NONE Father Additional Family Medical History / Comment(s): NONE Medications and Allergies Home Medications Medication Instructions Recorded Confirmed Type Ibuprofen [Motrin] 600 mg PO Q8HR PRN #30 tab 01/03/22 01/28/22 Rx Atorvastatin [Lipitor] 10 mg PO DAILY 01/27/22 01/28/22 History Desvenlafaxine Succinate [Pristiq] 100 mg PO DAILY 01/27/22 01/28/22 History Metoclopramide [Reglan] 10 mg PO Q8H PRN 01/27/22 01/28/22 History Montelukast Sodium [Singulair] 10 mg PO DAILY 01/27/22 01/28/22 History metFORMIN HCL ER [Glucophage XR] 1,000 mg PO DAILY 01/27/22 01/28/22 History Allergies Allergy/AdvReac Type Severity Reaction Status Date / Time egg Allergy Anaphylaxis Verified 01/28/22 02:33 hydromorphone HCl Allergy Itching Verified 01/28/22 02:33 [From Dilaudid] milk Allergy Anaphylaxis Verified 01/28/22 02:33 gabapentin AdvReac Nausea Verified 01/28/22 02:33 Physical Exam Vitals: Vital Signs Temp Pulse Pulse Resp BP BP Pulse Ox 01/28/22 02:00 97.7 F 66 15 121/71 98 01/27/22 22:42 97.8 F 78 16 126/85 98 01/27/22 18:51 97 F L 82 16 158/95 96 Intake and Output 01/27/22 01/27/22 01/28/22 14:59 22:59 06:59 Other: Weight 117.934 kg 115.269 kg Results Labs: Abnormal Lab Results - Last 24 Hours (Table) 01/27/22 Range/Units 19:27 U Marijuana (THC) Screen Detected H (NotDetected)
[2022-01-28] MEDS ORDERED: MAG HYDROX/AL HYDROX/SIMETH 355 ML BOTTLE PO PRN (08:00)
[2022-01-28] MEDS: MONTELUKAST 10 MG TAB PO SCH (08:33)
[2022-01-28] MEDS: DESVENLAFAXINE SUCCINATE 50 MG TAB.ER.24H PO SCH (08:33)
[2022-01-28] MEDS: ATORVASTATIN 10 MG TAB PO SCH (08:33)
[2022-01-28] MEDS: ACETAMINOPHEN TAB 325 MG TAB PO PRN ×3 (08:33→21:26)
[2022-01-28] MEDS: metFORMIN 500 MG TAB PO SCH ×2 (08:33→21:25)
[2022-01-28] MEDS: NICOTINE 14MG/24HR PATCH TRANSDERM SCH (08:34)
[2022-01-28] MEDS: METOCLOPRAMIDE 10 MG TAB PO PRN ×2 (08:52→17:14)
[2022-01-28] MEDS ORDERED: MAGNESIUM HYDROXIDE 2,400 MG/10 ML CUP PO PRN (09:00)
[2022-01-28] MEDS: haloperidoL 5 MG TAB PO PRN ×2 (10:20→17:14)
[2022-01-28] MEDS: LORazepam 1 MG TAB PO PRN ×2 (10:20→17:14)
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
[2022-01-28] MEDS ORDERED: PRAZOSIN 1 MG CAP PO SCH (21:00)
[2022-01-28] MEDS: ZIPRASIDONE 20 MG CAP PO SCH (21:25)
[2022-01-29 07:34] LABS: Basophils # (A) 0.1 k/uL (0-0.2); Basophils % (A) 1 %; Eosinophils % (A) 0 %; HCT 45.2 % (34.0-46.0); HGB 14.8 gm/dL (11.4-16.0); Lymphocytes # (A) 3.5 k/uL (1.0-4.8); Lymphocytes % (A) 33 %; MCH 30.4 pg (25.0-35.0); MCHC 32.7 g/dL (31.0-37.0); Mean Platelet Volume 8.2; Monocytes # (A) 0.4 k/uL (0-1.0); Monocytes % (A) 4 %; Neutrophils # (A) 6.6 k/uL (1.3-7.7); Neutrophils % (A) 61 %; Platelet Count 285 k/uL (150-450); RBC 4.86 m/uL (3.80-5.40); RDW 13.1 % (11.5-15.5); WBC 10.8 k/uL (3.8-10.6)
[2022-01-29] MEDS: MONTELUKAST 10 MG TAB PO SCH (08:00)
[2022-01-29] MEDS: DESVENLAFAXINE SUCCINATE 50 MG TAB.ER.24H PO SCH (08:00)
[2022-01-29] MEDS: NICOTINE 14MG/24HR PATCH TRANSDERM SCH (08:00)
[2022-01-29] MEDS: ACETAMINOPHEN TAB 325 MG TAB PO PRN ×2 (08:00→16:01)
[2022-01-29] MEDS: ZIPRASIDONE 20 MG CAP PO SCH (08:01)
[2022-01-29] MEDS: metFORMIN 500 MG TAB PO SCH ×2 (08:01→19:46)
[2022-01-29] MEDS: ATORVASTATIN 10 MG TAB PO SCH (08:01)
[2022-01-29 08:13] LABS: ALT 24 U/L (4-34); AST 16 U/L (14-36); African American GFR (CKD) >90 (>60 ml/min/1.73 sqM); Albumin 4.5 g/dL (3.5-5.0); Alkaline Phosphatase 77 U/L (38-126); Anion Gap 10 mmol/L; Blood Urea Nitrogen 15 mg/dL (7-17); Carbon Dioxide 24 mmol/L (22-30); Chloride 106 mmol/L (98-107); Glucose 105 mg/dL (74-99); Non-African American GFR(CKD) >90 (>60 ml/min/1.73 sqM); Potassium 4.4 mmol/L (3.5-5.1); Sodium 140 mmol/L (137-145); Total Bilirubin 0.4 mg/dL (0.2-1.3); Total Protein 7.3 g/dL (6.3-8.2)
[2022-01-29] MEDS: METOCLOPRAMIDE 10 MG TAB PO PRN ×2 (09:07→16:00)
[2022-01-29] MEDS: haloperidoL 5 MG TAB PO PRN ×2 (09:08→16:02)
[2022-01-29] MEDS: LORazepam 1 MG TAB PO PRN ×2 (09:08→16:02)
--- NOTE | 2022-01-29 11:22 | P.PN ---
Progress Note - Text Progress Note Date: 01/29/22 Interval History: Patient was seen resting in bed and was directable and agreeable to speak with writer editor in the office. Currently, the patient continues to report auditory hallucinations, visual hallucinations, suicidal ideation, and homicidal ideation. She reports that the auditory hallucinations have not decreased in severity and continued to be present throughout the day. She describes hearing multiple voices that are often commanding and demeaning in nature. She reports that these voices tell her to go kill herself. She does report visual hallucinations in the form of shadow people. She also reports that they occur throughout the day. She denies any intention or plan for suicide or homicide at this time. She has been adherent with her medication is not reporting any significant side effects. She is agreeable to starting lithium today and to have her Geodon further titrated. She reports sleep has been poor. She denies any issues with her appetite. She reports no issues regarding her general medical health aside from mild nausea. Mental Status Exam: General Appearance: Patient appears to be stated age is alert, directable, and cooperative. Behavior: Patient is calmly seated without any agitated behavior. Speech: Patient's speech is fluent and nonpressured. Mood/Affect: Mood is described as "not good." Affect is flat. Suicidality/Homicidality: Patient endorses suicidal and homicidal ideation but no intention or plan. Perceptions: Patient endorses both auditory and visual hallucinations. Though content/process: There is no evidence of any delusional thought content and thought process is linear and goal-directed. Memory and concentration: AOX3, grossly intact for the purposes of this session Judgment and insight: Improving mildly Vital Signs Temp 97.8 F 01/29/22 06:47 Pulse 75 01/29/22 06:47 Resp 15 01/29/22 06:47 BP 100/52 01/29/22 06:47 Pulse Ox 98 01/28/22 02:00 FiO2 Laboratory Results - Last 24 Hours 01/28/22 01/29/22 01/29/22 14:11 06:58 06:58 WBC 10.8 H RBC 4.86 Hgb 14.8 Hct 45.2 MCV 93.0 MCH 30.4 MCHC 32.7 RDW 13.1 Plt Count 285 MPV 8.2 Neutrophils % 61 Lymphocytes % 33 Monocytes % 4 Eosinophils % 0 Basophils % 1 Neutrophils # 6.6 Lymphocytes # 3.5 Monocytes # 0.4 Eosinophils # 0.0 Basophils # 0.1 Sodium 140 Potassium 4.4 Chloride 106 Carbon Dioxide 24 Anion Gap 10 BUN 15 Creatinine 0.57 Est GFR (CKD-EPI)AfAm >90 Est GFR (CKD-EPI)NonAf >[address] Glu mg/dL Hemoglobin A1c Calcium 9.0 Total Bilirubin 0.4 AST 16 ALT 24 Alkaline Phosphatase 77 Total Protein 7.3 Albumin 4.5 TSH 1.250 Coronavirus (PCR) Not Detected 01/29/22 06:58 WBC RBC Hgb Hct MCV MCH MCHC RDW Plt Count MPV Neutrophils % Lymphocytes % Monocytes % Eosinophils % Basophils % Neutrophils # Lymphocytes # Monocytes # Eosinophils # Basophils # Sodium Potassium Chloride Carbon Dioxide Anion Gap BUN Creatinine Est GFR (CKD-EPI)AfAm Est GFR (CKD-EPI)NonAf Glucose Estimated Ave Glu mg/dL 158 Hemoglobin A1c 7.1 H Calcium Total Bilirubin AST ALT Alkaline Phosphatase Total Protein Albumin TSH Coronavirus (PCR) Assessment Schizophrenia Cannabis use disorder Tobacco use disorder Plan: -Patient continues to meet criteria for inpatient psychiatric admission for symptom stabilization and safety. Patient has signed adult voluntary form and medication consent and was placed in patient's chart. -Medications: Increase Geodon to 40 mg by mouth twice a day with meals for schizophrenia Continue Pristiq 100 mg by mouth daily for PTSD Start lithium 450 mg by mouth twice a day for augmentation of antipsychotic medication and for suicidal ideation today. -When necessary Ativan and Haldol for agitation/aggression. -NRT - nicotine patch -SW on board for discharge planning. Encouraged the patient to participate in milieu.
[2022-01-29 15:35] LABS: Chol/HDL Ratio 4.55 Ratio; LDL Cholesterol,Calculated 68.8 mg/dL (0.0-131.0)
[2022-01-29] MEDS ORDERED: OLANZapine 5 MG TAB PO ONE (18:27)
[2022-01-29] MEDS: ZIPRASIDONE 40 MG CAP PO SCH (19:46)
[2022-01-29] MEDS: LITHIUM CARBONATE 150 MG CAP PO SCH (19:46)
[2022-01-29] MEDS ORDERED: PRAZOSIN 1 MG CAP PO SCH (21:00)
[2022-01-30 07:01] VITALS: BP 98/55; PULSE 89; RESP 18; TEMP 98.4
[2022-01-30] MEDS: metFORMIN 500 MG TAB PO SCH (08:24)
[2022-01-30] MEDS: NICOTINE 14MG/24HR PATCH TRANSDERM SCH (08:24)
[2022-01-30] MEDS: ZIPRASIDONE 40 MG CAP PO SCH (08:25)
[2022-01-30] MEDS: LITHIUM CARBONATE 150 MG CAP PO SCH (08:25)
[2022-01-30] MEDS: MONTELUKAST 10 MG TAB PO SCH (08:25)
[2022-01-30] MEDS: DESVENLAFAXINE SUCCINATE 50 MG TAB.ER.24H PO SCH (08:25)
[2022-01-30] MEDS: ATORVASTATIN 10 MG TAB PO SCH (08:25)
[2022-01-30] MEDS: ACETAMINOPHEN TAB 325 MG TAB PO PRN (08:27)
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
== END 2022-01-30 12:01 | disposition home or self-care (01) | DRG 885 ==
LOC: EC 18:18 → 3MHU 23:41
PROVIDERS: ADMIT Psychiatry & Neurology Psychiatry; ATTEND Psychiatry & Neurology Psychiatry
DX: F23 Brief psychotic disorder (principal); R45.851 Suicidal ideations; F25.9 Schizoaffective disorder, unspecified; Z20.822 Contact with and (suspected) exposure to COVID-19; E11.9 Type 2 diabetes mellitus without complications; E28.2 Polycystic ovarian syndrome; F12.10 Cannabis abuse, uncomplicated; K21.9 Gastro-esophageal reflux disease without esophagitis; F17.210 Nicotine dependence, cigarettes, uncomplicated; F43.10 Post-traumatic stress disorder, unspecified; F60.3 Borderline personality disorder; R45.850 Homicidal ideations; Z79.84 Long term (current) use of oral hypoglycemic drugs; F32.A Depression, unspecified; Z91.14 Patient's other noncompliance with medication regimen; Z91.410 Personal history of adult physical and sexual abuse; Z91.51 Personal history of suicidal behavior; Z71.6 Tobacco abuse counseling; Z79.899 Other long term (current) drug therapy; Z88.5 Allergy status to narcotic agent; Z91.012 Allergy to eggs; Z91.011 Allergy to milk products; Z88.8 Allergy status to other drugs, medicaments and biological substances; Z90.49 Acquired absence of other specified parts of digestive tract; F17.290 Nicotine dependence, other tobacco product, uncomplicated
CPT/HCPCS: 80053; 80061; 80306; 81003; 82075; 83036; 84443; 85025; 87635; 99285

== ENCOUNTER 2022-02-01 18:31 | Emergency (ER) | payer MEDICARE, OTHER ==
[2022-02-01] MEDS ORDERED: ACETAMINOPHEN TAB 325 MG TAB PO STA (18:54)
--- NOTE | 2022-02-01 20:20 | ED ---
Psych HPI - General Chief Complaint: Psychiatric Symptoms Stated Complaint: Mental Health Time Seen by Provider: 02/01/22 18:44 Source: patient, family, RN notes reviewed Mode of arrival: ambulatory - History of Present Illness Initial Comments: This is a 26-year-old female who presents to the emergency department for psychiatric evaluation. She has an extensive psychiatric history with a diagnosis of borderline personality disorder and schizophrenia. She has had multiple inpatient hospitalizations. States that she is having both auditory and visual hallucinations. He auditory hallucinations are telling her to kill herself by overdosing. States that she would take whatever medicine she could find. She was discharged on 02/09 after a three-day psychiatric admission here. She had been on Prozac for about 3 months prior, and while she was admitted she was started on lithium and Geodon. States that she does not feel like she is getting better on those medications, and did not feel that she was ready for discharge home. Also states that during this admission, she was upset because there was no group therapy. Additionally, she has had a cough for the last 1-2 weeks. Denies any difficulty breathing. Denies any fevers, chills, sore throat, dyspnea, chest pain, palpitations, abdominal pain, nausea, vomiting, diarrhea, back pain, or headaches. MD Complaint: suicidal ideation Associated Psychiatric Symptoms: suicidal ideation, auditory hallucinations, visual hallucinations History of same: Yes If Self Harm: admits thoughts of self harm - Related Data Home Medications Medication Instructions Recorded Confirmed Atorvastatin [Lipitor] 10 mg PO DAILY 01/27/22 01/28/22 Metoclopramide [Reglan] 10 mg PO Q8H PRN 01/27/22 01/28/22 Montelukast Sodium [Singulair] 10 mg PO DAILY 01/27/22 01/28/22 metFORMIN HCL ER [Glucophage XR] 1,000 mg PO DAILY 01/27/22 01/30/22 Previous Rx's Medication Instructions Recorded Ibuprofen [Motrin] 600 mg PO Q8HR PRN #30 tab 01/03/22 Desvenlafaxine Succinate [Pristiq 100 mg PO DAILY 15 Days tab 01/30/22 ER] [place] Carbonate 450 mg PO BID 15 Days cap 01/30/22 Nicotine 14Mg/24Hr Patch [Habitrol] 1 patch TRANSDERM DAILY 14 Days 01/30/22 patch Prazosin [Minipress] 2 mg PO HS 15 Days cap 01/30/22 Ziprasidone [Geodon] 40 mg PO BID 15 Days cap 01/30/22 Allergies Allergy/AdvReac Type Severity Reaction Status Date / Time egg Allergy Anaphylaxis Verified 02/01/22 18:43 hydromorphone HCl Allergy Itching Verified 02/01/22 18:43 [From Dilaudid] milk Allergy Anaphylaxis Verified 02/01/22 18:43 gabapentin AdvReac Nausea Verified 02/01/22 18:43 Review of Systems ROS Statement: Those systems with pertinent positive or pertinent negative responses have been documented in the HPI. ROS Other: All systems not noted in ROS Statement are negative. Past Medical History Past Medical History: Diabetes Mellitus, GERD/Reflux, GI Bleed Additional Past Medical History / Comment(s): borderline personality, schizophrenia, hx attempted suicide, her brother is her guardian. History of Any Multi-Drug Resistant Organisms: C-DIFF Date of last positivie culture/infection: 2016 MDRO Source:: Stool Past Surgical History: Cholecystectomy, Tonsillectomy Past Anesthesia/Blood Transfusion Reactions: No Reported Reaction Past Psychological History: Anxiety, Depression, PTSD, Schizoaffective Disorder, Schizophrenia Smoking Status: Current every day smoker, Vaper Past Alcohol Use History: Occasional Past Drug Use History: Marijuana - Past Family History Mother Additional Family Medical History / Comment(s): NONE Father Additional Family Medical History / Comment(s): NONE General Exam Limitations: no limitations General appearance: alert Head exam: Present: atraumatic, normocephalic, normal inspection Respiratory exam: Present: normal lung sounds bilaterally. Absent: respiratory distress, wheezes, rales, rhonchi, stridor Cardiovascular Exam: Present: regular rate, normal rhythm, normal heart sounds. Absent: systolic murmur, diastolic murmur, rubs, gallop, clicks Neurological exam: Present: alert, oriented X3, CN II-XII intact Psychiatric exam: Present: depressed, flat affect, suicidal ideation. Absent: homicidal ideation Skin exam: Present: warm, dry, intact, normal color. Absent: rash Course Vital Signs 02/01/22 02/01/22 18:34 20:37 Temperature 97.2 F L 97.9 F Pulse Rate 95 88 Respiratory 18 16 Rate Blood Pressure 104/74 110/74 O2 Sat by Pulse 97 99 Oximetry Medical Decision Making - Medical Decision Making This is a 26-year-old female who presents to the emergency department for psychiatric evaluation. Due to the cough, additional testing was ordered. She tested negative for Covid, influenza, and RSV. My interpretation of the chest x-ray reveals no evidence of localized consolidations or infiltrates. EPS spoke with the patient's brother, who is her legal guardian. He states that she coughs and vomits to get attention and it is fake. Additionally, the patient does not wish to be admitted here. Because she is complaining of these symptoms, she will be unable to be transferred to another psychiatric facility. EPS also spoke with her psychiatrist, who states that she can be discharged home. EPS is comfortable with her being discharged into the care of her brother. Return precautions reviewed in depth, the patient is instructed to return to the emergency department with any new, worsening, or concerning symptoms. Patient verbalized understanding. This case was discussed in detail with the attending ED physician. Presentation, findings, and treatment plan discussed in detail as well. - Lab Data Lab Results 02/01/22 Range/Units 19:00 Influenza Type A (PCR) Not Detected (Not Detectd) Influenza Type B (PCR) Not Detected (Not Detectd) RSV (PCR) Not Detected (Not Detectd) SARS-CoV-2 (PCR) Not Detected (Not Detectd) - Radiology Data Radiology results: report reviewed, image reviewed Disposition Clinical Impression: Schizophrenia Disposition: HOME SELF-CARE Instructions (If sedation given, give patient instructions): Schizophrenia (ED) Additional Instructions: Return to the emergency department with any new, worsening, or concerning symptoms. Follow up with your psychiatrist as soon as possible and your primary care provider in 1-2 days. Is patient prescribed a controlled substance at d/c from ED?: No Referrals: None,Stated [Primary Care Provider] - 1-2 days
--- NOTE | 2022-02-01 20:35 | XR ---
EXAMINATION TYPE: XR chest 2V DATE OF EXAM: 02/01/2022 7:25 PM COMPARISON: Chest x-ray 05/27/2021 TECHNIQUE: XR chest 2V . CLINICAL INDICATION:Female, 26 years old with history of Cough, congestion; FINDINGS: Lungs/Pleura: There is no evidence of pleural effusion, focal consolidation, or pneumothorax. Pulmonary vascularity: Unremarkable. Heart/mediastinum: Cardiomediastinal silhouette is unremarkable. Musculoskeletal: No acute osseous pathology. IMPRESSION: No acute cardiopulmonary disease/process.
[2022-02-01 20:38] VITALS: BP 110/74; PULSE 88; RESP 16; TEMP 97.9
== END 2022-02-01 20:39 | disposition home or self-care (01) ==
LOC: EC 18:31
DX: F20.9 Schizophrenia, unspecified (principal); E11.9 Type 2 diabetes mellitus without complications; F41.9 Anxiety disorder, unspecified; F32.A Depression, unspecified; F17.200 Nicotine dependence, unspecified, uncomplicated; F17.290 Nicotine dependence, other tobacco product, uncomplicated; F12.90 Cannabis use, unspecified, uncomplicated; Z20.822 Contact with and (suspected) exposure to COVID-19; Z79.84 Long term (current) use of oral hypoglycemic drugs; Z91.012 Allergy to eggs; Z88.5 Allergy status to narcotic agent; Z91.011 Allergy to milk products; Z88.8 Allergy status to other drugs, medicaments and biological substances; Z90.49 Acquired absence of other specified parts of digestive tract
CPT/HCPCS: 71046; 82075; 87636; 99285

== ENCOUNTER 2022-02-06 11:11 | Emergency (ER) | payer MEDICARE, OTHER ==
[2022-02-06 11:21] VITALS: RESP 18; TEMP 98.3
[2022-02-06] MEDS ORDERED: METOCLOPRAMIDE 5 MG/ML 2 ML VIAL IVP STA (11:36)
[2022-02-06] MEDS ORDERED: SODIUM CHLORIDE 0.9% 2,000 ML IV STA (11:36)
[2022-02-06] MEDS ORDERED: diphenhydrAMINE 50 MG/ML 1 ML VIAL IVP STA (11:36)
[2022-02-06 12:31] LABS: Basophils % (A) 0 %; Eosinophils % (A) 0 %; HCT 39.6 % (34.0-46.0); HGB 13.6 gm/dL (11.4-16.0); Lymphocytes # (A) 2.7 k/uL (1.0-4.8); Lymphocytes % (A) 24 %; MCH 31.1 pg (25.0-35.0); MCHC 34.5 g/dL (31.0-37.0); MCV 90.3 fL (80.0-100.0); Mean Platelet Volume 8.4; Monocytes # (A) 0.5 k/uL (0-1.0); Monocytes % (A) 4 %; Neutrophils # (A) 7.7 k/uL (1.3-7.7); Neutrophils % (A) 69 %; Platelet Count 267 k/uL (150-450); RBC 4.39 m/uL (3.80-5.40); RDW 12.7 % (11.5-15.5); WBC 11.1 k/uL (3.8-10.6)
[2022-02-06 12:46] LABS: Appearance,Urine Cloudy (Clear); Bacteria,Urine Rare /hpf; Bilirubin,Urine Negative (Negative); Blood,Urine Negative (Negative); Color,Urine Yellow; Glucose,Urine (UA) Negative (Negative); Ketones,Urine Negative (Negative); Leukocyte Esterase,Urine Negative (Negative); Mucus,Urine Many /hpf; Nitrite,Urine Negative (Negative); PH, Urine 8.5 (5.0-8.0); Protein,Urine 1+ (Negative); RBC,Urine 4 /hpf (0-5); Specific Gravity,Urine 1.026 (1.001-1.035); Squamous Epithelial Cell,Urine 8 /hpf (0-4); Urobilinogen,Urine <2.0 mg/dL (<2.0); WBC,Urine 2 /hpf (0-5)
[2022-02-06 12:56] LABS: ALT 21 U/L (4-34); AST 19 U/L (14-36); African American GFR (CKD) >90 (>60 ml/min/1.73 sqM); Albumin 4.4 g/dL (3.5-5.0); Alkaline Phosphatase 77 U/L (38-126); Anion Gap 6 mmol/L; Blood Urea Nitrogen 13 mg/dL (7-17); Calcium 9.2 mg/dL (8.4-10.2); Carbon Dioxide 29 mmol/L (22-30); Chloride 105 mmol/L (98-107); Glucose 95 mg/dL (74-99); Lipase 158 U/L (23-300); Non-African American GFR(CKD) >90 (>60 ml/min/1.73 sqM); Sodium 140 mmol/L (137-145); Total Bilirubin 0.5 mg/dL (0.2-1.3); Total Protein 7.1 g/dL (6.3-8.2)
--- NOTE | 2022-02-06 13:21 | ED ---
Abdominal Pain HPI - General Chief Complaint: Abdominal Pain Stated Complaint: Vomiting Time Seen by Provider: 02/06/22 11:27 Source: patient, RN notes reviewed Mode of arrival: ambulatory Limitations: no limitations - History of Present Illness Initial Comments: 26-year-old female presented to the emergency Department with chief complaint of nausea vomiting. Patient states she's been sick last few days. Patient states she was diagnosed with acute bronchitis states that she is on antibiotics but states that she is had vomiting cannot keep any down. Patient's concerned about possible dehydration mild stool changes no melanotic or hematochezia. Denies any hematemesis no reported fever. Patient does not have localized abdominal pain states that she did have some right-sided pain meds resolved she complains of diffuse achiness. - Related Data Home Medications Medication Instructions Recorded Confirmed Atorvastatin [Lipitor] 10 mg PO DAILY 01/27/22 01/28/22 Metoclopramide [Reglan] 10 mg PO Q8H PRN 01/27/22 01/28/22 Montelukast Sodium [Singulair] 10 mg PO DAILY 01/27/22 01/28/22 metFORMIN HCL ER [Glucophage XR] 1,000 mg PO DAILY 01/27/22 01/30/22 Previous Rx's Medication Instructions Recorded Ibuprofen [Motrin] 600 mg PO Q8HR PRN #30 tab 01/03/22 Desvenlafaxine Succinate [Pristiq 100 mg PO DAILY 15 Days tab 01/30/22 ER] [place] Carbonate 450 mg PO BID 15 Days cap 01/30/22 Nicotine 14Mg/24Hr Patch [Habitrol] 1 patch TRANSDERM DAILY 14 Days 01/30/22 patch Prazosin [Minipress] 2 mg PO HS 15 Days cap 01/30/22 Ziprasidone [Geodon] 40 mg PO BID 15 Days cap 01/30/22 Ondansetron Odt [Zofran Odt] 4 mg PO Q8HR PRN #10 tab 02/06/22 Allergies Allergy/AdvReac Type Severity Reaction Status Date / Time egg Allergy Anaphylaxis Verified 02/06/22 11:20 hydromorphone HCl Allergy Itching Verified 02/06/22 11:20 [From Dilaudid] milk Allergy Anaphylaxis Verified 02/06/22 11:20 gabapentin AdvReac Nausea Verified 02/06/22 11:20 Review of Systems ROS Statement: Those systems with pertinent positive or pertinent negative responses have been documented in the HPI. ROS Other: All systems not noted in ROS Statement are negative. Past Medical History Past Medical History: Diabetes Mellitus, GERD/Reflux, GI Bleed Additional Past Medical History / Comment(s): borderline personality, schizophrenia, hx attempted suicide, her brother is her guardian, PCOS, Migrain es, History of Any Multi-Drug Resistant Organisms: C-DIFF Date of last positivie culture/infection: 2016 MDRO Source:: Stool Past Surgical History: Cholecystectomy, Tonsillectomy Past Anesthesia/Blood Transfusion Reactions: No Reported Reaction Past Psychological History: Anxiety, Depression, PTSD, Schizoaffective Disorder, Schizophrenia Smoking Status: Current every day smoker, Vaper Past Alcohol Use History: Occasional Past Drug Use History: Marijuana - Past Family History Mother Additional Family Medical History / Comment(s): NONE Father Additional Family Medical History / Comment(s): NONE General Exam Limitations: no limitations General appearance: alert, in no apparent distress Head exam: Present: atraumatic, normocephalic, normal inspection Eye exam: Present: normal appearance, PERRL, EOMI. Absent: scleral icterus, conjunctival injection, periorbital swelling ENT exam: Present: normal exam, normal oropharynx, mucous membranes moist Neck exam: Present: normal inspection, full ROM. Absent: tenderness, meningismus, lymphadenopathy Respiratory exam: Present: normal lung sounds bilaterally. Absent: respiratory distress, wheezes, rales, rhonchi, stridor Cardiovascular Exam: Present: regular rate, normal rhythm, normal heart sounds. Absent: systolic murmur, diastolic murmur, rubs, gallop, clicks GI/Abdominal exam: Present: soft, tenderness (Minimal), normal bowel sounds. Absent: distended, guarding, rebound, rigid Back exam: Absent: CVA tenderness (R), CVA tenderness (L) Course Vital Signs 02/06/22 11:18 Temperature 98.3 F Pulse Rate 76 Respiratory 18 Rate Blood Pressure 116/76 O2 Sat by Pulse 96 Oximetry Medical Decision Making - Medical Decision Making 26-year-old presented for nausea vomiting patient's labwork is unremarkable. Patient was given antiemetics will be discharged with antiemetics return parameters were discussed. - Lab Data Result diagrams: 02/06/22 11:49 02/06/22 11:49 Lab Results 02/06/22 02/06/22 02/06/22 Range/Units 11:49 11:49 11:49 WBC 11.1 H (3.8-10.6) k/uL RBC 4.39 (3.80-5.40) m/uL Hgb 13.6 (11.4-16.0) gm/dL Hct 39.6 (34.0-46.0) % MCV 90.3 (80.0-100.0) fL MCH 31.1 (25.0-35.0) pg MCHC 34.5 (31.0-37.0) g/dL RDW 12.7 (11.5-15.5) % Plt Count 267 (150-450) k/uL MPV 8.4 Neutrophils % 69 % Lymphocytes % 24 % Monocytes % 4 % Eosinophils % 0 % Basophils % 0 % Neutrophils # 7.7 (1.3-7.7) k/uL Lymphocytes # 2.7 (1.0-4.8) k/uL Monocytes # 0.5 (0-1.0) k/uL Eosinophils # 0.0 (0-0.7) k/uL Basophils # 0.0 (0-0.2) k/uL Sodium (137-145) mmol/L Potassium (3.5-5.1) mmol/L Chloride (98-107) mmol/L Carbon Dioxide (22-30) mmol/L Anion Gap mmol/L BUN (7-17) mg/dL Creatinine (0.52-1.04) mg/dL Est GFR (CKD-EPI)AfAm (>60 ml/min/1.73 sqM) Est GFR (CKD-EPI)NonAf (>60 ml/min/1.73 sqM) Glucose (74-99) mg/dL Calcium (8.4-10.2) mg/dL Total Bilirubin (0.2-1.3) mg/dL AST (14-36) U/L ALT (4-34) U/L Alkaline Phosphatase (38-126) U/L Total Protein (6.3-8.2) g/dL Albumin (3.5-5.0) g/dL Lipase (23-300) U/L Urine Color Yellow Urine Appearance Cloudy H (Clear) Urine pH 8.5 H (5.0-8.0) Ur Specific [place] 1.026 (1.001-1.035) Urine Protein 1+ H (Negative) Urine Glucose (UA) Negative (Negative) Urine Ketones Negative (Negative) Urine Blood Negative (Negative) Urine Nitrite Negative (Negative) Urine Bilirubin Negative (Negative) Urine Urobilinogen <2.0 (<2.0) mg/dL Ur Leukocyte Esterase Negative (Negative) Urine RBC 4 (0-5) /hpf Urine WBC 2 (0-5) /hpf Ur Squamous Epith Cells 8 H (0-4) /hpf Urine Bacteria Rare H (None) /hpf Urine Mucus Many H (None) /hpf Urine HCG, Qual Not Detected (Not Detectd) 02/06/22 Range/Units 11:49 WBC (3.8-10.6) k/uL RBC (3.80-5.40) m/uL Hgb (11.4-16.0) gm/dL Hct (34.0-46.0) % MCV (80.0-100.0) fL MCH (25.0-35.0) pg MCHC (31.0-37.0) g/dL RDW (11.5-15.5) % Plt Count (150-450) k/uL MPV Neutrophils % % Lymphocytes % % Monocytes % % Eosinophils % % Basophils % % Neutrophils # (1.3-7.7) k/uL Lymphocytes # (1.0-4.8) k/uL Monocytes # (0-1.0) k/uL Eosinophils # (0-0.7) k/uL Basophils # (0-0.2) k/uL Sodium 140 (137-145) mmol/L Potassium 4.0 (3.5-5.1) mmol/L Chloride 105 (98-107) mmol/L Carbon Dioxide 29 (22-30) mmol/L Anion Gap 6 mmol/L BUN 13 (7-17) mg/dL Creatinine 0.49 L (0.52-1.04) mg/dL Est GFR (CKD-EPI)AfAm >90 (>60 ml/min/1.73 sqM) Est GFR (CKD-EPI)NonAf >90 (>60 ml/min/1.73 sqM) Glucose 95 (74-99) mg/dL Calcium 9.2 (8.4-10.2) mg/dL Total Bilirubin 0.5 (0.2-1.3) mg/dL AST 19 (14-36) U/L ALT 21 (4-34) U/L Alkaline Phosphatase 77 (38-126) U/L Total Protein 7.1 (6.3-8.2) g/dL Albumin 4.4 (3.5-5.0) g/dL Lipase 158 (23-300) U/L Urine Color Urine Appearance (Clear) Urine pH (5.0-8.0) Ur Specific [place] (1.001-1.035) Urine Protein (Negative) Urine Glucose (UA) (Negative) Urine Ketones (Negative) Urine Blood (Negative) Urine Nitrite (Negative) Urine Bilirubin (Negative) Urine Urobilinogen (<2.0) mg/dL Ur Leukocyte Esterase (Negative) Urine RBC (0-5) /hpf Urine WBC (0-5) /hpf Ur Squamous Epith Cells (0-4) /hpf Urine Bacteria (None) /hpf Urine Mucus (None) /hpf Urine HCG, Qual (Not Detectd) Disposition Clinical Impression: Nausea & vomiting Disposition: HOME SELF-CARE Condition: Stable Instructions (If sedation given, give patient instructions): Acute Nausea and Vomiting (ED) Additional Instructions: Please return to the Emergency Department if symptoms worsen or any other concerns. Prescriptions: Ondansetron Odt [Zofran Odt] 4 mg PO Q8HR PRN #10 tab PRN Reason: Nausea Is patient prescribed a controlled substance at d/c from ED?: No Referrals: None,Stated [Primary Care Provider] - 1-2 days Time of Disposition: 13:11
[2022-02-06 14:01] VITALS: BP 118/78; PULSE 79
== END 2022-02-06 14:01 | disposition home or self-care (01) ==
LOC: EC 11:11
DX: R11.2 Nausea with vomiting, unspecified (principal); E11.9 Type 2 diabetes mellitus without complications; K21.9 Gastro-esophageal reflux disease without esophagitis; F41.9 Anxiety disorder, unspecified; F32.A Depression, unspecified; F17.200 Nicotine dependence, unspecified, uncomplicated; F12.90 Cannabis use, unspecified, uncomplicated; Z79.899 Other long term (current) drug therapy; Z91.012 Allergy to eggs; Z91.011 Allergy to milk products; Z88.5 Allergy status to narcotic agent
CPT/HCPCS: 36415; 80053; 83690; 85025; 81001; 81025; 99284; 96374; 96375 ×2; 96361; J1200; J2765; J1790

== ENCOUNTER 2022-02-10 03:41 | Inpatient (IN) | payer MEDICARE, MEDICAID ==
--- NOTE | 2022-02-10 03:59 | ED ---
Psych HPI - General Stated Complaint: Mental Health Time Seen by Provider: 02/10/22 03:56 Source: RN notes reviewed, old records reviewed Limitations: no limitations, altered mental status - History of Present Illness Initial Comments: This is a 26-year-old female mildly poor strain secondary to clinical state refusing to participate history taking. Patient's presented from mental health evaluation MD Complaint: suicidal ideation -: minutes(s) Associated Psychiatric Symptoms: none History of same: Yes Quality: constant Improves With: none Worsens With: none Context: not taking psychiatric medications Associated Symptoms: denies other symptoms Treatments Prior to Arrival: placed on mental health hold If Self Harm: admits thoughts of self harm - Related Data Home Medications Medication Instructions Recorded Confirmed Atorvastatin [Lipitor] 10 mg PO DAILY 01/27/22 02/17/22 Metoclopramide [Reglan] 10 mg PO Q8H PRN 01/27/22 02/17/22 Montelukast Sodium [Singulair] 10 mg PO DAILY 01/27/22 02/17/22 metFORMIN HCL ER [Glucophage XR] 1,000 mg PO DAILY 01/27/22 02/17/22 Previous Rx's Medication Instructions Recorded Nicotine 14Mg/24Hr Patch [Habitrol] 1 patch TRANSDERM DAILY 14 Days 01/30/22 patch Albuterol Inhaler [Ventolin Hfa 2 puff INHALATION RT-QID PRN 30 02/12/22 Inhaler] Days each Benzonatate [Tessalon Perles] 100 mg PO TID PRN 15 Days cap 02/12/22 Ondansetron [Zofran] 4 mg PO Q8HR PRN 15 Days tab 02/12/22 fluPHENAZine decanoate [Prolixin 25 mg IM Q21D #1 each 02/12/22 Decanoate] Desvenlafaxine Succinate [Pristiq 100 mg PO DAILY 30 Days tab 02/19/22 ER] [place] Carbonate 600 mg PO BID 30 Days cap 02/19/22 Prazosin [Minipress] 3 mg PO HS 30 Days cap 02/19/22 Topiramate [Topamax] 25 mg PO BID 30 Days tab 02/19/22 hydrOXYzine pamoate [Vistaril] 100 mg PO HS 30 Days cap 02/19/22 Allergies Allergy/AdvReac Type Severity Reaction Status Date / Time egg Allergy Anaphylaxis Verified 02/10/22 09:04 hydromorphone HCl Allergy Itching/Hiv Verified 02/10/22 09:04 [From Dilaudid] es milk Allergy Anaphylaxis Verified 02/10/22 09:04 gabapentin AdvReac Hives Verified 02/10/22 09:04 Review of Systems ROS Statement: Those systems with pertinent positive or pertinent negative responses have been documented in the HPI. ROS Other: All systems not noted in ROS Statement are negative. Past Medical History Past Medical History: Diabetes Mellitus, GERD/Reflux, GI Bleed Additional Past Medical History / Comment(s): borderline personality, schizophrenia, hx attempted suicide, her brother is her guardian, PCOS, Migraines, History of Any Multi-Drug Resistant Organisms: C-DIFF Date of last positivie culture/infection: 2016 MDRO Source:: Stool Past Surgical History: Cholecystectomy, Tonsillectomy Past Anesthesia/Blood Transfusion Reactions: No Reported Reaction Past Psychological History: Anxiety, Depression, PTSD, Schizoaffective Disorder, Schizophrenia Smoking Status: Current every day smoker, Vaper Past Alcohol Use History: Occasional Past Drug Use History: Marijuana - Past Family History Mother Additional Family Medical History / Comment(s): NONE Father Additional Family Medical History / Comment(s): NONE General Exam Limitations: altered mental status General appearance: alert, in no apparent distress Head exam: Present: atraumatic, normocephalic, normal inspection Eye exam: Present: normal appearance, PERRL, EOMI. Absent: scleral icterus, conjunctival injection, periorbital swelling ENT exam: Present: normal exam, mucous membranes moist Neck exam: Present: normal inspection. Absent: tenderness, meningismus, lymphadenopathy Respiratory exam: Present: normal lung sounds bilaterally. Absent: respiratory distress, wheezes, rales, rhonchi, stridor Cardiovascular Exam: Present: regular rate, normal rhythm, normal heart sounds. Absent: systolic murmur, diastolic murmur, rubs, gallop, clicks GI/Abdominal exam: Present: soft, normal bowel sounds. Absent: distended, tenderness, guarding, rebound, rigid Extremities exam: Present: normal inspection, full ROM, normal capillary refill. Absent: tenderness, pedal edema, joint swelling, calf tenderness Back exam: Present: normal inspection Neurological exam: Present: alert, oriented X3, CN II-XII intact Psychiatric exam: Present: normal affect, normal mood Skin exam: Present: warm, dry, intact, normal color. Absent: rash Course Vital Signs 02/10/22 04:00 Temperature 98 F Pulse Rate 90 Respiratory 18 Rate Blood Pressure 117/70 O2 Sat by Pulse 95 Oximetry Medical Decision Making - Medical Decision Making 26 female will be admitted for psychiatric evaluation and treatment seen and evaluated here in the ER - Lab Data Lab Results 02/10/22 Range/Units 05:52 Coronavirus (PCR) Not Detected (Not Detectd) Disposition Clinical Impression: Schizophrenia, chronic with acute exacerbation, Suicidal ideation, Hallucinations Disposition: TRANSFER TO PSYCH HOSP/UNIT Condition: Stable
[2022-02-10] MEDS ORDERED: HALOPERIDOL LACTATE 5 MG/ML 1 ML VIAL IM PRN (06:43)
[2022-02-10] MEDS ORDERED: MAG HYDROX/AL HYDROX/SIMETH 355 ML BOTTLE PO PRN (06:43)
[2022-02-10] MEDS ORDERED: MAGNESIUM HYDROXIDE 2,400 MG/10 ML CUP PO PRN (06:43)
[2022-02-10 07:27] LABS: Bacteria,Urine Rare /hpf; Calcium Oxalate Crystals,Urine Few /hpf; Mucus,Urine Few /hpf; RBC,Urine <1 /hpf (0-5); Squamous Epithelial Cell,Urine 6 /hpf (0-4); WBC,Urine 2 /hpf (0-5)
[2022-02-10 07:30] LABS: Amphetamine Screen,Urine Not Detected (NotDetected); Barbiturate Screen,Urine Not Detected (NotDetected); Benzodiazepines Screen,Urine Not Detected (NotDetected); Cocaine Screen,Urine Not Detected (NotDetected); Methadone Screen, Urine Not Detected (NotDetected); Opiate Screen,Urine Not Detected (NotDetected); Oxycodone Screen, Urine Not Detected (NotDetected); Phencyclidine Screen,Urine Not Detected (NotDetected); Tricyclic Antidepressant,Urine Not Detected (NotDetected); Urn Cannabinoid Scrn Not Detected (NotDetected)
[2022-02-10 07:33] LABS: Appearance,Urine Cloudy (Clear); Bilirubin,Urine Negative (Negative); Blood,Urine Negative (Negative); Budding Yeast,Urine Occasional /hpf; Color,Urine Yellow; Glucose,Urine (UA) Negative (Negative); Ketones,Urine Negative (Negative); Leukocyte Esterase,Urine Negative (Negative); Nitrite,Urine Negative (Negative); PH, Urine 6.5 (5.0-8.0); Protein,Urine Trace (Negative); Specific Gravity,Urine 1.019 (1.001-1.035); Urobilinogen,Urine <2.0 mg/dL (<2.0)
[2022-02-10] MEDS: NICOTINE 14MG/24HR PATCH TRANSDERM SCH (08:34)
[2022-02-10] MEDS: LITHIUM CARBONATE 150 MG CAP PO SCH ×2 (08:35→19:57)
[2022-02-10] MEDS: metFORMIN 500 MG TAB PO SCH ×2 (08:35→17:52)
[2022-02-10] MEDS: ATORVASTATIN 10 MG TAB PO SCH (08:35)
[2022-02-10] MEDS: ACETAMINOPHEN TAB 325 MG TAB PO PRN (08:40)
[2022-02-10] MEDS ORDERED: ZIPRASIDONE 60 MG CAP PO SCH (09:00)
[2022-02-10] MEDS: LORazepam 1 MG TAB PO PRN (09:40)
[2022-02-10] MEDS: DESVENLAFAXINE SUCCINATE 50 MG TAB.ER.24H PO SCH (10:56)
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
[2022-02-10] MEDS: hydrOXYzine pamoate 25 MG CAP PO SCH ×2 (15:21→19:58)
[2022-02-10] MEDS: BENZONATATE 100 MG CAP PO PRN (17:53)
[2022-02-10] MEDS: PRAZOSIN 1 MG CAP PO SCH (19:58)
--- NOTE | 2022-02-10 23:37 | P.CONS ---
History of Present Illness - Reason for Consult Consult date: 02/10/22 - History of Present Illness The patient is a 26-year-old female with a PMH of PCOS, type II DM, marijuana abuse, and tobacco use who presented to the emergency room with complaints of hallucinations and anxiety. Patient was admitted to the mental health unit where she was seen and evaluated with the mental health unit BO Paula at the bedside. The patient states that over the past 5-6 years, she has been experiencing the above symptoms and has had multiple admissions to the mental health unit. She reports also experiencing right lower quadrant abdominal discomfort over the past 1 week, 8 out of 10 on maximal intensity, intermittent, with no alleviating or exacerbating features is in no inciting factors, with associated nausea and vomiting. She also smokes 2 packs of cigarettes daily and uses recreational marijuana. She denies experiencing fever, chills, chest pain, shortness of breath or diarrhea. Review of systems: Pertinent positives and negatives as discussed in HPI, a complete review of systems was performed and all other systems are negative. Physical examination: General: non toxic, no distress, appears at stated age, morbidly obese Derm: no unusual rashes/lesions, warm Head: atraumatic, normocephalic, symmetric Eyes: EOMI, no lid lag, anicteric sclera, pupils equal round reactive to light ENT: Nose and ears atraumatic Neck: No cervical lymphadenopathy, trachea midline, supple Mouth: no lip lesion, mucus membranes moist Cardiovascular: S1S2 reg, no murmur, positive dorsalis pedis pulse bilateral, no edema Lungs: CTA bilateral, no rhonchi, no rales, no accessory muscle use Abdominal: soft, mild right lower quadrant tenderness to palpation, no guarding, no rebound or rigidity noted Ext: muscle strength 5 out of 5 in all 4 extremities grossly, no gross muscle atrophy, no contractures, Neuro: CN II-XI grossly intact, no gross focal neuro deficits Psych: Alert, oriented, flat affect Assessment/plan Right lower quadrant abdominal discomfort -Upon chart review, the patient has been evaluated for similar right lower quadrant abdominal pain several times this year in the emergency room -4 CT scans were performed in the year 2021 which revealed hepatomegaly with a normal appendix -Conservative management with Zofran when necessary Type II DM/PCOS -Continue home metformin dose Schizophrenia with anxiety -As per psychiatry Past Medical History Past Medical History: Diabetes Mellitus, GERD/Reflux, GI Bleed Additional Past Medical History / Comment(s): borderline personality, schizophrenia, hx attempted suicide, her brother is her guardian, PCOS, Migraines, History of Any Multi-Drug Resistant Organisms: C-DIFF Year Discovered:: 2017 MDRO Source:: Stool Past Surgical History: Cholecystectomy, Tonsillectomy Past Anesthesia/Blood Transfusion Reactions: No Reported Reaction Past Psychological History: Anxiety, Depression, PTSD, Schizoaffective Disorder, Schizophrenia Smoking Status: Current every day smoker, Vaper Past Alcohol Use History: Occasional Additional Past Alcohol Use History / Comment(s): states she does not drink Past Drug Use History: Marijuana - Past Family History Mother Additional Family Medical History / Comment(s): NONE Father Additional Family Medical History / Comment(s): NONE Medications and Allergies Home Medications Medication Instructions Recorded Confirmed Type Ibuprofen [Motrin] 600 mg PO Q8HR PRN #30 tab 01/03/22 02/10/22 Rx Atorvastatin [Lipitor] 10 mg PO DAILY 01/27/22 02/10/22 History Metoclopramide [Reglan] 10 mg PO Q8H PRN 01/27/22 02/10/22 History Montelukast Sodium [Singulair] 10 mg PO DAILY 01/27/22 02/10/22 History metFORMIN HCL ER [Glucophage XR] 1,000 mg PO DAILY 01/27/22 02/10/22 History Desvenlafaxine Succinate [Pristiq 100 mg PO DAILY 15 Days tab 01/30/22 02/10/22 Rx ER] Rodman Carbonate 450 mg PO BID 15 Days cap 01/30/22 02/10/22 Rx Nicotine 14Mg/24Hr Patch [Habitrol] 1 patch TRANSDERM DAILY 14 Days 01/30/22 02/10/22 Rx patch Prazosin [Minipress] 2 mg PO HS 15 Days cap 01/30/22 02/10/22 Rx Ziprasidone [Geodon] 40 mg PO BID 15 Days cap 01/30/22 02/10/22 Rx Ondansetron Odt [Zofran Odt] 4 mg PO Q8HR PRN #10 tab 02/06/22 02/10/22 Rx Allergies Allergy/AdvReac Type Severity Reaction Status Date / Time egg Allergy Anaphylaxis Verified 02/10/22 09:04 hydromorphone HCl Allergy Itching/Hiv Verified 02/10/22 09:04 [From Dilaudid] es milk Allergy Anaphylaxis Verified 02/10/22 09:04 gabapentin AdvReac Hives Verified 02/10/22 09:04 Physical Exam Vitals: Vital Signs Temp Pulse Pulse Resp BP BP Pulse Ox 02/10/22 08:00 97.8 F 77 16 110/67 95 02/10/22 04:00 98 F 90 18 117/70 95 Intake and Output 02/10/22 02/10/22 02/10/22 06:59 14:59 22:59 Other: Weight 114.7 kg 114.7 kg Results Labs: Abnormal Lab Results - Last 24 Hours (Table) 02/10/22 Range/Units 06:59 Urine Appearance Cloudy H (Clear) Urine Protein Trace H (Negative) Ur Squamous Epith Cells 6 H (0-4) /hpf Calcium Oxalate Crystal Few H (None) /hpf Urine Bacteria Rare H (None) /hpf Urine Mucus Few H (None) /hpf Urine Yeast (Budding) Occasional H (None) /hpf
[2022-02-11] MEDS: ACETAMINOPHEN TAB 325 MG TAB PO PRN (06:02)
[2022-02-11 06:04] VITALS: RESP 18
[2022-02-11] MEDS: BENZONATATE 100 MG CAP PO PRN ×2 (06:28→14:03)
[2022-02-11] MEDS: ONDANSETRON 4 MG TAB PO PRN ×2 (06:28→14:03)
[2022-02-11] MEDS: NICOTINE 14MG/24HR PATCH TRANSDERM SCH (07:51)
[2022-02-11] MEDS: hydrOXYzine pamoate 25 MG CAP PO SCH ×2 (07:52→20:37)
[2022-02-11] MEDS: ATORVASTATIN 10 MG TAB PO SCH (07:52)
[2022-02-11] MEDS: LITHIUM CARBONATE 150 MG CAP PO SCH (07:52)
[2022-02-11] MEDS: metFORMIN 500 MG TAB PO SCH ×2 (07:52→17:24)
[2022-02-11] MEDS: DESVENLAFAXINE SUCCINATE 50 MG TAB.ER.24H PO SCH (07:52)
[2022-02-11] MEDS ORDERED: TOPIRAMATE 25 MG TAB PO STA (09:20)
--- NOTE | 2022-02-11 09:54 | P.PN ---
Progress Note - Text Progress Note Date: 02/11/22 Interval History: Patient was seen resting in bed and was directable and agreeable to speak with card writer hand in the office. Currently, the patient is not reporting any suicidal or homicidal ideation, intention, and/or plan. She does report she was experiencing thoughts of hurting others when her "voices got real bad." She states that this was yesterday. She reports difficulty with sleep and racing thoughts. Patient continues to endorse elevated anxiety which she attributes to her uncontrolled psychotic symptoms. Furthermore she reports migraine headache with photosensitivity and throbbing pain. She does however appear to be future and goal-oriented, and expresses a desire for discharge home prior to [place]. Mental Status Exam: General Appearance: Patient appears to be stated age is alert, directable, and cooperative. Behavior: Patient is calmly seated without any agitated behavior. Speech: Patient's speech is fluent and nonpressured. Mood/Affect: Mood is "not good," affect is incongruent as patient appears to be somewhat euthymic albeit with constricted affect. Suicidality/Homicidality: Patient reports homicidal ideation yesterday but denies any suicidal or homicidal ideation today. Perceptions: Patient denies any visual hallucinations but reports auditory hallucinations. Though content/process: There is no evidence of any delusional thought content and thought process is linear and goal-directed. Memory and concentration: AOX3, grossly intact for the purposes of this session Judgment and insight: Improving mildly Vital Signs Temp 97.8 F 02/11/22 06:03 Pulse 103 H 02/11/22 06:03 Resp 18 02/11/22 06:03 BP 110/65 02/11/22 06:03 Pulse Ox 95 02/10/22 08:00 FiO2 Intake & Output 02/10/22 02/11/22 02/11/22 18:59 06:59 18:59 Weight 114.7 kg Assessment Schizophrenia Cannabis use disorder Tobacco use disorder Rule out dependent personality disorder Plan: -Patient continues to meet criteria for inpatient psychiatric admission for symptom stabilization and safety. Patient has signed adult voluntary form and medication consent and was placed in patient's chart. -Medications: Increase Prolixin to 4 mg twice a day for psychosis with plans to transition to Prolixin decanoate. Pristiq 100 mg per daily for depression/anxiety/PTSD Increase Onton to 450 mg by mouth in the morning and 600 mg at bedtime for mood stabilization Prazosin 3 mg by mouth at bedtime for PTSD related nightmares Continue Vistaril at 100 mg at bedtime for insomnia Start Topamax 25 mg daily for migraine. -When necessary Ativan and Haldol for agitation/aggression. -NRT - nicotine patch -SW on board for discharge planning. Encouraged the patient to participate in milieu.
[2022-02-11] MEDS ORDERED: MAG HYDROX/AL HYDROX/SIMETH 30 ML CUP PO PRN (10:44)
[2022-02-11] MEDS: LORazepam 1 MG TAB PO PRN (14:04)
[2022-02-11] MEDS ORDERED: ALBUTEROL HFA INHALER INHALATION PRN (17:50)
[2022-02-11] MEDS: PRAZOSIN 1 MG CAP PO SCH (20:37)
[2022-02-11] MEDS ORDERED: LITHIUM CARBONATE 300 MG CAP PO SCH (21:00)
[2022-02-12 06:48] VITALS: BP 112/56; PULSE 76; TEMP 97.6
[2022-02-12] MEDS ORDERED: fluPHENAZine DECANOATE 25 MG/ML 5ML MDV IM ONE (08:00)
[2022-02-12] MEDS: metFORMIN 500 MG TAB PO SCH (08:28)
[2022-02-12] MEDS: DESVENLAFAXINE SUCCINATE 50 MG TAB.ER.24H PO SCH (08:28)
[2022-02-12] MEDS: ATORVASTATIN 10 MG TAB PO SCH (08:29)
[2022-02-12] MEDS: NICOTINE 14MG/24HR PATCH TRANSDERM SCH (08:30)
[2022-02-12] MEDS ORDERED: TOPIRAMATE 25 MG TAB PO SCH (09:00)
[2022-02-12] MEDS ORDERED: LITHIUM CARBONATE 150 MG CAP PO SCH (09:00)
[2022-02-12] MEDS: ACETAMINOPHEN TAB 325 MG TAB PO PRN ×2 (09:02→13:02)
[2022-02-12] MEDS: BENZONATATE 100 MG CAP PO PRN (09:02)
[2022-02-12] MEDS: ONDANSETRON 4 MG TAB PO PRN (09:19)
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
== END 2022-02-12 13:05 | disposition home or self-care (01) | DRG 885 ==
LOC: EC 03:41 → 3MHU 06:31
PROVIDERS: ADMIT Psychiatry & Neurology Psychiatry; ATTEND Psychiatry & Neurology Psychiatry
DX: F20.9 Schizophrenia, unspecified (principal); R45.851 Suicidal ideations; Z62.810 Personal history of physical and sexual abuse in childhood; T42.4X6A Underdosing of benzodiazepines, initial encounter; G47.00 Insomnia, unspecified; G43.909 Migraine, unspecified, not intractable, without status migrainosus; E11.9 Type 2 diabetes mellitus without complications; E28.2 Polycystic ovarian syndrome; F12.10 Cannabis abuse, uncomplicated; F17.210 Nicotine dependence, cigarettes, uncomplicated; F17.290 Nicotine dependence, other tobacco product, uncomplicated; F32.A Depression, unspecified; F43.10 Post-traumatic stress disorder, unspecified; K21.9 Gastro-esophageal reflux disease without esophagitis; F41.9 Anxiety disorder, unspecified; Z20.822 Contact with and (suspected) exposure to COVID-19; F60.7 Dependent personality disorder; R16.0 Hepatomegaly, not elsewhere classified; R45.850 Homicidal ideations; Z71.89 Other specified counseling; Z91.51 Personal history of suicidal behavior; Z79.899 Other long term (current) drug therapy; Z28.310 Unvaccinated for COVID-19; Z86.19 Personal history of other infectious and parasitic diseases; Z91.410 Personal history of adult physical and sexual abuse; Z91.14 Patient's other noncompliance with medication regimen; Z79.84 Long term (current) use of oral hypoglycemic drugs; Z88.5 Allergy status to narcotic agent; Z88.8 Allergy status to other drugs, medicaments and biological substances; Z87.19 Personal history of other diseases of the digestive system
CPT/HCPCS: 80178; 80306; 81001; 81025; 82075; 87635; 96365; 96366; 99285

== ENCOUNTER 2022-02-16 17:33 | Inpatient (IN) | payer MEDICARE, MEDICAID ==
--- NOTE | 2022-02-16 21:08 | ED ---
Psych HPI - General Chief Complaint: Psychiatric Symptoms Stated Complaint: Mental Health Time Seen by Provider: 02/16/22 20:38 Source: patient, RN notes reviewed Mode of arrival: ambulatory - History of Present Illness Initial Comments: Patient with a history of depression and anxiety presents to the emergency department with suicidal ideation. Patient states she currently has no specific plan but has thought about cutting herself or hang herself previously. No homicidal ideation. Patient states she is getting over bronchitis, however, no other illness. No headache, no fever or chills, no changes in vision or hearing, no sore throat or difficulty with speech, no neck pain, no chest pain or shortness of breath, no abdominal pain, no nausea or vomiting, no changes in urination or bowel movements, no numbness or tingling, no extremity pain, no skin rashes or lesions. Past medical, surgical, social, and family history reviewed. - Related Data Home Medications Medication Instructions Recorded Confirmed Atorvastatin [Lipitor] 10 mg PO DAILY 01/27/22 02/10/22 Metoclopramide [Reglan] 10 mg PO Q8H PRN 01/27/22 02/10/22 Montelukast Sodium [Singulair] 10 mg PO DAILY 01/27/22 02/10/22 metFORMIN HCL ER [Glucophage XR] 1,000 mg PO DAILY 01/27/22 02/10/22 Previous Rx's Medication Instructions Recorded Nicotine 14Mg/24Hr Patch [Habitrol] 1 patch TRANSDERM DAILY 14 Days 01/30/22 patch Albuterol Inhaler [Ventolin Hfa 2 puff INHALATION RT-QID PRN 30 02/12/22 Inhaler] Days each Benzonatate [Tessalon Perles] 100 mg PO TID PRN 15 Days cap 02/12/22 Desvenlafaxine Succinate [Pristiq 100 mg PO DAILY 15 Days tab 02/12/22 ER] [place] Carbonate 450 mg PO DAILY 15 Days cap 02/12/22 [place] Carbonate 600 mg PO HS 15 Days cap 02/12/22 Ondansetron [Zofran] 4 mg PO Q8HR PRN 15 Days tab 02/12/22 Prazosin [Minipress] 3 mg PO HS 15 Days cap 02/12/22 Topiramate [Topamax] 25 mg PO DAILY 15 Days tab 02/12/22 fluPHENAZine decanoate [Prolixin 25 mg IM Q21D #1 each 02/12/22 Decanoate] hydrOXYzine pamoate [Vistaril] 100 mg PO HS 15 Days cap 02/12/22 Allergies Allergy/AdvReac Type Severity Reaction Status Date / Time egg Allergy Anaphylaxis Verified 02/10/22 09:04 hydromorphone HCl Allergy Itching/Hiv Verified 02/10/22 09:04 [From Dilaudid] es milk Allergy Anaphylaxis Verified 02/10/22 09:04 gabapentin AdvReac Hives Verified 02/10/22 09:04 Review of Systems ROS Statement: Those systems with pertinent positive or pertinent negative responses have been documented in the HPI. ROS Other: All systems not noted in ROS Statement are negative. Past Medical History Past Medical History: Diabetes Mellitus, GERD/Reflux, GI Bleed Additional Past Medical History / Comment(s): borderline personality, schizophrenia, hx attempted suicide, her brother is her guardian, PCOS, Migraines, History of Any Multi-Drug Resistant Organisms: C-DIFF Date of last positivie culture/infection: 2016 MDRO Source:: Stool Past Surgical History: Cholecystectomy, Tonsillectomy Past Anesthesia/Blood Transfusion Reactions: No Reported Reaction Past Psychological History: Anxiety, Depression, PTSD, Schizoaffective Disorder, Schizophrenia Smoking Status: Current every day smoker, Vaper Past Alcohol Use History: Occasional Past Drug Use History: Marijuana - Past Family History Mother Additional Family Medical History / Comment(s): NONE Father Additional Family Medical History / Comment(s): NONE General Exam Limitations: no limitations General appearance: alert, in no apparent distress Head exam: Present: atraumatic, normocephalic, normal inspection Eye exam: Present: normal appearance, PERRL, EOMI. Absent: scleral icterus, conjunctival injection, periorbital swelling ENT exam: Present: normal exam, mucous membranes moist Neck exam: Present: normal inspection. Absent: tenderness, meningismus, lymphadenopathy Respiratory exam: Present: normal lung sounds bilaterally. Absent: respiratory distress, wheezes, rales, rhonchi, stridor Cardiovascular Exam: Present: regular rate, normal rhythm, normal heart sounds. Absent: systolic murmur, diastolic murmur, rubs, gallop, clicks GI/Abdominal exam: Present: soft, normal bowel sounds. Absent: distended, tenderness, guarding, rebound, rigid Extremities exam: Present: normal inspection, full ROM, normal capillary refill. Absent: tenderness, pedal edema, joint swelling, calf tenderness Back exam: Present: normal inspection Neurological exam: Present: alert, oriented X3, CN II-XII intact Psychiatric exam: Present: depressed, flat affect, suicidal ideation. Absent: normal affect, homicidal ideation Skin exam: Present: warm, dry, intact, normal color. Absent: rash Course Vital Signs 02/16/22 18:54 Temperature 98.0 F Pulse Rate 94 Respiratory 18 Rate Blood Pressure 129/81 O2 Sat by Pulse 97 Oximetry - Reevaluation(s) Reevaluation #1: 02/17/22 01:26 Patient deemed appropriate for admission by the psychiatric nurse. Apparently they wanted blood work on the patient. I did add on a lithium level. COVID-19 ordered. Medical Decision Making - Medical Decision Making Was pt. sent in by a medical professional or institution? @ -no Did you speak to anyone other than the patient for history? @ -no Did you review nursing and triage notes? @ -Reviewed previous records Were old charts reviewed? @ -Review previous records Differential Diagnosis? @ -Depression, suicidal ideation, bipolar disorder, psychosis, this is not an all-inclusive list What testing was considered but not performed? (CT, X-rays, U/S, labs)? Why? @ [CT, X-rays, U/S, labs? Why?] What meds were considered but not given? Why? @ -[none] Did you discuss the management of the patient with other professionals? @ -[professionals i.e. Dr, PA, TAILINGS [employer] PUMPER, Lab, RT, Psych Nurse, Attendant [facility], Toy Packer, Teacher, Test Center Administrator, comp field case manager? Give summary] Did you reconcile home meds? @ -[none] Was smoking cessation discussed for >3mins.? @ -[none] Was critical care preformed (if so, how long)? @ -[none] Were there social determinants of health that impacted care today? How? (Homelessness, low income, unemployed, alcoholism, drug addiction, transportation, low edu. Level, literacy, decrease access to med. care, half-way, rehab)? @ -[Homelessness, low income, unemployed, alcoholism, drug addiction, transportation, low edu. Level, literacy, decrease access to med. care, half-way, rehab?] Was there de-escalation of care discussed even if they declined? (Discuss DNR or withdrawal of care, Hospice)? @ -[Discuss DNR or withdrawal of care, Hospice?] What co-morbidities impacted this encounter? (DM, HTN, Smoking, COPD, CAD, Cancer, CVA, Hep., AIDS, mental health diagnosis, sleep apnea, morbid obesity)? @ -[DM, HTN, Smoking, COPD, CAD, Cancer, CVA, Hep., AIDS, mental health diagnosis, sleep apnea, morbid obesity?] Was patient admitted / discharged? @ -[hospital course] Undiagnosed new problem with uncertain prognosis? @ -[none] Drug Therapy requiring intensive monitoring for toxicity (Heparin, Nitro, Insulin, Cardizem)? @ -[none] Were any procedures done? @ -[none] Diagnosis/symptom? @ -[Depression, suicidal ideation] Acute, or Chronic, or Acute on Chronic? @ -[Acute on chronic] Uncomplicated (without systemic symptoms) or Complicated (systemic symptoms)? @ -[Suicidal] Side effects of treatment? @ -[none] Exacerbation, Progression, or Severe Exacerbation] @ -[Exacerbation of depressive thoughts] Poses a threat to life or bodily function? @ -[Possible The case was discussed in detail with ED attending physician. Presentation, findings, treatment plan discussed in detail. Supervising physician Dr. Hoffmann Laboratory investigations are pending.] Disposition Clinical Impression: Depression, Suicidal ideation Disposition: ADMITTED IP TO THIS [facility] Condition: Stable Referrals: [facility] [Primary Care Provider] - 1-2 days Time of Disposition: 01:27 Decision to Admit Reason: Admit from EC Decision Time: 01:27
[2022-02-16] MEDS ORDERED: hydrOXYzine HCL 50 MG/ML 1 ML VIAL IM STA (22:03)
[2022-02-17] MEDS ORDERED: MAGNESIUM HYDROXIDE 2,400 MG/10 ML CUP PO PRN (01:17)
[2022-02-17] MEDS ORDERED: MAG HYDROX/AL HYDROX/SIMETH 30 ML CUP PO PRN (01:17)
[2022-02-17] MEDS ORDERED: LORazepam 2 MG/ML INJ IM PRN (01:21)
[2022-02-17] MEDS ORDERED: HALOPERIDOL LACTATE 5 MG/ML 1 ML VIAL IM PRN (01:25)
[2022-02-17 01:50] LABS: Basophils # (A) 0.1 k/uL (0-0.2); Basophils % (A) 1 %; Eosinophils % (A) 0 %; Lymphocytes # (A) 4.1 k/uL (1.0-4.8); Lymphocytes % (A) 32 %; MCH 30.6 pg (25.0-35.0); MCHC 33.3 g/dL (31.0-37.0); MCV 91.9 fL (80.0-100.0); Monocytes # (A) 0.5 k/uL (0-1.0); Monocytes % (A) 4 %; Neutrophils # (A) 7.9 k/uL (1.3-7.7); Neutrophils % (A) 62 %; Platelet Count 316 k/uL (150-450); RBC 4.57 m/uL (3.80-5.40); RDW 13.2 % (11.5-15.5); WBC 12.8 k/uL (3.8-10.6)
[2022-02-17 01:58] LABS: African American GFR (CKD) >90 (>60 ml/min/1.73 sqM); Anion Gap 6 mmol/L; Blood Urea Nitrogen 15 mg/dL (7-17); Calcium 9.3 mg/dL (8.4-10.2); Carbon Dioxide 27 mmol/L (22-30); Chloride 107 mmol/L (98-107); Glucose 103 mg/dL (74-99); Lithium 0.2 mmol/L; Non-African American GFR(CKD) >90 (>60 ml/min/1.73 sqM); Potassium 4.3 mmol/L (3.5-5.1); Sodium 140 mmol/L (137-145)
[2022-02-17 02:30] LABS: Amorphous Sediment,Urine Rare /hpf; Appearance,Urine Cloudy (Clear); Bacteria,Urine Occasional /hpf; Bilirubin,Urine Negative (Negative); Blood,Urine Negative (Negative); Calcium Oxalate Crystals,Urine Moderate /hpf; Color,Urine Yellow; Glucose,Urine (UA) Negative (Negative); Ketones,Urine Negative (Negative); Leukocyte Esterase,Urine Negative (Negative); Mucus,Urine Rare /hpf; Nitrite,Urine Negative (Negative); PH, Urine 6.5 (5.0-8.0); Protein,Urine Negative (Negative); RBC,Urine <1 /hpf (0-5); Specific Gravity,Urine 1.019 (1.001-1.035); Squamous Epithelial Cell,Urine <1 /hpf (0-4); Urobilinogen,Urine <2.0 mg/dL (<2.0); WBC,Urine 1 /hpf (0-5)
[2022-02-17] MEDS ORDERED: BENZONATATE 100 MG CAP PO PRN (02:44)
[2022-02-17] MEDS ORDERED: METOCLOPRAMIDE 10 MG TAB PO PRN (02:44)
[2022-02-17] MEDS ORDERED: ONDANSETRON 4 MG TAB PO PRN (02:44)
[2022-02-17] MEDS ORDERED: ALBUTEROL INHALER 60 PUFF/8 GM INHALER (MHU) INHALATION PRN (02:44)
[2022-02-17 02:46] LABS: Amphetamine Screen,Urine Not Detected (NotDetected); Barbiturate Screen,Urine Not Detected (NotDetected); Benzodiazepines Screen,Urine Not Detected (NotDetected); Cocaine Screen,Urine Not Detected (NotDetected); Methadone Screen, Urine Not Detected (NotDetected); Opiate Screen,Urine Not Detected (NotDetected); Oxycodone Screen, Urine Not Detected (NotDetected); Phencyclidine Screen,Urine Not Detected (NotDetected); Tricyclic Antidepressant,Urine Not Detected (NotDetected); Urn Cannabinoid Scrn Not Detected (NotDetected)
[2022-02-17] MEDS: MONTELUKAST 10 MG TAB PO SCH (08:32)
[2022-02-17] MEDS: metFORMIN 500 MG TAB PO SCH ×2 (08:32→20:58)
[2022-02-17] MEDS: ATORVASTATIN 10 MG TAB PO SCH (08:32)
[2022-02-17] MEDS: DESVENLAFAXINE SUCCINATE 50 MG TAB.ER.24H PO SCH (08:32)
[2022-02-17] MEDS: NICOTINE 21MG/24HR PATCH TRANSDERM SCH (08:48)
[2022-02-17] MEDS ORDERED: TOPIRAMATE 25 MG TAB PO SCH (09:00)
[2022-02-17] MEDS ORDERED: LITHIUM CARBONATE 150 MG CAP PO SCH (09:00)
[2022-02-17] MEDS: haloperidoL 5 MG TAB PO PRN ×2 (11:16→17:10)
[2022-02-17] MEDS: LORazepam 1 MG TAB PO PRN ×2 (11:16→17:10)
[2022-02-17] MEDS: ACETAMINOPHEN TAB 325 MG TAB PO PRN (11:29)
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
--- NOTE | 2022-02-17 17:02 | P.HPMEDMHU ---
History of Present Illness H&P Date: 02/17/22 Chief Complaint: psychosis Patient is a 26-year-old female with history of diabetes, dyslipidemia, nicotine dependence, and schizophrenia presenting with suicidal ideations and acute psychosis. [facility] has been consulted for medical management. She is complaining of mild right lower quadrant abdominal pain this been going on for months. She claims that she is always a little nauseous, but still able to keep food down. She is also complaining of occasional diarrhea, goes about 4-5 times a day. She denies any chest pain, shortness of breath, other abdominal pain, palpitations, lightheadedness, urinary complaints. Patient seen and examined at bedside. Pertinent positives and negatives as discussed in HPI, a complete review of systems was performed and all other systems are negative. Vital signs reviewed General: nontoxic, no distress, appears at stated age Derm: warm, dry Head: atraumatic, normocephalic, symmetric Eyes: EOMI, no lid lag, anicteric sclera, pupils equal round reactive to light ENT: Nose and ears atraumatic Neck: No thyromegaly, supple Mouth: no lip lesion, mucus membranes moist Cardiovascular: S1S2 reg, no murmur, no edema Lungs: clear to auscultation bilateral, no rhonchi, no rales, no wheeze, no accessory muscle use Abdominal: soft, minimal tenderness to palpation in all quadrants, no guarding, no appreciable organomegaly Ext: no gross muscle atrophy, muscle strength muscle strength 5 out of 5 in all 4 extremities, no contractures Neuro: CN II-XII grossly intact Psych: Alert, oriented, appropriate affect Assessment/Plan: Schizophrenia Suicidal ideations Personality disorder -Management per psychiatry Nicotine dependence -Counseled regarding smoking cessation -Nicotine patch Chronic Abdominal pain Nausea Leukocytosis, likely reactive -If worsening abdominal pain, systemic signs of infection, can consider abdominal pelvis CT Chronic medical problems: Diabetes, A1c 7.1 in 02/12 Dyslipidemia Asthma -Continue home medications Thank you for allowing us to participate in the care of this pleasant patient. Do not hesitate to contact us with questions. Someone can be reached from the [facility] hospitalist group all hours of the day at [phone] or via [employer]. Past Medical History Past Medical History: Diabetes Mellitus, GERD/Reflux, GI Bleed Additional Past Medical History / Comment(s): borderline personality, schizophrenia, hx attempted suicide, her brother is her guardian, PCOS, Migraines, History of Any Multi-Drug Resistant Organisms: C-DIFF Date of last positivie culture/infection: 2016 MDRO Source:: Stool Past Surgical History: Cholecystectomy, Tonsillectomy Past Anesthesia/Blood Transfusion Reactions: No Reported Reaction Past Psychological History: Anxiety, Depression, PTSD, Schizoaffective Disorder, Schizophrenia Smoking Status: Current every day smoker, Vaper Past Alcohol Use History: Occasional Additional Past Alcohol Use History / Comment(s): states she does not drink Past Drug Use History: Marijuana - Past Family History Mother Additional Family Medical History / Comment(s): NONE Father Additional Family Medical History / Comment(s): NONE Medications and Allergies Home Medications Medication Instructions Recorded Confirmed Type Atorvastatin [Lipitor] 10 mg PO DAILY 01/27/22 02/17/22 History Metoclopramide [Reglan] 10 mg PO Q8H PRN 01/27/22 02/17/22 History Montelukast Sodium [Singulair] 10 mg PO DAILY 01/27/22 02/17/22 History metFORMIN HCL ER [Glucophage XR] 1,000 mg PO DAILY 01/27/22 02/17/22 History Nicotine 14Mg/24Hr Patch [Habitrol] 1 patch TRANSDERM DAILY 14 Days 01/30/22 02/17/22 Rx patch Albuterol Inhaler [Ventolin Hfa 2 puff INHALATION RT-QID PRN 30 02/12/22 02/17/22 Rx Inhaler] Days each Benzonatate [Tessalon Perles] 100 mg PO TID PRN 15 Days cap 02/12/22 02/17/22 Rx Desvenlafaxine Succinate [Pristiq 100 mg PO DAILY 15 Days tab 02/12/22 02/17/22 Rx ER] [place] Carbonate 450 mg PO DAILY 15 Days cap 02/12/22 02/17/22 Rx [place] Carbonate 600 mg PO HS 15 Days cap 02/12/22 02/17/22 Rx Ondansetron [Zofran] 4 mg PO Q8HR PRN 15 Days tab 02/12/22 02/17/22 Rx Prazosin [Minipress] 3 mg PO HS 15 Days cap 02/12/22 02/17/22 Rx Topiramate [Topamax] 25 mg PO DAILY 15 Days tab 02/12/22 02/17/22 Rx fluPHENAZine decanoate [Prolixin 25 mg IM Q21D #1 each 02/12/22 02/17/22 Rx Decanoate] hydrOXYzine pamoate [Vistaril] 100 mg PO HS 15 Days cap 02/12/22 02/17/22 Rx Allergies Allergy/AdvReac Type Severity Reaction Status Date / Time egg Allergy Anaphylaxis Verified 02/10/22 09:04 hydromorphone HCl Allergy Itching/Hiv Verified 02/10/22 09:04 [From Dilaudid] es milk Allergy Anaphylaxis Verified 02/10/22 09:04 gabapentin AdvReac Hives Verified 02/10/22 09:04 Physical Exam Vitals: Vital Signs Temp Pulse Pulse Resp BP BP Pulse Ox 02/17/22 02:47 98.2 F 87 18 120/78 95 02/16/22 18:54 98.0 F 94 18 129/81 97 Intake and Output 02/17/22 02/17/22 02/17/22 06:59 14:59 22:59 Other: Voiding Method Diaper Weight 112.9 kg Cranial Nerve Examination - Cranial Nerves Cranial Nerve II- Optic: Intact Cranial Nerve III- Oculomotor: Intact Cranial Nerve IV- Trochlear: Intact Cranial Nerve V- Trigeminal: Intact Cranial Nerve - Abducens: Intact Cranial Nerve VII- Facial: Intact Cranial Nerve VIII- Auditory: Intact Cranial Nerve IX- Glossopharyngeal: Intact Cranial Nerve X- Vagus: Intact Cranial Nerve XI- Accessory: Intact Cranial Nerve XII- Hypoglossal: Intact Results CBC & Chem 7: 02/17/22 01:31 02/17/22 01:31 Labs: Abnormal Lab Results - Last 24 Hours (Table) 02/17/22 02/17/22 02/17/22 Range/Units 01:31 01:31 01:31 WBC 12.8 H (3.8-10.6) k/uL Neutrophils # 7.9 H (1.3-7.7) k/uL Creatinine 0.50 L (0.52-1.04) mg/dL Glucose 103 H (74-99) mg/dL Urine Appearance Cloudy H (Clear) Calcium Oxalate Crystal Moderate H (None) /hpf Amorphous Sediment Rare H (None) /hpf Urine Bacteria Occasional H (None) /hpf Urine Mucus Rare H (None) /hpf
[2022-02-17] MEDS: hydrOXYzine pamoate 25 MG CAP PO SCH (20:57)
[2022-02-17] MEDS: LITHIUM CARBONATE 300 MG CAP PO SCH (20:58)
[2022-02-17] MEDS: TOPIRAMATE 25 MG TAB PO SCH (20:58)
[2022-02-17] MEDS: PRAZOSIN 1 MG CAP PO SCH (20:58)
[2022-02-17] MEDS ORDERED: LITHIUM CARBONATE 300 MG CAP PO SCH (21:00)
[2022-02-18 07:09] VITALS: RESP 14
[2022-02-18] MEDS: LITHIUM CARBONATE 300 MG CAP PO SCH ×2 (09:17→19:20)
[2022-02-18] MEDS: DESVENLAFAXINE SUCCINATE 50 MG TAB.ER.24H PO SCH (09:17)
[2022-02-18] MEDS: MONTELUKAST 10 MG TAB PO SCH (09:17)
[2022-02-18] MEDS: metFORMIN 500 MG TAB PO SCH ×2 (09:17→19:20)
[2022-02-18] MEDS: NICOTINE 21MG/24HR PATCH TRANSDERM SCH (09:18)
[2022-02-18] MEDS: ATORVASTATIN 10 MG TAB PO SCH (09:18)
[2022-02-18] MEDS: TOPIRAMATE 25 MG TAB PO SCH ×2 (09:18→19:20)
[2022-02-18] MEDS: LORazepam 1 MG TAB PO PRN ×2 (09:19→16:10)
[2022-02-18] MEDS: haloperidoL 5 MG TAB PO PRN ×2 (09:20→18:05)
[2022-02-18] MEDS: ACETAMINOPHEN TAB 325 MG TAB PO PRN (11:14)
--- NOTE | 2022-02-18 13:09 | P.PN ---
Progress Note - Text Progress Note Date: 02/18/22 Interval History: Patient was seen wandering the hallways and was directable and agreeable to speak with typewriter ribbon winder in the office. Currently, the patient is reporting that she is feeling overall better. She continues to experience elevated anxiety and rates her anxiety 9 of 10 in severity with 10 being very severe. However, the patient reports that at baseline her anxiety is 9 out of 10 in severity even in the outpatient setting. She is currently not endorsing any suicidal or homicidal ideation, intention, and/or plan. She is not reporting any auditory or visual hallucinations. She reports elevated paranoia at baseline as she fears what others may do. The patient does understand that a lot of her symptoms stem from her traumatic history. We discussed at length coping with anxiety and how trauma leads to a learned anxiety that can be unlearned through coping skills. She has been adherent with her medication is not endorsing any significant side effects at this time. Mental Status Exam: General Appearance: Patient appears to be stated age is alert, directable, and cooperative. Behavior: Patient is calmly seated without any agitated behavior. Speech: Patient's speech is fluent and nonpressured. Mood/Affect: Mood is improving mildly, affect is congruent and constricted. Suicidality/Homicidality: Patient denies having any suicidal or homicidal ideation intent or plan. Perceptions: Patient denies any visual hallucinations and denies any auditory h allucinations Though content/process: There is no evidence of any delusional thought content and thought process is linear and goal-directed. Memory and concentration: AOX3, grossly intact for the purposes of this session Judgment and insight: Improving mildly Vital Signs Temp 97.8 F 02/18/22 06:51 Pulse 89 02/18/22 06:51 Resp 14 02/18/22 06:51 BP 99/51 02/18/22 06:51 Pulse Ox 95 02/17/22 02:47 FiO2 Assessment Schizophrenia Cannabis use disorder Tobacco use disorder Cluster B personality disorder Plan: -Patient continues to meet criteria for inpatient psychiatric admission for symptom stabilization and safety. Patient has signed adult voluntary form and medication consent and was placed in patient's chart. -Medications: Prolixin Decanoate 25 mg IM was administered on 02/12/2022. Continue lithium 600 mg by mouth twice a day for mood stabilization Continue prazosin 3 mg by mouth at bedtime for PTSD related nightmares Continue Topamax 25 mg by mouth twice a day for off label use for mood stabilization and for migraines Vistaril 100 mg by mouth at bedtime for anxiety/insomnia -When necessary Ativan and Haldol for agitation/aggression. -NRT - nicotine patch -SW on board for discharge planning. Encouraged the patient to participate in milieu.
[2022-02-18] MEDS: PRAZOSIN 1 MG CAP PO SCH (19:19)
[2022-02-18] MEDS: hydrOXYzine pamoate 25 MG CAP PO SCH (19:21)
[2022-02-19 07:27] VITALS: TEMP 97.9
[2022-02-19] MEDS: ATORVASTATIN 10 MG TAB PO SCH (08:50)
[2022-02-19] MEDS: LITHIUM CARBONATE 300 MG CAP PO SCH (08:50)
[2022-02-19] MEDS: haloperidoL 5 MG TAB PO PRN (08:50)
[2022-02-19] MEDS: MONTELUKAST 10 MG TAB PO SCH (08:50)
[2022-02-19] MEDS: LORazepam 1 MG TAB PO PRN (08:50)
[2022-02-19] MEDS: NICOTINE 21MG/24HR PATCH TRANSDERM SCH (08:50)
[2022-02-19] MEDS: metFORMIN 500 MG TAB PO SCH (08:50)
[2022-02-19] MEDS: TOPIRAMATE 25 MG TAB PO SCH (08:50)
[2022-02-19 08:54] VITALS: BP 113/63; PULSE 111
[2022-02-19] MEDS: DESVENLAFAXINE SUCCINATE 50 MG TAB.ER.24H PO SCH (09:52)
[2022-02-19] MEDS: ACETAMINOPHEN TAB 325 MG TAB PO PRN (09:54)
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
== END 2022-02-19 14:05 | disposition home or self-care (01) | DRG 885 ==
LOC: EC 17:33 → 3MHU 02-17 02:20
PROVIDERS: ADMIT Psychiatry & Neurology Psychiatry; ATTEND Psychiatry & Neurology Psychiatry
DX: F25.9 Schizoaffective disorder, unspecified (principal); R45.851 Suicidal ideations; F17.210 Nicotine dependence, cigarettes, uncomplicated; Z20.822 Contact with and (suspected) exposure to COVID-19; F12.10 Cannabis abuse, uncomplicated; F10.20 Alcohol dependence, uncomplicated; Z71.6 Tobacco abuse counseling; E11.9 Type 2 diabetes mellitus without complications; J44.9 Chronic obstructive pulmonary disease, unspecified; F31.9 Bipolar disorder, unspecified; F43.10 Post-traumatic stress disorder, unspecified; I25.10 Atherosclerotic heart disease of native coronary artery without angina pectoris; R10.31 Right lower quadrant pain; F60.3 Borderline personality disorder; F60.89 Other specific personality disorders; G89.29 Other chronic pain; E28.2 Polycystic ovarian syndrome; G43.909 Migraine, unspecified, not intractable, without status migrainosus; G47.00 Insomnia, unspecified; I10 Essential (primary) hypertension; R45.850 Homicidal ideations; Z79.899 Other long term (current) drug therapy; Z91.14 Patient's other noncompliance with medication regimen; Z91.410 Personal history of adult physical and sexual abuse; Z91.51 Personal history of suicidal behavior; Z91.012 Allergy to eggs; Z91.011 Allergy to milk products; Z88.8 Allergy status to other drugs, medicaments and biological substances; Z90.49 Acquired absence of other specified parts of digestive tract
CPT/HCPCS: 36415; 80048; 80178; 80306; 81001; 81025; 82075; 85025; 87635; 96372; 99285

== ENCOUNTER 2022-06-29 17:58 | Inpatient (IN) | payer MEDICARE, MEDICAID ==
--- NOTE | 2022-06-29 18:57 | ED ---
General Adult HPI - General Chief complaint: Psychiatric Symptoms Stated complaint: Mental health Time Seen by Provider: 06/29/22 18:44 Source: patient, RN notes reviewed, old records reviewed Mode of arrival: ambulatory Limitations: no limitations - History of Present Illness Initial comments: 27-year-old female presents for mental health evaluation. Patient admits to intentional overdose which occurred yesterday approximately 20 hours prior to arrival she states she took a handful of her antidepressant medications. She is unable to qualify the exact amounts. She's had some nausea without significant vomiting. No physical complaints currently. - Related Data Home Medications Medication Instructions Recorded Confirmed Montelukast Sodium [Singulair] 10 mg PO DAILY 01/27/22 06/29/22 FLUoxetine HCL 40 mg PO DAILY 06/29/22 06/29/22 Paliperidone [Invega] 9 mg PO DAILY 06/29/22 06/29/22 risperiDONE [RisperDAL] 0.5 mg PO BID 06/29/22 06/29/22 Previous Rx's Medication Instructions Recorded Albuterol Inhaler [Ventolin Hfa 2 puff INHALATION RT-QID PRN 30 02/12/22 Inhaler] Days each Allergies Allergy/AdvReac Type Severity Reaction Status Date / Time egg Allergy Anaphylaxis Verified 06/29/22 20:29 hydromorphone HCl Allergy Itching/Hiv Verified 06/29/22 20:29 [From Dilaudid] es milk Allergy Anaphylaxis Verified 06/29/22 20:29 gabapentin AdvReac Hives Verified 06/29/22 20:29 Review of Systems ROS Statement: Those systems with pertinent positive or pertinent negative responses have been documented in the HPI. ROS Other: All systems not noted in ROS Statement are negative. Past Medical History Past Medical History: Diabetes Mellitus, GERD/Reflux, GI Bleed Additional Past Medical History / Comment(s): borderline personality, schizophrenia, hx attempted suicide, her brother is her guardian, PCOS, Migraines, History of Any Multi-Drug Resistant Organisms: C-DIFF Date of last positivie culture/infection: 2016 MDRO Source:: Stool Past Surgical History: Cholecystectomy, Tonsillectomy Past Anesthesia/Blood Transfusion Reactions: No Reported Reaction Past Psychological History: Anxiety, Depression, PTSD, Schizoaffective Disorder, Schizophrenia Smoking Status: Current every day smoker, Vaper Past Alcohol Use History: Occasional Past Drug Use History: Marijuana - Past Family History Mother Additional Family Medical History / Comment(s): NONE Father Additional Family Medical History / Comment(s): NONE General Exam Limitations: no limitations General appearance: alert, in no apparent distress Head exam: Present: atraumatic, normocephalic Eye exam: Present: normal appearance, PERRL ENT exam: Present: normal exam Neck exam: Present: normal inspection. Absent: tenderness Respiratory exam: Present: normal lung sounds bilaterally. Absent: respiratory distress, wheezes Cardiovascular Exam: Present: regular rate, normal rhythm GI/Abdominal exam: Present: soft. Absent: distended, tenderness, guarding Extremities exam: Present: normal inspection, normal capillary refill. Absent: pedal edema Psychiatric exam: Present: depressed, flat affect, suicidal ideation Skin exam: Present: warm, dry, intact Course Vital Signs 06/29/22 06/29/22 06/30/22 18:18 20:44 01:58 Temperature 97.7 F Pulse Rate 80 79 78 Respiratory 16 16 16 Rate Blood Pressure 126/84 118/77 118/77 O2 Sat by Pulse 98 98 Oximetry - Reevaluation(s) Reevaluation #1: 06/29/22 2100 patient care signed out at shift change awaiting laboratory testing and reevaluation. EKG Findings - EKG Comments: EKG Findings:: EKG: Sinus rhythm rate of 71, DC interval 111, castration 94, QTC 424, no ST segment elevation. Tremor artifact. - EKG Results: EKG: interpreted by TRINO Medical Decision Making - Medical Decision Making Was pt. sent in by a medical professional or institution (, PA, SEISMOGRAPH HELPER, urgent care, hospital, or detention...) When possible be specific @ -[No] Did you speak to anyone other than the patient for history (EMS, parent, family, police, friend...)? What history was obtained from this source @ -[No] Did you review nursing and triage notes (agree or disagree)? Why? @ -[I reviewed and agree with nursing and triage notes] Were old charts reviewed (outside hosp., previous admission, EMS record, old EKG, old radiological studies, urgent care reports/EKG's, detention records)? Report findings @ -[No old charts were reviewed] Differential Diagnosis (chest pain, altered mental status, abdominal pain women, abdominal pain men, vaginal bleeding, weakness, fever, dyspnea, syncope, headache, dizziness, GI bleed, back pain, seizure, CVA, palpatations, mental health, musculoskeletal)? @ Differential Mental Health Depression, anxiety, bipolar, psychosis, schizophrenia, borderline personality, situational depression, adjustment disorder, behavioral disorder, brain tumor, malingering, substance abuse, encephalopathy, medication reaction, dementia, hypothyroidism, degenerative neurologic disorder, lupus.... This is not meant to be all-inclusive list EKG interpreted by me (3pts min.). @ -[As above] X-rays interpreted by me (1pt min.). @ -[None done] CT interpreted by me (1pt min.). @ -[None done] U/S interpreted by me (1pt. min.). @ -[None done] What testing was considered but not performed or refused? (CT, X-rays, U/S, labs)? Why? @ -[None] What meds were considered but not given or refused? Why? @ -[None] Did you discuss the management of the patient with other professionals (professionals i.e. , PA, SEISMOGRAPH HELPER, lab, RT, psych nurse, criminal justice social worker, inventory control/shipping receiving, teacher, police officer booking, case supervisor)? Give summary @ -[No] Was smoking cessation discussed for >3mins.? @ -[No] Was critical care preformed (if so, how long)? @ -[No] Were there social determinants of health that impacted care today? How? (Homelessness, low income, unemployed, alcoholism, drug addiction, transportation, low edu. Level, literacy, decrease access to med. care, m[facility], rehab)? @ -[No] Was there de-escalation of care discussed even if they declined (Discuss DNR or withdrawal of care, Hospice)? DNR status @ -[No] What co-morbidities impacted this encounter? (DM, HTN, Smoking, COPD, CAD, Cancer, CVA, ARF, Chemo, Hep., AIDS, mental health diagnosis, sleep apnea, morbi d obesity)? @ -Depression Was patient admitted / discharged? Hospital course, mention meds given and route, prescriptions, significant lab abnormalities, going to OR and other pertinent info. @ -Patient was seen, examined, and laboratory tests were ordered for overdose which occurred 20 hours prior. Laboratory testing is pending and the patient will be medically cleared for EPS evaluation. Patient's care is signed out at shift change to Dr. Little - Lab Data Result diagrams: 06/29/22 19:31 06/29/22 19:31 Lab Results 06/29/22 06/29/22 06/29/22 Range/Units 19:31 19:31 19:31 WBC 13.0 H (3.8-10.6) k/uL RBC 4.88 (3.80-5.40) m/uL Hgb 14.9 (11.4-16.0) gm/dL Hct 43.5 (34.0-46.0) % MCV 89.1 (80.0-100.0) fL MCH 30.4 (25.0-35.0) pg MCHC 34.2 (31.0-37.0) g/dL RDW 13.9 (11.5-15.5) % Plt Count 338 (150-450) k/uL MPV 8.9 Neutrophils % 66 % Lymphocytes % 27 % Monocytes % 3 % Eosinophils % 2 % Basophils % 0 % Neutrophils # 8.6 H (1.3-7.7) k/uL Lymphocytes # 3.5 (1.0-4.8) k/uL Monocytes # 0.4 (0-1.0) k/uL Eosinophils # 0.2 (0-0.7) k/uL Basophils # 0.0 (0-0.2) k/uL PT 11.0 (9.0-12.0) sec INR 1.1 (<1.2) Sodium (137-145) mmol/L Potassium (3.5-5.1) mmol/L Chloride (98-107) mmol/L Carbon Dioxide (22-30) mmol/L Anion Gap mmol/L BUN (7-17) mg/dL Creatinine (0.52-1.04) mg/dL Est GFR (CKD-EPI)AfAm (>60 ml/min/1.73 sqM) Est GFR (CKD-EPI)NonAf (>60 ml/min/1.73 sqM) Glucose (74-99) mg/dL Calcium (8.4-10.2) mg/dL Total Bilirubin (0.2-1.3) mg/dL AST (14-36) U/L ALT (4-34) U/L Alkaline Phosphatase (38-126) U/L Total Protein (6.3-8.2) g/dL Albumin (3.5-5.0) g/dL Urine Color Yellow Urine Appearance Clear (Clear) Urine pH 7.0 (5.0-8.0) Ur Specific [place] 1.013 (1.001-1.035) Urine Protein Negative (Negative) Urine Glucose (UA) Negative (Negative) Urine Ketones Negative (Negative) Urine Blood Negative (Negative) Urine Nitrite Negative (Negative) Urine Bilirubin Negative (Negative) Urine Urobilinogen <2.0 (<2.0) mg/dL Ur Leukocyte Esterase Negative (Negative) Urine HCG, Qual (Not Detectd) Salicylates mg/dL Urine Opiates Screen Not Detected (NotDetected) Ur Oxycodone Screen Not Detected (NotDetected) Urine Methadone Screen Not Detected (NotDetected) Ur Propoxyphene Screen Not Detected (NotDetected) Acetaminophen ug/mL Ur Barbiturates Screen Not Detected (NotDetected) U Tricyclic Antidepress Not Detected (NotDetected) Ur Phencyclidine Scrn Not Detected (NotDetected) Ur Amphetamines Screen Not Detected (NotDetected) U Methamphetamines Scrn Not Detected (NotDetected) U Benzodiazepines Scrn Not Detected (NotDetected) Equality mmol/L Urine Cocaine Screen Not Detected (NotDetected) U Marijuana (THC) Screen Detected H (NotDetected) Serum Alcohol mg/dL Coronavirus (PCR) (Not Detectd) 06/29/22 06/29/22 06/30/22 Range/Units 19:31 19:31 00:49 WBC (3.8-10.6) k/uL RBC (3.80-5.40) m/uL Hgb (11.4-16.0) gm/dL Hct (34.0-46.0) % MCV (80.0-100.0) fL MCH (25.0-35.0) pg MCHC (31.0-37.0) g/dL RDW (11.5-15.5) % Plt Count (150-450) k/uL MPV Neutrophils % % Lymphocytes % % Monocytes % % Eosinophils % % Basophils % % Neutrophils # (1.3-7.7) k/uL Lymphocytes # (1.0-4.8) k/uL Monocytes # (0-1.0) k/uL Eosinophils # (0-0.7) k/uL Basophils # (0-0.2) k/uL PT (9.0-12.0) sec INR (<1.2) Sodium 138 (137-145) mmol/L Potassium 4.7 (3.5-5.1) mmol/L Chloride 105 (98-107) mmol/L Carbon Dioxide 19 L (22-30) mmol/L Anion Gap 14 mmol/L BUN 14 (7-17) mg/dL Creatinine 0.49 L (0.52-1.04) mg/dL Est GFR (CKD-EPI)AfAm >90 (>60 ml/min/1.73 sqM) Est GFR (CKD-EPI)NonAf >90 (>60 ml/min/1.73 sqM) Glucose 98 (74-99) mg/dL Calcium 9.8 (8.4-10.2) mg/dL Total Bilirubin 1.1 (0.2-1.3) mg/dL AST 35 (14-36) U/L ALT 27 (4-34) U/L Alkaline Phosphatase 97 (38-126) U/L Total Protein 8.4 H (6.3-8.2) g/dL Albumin 5.0 (3.5-5.0) g/dL Urine Color Urine Appearance (Clear) Urine pH (5.0-8.0) Ur Specific [place] (1.001-1.035) Urine Protein (Negative) Urine Glucose (UA) (Negative) Urine Ketones (Negative) Urine Blood (Negative) Urine Nitrite (Negative) Urine Bilirubin (Negative) Urine Urobilinogen (<2.0) mg/dL Ur Leukocyte Esterase (Negative) Urine HCG, Qual Not Detected (Not Detectd) Salicylates <1.0 mg/dL Urine Opiates Screen (NotDetected) Ur Oxycodone Screen (NotDetected) Urine Methadone Screen (NotDetected) Ur Propoxyphene Screen (NotDetected) Acetaminophen <10.0 ug/mL Ur Barbiturates Screen (NotDetected) U Tricyclic Antidepress (NotDetected) Ur Phencyclidine Scrn (NotDetected) Ur Amphetamines Screen (NotDetected) U Methamphetamines Scrn (NotDetected) U Benzodiazepines Scrn (NotDetected) Equality <0.2 mmol/L Urine Cocaine Screen (NotDetected) U Marijuana (THC) Screen (NotDetected) Serum Alcohol <10 mg/dL Coronavirus (PCR) Not Detected (Not Detectd) Disposition Clinical Impression: Attempted suicide, Depression Disposition: ADMITTED IP TO [facility] Condition: Stable Is patient prescribed a controlled substance at d/c from ED?: No
[2022-06-29 20:04] LABS: Basophils % (A) 0 %; Eosinophils # (A) 0.2 k/uL (0-0.7); Eosinophils % (A) 2 %; HCT 43.5 % (34.0-46.0); HGB 14.9 gm/dL (11.4-16.0); Lymphocytes # (A) 3.5 k/uL (1.0-4.8); Lymphocytes % (A) 27 %; MCH 30.4 pg (25.0-35.0); MCHC 34.2 g/dL (31.0-37.0); MCV 89.1 fL (80.0-100.0); Mean Platelet Volume 8.9; Monocytes # (A) 0.4 k/uL (0-1.0); Monocytes % (A) 3 %; Neutrophils # (A) 8.6 k/uL (1.3-7.7); Neutrophils % (A) 66 %; Platelet Count 338 k/uL (150-450); RBC 4.88 m/uL (3.80-5.40); RDW 13.9 % (11.5-15.5)
[2022-06-29 20:19] LABS: Appearance,Urine Clear (Clear); Bilirubin,Urine Negative (Negative); Blood,Urine Negative (Negative); Color,Urine Yellow; Glucose,Urine (UA) Negative (Negative); Ketones,Urine Negative (Negative); Leukocyte Esterase,Urine Negative (Negative); Nitrite,Urine Negative (Negative); Protein,Urine Negative (Negative); Specific Gravity,Urine 1.013 (1.001-1.035); Urobilinogen,Urine <2.0 mg/dL (<2.0)
[2022-06-29 20:24] LABS: ALT 27 U/L (4-34); AST 35 U/L (14-36); Acetaminophen <10.0 ug/mL; African American GFR (CKD) >90 (>60 ml/min/1.73 sqM); Alcohol <10 mg/dL; Alkaline Phosphatase 97 U/L (38-126); Anion Gap 14 mmol/L; Blood Urea Nitrogen 14 mg/dL (7-17); Calcium 9.8 mg/dL (8.4-10.2); Carbon Dioxide 19 mmol/L (22-30); Chloride 105 mmol/L (98-107); Glucose 98 mg/dL (74-99); Lithium <0.2 mmol/L; Non-African American GFR(CKD) >90 (>60 ml/min/1.73 sqM); Salicylate <1.0 mg/dL; Sodium 138 mmol/L (137-145); Total Bilirubin 1.1 mg/dL (0.2-1.3); Total Protein 8.4 g/dL (6.3-8.2)
[2022-06-29 20:29] LABS: Amphetamine Screen,Urine Not Detected (NotDetected); Barbiturate Screen,Urine Not Detected (NotDetected); Benzodiazepines Screen,Urine Not Detected (NotDetected); Cocaine Screen,Urine Not Detected (NotDetected); INR 1.1 (<1.2); Methadone Screen, Urine Not Detected (NotDetected); Opiate Screen,Urine Not Detected (NotDetected); Oxycodone Screen, Urine Not Detected (NotDetected); Phencyclidine Screen,Urine Not Detected (NotDetected); Tricyclic Antidepressant,Urine Not Detected (NotDetected); Urn Cannabinoid Scrn Detected (NotDetected)
[2022-06-29 20:41] LABS: Potassium 4.7 mmol/L (3.5-5.1)
[2022-06-29] MEDS ORDERED: LORazepam 2 MG/ML INJ IV STA (20:45)
[2022-06-30] MEDS ORDERED: MAGNESIUM HYDROXIDE 2,400 MG/10 ML CUP PO PRN (01:51)
[2022-06-30] MEDS ORDERED: MAG HYDROX/AL HYDROX/SIMETH 30 ML CUP PO PRN (01:51)
[2022-06-30] MEDS ORDERED: LORazepam 1 MG TAB PO PRN (01:51)
[2022-06-30] MEDS ORDERED: ALBUTEROL INHALER 60 PUFF/8 GM INHALER (MHU) INHALATION PRN (08:00)
[2022-06-30] MEDS: NICOTINE 14MG/24HR PATCH TRANSDERM SCH (08:45)
[2022-06-30] MEDS: MONTELUKAST 10 MG TAB PO SCH (08:45)
[2022-06-30] MEDS: ACETAMINOPHEN TAB 325 MG TAB PO PRN (09:03)
[2022-06-30] MEDS ORDERED: SERTRALINE 50 MG TAB PO STA (10:49)
[2022-06-30] MEDS ORDERED: clonazePAM 1 MG TAB PO PRN (10:51)
[2022-06-30] MEDS ORDERED: cloNIDine HCL 0.1 MG TAB PO STA (10:54)
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
[2022-06-30 17:13] LABS: Chol/HDL Ratio 9.22 Ratio; LDL Cholesterol,Calculated 164.1 mg/dL (0.0-131.0)
[2022-06-30] MEDS: cloNIDine HCL 0.1 MG TAB PO SCH (19:50)
[2022-06-30] MEDS ORDERED: TEMAZEPAM 15 MG CAP PO SCH (21:00)
[2022-06-30] MEDS ORDERED: PRAZOSIN 1 MG CAP PO SCH (21:00)
--- NOTE | 2022-07-01 00:50 | P.MDCNMH ---
History of Present Illness H&P Date: 06/30/22 Chief Complaint: medical evaluation 27 year old female with Asthma , DM , hyperlipidemia , moderate persistent asthma patient coming in for psych evaluation due to intention overdosing on antidepressant . she currently feeling fine denies any medical concerns she denies any fever, chills, cough, sore throat, chest pain , trouble breathing , nausea , vomiting, abd pain , changes in urinary or bowel habits. she admits to tobacco smoking and pot, denies alcohol Review of Systems Pertinent positives as noted in HPI. All other systems were reviewed and are negative Past Medical History Past Medical History: Diabetes Mellitus, GERD/Reflux, GI Bleed Additional Past Medical History / Comment(s): PCOS, endometriosis History of Any Multi-Drug Resistant Organisms: C-DIFF Date of last positivie culture/infection: 2016 MDRO Source:: Stool Past Surgical History: Cholecystectomy, Tonsillectomy Past Anesthesia/Blood Transfusion Reactions: No Reported Reaction Smoking Status: Current every day smoker, Vaper - Past Family History Mother Additional Family Medical History / Comment(s): NONE Father Additional Family Medical History / Comment(s): NONE Medications and Allergies Home Medications Medication Instructions Recorded Confirmed Type Montelukast Sodium [Singulair] 10 mg PO DAILY 01/27/22 06/29/22 History Albuterol Inhaler [Ventolin Hfa 2 puff INHALATION RT-QID PRN 30 02/12/22 06/29/22 Rx Inhaler] Days each FLUoxetine HCL 40 mg PO DAILY 06/29/22 06/29/22 History Paliperidone [Invega] 9 mg PO DAILY 06/29/22 06/29/22 History risperiDONE [RisperDAL] 0.5 mg PO BID 06/29/22 06/29/22 History Allergies Allergy/AdvReac Type Severity Reaction Status Date / Time egg Allergy Anaphylaxis Verified 06/29/22 20:29 hydromorphone HCl Allergy Itching/Hiv Verified 06/29/22 20:29 [From Dilaudid] es milk Allergy Anaphylaxis Verified 06/29/22 20:29 gabapentin AdvReac Hives Verified 06/29/22 20:29 Physical Exam Vitals: Vital Signs Temp Pulse Pulse Pulse Resp BP BP 06/30/22 20:56 84 117/56 06/30/22 02:35 97.9 F 88 20 06/30/22 01:58 78 16 118/77 BP Pulse Ox 06/30/22 20:56 06/30/22 02:35 123/82 97 06/30/22 01:58 Constitutional: No acute distress, conversant Eyes: Anicteric sclerae, moist conjunctiva, Pupils equal round reactive to light ENMT: NC/AT Oropharynx clear, no erythema, or exudates Neck: Supple, no masses, or JVD No carotid bruits No thyromegaly Lungs: Clear to auscultation Clear to percussion Normal respiratory effort, no accessory muscle use Cardiovascular: Heart regular in rate and rhythm, No murmurs, gallops, or rubs No peripheral edema Abdominal: Soft Nontender, no guarding, rebound or rigidity Abdomen moving with respiration Normoactive bowel sounds Extremities: No digital cyanosis No clubbing Pedal pulses intact and symmetrical Radial pulses intact and symmetrical No calf tenderness Psychiatric: Alert and oriented to person, place and time Neuro Muscles Strength 5/5 in all 4 extremities Sensation to light touch grossly present throughout Cranial nerves II-XII grossly intact Cranial Nerve Examination - Cranial Nerves Cranial Nerve II- Optic: Intact Cranial Nerve III- Oculomotor: Intact Cranial Nerve IV- Trochlear: Intact Cranial Nerve V- Trigeminal: Intact Cranial Nerve - Abducens: Intact Cranial Nerve VII- Facial: Intact Cranial Nerve VIII- Auditory: Intact Cranial Nerve IX- Glossopharyngeal: Intact Cranial Nerve X- Vagus: Intact Cranial Nerve XI- Accessory: Intact Cranial Nerve XII- Hypoglossal: Intact Results CBC & Chem 7: 06/29/22 19:31 06/29/22 19:31 Labs: Abnormal Lab Results - Last 24 Hours (Table) 06/30/22 06/30/22 Range/Units 10:40 10:40 Hemoglobin A1c 6.4 H (0.0-6.0) % Triglycerides 178.00 H (0.00-149.00) mg/dL Cholesterol 224.00 H (0.00-200.00) mg/dL LDL Cholesterol, Calc 164.1 H (0.0-131.0) mg/dL HDL Cholesterol 24.30 L (40.00-60.00) mg/dL Assessment and Plan Assessment: depression , overdose management per psych DM , A1c 6.4% insulin sliding scale moderate persistent asthma albuterol inhalers PRN singulair hyperlipidemia and obesity advised life style modification , exercising and dietary control recheck in 3 months , if remains elevated , should consider starting on atorvastatin 20 mg po qhs labs reviewed thank you for this consultation
[2022-07-01] MEDS: ACETAMINOPHEN TAB 325 MG TAB PO PRN (06:43)
[2022-07-01 07:48] LABS: Glucose,Whole Blood 125 mg/dL (70-110)
[2022-07-01] MEDS: haloperidoL 5 MG TAB PO PRN (08:21)
[2022-07-01] MEDS: LORazepam 1 MG TAB PO PRN (08:21)
[2022-07-01] MEDS: INSULIN ASPART (NovoLOG) 100 UNIT/ML VIAL SQ SCH ×4 (08:47→19:43)
[2022-07-01] MEDS ORDERED: SERTRALINE 25 MG TAB PO SCH (09:00)
[2022-07-01] MEDS ORDERED: OLANZapine 2.5 MG TAB PO STA (09:35)
[2022-07-01] MEDS: MONTELUKAST 10 MG TAB PO SCH (10:11)
[2022-07-01] MEDS: NICOTINE 14MG/24HR PATCH TRANSDERM SCH (10:15)
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
[2022-07-01] MEDS: cloNIDine HCL 0.1 MG TAB PO SCH (10:49)
[2022-07-01 12:43] LABS: Glucose,Whole Blood 104 mg/dL (70-110)
[2022-07-01 17:31] LABS: Glucose,Whole Blood 107 mg/dL (70-110)
[2022-07-01] MEDS: OLANZapine 2.5 MG TAB PO SCH (17:32)
[2022-07-01] MEDS: HALOPERIDOL LACTATE 5 MG/ML 1 ML VIAL IM PRN (19:35)
[2022-07-01] MEDS: LORazepam 2 MG/ML INJ IM PRN (19:35)
[2022-07-01 19:43] LABS: Glucose,Whole Blood 138 mg/dL (70-110)
[2022-07-01] MEDS: TEMAZEPAM 15 MG CAP PO SCH (20:12)
[2022-07-01] MEDS ORDERED: PRAZOSIN 1 MG CAP PO SCH (21:00)
[2022-07-01] MEDS ORDERED: cloNIDine HCL 0.1 MG TAB PO SCH (21:00)
[2022-07-02 07:47] LABS: Glucose,Whole Blood 129 mg/dL (70-110)
[2022-07-02] MEDS: INSULIN ASPART (NovoLOG) 100 UNIT/ML VIAL SQ SCH ×4 (08:56→20:12)
[2022-07-02] MEDS: MONTELUKAST 10 MG TAB PO SCH (08:57)
[2022-07-02] MEDS: NICOTINE 14MG/24HR PATCH TRANSDERM SCH (08:57)
[2022-07-02] MEDS: OLANZapine 2.5 MG TAB PO SCH ×2 (08:58→15:59)
[2022-07-02] MEDS ORDERED: SERTRALINE 100 MG TAB PO SCH (09:00)
[2022-07-02] MEDS: LORazepam 1 MG TAB PO PRN (10:56)
--- NOTE | 2022-07-02 11:00 | P.PN ---
Progress Note - Text Progress Note Date: 07/02/22 Interval History: Patient was seen wandering the hallways and was directable and agreeable to speak with marketing writer in the office. Currently, the patient reports that she continues to have difficulty with flashbacks and nightmares. She does state she has had improved sleep. She reports continued suicidal ideation and states she would attempt to kill herself if she had the means to. She states she would kill herself in order to stop the flashbacks. She reports homicidal ideation but does not identify a target. She reports no auditory or visual hallucinations today. She has been adherent with her medications and reports no side effects. Mental Status Exam: General Appearance: Patient appears to be stated age is alert, directable, and cooperative. Behavior: Patient is calmly seated without any agitated behavior. Speech: Patient's speech is fluent and nonpressured. Monotone. Mood/Affect: Mood is "not good." Affect is blunted. Suicidality/Homicidality: Patient endorses suicidal ideation but no homicidal ideation. Perceptions: Patient denies any visual or auditory hallucinations. Though content/process: Dysphoric, concrete. Memory and concentration: AOX3, grossly intact for the purposes of this session Judgment and insight: Improving mildly Vital Signs Temp 97.9 F 07/02/22 06:59 Pulse 102 H 07/02/22 06:59 Resp 18 07/02/22 06:59 BP 106/71 07/02/22 06:59 Pulse Ox 98 07/02/22 06:59 FiO2 Laboratory Results - Last 24 Hours 07/01/22 07/01/22 07/01/22 12:41 17:29 19:41 POC Glucose (mg/dL) 104 107 138 H POC Glu Forest Technology Professor ID Modesta Saxena Madison RichardRich 07/02/22 07:44 POC Glucose (mg/dL) 129 H POC Glu [employer] Technology Professor ID Modesta Saxena Assessment Schizophrenia, by history Posttraumatic stress disorder Cluster B personality disorder Cannabis use disorder Tobacco use disorder Plan: -Patient continues to meet criteria for inpatient psychiatric admission for symptom stabilization and safety. Patient has signed adult voluntary form and medication consent and was placed in patient's chart. -Medications: Increase Prazosin to 3 mg by mouth at bedtime for PTSD related nightmares Increase Zoloft to 150 mg by mouth daily for depression/anxiety/PTSD Continue Restoril 30 mg by mouth at bedtime for PTSD/acute stress Continue Zyprexa 2.5 mg by mouth twice a day for mood congruent psychotic features -When necessary Ativan and Haldol for agitation/aggression. -NRT - nicotine patch -SW on board for discharge planning. Encouraged the patient to participate in milieu.
[2022-07-02 12:41] LABS: Glucose,Whole Blood 93 mg/dL (70-110)
[2022-07-02] MEDS: ACETAMINOPHEN TAB 325 MG TAB PO PRN ×2 (16:00→22:07)
[2022-07-02 17:39] LABS: Glucose,Whole Blood 75 mg/dL (70-110)
[2022-07-02] MEDS: haloperidoL 5 MG TAB PO PRN (18:13)
[2022-07-02 20:08] LABS: Glucose,Whole Blood 88 mg/dL (70-110)
[2022-07-02] MEDS: TEMAZEPAM 15 MG CAP PO SCH (20:15)
[2022-07-02] MEDS ORDERED: PRAZOSIN 1 MG CAP PO SCH (21:00)
[2022-07-03 08:04] LABS: Glucose,Whole Blood 132 mg/dL (70-110)
[2022-07-03] MEDS: INSULIN ASPART (NovoLOG) 100 UNIT/ML VIAL SQ SCH ×4 (08:18→19:57)
[2022-07-03] MEDS: NICOTINE 14MG/24HR PATCH TRANSDERM SCH (08:36)
[2022-07-03] MEDS: OLANZapine 2.5 MG TAB PO SCH (08:37)
[2022-07-03] MEDS: MONTELUKAST 10 MG TAB PO SCH (08:37)
[2022-07-03] MEDS: SERTRALINE 50 MG TAB PO SCH (08:37)
[2022-07-03] MEDS: ACETAMINOPHEN TAB 325 MG TAB PO PRN (08:39)
--- NOTE | 2022-07-03 11:49 | P.PN ---
Progress Note - Text Progress Note Date: 07/03/22 Interval History: Patient was seen wandering the hallways and was directable and agreeable to speak with law writer in the office. Currently, the patient does endorse suicidal ideation with a plan to cut herself. She reports no homicidal ideation. She continues to endorse mood congruent auditory hallucinations that are telling her that she is worthless and that she should kill herself. She is denying any visual hallucinations. She continues to report difficulty with flashbacks and nightmares. She did state however that she had improved sleep last night. The patient continues to be very dysphoric stating that she does not believe that she will ever get better. She states that her appetite has improved however continues to be low. She has been able to address her hygiene and grooming. She has been participating in group and milieu activities. Mental Status Exam: General Appearance: Patient appears to be stated age is alert, directable, and cooperative. Behavior: Patient is calmly seated without any agitated behavior. Speech: Patient's speech is fluent and nonpressured. Monotone. Mood/Affect: Mood is "still not good." Affect is constricted. More range today. Suicidality/Homicidality: Patient endorses suicidal ideation but no homicidal ideation. Perceptions: Patient denies any visual or auditory hallucinations. Though content/process: Dysphoric, concrete. Memory and concentration: AOX3, grossly intact for the purposes of this session Judgment and insight: Improving mildly Vital Signs Temp 98.0 F 07/03/22 06:00 Pulse 86 07/03/22 06:00 Resp 17 07/03/22 06:00 BP 120/73 07/03/22 06:00 Pulse Ox 96 07/03/22 06:00 FiO2 Laboratory Results WBC 13.0 k/uL (3.8-10.6) H 06/29/22 19: RBC 4.88 m/uL (3.80-5.40) 06/29/22 19: Hgb 14.9 gm/dL (11.4-16.0) 06/29/22 19:31 Hct 43.5 % (34.0-46.0) 06/29/22 19: MCV 89.1 fL (80.0-100.0) 06/29/22 19: MCH 30.4 pg (25.0-35.0) 06/29/22 19: MCHC 34.2 g/dL (31.0-37.0) 06/29/22 19: RDW 13.9 % (11.5-15.5) 06/29/22 19: Plt Count 338 k/uL (150-450) 06/29/22 19: MPV 8.9 06/29/22 19: Neutrophils % 66 % 06/29/22 19: Lymphocytes % 27 % 06/29/22 19: Monocytes % 3 % 06/29/22 19: Eosinophils % 2 % 06/29/22 19: Basophils % 0 % 06/29/22: Neutrophils # 8.6 k/uL (1.3-7.7) H 06/29/22: Lymphocytes # 3.5 k/uL (1.0-4.8) 06/29/22: Monocytes # 0.4 k/uL (0-1.0) 06/29/22: Eosinophils # 0.2 k/uL (0-0.7) 06/29/22 19: Basophils # 0.0 k/uL (0-0.2) 06/29/22 19: PT 11.0 sec (9.0-12.0) 06/29/22: INR 1.1 (<1.2) 06/29/22 19: Sodium 138 mmol/L (137-145) 06/29/22 19: Potassium 4.7 mmol/L (3.5-5.1) 06/29/22 19: Chloride 105 mmol/L (98-107) 06/29/22 19: Carbon Dioxide 19 mmol/L (22-30) L 06/29/22 19:31 Anion Gap 14 mmol/L 06/29/22: BUN 14 mg/dL (7-17) 06/29/22 19: Creatinine 0.49 mg/dL (0.52-1.04) L 06/29/22 19: Est GFR (CKD-EPI)AfAm >90 (>60 ml/min/1.73 sqM) 06/29/22 19: Est GFR (CKD-EPI)NonAf >90 (>60 ml/min/1.73 sqM) 06/29/22 19:31 Glucose 98 mg/dL (74-99) 06/29/22 19:31 POC Glucose (mg/dL) 132 mg/dL (70-110) H 07/03/22 08:[address] In Waiter/Waitress ID 07/03/22 08:[address] Glu mg/dL 138 06/30/22 10:40 Hemoglobin A1c 6.4 % (0.0-6.0) H 06/30/22 10:40 Calcium 9.8 mg/dL (8.4-10.2) 06/29/22 19:31 Total Bilirubin 1.1 mg/dL (0.2-1.3) 06/29/22 19:31 AST 35 U/L (14-36) 06/29/22: ALT 27 U/L (4-34) 06/29/22: Alkaline Phosphatase 97 U/L (38-126) 06/29/22 19:31 Total Protein 8.4 g/dL (6.3-8.2) H 06/29/22 19:31 Albumin 5.0 g/dL (3.5-5.0) 06/29/22 19:31 Triglycerides 178.00 mg/dL (0.00-149.00) H 06/30/22 10:40 Cholesterol 224.00 mg/dL (0.00-200.00) H 06/30/22 10:40 LDL Cholesterol, Calc 164.1 mg/dL (0.0-131.0) H 06/30/22 10:40 VLDL Cholesterol, Calc 35.60 mg/dL (5.00-40.00) 06/30/22 10:40 HDL Cholesterol 24.30 mg/dL (40.00-60.00) L 06/30/22 10:40 Cholesterol/HDL Ratio 9.22 Ratio 06/30/22 10:40 TSH 0.640 mIU/L (0.465-4.680) 06/30/22 10:40 Urine Color Yellow 06/29/22 19:31 Urine Appearance Clear (Clear) 06/29/22 19:31 Urine pH 7.0 (5.0-8.0) 06/29/22 19:31 Ur Specific [place] 1.013 (1.001-1.035) 06/29/22 19:31 Urine Protein Negative (Negative) 06/29/22 19:31 Urine Glucose (UA) Negative (Negative) 06/29/22 19:31 Urine Ketones Negative (Negative) 06/29/22 19:31 Urine Blood Negative (Negative) 06/29/22 19:31 Urine Nitrite Negative (Negative) 06/29/22 19:31 Urine Bilirubin Negative (Negative) 06/29/22 19:31 Urine Urobilinogen <2.0 mg/dL (<2.0) 06/29/22 19:31 Ur Leukocyte Esterase Negative (Negative) 06/29/22 19:31 Urine HCG, Qual Not Detected (Not Detectd) 06/29/22 19:31 Salicylates <1.0 mg/dL 06/29/22 19:31 Urine Opiates Screen Not Detected (NotDetected) 06/29/22 19:31 Ur Oxycodone Screen Not Detected (NotDetected) 06/29/22 19:31 Urine Methadone Screen Not Detected (NotDetected) 06/29/22 19:31 Ur Propoxyphene Screen Not Detected (NotDetected) 06/29/22 19:31 Acetaminophen <10.0 ug/mL 06/29/22 19:31 Ur Barbiturates Screen Not Detected (NotDetected) 06/29/22 19:31 U Tricyclic Antidepress Not Detected (NotDetected) 06/29/22 19:31 Ur Phencyclidine Scrn Not Detected (NotDetected) 06/29/22 19:31 Ur Amphetamines Screen Not Detected (NotDetected) 06/29/22 19:31 U Methamphetamines Scrn Not Detected (NotDetected) 06/29/22 19:31 U Benzodiazepines Scrn Not Detected (NotDetected) 06/29/22 19:31 [place] <0.2 mmol/L 06/29/22 19:31 Urine Cocaine Screen Not Detected (NotDetected) 06/29/22 19:31 U Marijuana (THC) Screen Detected (NotDetected) H 06/29/22 19:31 Serum Alcohol <10 mg/dL 06/29/22 19:31 Coronavirus (PCR) Not Detected (Not Detectd) 06/30/22 00:49 Assessment Schizophrenia, by history Posttraumatic stress disorder Cluster B personality disorder Cannabis use disorder Tobacco use disorder Plan: -Patient continues to meet criteria for inpatient psychiatric admission for symptom stabilization and safety. Patient has signed adult voluntary form and medication consent and was placed in patient's chart. -Medications: Increase Prazosin to 4 mg by mouth at bedtime for PTSD related nightmares Continue Zoloft 150 mg by mouth daily for depression/anxiety/PTSD Continue Restoril 30 mg by mouth at bedtime for PTSD/acute stress Increase Zyprexa to 5 mg by mouth twice a day for mood congruent psychotic features -When necessary Ativan and Haldol for agitation/aggression. -NRT - nicotine patch -SW on board for discharge planning. Encouraged the patient to participate in milieu.
[2022-07-03 13:02] LABS: Glucose,Whole Blood 96 mg/dL (70-110)
[2022-07-03] MEDS: OLANZapine 5 MG TAB PO SCH (17:06)
[2022-07-03 17:38] LABS: Glucose,Whole Blood 118 mg/dL (70-110)
[2022-07-03 19:58] LABS: Glucose,Whole Blood 113 mg/dL (70-110)
[2022-07-03] MEDS: PRAZOSIN 1 MG CAP PO SCH (20:13)
[2022-07-03] MEDS: TEMAZEPAM 15 MG CAP PO SCH (20:14)
[2022-07-03] MEDS: haloperidoL 5 MG TAB PO PRN (20:16)
[2022-07-03] MEDS: LORazepam 1 MG TAB PO PRN (20:16)
[2022-07-04 07:39] LABS: Glucose,Whole Blood 103 mg/dL (70-110)
[2022-07-04] MEDS: INSULIN ASPART (NovoLOG) 100 UNIT/ML VIAL SQ SCH ×4 (08:06→20:18)
[2022-07-04] MEDS: NICOTINE 14MG/24HR PATCH TRANSDERM SCH (08:08)
[2022-07-04] MEDS: OLANZapine 5 MG TAB PO SCH ×3 (08:08→20:04)
[2022-07-04] MEDS: SERTRALINE 50 MG TAB PO SCH (08:08)
[2022-07-04] MEDS: LORazepam 1 MG TAB PO PRN ×2 (08:08→14:47)
[2022-07-04] MEDS: MONTELUKAST 10 MG TAB PO SCH (08:08)
[2022-07-04] MEDS: ACETAMINOPHEN TAB 325 MG TAB PO PRN ×2 (09:18→17:30)
[2022-07-04 12:53] LABS: Glucose,Whole Blood 86 mg/dL (70-110)
[2022-07-04 17:36] LABS: Glucose,Whole Blood 89 mg/dL (70-110)
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
[2022-07-04 20:04] LABS: Glucose,Whole Blood 114 mg/dL (70-110)
[2022-07-04] MEDS: PRAZOSIN 1 MG CAP PO SCH (20:04)
[2022-07-04] MEDS: LORazepam 2 MG/ML INJ IM PRN (20:07)
[2022-07-04] MEDS: HALOPERIDOL LACTATE 5 MG/ML 1 ML VIAL IM PRN (20:07)
[2022-07-04] MEDS: TEMAZEPAM 15 MG CAP PO SCH (21:23)
[2022-07-05 07:42] LABS: Glucose,Whole Blood 124 mg/dL (70-110)
[2022-07-05] MEDS: INSULIN ASPART (NovoLOG) 100 UNIT/ML VIAL SQ SCH ×4 (08:34→20:33)
[2022-07-05] MEDS: NICOTINE 14MG/24HR PATCH TRANSDERM SCH (08:53)
[2022-07-05] MEDS: SERTRALINE 50 MG TAB PO SCH (08:54)
[2022-07-05] MEDS: MONTELUKAST 10 MG TAB PO SCH (08:55)
[2022-07-05] MEDS: LORazepam 0.5 MG TAB PO PRN (08:56)
[2022-07-05] MEDS: OLANZapine 5 MG TAB PO SCH ×3 (08:58→19:47)
[2022-07-05 12:40] LABS: Glucose,Whole Blood 75 mg/dL (70-110)
[2022-07-05] MEDS: haloperidoL 5 MG TAB PO PRN (13:29)
[2022-07-05 17:47] LABS: Glucose,Whole Blood 95 mg/dL (70-110)
[2022-07-05] MEDS: PRAZOSIN 1 MG CAP PO SCH (19:47)
[2022-07-05] MEDS: TEMAZEPAM 15 MG CAP PO SCH (19:47)
[2022-07-05] MEDS: HALOPERIDOL LACTATE 5 MG/ML 1 ML VIAL IM PRN (19:50)
[2022-07-05] MEDS: LORazepam 2 MG/ML INJ IM PRN (19:54)
[2022-07-05 20:07] LABS: Glucose,Whole Blood 198 mg/dL (70-110)
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
[2022-07-06 07:52] LABS: Glucose,Whole Blood 101 mg/dL (70-110)
[2022-07-06] MEDS: INSULIN ASPART (NovoLOG) 100 UNIT/ML VIAL SQ SCH ×4 (08:04→20:54)
[2022-07-06] MEDS: OLANZapine 5 MG TAB PO SCH ×3 (08:25→20:54)
[2022-07-06] MEDS: SERTRALINE 50 MG TAB PO SCH (08:25)
[2022-07-06] MEDS: MONTELUKAST 10 MG TAB PO SCH (08:25)
[2022-07-06] MEDS: NICOTINE 14MG/24HR PATCH TRANSDERM SCH (08:25)
[2022-07-06] MEDS: ACETAMINOPHEN TAB 325 MG TAB PO PRN (08:26)
[2022-07-06] MEDS: HALOPERIDOL LACTATE 5 MG/ML 1 ML VIAL IM PRN (10:55)
[2022-07-06] MEDS: LORazepam 2 MG/ML INJ IM PRN (10:56)
--- NOTE | 2022-07-06 12:04 | P.PN ---
Progress Note - Text Progress Note Date: 07/06/22 Interval History: Patient was seen wandering the hallways and was directable and agreeable to speak with health underwriter in the office. The patient continues to endorse suicidal ideation and intense feelings and urges for self-harm. She reports that she just wants all her suffering to stop and that is why she has thoughts of wanting to kill herself. She is also without safe housing at this time and is being referred for shelters. She is continuing to report issues regarding nightmares but states that her sleep has overall improved. She reports that her appetite has been improving mildly. She denies any homicidal ideation. The patient does endorse auditory hallucinations that occur throughout the day. She reports that they are bothersome. She has been noted by staff and this provider to be observed in the milieu, speaking to herself and crying to herself. She is not reporting any visual hallucinations. She denies any paranoia or other delusions. Mental Status Exam: General Appearance: Patient appears to be stated age is alert, directable, and cooperative. Behavior: Patient is calmly seated without any agitated behavior. Speech: Patient's speech is fluent and nonpressured. Monotone. Mood/Affect: Mood is "just want my suffering to end." Affect is blunted and tearful. Suicidality/Homicidality: Patient endorses suicidal ideation but no homicidal ideation. Perceptions: Patient denies any visual however she does endorse auditory hallucinations Though content/process: Dysphoric, concrete. Memory and concentration: AOX3, grossly intact for the purposes of this session Judgment and insight: Improving mildly Vital Signs Temp 97.9 F 07/06/22 06:35 Pulse 68 07/06/22 06:35 Resp 16 07/06/22 06:35 BP 109/61 07/06/22 06:35 Pulse Ox 97 07/06/22 06:35 FiO2 Intake & Output 07/05/22 07/06/22 07/06/22 18:59 06:59 18:59 Weight 110.3 kg Laboratory Results - Last 24 Hours 07/05/22 07/05/22 07/05/22 12:37 17:45 20:02 POC Glucose (mg/dL) 75 95 198 H POC Glu Card Decorator Modesta Carias Samantha Kammer, Brad 07/06/22 07:50 POC Glucose (mg/dL) 101 POC Glu Card Decorator ID Jason Taylor Assessment Schizophrenia, by history Posttraumatic stress disorder Cluster B personality disorder Cannabis use disorder Tobacco use disorder Plan: -Patient continues to meet criteria for inpatient psychiatric admission for symptom stabilization and safety. Patient has signed adult voluntary form and medication consent and was placed in patient's chart. -Medications: Continue Prazosin 4 mg by mouth at bedtime for PTSD related nightmares Increase Zoloft to 200 mg by mouth daily for depression/anxiety/PTSD Continue Restoril 30 mg by mouth at bedtime for PTSD/acute stress Continue Zyprexa to 5 mg by mouth three times a day for mood congruent psychotic features -Treatment team is currently working on appropriate discharge planning including safe correction and intensive outpatient treatment such as a partial program or a crisis bed. -When necessary Ativan and Haldol for agitation/aggression. -NRT - nicotine patch -SW on board for discharge planning. Encouraged the patient to participate in milieu.
[2022-07-06 12:50] LABS: Glucose,Whole Blood 80 mg/dL (70-110)
[2022-07-06] MEDS ORDERED: chlorproMAZINE 25 MG TAB PO STA (15:37)
[2022-07-06 17:50] LABS: Glucose,Whole Blood 103 mg/dL (70-110)
[2022-07-06] MEDS: TEMAZEPAM 15 MG CAP PO SCH (20:54)
[2022-07-06] MEDS: LORazepam 0.5 MG TAB PO PRN (20:54)
[2022-07-06] MEDS: PRAZOSIN 1 MG CAP PO SCH (20:54)
[2022-07-07 08:07] LABS: Glucose,Whole Blood 115 mg/dL (70-110)
[2022-07-07] MEDS: INSULIN ASPART (NovoLOG) 100 UNIT/ML VIAL SQ SCH ×4 (08:24→19:50)
[2022-07-07] MEDS: MONTELUKAST 10 MG TAB PO SCH (08:25)
[2022-07-07] MEDS: SERTRALINE 100 MG TAB PO SCH (08:25)
[2022-07-07] MEDS: OLANZapine 5 MG TAB PO SCH (08:25)
[2022-07-07] MEDS: NICOTINE 14MG/24HR PATCH TRANSDERM SCH (08:52)
[2022-07-07] MEDS: LORazepam 0.5 MG TAB PO PRN ×2 (09:24→18:32)
[2022-07-07 12:37] LABS: Glucose,Whole Blood 176 mg/dL (70-110)
[2022-07-07 12:55] LABS: Glucose,Whole Blood 89 mg/dL (70-110)
--- NOTE | 2022-07-07 13:26 | P.PN ---
Progress Note - Text Progress Note Date: 07/07/22 Interval History: Patient was seen wandering the hallways and was directable and agreeable to speak with video game script writer in the office. The patient continues to endorse suicidal ideation however states that overall her mood appears to be getting better. She continues to report nightmares and intrusive thoughts. She reports that she does experience flashbacks throughout the day. She denies any homicidal ideation. She does report that she was able to speak with her mother and her mother told her that she wished that she had . The patient expresses an improvement in appetite and sleep. She reports that the Thorazine that she received as needed yesterday helped her significantly with her auditory hallucinations. She denies any visual hallucinations. She has been adherent with her medications and is not endorsing any significant side effects. Mental Status Exam: General Appearance: Patient appears to be stated age is alert, directable, and cooperative. Behavior: Patient is calmly seated without any agitated behavior. Speech: Patient's speech is fluent and nonpressured. Monotone. Mood/Affect: Mood is "I don't know." Affect appears to be increased in range today. Slightly brighter. Suicidality/Homicidality: Patient endorses suicidal ideation but no homicidal ideation. Perceptions: Patient denies any visual however she does endorse auditory hallucinations Though content/process: Dysphoric, concrete. Memory and concentration: AOX3, grossly intact for the purposes of this session Judgment and insight: Improving mildly Vital Signs Temp 97.9 F 07/06/22 06:35 Pulse 68 07/06/22 06:35 Resp 16 07/06/22 06:35 BP 109/61 07/06/22 06:35 Pulse Ox 97 07/06/22 06:35 FiO2 Intake & Output 07/06/22 07/07/22 07/07/22 18:59 06:59 18:59 Intake Total 500 Balance 500 Intake: Oral 500 Laboratory Results - Last 24 Hours 07/06/22 07/06/22 07/07/22 17:48 20:14 08:06 POC Glucose (mg/dL) 103 176 H 115 H POC Glu Test Automation Architect ID Cookie Villa Stephanie 07/07/22 12:53 POC Glucose (mg/dL) 89 POC Glu Test Automation Architect ID Sheryl Flaherty Assessment Schizophrenia, by history Posttraumatic stress disorder Cluster B personality disorder Cannabis use disorder Tobacco use disorder Plan: -Patient continues to meet criteria for inpatient psychiatric admission for symptom stabilization and safety. Patient has signed adult voluntary form and medication consent and was placed in patient's chart. -Medications: Continue Prazosin 4 mg by mouth at bedtime for PTSD related nightmares Continue Zoloft 200 mg by mouth daily for depression/anxiety/PTSD Decrease restoril to 15 mg by mouth at bedtime for PTSD/acute stress Change zyprexa to thorazine 25 mg three times a day for mood congruent psychotic features -Treatment team is currently working on appropriate discharge planning including safe prison and intensive outpatient treatment such as a partial program or a crisis bed. -When necessary Ativan and Haldol for agitation/aggression. -NRT - nicotine patch -SW on board for discharge planning. Encouraged the patient to participate in milieu.
[2022-07-07] MEDS: haloperidoL 5 MG TAB PO PRN (15:11)
[2022-07-07] MEDS: chlorproMAZINE 25 MG TAB PO SCH ×2 (16:25→19:50)
[2022-07-07] MEDS: ACETAMINOPHEN TAB 325 MG TAB PO PRN (17:33)
[2022-07-07 17:52] LABS: Glucose,Whole Blood 117 mg/dL (70-110)
[2022-07-07 19:50] LABS: Glucose,Whole Blood 157 mg/dL (70-110)
[2022-07-07] MEDS: TEMAZEPAM 15 MG CAP PO SCH (19:50)
[2022-07-07] MEDS: PRAZOSIN 1 MG CAP PO SCH (19:50)
[2022-07-07] MEDS: HALOPERIDOL LACTATE 5 MG/ML 1 ML VIAL IM PRN (20:44)
[2022-07-08 07:42] LABS: Glucose,Whole Blood 112 mg/dL (70-110)
[2022-07-08] MEDS: chlorproMAZINE 25 MG TAB PO SCH ×2 (08:52→14:16)
[2022-07-08] MEDS: MONTELUKAST 10 MG TAB PO SCH (08:52)
[2022-07-08] MEDS: INSULIN ASPART (NovoLOG) 100 UNIT/ML VIAL SQ SCH ×4 (08:52→20:07)
[2022-07-08] MEDS: SERTRALINE 100 MG TAB PO SCH (08:53)
[2022-07-08] MEDS: NICOTINE 14MG/24HR PATCH TRANSDERM SCH (08:53)
[2022-07-08] MEDS: LORazepam 0.5 MG TAB PO PRN ×3 (08:57→21:29)
[2022-07-08] MEDS: haloperidoL 5 MG TAB PO PRN ×2 (08:58→21:29)
--- NOTE | 2022-07-08 11:54 | P.PN ---
Progress Note - Text Progress Note Date: 07/08/22 Interval History: Patient was seen wandering the hallways and was directable and agreeable to speak with tech writer in the office. The patient reports improvement in mood and has an oberservable improved affect. She has been socializing with a peer her age and they have been supporting each other and writing music. She reports continued issues with suicidal ideation but no intention or plan. She reports she has not engaged in self harming behaviors over the past 48 hours. She reports that she continues to experience auditory hallucinations but they are less severe. She continues to report re-experiencing phenomenon and nightmares. However, the patient does admit she has been fighting her sleep medications stating she is just afraid to sleep because of nightmares. She reports improved appetite. Mental Status Exam: General Appearance: Patient appears to be stated age is alert, directable, and cooperative. Hair is braided by peer. Behavior: Patient is calmly seated without any agitated behavior. Speech: Patient's speech is fluent and nonpressured. Monotone. Mood/Affect: Mood is "Still bad." Affect appears to be brighter today. Suicidality/Homicidality: Patient endorses suicidal ideation but no homicidal ideation. Perceptions: Patient denies any visual however she does endorse auditory hallucinations Though content/process: Dysphoric, concrete. Memory and concentration: AOX3, grossly intact for the purposes of this session Judgment and insight: Improving mildly Vital Signs Temp 97.9 F 07/08/22 06:15 Pulse 115 H 07/08/22 06:15 Resp 16 07/08/22 06:15 BP 113/51 07/08/22 06:15 Pulse Ox 99 07/08/22 06:15 FiO2 Intake & Output 07/07/22 07/08/22 07/08/22 18:59 06:59 18:59 Intake Total 500 Balance 500 Intake: Oral 500 Laboratory Results - Last 24 Hours 07/06/22 07/07/22 07/07/22 20:14 12:53 17:50 POC Glucose (mg/dL) 176 H 89 117 H POC Glu Cabinet Maker ID Cookie Villa Colleen Hooper, Richard 07/07/22 07/08/22 19:46 07:40 POC Glucose (mg/dL) 157 H 112 H POC Glu Cabinet Maker ID Young, Cookie Assessment Schizophrenia, by history Posttraumatic stress disorder Cluster B personality disorder Cannabis use disorder Tobacco use disorder Plan: -Patient continues to meet criteria for inpatient psychiatric admission for symptom stabilization and safety. Patient has signed adult voluntary form and medication consent and was placed in patient's chart. -Medications: Continue Prazosin 4 mg by mouth at bedtime for PTSD related nightmares Continue Zoloft 200 mg by mouth daily for depression/anxiety/PTSD Continue restoril 15 mg by mouth at bedtime for PTSD/acute stress Thorazine mg two times a day@0900,1400. 50 mg at bedtime for mood congruent psychotic features -Treatment team is currently working on appropriate discharge planning including safe long-term and intensive outpatient treatment such as a partial program or a crisis bed. -When necessary Ativan and Haldol for agitation/aggression. -NRT - nicotine patch -SW on board for discharge planning. Encouraged the patient to participate in milieu.
[2022-07-08 12:50] LABS: Glucose,Whole Blood 105 mg/dL (70-110)
[2022-07-08 17:41] LABS: Glucose,Whole Blood 133 mg/dL (70-110)
[2022-07-08 20:05] LABS: Glucose,Whole Blood 222 mg/dL (70-110)
[2022-07-08] MEDS: PRAZOSIN 1 MG CAP PO SCH (20:07)
[2022-07-08] MEDS: TEMAZEPAM 15 MG CAP PO SCH (20:07)
[2022-07-08] MEDS ORDERED: chlorproMAZINE 25 MG TAB PO SCH (21:00)
[2022-07-08] MEDS: ACETAMINOPHEN TAB 325 MG TAB PO PRN (22:16)
[2022-07-09 07:02] VITALS: BP 111/56; PULSE 104; RESP 14; TEMP 97.7
[2022-07-09 07:50] LABS: Glucose,Whole Blood 130 mg/dL (70-110)
[2022-07-09] MEDS: INSULIN ASPART (NovoLOG) 100 UNIT/ML VIAL SQ SCH ×2 (07:59→13:46)
[2022-07-09] MEDS: LORazepam 0.5 MG TAB PO PRN (08:02)
[2022-07-09] MEDS: chlorproMAZINE 25 MG TAB PO SCH (08:02)
[2022-07-09] MEDS: MONTELUKAST 10 MG TAB PO SCH (08:02)
[2022-07-09] MEDS: SERTRALINE 100 MG TAB PO SCH (08:02)
[2022-07-09] MEDS: NICOTINE 14MG/24HR PATCH TRANSDERM SCH (09:26)
[2022-07-09 13:06] LABS: Glucose,Whole Blood 99 mg/dL (70-110)
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
== END 2022-07-09 13:40 | disposition home or self-care (01) | DRG 918 ==
LOC: EC 17:58 → 3MHU 06-30 01:37
PROVIDERS: ADMIT Psychiatry & Neurology Psychiatry; ATTEND Psychiatry & Neurology Psychiatry
DX: T43.592A Poisoning by other antipsychotics and neuroleptics, intentional self-harm, initial encounter (principal); F33.3 Major depressive disorder, recurrent, severe with psychotic symptoms; R45.850 Homicidal ideations; E11.9 Type 2 diabetes mellitus without complications; F12.10 Cannabis abuse, uncomplicated; J45.40 Moderate persistent asthma, uncomplicated; E66.9 Obesity, unspecified; T43.222A Poisoning by selective serotonin reuptake inhibitors, intentional self-harm, initial encounter; F60.3 Borderline personality disorder; F60.89 Other specific personality disorders; I49.8 Other specified cardiac arrhythmias; F17.290 Nicotine dependence, other tobacco product, uncomplicated; E28.2 Polycystic ovarian syndrome; F17.210 Nicotine dependence, cigarettes, uncomplicated; F43.0 Acute stress reaction; E78.5 Hyperlipidemia, unspecified; F51.5 Nightmare disorder; F43.10 Post-traumatic stress disorder, unspecified; Z20.822 Contact with and (suspected) exposure to COVID-19; Z68.34 Body mass index [BMI] 34.0-34.9, adult; Z28.310 Unvaccinated for COVID-19; T74.21XS Adult sexual abuse, confirmed, sequela; Y07.499 Other family member, perpetrator of maltreatment and neglect; Z56.0 Unemployment, unspecified; Z91.51 Personal history of suicidal behavior; Z87.19 Personal history of other diseases of the digestive system; Z91.011 Allergy to milk products; Z91.012 Allergy to eggs; Z88.5 Allergy status to narcotic agent; Z88.8 Allergy status to other drugs, medicaments and biological substances; Z79.899 Other long term (current) drug therapy; Z81.8 Family history of other mental and behavioral disorders
CPT/HCPCS: 36415; 80053; 80061; 80143; 80178; 80179; 80306; 80320; 81003; 81025; 82075; 83036; 84443; 85025; 85610; 87635; 96374; 99285

== ENCOUNTER 2022-07-09 21:03 | Inpatient (IN) | payer MEDICARE, MEDICAID ==
[2022-07-09] MEDS ORDERED: LORazepam 1 MG TAB PO STA (23:35)
[2022-07-10 00:12] LABS: Appearance,Urine Clear (Clear); Bilirubin,Urine Negative (Negative); Blood,Urine Negative (Negative); Color,Urine Light Yellow; Glucose,Urine (UA) Negative (Negative); Ketones,Urine Negative (Negative); Leukocyte Esterase,Urine Negative (Negative); Nitrite,Urine Negative (Negative); Protein,Urine Negative (Negative); Urobilinogen,Urine <2.0 mg/dL (<2.0)
[2022-07-10 00:25] LABS: Amphetamine Screen,Urine Not Detected (NotDetected); Barbiturate Screen,Urine Not Detected (NotDetected); Benzodiazepines Screen,Urine Detected (NotDetected); Cocaine Screen,Urine Not Detected (NotDetected); Methadone Screen, Urine Not Detected (NotDetected); Opiate Screen,Urine Not Detected (NotDetected); Oxycodone Screen, Urine Not Detected (NotDetected); Phencyclidine Screen,Urine Not Detected (NotDetected); Tricyclic Antidepressant,Urine Not Detected (NotDetected); Urn Cannabinoid Scrn Detected (NotDetected)
[2022-07-10] MEDS ORDERED: MAG HYDROX/AL HYDROX/SIMETH 30 ML CUP PO PRN (01:55)
[2022-07-10] MEDS ORDERED: MAGNESIUM HYDROXIDE 2,400 MG/10 ML CUP PO PRN (01:55)
[2022-07-10] MEDS ORDERED: ALBUTEROL INHALER 60 PUFF/8 GM INHALER (MHU) INHALATION PRN (01:57)
[2022-07-10] MEDS ORDERED: LORazepam 1 MG TAB PO PRN (02:02)
--- NOTE | 2022-07-10 02:46 | ED ---
Psych HPI - General Chief Complaint: Psychiatric Symptoms Stated Complaint: Mental Health Time Seen by Provider: 07/09/22 22:35 Source: patient Mode of arrival: ambulatory - History of Present Illness Initial Comments: 27-year-old female with past medical history of bipolar, schizophrenia who presents to the emergency department stating that she is anxious and suicidal. She was just discharged today from [facility]. States that she went home to her brother's house but does not feel any improved. States that she admitted to the psychiatrist that she was not ready to go home. Admits to feeling suicidal because of her anxiousness. Denies any attempt at harming herself. No concern for . No other alleviating, precipitating or modifying factors - Related Data Home Medications Medication Instructions Recorded Confirmed Montelukast Sodium [Singulair] 10 mg PO DAILY 01/27/22 06/29/22 Previous Rx's Medication Instructions Recorded Albuterol Inhaler [Ventolin Hfa 2 puff INHALATION RT-QID PRN 30 02/12/22 Inhaler] Days each Prazosin [Minipress] 4 mg PO HS 7 Days #28 cap 07/15/22 Sertraline [Zoloft] 200 mg PO DAILY 7 Days #14 tab 07/15/22 chlorproMAZINE [Thorazine] 75 mg PO TID 3 Days #9 tab 07/15/22 Allergies Allergy/AdvReac Type Severity Reaction Status Date / Time egg Allergy Anaphylaxis Verified 07/10/22 02:04 hydromorphone HCl Allergy Itching/Hiv Verified 07/10/22 02:04 [From Dilaudid] es milk Allergy Anaphylaxis Verified 07/10/22 02:04 gabapentin AdvReac Hives Verified 07/10/22 02:04 Review of Systems ROS Statement: Those systems with pertinent positive or pertinent negative responses have been documented in the HPI. ROS Other: All systems not noted in ROS Statement are negative. Past Medical History Past Medical History: Diabetes Mellitus, GERD/Reflux, GI Bleed Additional Past Medical History / Comment(s): borderline personality, schizophrenia, hx attempted suicide, her brother is her guardian, PCOS, Migraines, History of Any Multi-Drug Resistant Organisms: C-DIFF Date of last positivie culture/infection: 2016 MDRO Source:: Stool Past Surgical History: Cholecystectomy, Tonsillectomy Past Anesthesia/Blood Transfusion Reactions: No Reported Reaction Past Psychological History: Anxiety, Depression, PTSD, Schizoaffective Disorder, Schizophrenia Additional Psychological History / Comment(s): borderline personality disorder Smoking Status: Current every day smoker, Vaper Past Alcohol Use History: Occasional Additional Past Alcohol Use History / Comment(s): states she does not drink Past Drug Use History: Marijuana Additional Drug Use History / Comment(s): pt states she had a past dependency on Xanax and Opiods but stopped over a year ago with a brief use of Xanax in Feb 2022 - Past Family History Mother Additional Family Medical History / Comment(s): NONE Father Additional Family Medical History / Comment(s): NONE General Exam Limitations: no limitations General appearance: anxious Head exam: Present: atraumatic, normocephalic, normal inspection Eye exam: Present: normal appearance, PERRL, EOMI. Absent: scleral icterus, conjunctival injection, periorbital swelling ENT exam: Present: normal exam, mucous membranes moist Neck exam: Present: normal inspection. Absent: tenderness, meningismus, lymphadenopathy Respiratory exam: Present: normal lung sounds bilaterally. Absent: respiratory distress, wheezes, rales, rhonchi, stridor Cardiovascular Exam: Present: normal rhythm, tachycardia, normal heart sounds. Absent: systolic murmur, diastolic murmur, rubs, gallop, clicks GI/Abdominal exam: Present: soft, normal bowel sounds. Absent: distended, tenderness, guarding, rebound, rigid Extremities exam: Present: normal inspection, full ROM, normal capillary refill. Absent: tenderness, pedal edema, joint swelling, calf tenderness Back exam: Present: normal inspection Neurological exam: Present: alert, oriented X3, CN II-XII intact Psychiatric exam: Present: anxious, suicidal ideation Skin exam: Present: warm, dry, intact, normal color. Absent: rash Course Vital Signs 07/09/22 21:39 Temperature 97.6 F Pulse Rate 124 H Respiratory 22 Rate Blood Pressure 127/81 O2 Sat by Pulse 95 Oximetry Medical Decision Making - Medical Decision Making Was pt. sent in by a medical professional or institution (, PA, [employer], urgent care, hospital, or penitentiary...) When possible be specific @ -No Did you speak to anyone other than the patient for history (EMS, parent, family, police, friend...)? What history was obtained from this source @ -No Did you review nursing and triage notes (agree or disagree)? Why? @ -I reviewed and agree with nursing and triage notes Were old charts reviewed (outside hosp., previous admission, EMS record, old EKG, old radiological studies, urgent care reports/EKG's, penitentiary records)? Report findings @ -old charts were reviewed - discharge summary from [facility] yesterday Differential Diagnosis (chest pain, altered mental status, abdominal pain women, abdominal pain men, vaginal bleeding, weakness, fever, dyspnea, syncope, headache, dizziness, GI bleed, back pain, seizure, CVA, palpatations, mental health, musculoskeletal)? @ -anxiety, depression, ptsd, bipolar, schizophrenia, suicidal EKG interpreted by me (3pts min.). @ -Not done X-rays interpreted by me (1pt min.). @ -None done CT interpreted by me (1pt min.). @ -None done U/S interpreted by me (1pt. min.). @ -None done What testing was considered but not performed or refused? (CT, X-rays, U/S, labs)? Why? @ -None What meds were considered but not given or refused? Why? @ -None Did you discuss the management of the patient with other professionals ( professionals i.e. , PA, [employer], lab, RT, psych nurse, director of social work, machine clothing worker, teacher, collections officer, leather case finisher)? Give summary @ -EPS nurse Was smoking cessation discussed for >3mins.? @ -No Was critical care preformed (if so, how long)? @ -No Were there social determinants of health that impacted care today? How? (Homelessness, low income, unemployed, alcoholism, drug addiction, transportation, low edu. Level, literacy, decrease access to med. care, fdc, rehab)? @ -No Was there de-escalation of care discussed even if they declined (Discuss DNR or withdrawal of care, Hospice)? DNR status @ -No What co-morbidities impacted this encounter? (DM, HTN, Smoking, COPD, CAD, Cancer, CVA, ARF, Chemo, Hep., AIDS, mental health diagnosis, sleep apnea, morbid obesity)? @ -bipolar Was patient admitted / discharged? Hospital course, mention meds given and route, prescriptions, significant lab abnormalities, going to OR and other pertinent info. @ -Upon arrival patient is placed into room 12. Thorough history and physical exam is performed. EPS does evaluate the patient and she is admitted to [facility]. Undiagnosed new problem with uncertain prognosis? @ -No Drug Therapy requiring intensive monitoring for toxicity (Heparin, Nitro, Insulin, Cardizem)? @ -No Were any procedures done? @ -No Diagnosis/symptom? @ -anxiety, depression, suicidal Acute, or Chronic, or Acute on Chronic? @ -acute on chronic Uncomplicated (without systemic symptoms) or Complicated (systemic symptoms)? @ -complicated Side effects of treatment? @ -No Exacerbation, Progression, or Severe Exacerbation? @ -No Poses a threat to life or bodily function? How? (Chest pain, USA, AL, pneumonia, PE, COPD, DKA, ARF, appy, cholecystitis, CVA, Diverticulitis, Homicidal, Suicidal, threat to staff... and all critical care pts) @ -yes - patient can harm herself - Lab Data Lab Results 07/09/22 07/10/22 Range/Units 23:55 01:00 Urine Color Light Yellow Urine Appearance Clear (Clear) Urine pH 8.0 (5.0-8.0) Ur Specific [place] 1.010 (1.001-1.035) Urine Protein Negative (Negative) Urine Glucose (UA) Negative (Negative) Urine Ketones Negative (Negative) Urine Blood Negative (Negative) Urine Nitrite Negative (Negative) Urine Bilirubin Negative (Negative) Urine Urobilinogen <2.0 (<2.0) mg/dL Ur Leukocyte Esterase Negative (Negative) Urine Opiates Screen Not Detected (NotDetected) Ur Oxycodone Screen Not Detected (NotDetected) Urine Methadone Screen Not Detected (NotDetected) Ur Propoxyphene Screen Not Detected (NotDetected) Ur Barbiturates Screen Not Detected (NotDetected) U Tricyclic Antidepress Not Detected (NotDetected) Ur Phencyclidine Scrn Not Detected (NotDetected) Ur Amphetamines Screen Not Detected (NotDetected) U Methamphetamines Scrn Not Detected (NotDetected) U Benzodiazepines Scrn Detected H (NotDetected) Urine Cocaine Screen Not Detected (NotDetected) U Marijuana (THC) Screen Detected H (NotDetected) Coronavirus (PCR) Not Detected (Not Detectd) Disposition Clinical Impression: PTSD (post-traumatic stress disorder), Suicidal ideation Disposition: TRANSFER TO PSYCH HOSP/UNIT Condition: Stable Is patient prescribed a controlled substance at d/c from ED?: No
[2022-07-10] MEDS: ACETAMINOPHEN TAB 325 MG TAB PO PRN ×2 (03:39→08:33)
[2022-07-10] MEDS: SERTRALINE 100 MG TAB PO SCH (08:32)
[2022-07-10] MEDS: MONTELUKAST 10 MG TAB PO SCH (08:32)
[2022-07-10] MEDS: NICOTINE 14MG/24HR PATCH TRANSDERM SCH (08:33)
[2022-07-10] MEDS ORDERED: chlorproMAZINE 25 MG TAB PO SCH ×2 (09:00→21:00)
[2022-07-10] MEDS ORDERED: chlorproMAZINE 25 MG TAB PO STA (10:22)
[2022-07-10] MEDS ORDERED: LORazepam 1 MG TAB PO STA (12:25)
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
[2022-07-10] MEDS: chlorproMAZINE 25 MG TAB PO SCH ×2 (17:19→19:57)
[2022-07-10] MEDS: TEMAZEPAM 15 MG CAP PO SCH (19:57)
[2022-07-10] MEDS: PRAZOSIN 1 MG CAP PO SCH (19:57)
--- NOTE | 2022-07-11 01:23 | P.PN ---
Progress Note - Text Progress Note Date: 07/10/22 heavily sedated at this time
[2022-07-11 07:50] LABS: Glucose,Whole Blood 135 mg/dL (70-110)
[2022-07-11] MEDS: NICOTINE 14MG/24HR PATCH TRANSDERM SCH (07:56)
[2022-07-11] MEDS: chlorproMAZINE 25 MG TAB PO SCH ×3 (07:57→20:49)
[2022-07-11] MEDS: MONTELUKAST 10 MG TAB PO SCH (07:57)
[2022-07-11] MEDS: SERTRALINE 100 MG TAB PO SCH (07:57)
[2022-07-11] MEDS ORDERED: OLANZapine 10 MG VIAL IM PRN (11:21)
[2022-07-11] MEDS ORDERED: hydrOXYzine HCL 50 MG/ML 1 ML VIAL IM PRN (11:21)
[2022-07-11] MEDS: hydrOXYzine pamoate 25 MG CAP PO PRN ×2 (11:31→18:51)
[2022-07-11 12:38] LABS: Glucose,Whole Blood 102 mg/dL (70-110)
--- NOTE | 2022-07-11 13:59 | P.PN ---
Progress Note - Text Progress Note Date: 07/11/22 Interval History: Patient was seen bedside this AM. She was seated in a corner of the room and says this is because it is her "safe space." Following visiting hours, patient states that she is having persistent command auditory hallucinations to hurt herself. Patient states that she thinks very little of herself, considers herself "dirty", and that she is "bad ". Patient states that she utilizes cutting as a mechanism of coping with the voices and her negative self talk. She states that she had participated in DBT in the past but did not complete it. However, she is unable to name any positive coping tools from her DBT training. Patient states that she is constantly reexperiencing flashbacks. She states that she continues to have nightmares despite the current medication regimen. She reports mild dizziness occasionally otherwise denies any other side effects. She states that she does not feel like the medications have done anything for her thus far. She reports fair appetite but trouble sleeping. At this time patient denies any homicidal ideations, intent or plan. Patient denies any visual hallucinations and denies any paranoia or delusions. Patient denies any side effects from the medications and has been compliant with meds. Mental Status Exam: General Appearance: Patient appears to be stated age is alert, directable, and attempts to cooperate. Patient appears to have fair hygiene and grooming. Behavior: Patient is seated without any agitated behavior. Slow psychomotor activity. Speech: Patient's speech is fluent and nonpressured. Mood/Affect: Patient reports their mood is depressed, affect is congruent and blunted. Suicidality/Homicidality: Patient denies having any homicidal ideation intent or plan. Patient reports suicidal ideation with plan to overdose. Perceptions: Patient denies any visual hallucinations. Endorses auditory hallucinations Though content/process: There is no evidence of any delusional thought content and thought process is linear and goal-directed. Memory and concentration: AOX3, grossly intact for the purposes of this session. Judgment and insight: Very poor Assessment Major depressive disorder, recurrent, severe, with psychotic features Posttraumatic stress disorder Cannabis use disorder Nicotine dependence Borderline personality disorder PLAN: -Patient is admitted under voluntary status to [facility] for stabilization of psychiatric symptoms and safety. Patient signed adult voluntary form and medication consent and is placed in patient's chart. -Medications : Increase Thorazine to 75 mg by mouth 3 times a day for mood congruent psychotic features Zoloft 200 mg by mouth daily for depression/anxiety/PTSD Minipress 4 mg daily at bedtime for PTSD related nightmares Restoril 15 mg by mouth at bedtime for acute stress -Ativan PRN for agitation/aggression -Patient was counselled on substance abuse and desired to cut back on use -Patient was informed of the risks, benefits and side effects of the medication and patient verbally consented to taking the medications. Patient signed med consent form and was placed in chart. -Internal Medicine consult to perform medical evaluation and physical. -NRT - nicotine patch -SW on board for discharge planning. Encourage patient to participate in groups to work on coping skills.
[2022-07-11 17:57] LABS: Glucose,Whole Blood 83 mg/dL (70-110)
[2022-07-11] MEDS: ACETAMINOPHEN TAB 325 MG TAB PO PRN (18:51)
[2022-07-11 19:56] LABS: Glucose,Whole Blood 176 mg/dL (70-110)
[2022-07-11 19:56] LABS: Glucose,Whole Blood 177 mg/dL (70-110)
[2022-07-11] MEDS: PRAZOSIN 1 MG CAP PO SCH (20:49)
[2022-07-11] MEDS: TEMAZEPAM 15 MG CAP PO SCH (20:49)
--- NOTE | 2022-07-12 00:45 | P.CONS ---
History of Present Illness - Reason for Consult Consult date: 07/11/22 - History of Present Illness Patient is a 27-year-old female with a PMH of depression, borderline personality disorder, anxiety, diabetes mellitus who presented to the emergency room with complaints of depression and suicidal ideation. Patient was admitted to the [facility] where she was seen and evaluated with the mental health marketing community liaison. The patient states that she has been experiencing right lower quadrant abdominal pain since 11 AM earlier today. States that the pain is a 7 out of 10 on maximal intensity, nonradiating, with no alleviating or exacerbating features and is somewhat intermittent. She reports a history of cholecystectomy. She also reports loose bowel movements earlier today. Denied nausea or vomiting. Denied fever or chills. Patient reports using recreational marijuana and smoking 2 packs daily. She denied alcohol use. Review of systems: Pertinent positives and negatives as discussed in HPI, a complete review of systems was performed and all other systems are negative. Physical examination: General: non toxic, no distress, appears at stated age, normal weight Derm: Large excoriations overlying both forearms self-inflicted, no unusual ecchymoses, warm, dry Head: atraumatic, normocephalic, symmetric Eyes: EOMI, no lid lag, anicteric sclera ENT: Nose and ears atraumatic, no thrush, no pharyngeal erythema Neck: trachea midline, supple Mouth: no lip lesion, mucus membranes moist Cardiovascular: S1S2 reg, no murmur, no edema Lungs: CTA bilateral, no rhonchi, no rales , no accessory muscle use Abdominal: soft, right lower quadrant tenderness to palpation without guarding or rebound Ext: no gross muscle atrophy, no contractures, Neuro: No gross focal neuro deficits noted Psych: Alert, oriented, appropriate affect Assessment: Right lower quadrant abdominal pain, new onset Type II DM Tobacco, marijuana use Depression and suicidal ideation Imaging: None performed Data Review: Laboratory evaluation was reviewed with urine toxicology positive for marijuana and benzodiazepines. Blood glucose was 176. Plan: Obtain CT abdomen and pelvis with contrast to rule out underlying appendicitis Consider starting patient on metformin once medication reconciliation is completed Strongly advised patient on importance of tobacco and marijuana use cessation Thank you for allowing us to participate in the care of this patient. We will follow peripherally. Do not hesitate to contact us with questions. Someone can be reached from the [facility] hospitalist group at all hours of the day at [phone]. Past Medical History Past Medical History: Diabetes Mellitus, GERD/Reflux, GI Bleed Additional Past Medical History / Comment(s): borderline personality, schizophrenia, hx attempted suicide, her brother is her guardian, PCOS, Migraines, History of Any Multi-Drug Resistant Organisms: C-DIFF Year Discovered:: 2017 MDRO Source:: Stool Past Surgical History: Cholecystectomy, Tonsillectomy Past Anesthesia/Blood Transfusion Reactions: No Reported Reaction Past Psychological History: Anxiety, Depression, PTSD, Schizoaffective Disorder, Schizophrenia Additional Psychological History / Comment(s): borderline personality disorder Smoking Status: Current every day smoker, Vaper Past Alcohol Use History: Occasional Additional Past Alcohol Use History / Comment(s): states she does not drink Past Drug Use History: Marijuana Additional Drug Use History / Comment(s): pt states she had a past dependency on Xanax and Opiods but stopped over a year ago with a brief use of Xanax in Feb 2022 - Past Family History Mother Additional Family Medical History / Comment(s): NONE Father Family Medical History: Liver Disease Additional Family Medical History / Comment(s): NONE Medications and Allergies Home Medications Medication Instructions Recorded Confirmed Type Montelukast Sodium [Singulair] 10 mg PO DAILY 01/27/22 06/29/22 History Albuterol Inhaler [Ventolin Hfa 2 puff INHALATION RT-QID PRN 30 02/12/22 06/29/22 Rx Inhaler] Days each Prazosin [Minipress] 4 mg PO HS 7 Days #28 cap 07/09/22 Rx Sertraline [Zoloft] 200 mg PO DAILY 7 Days #14 tab 07/09/22 Rx Temazepam [Restoril] 15 mg PO HS 7 Days #7 cap 07/09/22 Rx chlorproMAZINE [Thorazine] 25 mg PO BID@0900,1400 7 Days #14 07/09/22 Rx tab chlorproMAZINE [Thorazine] 50 mg PO HS 7 Days #14 tab 07/09/22 Rx Allergies Allergy/AdvReac Type Severity Reaction Status Date / Time egg Allergy Anaphylaxis Verified 07/10/22 02:04 hydromorphone HCl Allergy Itching/Hiv Verified 07/10/22 02:04 [From Dilaudid] es milk Allergy Anaphylaxis Verified 07/10/22 02:04 gabapentin AdvReac Hives Verified 07/10/22 02:04 Physical Exam Vitals: Vital Signs Temp Pulse Pulse Resp BP 07/11/22 20:47 92 20 109/68 07/11/22 06:50 97.4 F L 85 15 103/57 Results Labs: Abnormal Lab Results - Last 24 Hours (Table) 07/11/22 07/11/22 07/11/22 Range/Units 07:47 19:52 19:54 POC Glucose (mg/dL) 135 H 177 H 176 H (70-110) mg/dL
--- NOTE | 2022-07-12 01:00 | CT ---
EXAM: CT Abdomen and Pelvis With Intravenous Contrast CLINICAL HISTORY: ITS.REASON CT Reason: RLQ abd pain, r/o appendicitis TECHNIQUE: Axial computed tomography images of the abdomen and pelvis with intravenous contrast. CTDI is 34 mGy and DLP is 2019.6 mGy-cm. This CT exam was performed using one or more of the following dose reduction techniques: automated exposure control, adjustment of the mA and/or kV according to patient size, and/or use of iterative reconstruction technique. COMPARISON: No relevant prior studies available. FINDINGS: Lung bases: Unremarkable. No mass. No consolidation. ABDOMEN: Liver: Hepatic steatosis. No mass. Gallbladder and bile ducts: Status post cholecystectomy.. No ductal dilation. Pancreas: Unremarkable. No mass. No ductal dilation. Spleen: Unremarkable. No splenomegaly. Adrenals: Unremarkable. No mass. Kidneys and ureters: Unremarkable. No solid mass. No hydronephrosis. Stomach and bowel: Diverticulosis of the sigmoid colon.. No obstruction. No mucosal thickening. PELVIS: Appendix: No findings to suggest acute appendicitis. Bladder: Unremarkable. No mass. Reproductive: Unremarkable as visualized. ABDOMEN and PELVIS: Intraperitoneal space: Unremarkable. No free air. No significant fluid collection. Bones/joints: There is a moderate spinal canal stenosis at L4-5. No acute fracture. No dislocation. Soft tissues: There is a 6 mm fat-containing umbilical hernia. Vasculature: Unremarkable. No abdominal aortic aneurysm. Lymph nodes: There are prominent lymph nodes scattered throughout the mesenteric fat. Prominent inguinal lymph nodes. IMPRESSION: Findings concerning for mesenteric adenitis. The appendix is normal. Hepatic steatosis. Diverticulosis of the sigmoid colon.
[2022-07-12 08:01] LABS: Glucose,Whole Blood 102 mg/dL (70-110)
[2022-07-12] MEDS: MONTELUKAST 10 MG TAB PO SCH (08:50)
[2022-07-12] MEDS: NICOTINE 14MG/24HR PATCH TRANSDERM SCH (08:50)
[2022-07-12] MEDS: SERTRALINE 100 MG TAB PO SCH (08:50)
[2022-07-12] MEDS: chlorproMAZINE 25 MG TAB PO SCH ×3 (08:50→20:44)
[2022-07-12 12:51] LABS: Glucose,Whole Blood 104 mg/dL (70-110)
[2022-07-12] MEDS: hydrOXYzine pamoate 25 MG CAP PO PRN (13:16)
--- NOTE | 2022-07-12 14:40 | P.PN ---
Progress Note - Text Progress Note Date: 07/12/22 Interval History: Patient was seen bedside this AM. Sound physicians were called yesterday due to abdominal pain and computed tomography scan of the abdomen was completed. Computed tomography scan indicates potential mesenteric adenitis, hepatic steatosis, and diverticulosis of sigmoid colon. Patient reports doing better today. However, she states that her mood is "sad ". She states that she continues to have flashbacks regarding past trauma. She states that she slept better last night. She denies somatic symptoms including dizziness today. She reports working on writing songs about her emotions. She states that music helps her in healing. She also says she placed the when necessary on the guitar. Patient continues to endorse suicidal ideation that is passive and denies any current plan. She states "I don't want to feel pain". At this time patient denies any homicidal ideations, intent or plan. Patient denies any visual hallucinations and denies any paranoia or delusions. Patient denies any side effects from the medications and has been compliant with meds. Mental Status Exam: General Appearance: Patient appears to be stated age is alert, directable, and attempts to cooperate. Patient appears to have fair hygiene and grooming. Behavior: Patient is seated without any agitated behavior. Slow psychomotor activity. Speech: Patient's speech is fluent and nonpressured. Mood/Affect: Patient reports their mood is depressed, affect is congruent and blunted. Suicidality/Homicidality: Patient denies having any homicidal ideation intent or plan. Patient reports suicidal ideation with plan to overdose. Perceptions: Patient denies any visual hallucinations. Endorses auditory hallucinations Though content/process: There is no evidence of any delusional thought content and thought process is linear and goal-directed. Memory and concentration: AOX3, grossly intact for the purposes of this session. Judgment and insight: Very poor Assessment Major depressive disorder, recurrent, severe, with psychotic features Posttraumatic stress disorder Cannabis use disorder Nicotine dependence Borderline personality disorder PLAN: -Patient is admitted under voluntary status to [facility] for stabilization of psychiatric symptoms and safety. Patient signed adult voluntary form and medication consent and is placed in patient's chart. -Medications : Thorazine 75 mg by mouth 3 times a day for mood congruent psychotic features Zoloft 200 mg by mouth daily for depression/anxiety/PTSD Minipress 4 mg daily at bedtime for PTSD related nightmares Restoril 15 mg by mouth at bedtime for acute stress -Ativan PRN for agitation/aggression -Patient was counselled on substance abuse and desired to cut back on use -Patient was informed of the risks, benefits and side effects of the medication and patient verbally consented to taking the medications. Patient signed med consent form and was placed in chart. -Internal Medicine consult to perform medical evaluation and physical. Contacted to follow-up on CT abdomen findings -NRT - nicotine patch -SW on board for discharge planning. Encourage patient to participate in groups to work on coping skills.
[2022-07-12 17:42] LABS: Glucose,Whole Blood 93 mg/dL (70-110)
[2022-07-12 20:12] LABS: Glucose,Whole Blood 116 mg/dL (70-110)
[2022-07-12] MEDS: PRAZOSIN 1 MG CAP PO SCH (20:44)
[2022-07-12] MEDS: TEMAZEPAM 15 MG CAP PO SCH (20:45)
[2022-07-12] MEDS: OLANZapine 5 MG TAB PO PRN (20:46)
[2022-07-12] MEDS: ACETAMINOPHEN TAB 325 MG TAB PO PRN (20:48)
[2022-07-12] MEDS: LORazepam 2 MG/ML INJ IM PRN (21:49)
[2022-07-13 07:56] LABS: Glucose,Whole Blood 114 mg/dL (70-110)
[2022-07-13] MEDS: MONTELUKAST 10 MG TAB PO SCH (09:18)
[2022-07-13] MEDS: chlorproMAZINE 25 MG TAB PO SCH ×3 (09:18→19:43)
[2022-07-13] MEDS: SERTRALINE 100 MG TAB PO SCH (09:18)
[2022-07-13] MEDS: NICOTINE 14MG/24HR PATCH TRANSDERM SCH (09:18)
[2022-07-13] MEDS: OLANZapine 5 MG TAB PO PRN ×2 (09:19→20:36)
[2022-07-13] MEDS: hydrOXYzine pamoate 25 MG CAP PO PRN (09:51)
[2022-07-13 11:13] VITALS: RESP 18
[2022-07-13 13:08] LABS: Glucose,Whole Blood 95 mg/dL (70-110)
--- NOTE | 2022-07-13 15:24 | P.PN ---
Progress Note - Text Progress Note Date: 07/13/22 Patient became more agitated earlier today and expressed mounting suicidal ideation and thoughts to hurt herself. Nursing staff were concerned and requested to place the patient back on one-to-one supervision. When I went to interview the patient she was laying in bed with her eyes closed. She did not respond to her name or get out of bed. We'll attempt to speak with her later.
[2022-07-13 17:48] LABS: Glucose,Whole Blood 153 mg/dL (70-110)
[2022-07-13] MEDS: TEMAZEPAM 15 MG CAP PO SCH (19:42)
[2022-07-13] MEDS: PRAZOSIN 1 MG CAP PO SCH (19:42)
[2022-07-13 20:17] LABS: Glucose,Whole Blood 172 mg/dL (70-110)
[2022-07-13] MEDS: LORazepam 2 MG/ML INJ IM PRN (20:37)
[2022-07-13] MEDS: INSULIN ASPART (NovoLOG) 100 UNIT/ML VIAL SQ SCH (21:12)
[2022-07-14 07:47] LABS: Glucose,Whole Blood 104 mg/dL (70-110)
[2022-07-14] MEDS: NICOTINE 14MG/24HR PATCH TRANSDERM SCH (09:00)
[2022-07-14] MEDS: INSULIN ASPART (NovoLOG) 100 UNIT/ML VIAL SQ SCH ×4 (09:00→20:47)
[2022-07-14] MEDS: chlorproMAZINE 25 MG TAB PO SCH ×3 (09:01→20:01)
[2022-07-14] MEDS: MONTELUKAST 10 MG TAB PO SCH (09:01)
[2022-07-14] MEDS: SERTRALINE 100 MG TAB PO SCH (09:01)
[2022-07-14] MEDS: hydrOXYzine pamoate 25 MG CAP PO PRN ×2 (11:45→20:00)
[2022-07-14] MEDS: OLANZapine 5 MG TAB PO PRN (11:45)
--- NOTE | 2022-07-14 12:46 | P.PN ---
Progress Note - Text Progress Note Date: 07/14/22 Interval History: Patient was seen wandering the hallways and was directable and agreeable to speak with underwriter solicitation director in the office. Currently, the patient is on one-to-one supervision after engaging in self mutilating behavior by scratching her left forearm until it bled. However, today, the patient states that she is feeling slightly better. She reports that she continues to feel uneasy in regards to her sleep. She continues to endorse reexperiencing phenomenon. She reports chronic thoughts of self-harm which are triggered by overwhelming emotions and feelings. She reports chronic thoughts of suicide. She denies any homicidal ideation. She reports no auditory or visual hallucinations today. She reports no paranoia or other delusions today. She has been adherent with her medications and is not endorsing any significant side effect. We discussed at length the importance of receiving appropriate therapy. We engaged in mentalization techniques and identifying our emotions. The patient does express a desire to return to [facility] for services. Mental Status Exam: General Appearance: Patient appears to be stated age is alert, directable, and cooperative. Superficial lacerations on her left forearm. Behavior: Patient is calmly seated without any agitated behavior. Eye contact is appropriate. Speech: Patient's speech is fluent and nonpressured. Monotone. Mood/Affect: Mood is improving mildly, affect is congruent and blunted. Suicidality/Homicidality: Patient patient reports chronic suicidal ideation. She denies any homicidal ideation. Perceptions: Patient denies any visual hallucinations and denies any auditory hallucinations Though content/process: She continues to be dysphoric. Memory and concentration: AOX3, grossly intact for the purposes of this session Judgment and insight: Poor at baseline. Frustration tolerance and impulse control: Poor. Vital Signs Temp 97.3 F L 07/13/22 11:00 Pulse 123 H 07/13/22 11:00 Resp 18 07/13/22 11:00 BP 127/89 07/13/22 11:00 Pulse Ox 98 07/13/22 11:00 FiO2 Laboratory Results POC Glucose (mg/dL) 104 mg/dL (70-110) 07/14/22 07:44 POC Glu [employer] ID Agustina Torres 07/14/22 07:44 Urine Color Light Yellow 07/09/22 23:55 Urine Appearance Clear (Clear) 07/09/22 23:55 Urine pH 8.0 (5.0-8.0) 07/09/22 23:55 Ur Specific [place] 1.010 (1.001-1.035) 07/09/22 23:55 Urine Protein Negative (Negative) 07/09/22 23:55 Urine Glucose (UA) Negative (Negative) 07/09/22 23:55 Urine Ketones Negative (Negative) 07/09/22 23:55 Urine Blood Negative (Negative) 07/09/22 23:55 Urine Nitrite Negative (Negative) 07/09/22 23:55 Urine Bilirubin Negative (Negative) 07/09/22 23:55 Urine Urobilinogen <2.0 mg/dL (<2.0) 07/09/22 23:55 Ur Leukocyte Esterase Negative (Negative) 07/09/22 23:55 Urine Opiates Screen Not Detected (NotDetected) 07/09/22 23:55 Ur Oxycodone Screen Not Detected (NotDetected) 07/09/22 23:55 Urine Methadone Screen Not Detected (NotDetected) 07/09/22 23:55 Ur Propoxyphene Screen Not Detected (NotDetected) 07/09/22 23:55 Ur Barbiturates Screen Not Detected (NotDetected) 07/09/22 23:55 U Tricyclic Antidepress Not Detected (NotDetected) 07/09/22 23:55 Ur Phencyclidine Scrn Not Detected (NotDetected) 07/09/22 23:55 Ur Amphetamines Screen Not Detected (NotDetected) 07/09/22 23:55 U Methamphetamines Scrn Not Detected (NotDetected) 07/09/22 23:55 U Benzodiazepines Scrn Detected (NotDetected) H 07/09/22 23:55 Urine Cocaine Screen Not Detected (NotDetected) 07/09/22 23:55 U Marijuana (THC) Screen Detected (NotDetected) H 07/09/22 23:55 Coronavirus (PCR) Not Detected (Not Detectd) 07/10/22 01:00 Allergies Allergy/AdvReac Type Severity Reaction Status Date / Time egg Allergy Anaphylaxis Verified 07/10/22 02:04 hydromorphone HCl Allergy Itching/Hiv Verified 07/10/22 02:04 [From Dilaudid] es milk Allergy Anaphylaxis Verified 07/10/22 02:04 gabapentin AdvReac Hives Verified 07/10/22 02:04 Assessment Major depressive disorder, recurrent, severe, with psychotic features Posttraumatic stress disorder Cannabis use disorder Nicotine dependence Borderline personality disorder Plan: -Patient continues to meet criteria for inpatient psychiatric admission for symptom stabilization and safety. Patient has signed adult voluntary form and medication consent and was placed in patient's chart. -Medications: Thorazine 75 mg by mouth 3 times a day for mood stabilization would congruent psychotic features Zoloft 200 mg by mouth daily for depression/anxiety/PTSD Restoril 15 mg by mouth at bedtime for insomnia/acute stress Prazosin 4 mg by mouth at bedtime for PTSD related nightmares -When necessary for Vistaril and Zyprexa agitation/aggression. -NRT - nicotine patch -SW on board for discharge planning. Encouraged the patient to participate in milieu.
[2022-07-14 12:53] LABS: Glucose,Whole Blood 95 mg/dL (70-110)
[2022-07-14 17:11] LABS: Glucose,Whole Blood 120 mg/dL (70-110)
[2022-07-14 18:04] LABS: Glucose,Whole Blood 93 mg/dL (70-110)
[2022-07-14] MEDS: PRAZOSIN 1 MG CAP PO SCH (20:01)
[2022-07-14] MEDS: TEMAZEPAM 15 MG CAP PO SCH (20:02)
[2022-07-14 20:30] LABS: Glucose,Whole Blood 122 mg/dL (70-110)
[2022-07-15] MEDS: hydrOXYzine pamoate 25 MG CAP PO PRN ×2 (03:34→08:33)
[2022-07-15] MEDS: OLANZapine 5 MG TAB PO PRN (03:34)
[2022-07-15 05:33] VITALS: BP 107/50; PULSE 126; TEMP 97.3
[2022-07-15 07:44] LABS: Glucose,Whole Blood 100 mg/dL (70-110)
[2022-07-15] MEDS: chlorproMAZINE 25 MG TAB PO SCH (08:31)
[2022-07-15] MEDS: NICOTINE 14MG/24HR PATCH TRANSDERM SCH (08:31)
[2022-07-15] MEDS: INSULIN ASPART (NovoLOG) 100 UNIT/ML VIAL SQ SCH ×2 (08:31→13:37)
[2022-07-15] MEDS: MONTELUKAST 10 MG TAB PO SCH (08:31)
[2022-07-15] MEDS: SERTRALINE 100 MG TAB PO SCH (08:31)
[2022-07-15 12:56] LABS: Glucose,Whole Blood 100 mg/dL (70-110)
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
== END 2022-07-15 15:48 | disposition home or self-care (01) | DRG 885 ==
LOC: EC 21:03 → 3MHU 07-10 01:44
PROVIDERS: ADMIT Psychiatry & Neurology Psychiatry; ATTEND Psychiatry & Neurology Psychiatry
DX: F33.3 Major depressive disorder, recurrent, severe with psychotic symptoms (principal); R45.851 Suicidal ideations; F41.9 Anxiety disorder, unspecified; E11.9 Type 2 diabetes mellitus without complications; K21.9 Gastro-esophageal reflux disease without esophagitis; F60.3 Borderline personality disorder; R10.31 Right lower quadrant pain; E28.2 Polycystic ovarian syndrome; F43.10 Post-traumatic stress disorder, unspecified; F17.290 Nicotine dependence, other tobacco product, uncomplicated; R45.850 Homicidal ideations; F12.10 Cannabis abuse, uncomplicated; F60.89 Other specific personality disorders; F17.210 Nicotine dependence, cigarettes, uncomplicated; Z20.822 Contact with and (suspected) exposure to COVID-19; Z79.899 Other long term (current) drug therapy; Z88.5 Allergy status to narcotic agent; Z91.51 Personal history of suicidal behavior; Z91.410 Personal history of adult physical and sexual abuse; Z56.0 Unemployment, unspecified
CPT/HCPCS: 74177; 80306; 81003; 82075; 87635; 99285

== ENCOUNTER 2022-09-02 15:10 | Emergency (ER) | payer MEDICARE, MEDICAID ==
--- NOTE | 2022-09-02 18:11 | ED ---
Extremity Problem HPI - General Chief complaint: Extremity Problem,Nontraumatic Stated complaint: right side numbness Time Seen by Provider: 09/02/22 17:39 Source: patient Mode of arrival: ambulatory Limitations: no limitations - History of Present Illness Initial comments: Patient is a 27-year-old female presents to the emergency department for numbness of right lower extremity. Patient reports numbness and tingling above her right outer ankle extending up her lower leg for the past 2 weeks. Patient states she did trip and fall a couple weeks ago but didn't have any pain from it. She denies any calf pain or swelling. She has no other concerns at this time. - Related Data Home Medications Medication Instructions Recorded Confirmed Montelukast Sodium [Singulair] 10 mg PO DAILY 01/27/22 06/29/22 Previous Rx's Medication Instructions Recorded Albuterol Inhaler [Ventolin Hfa 2 puff INHALATION RT-QID PRN 30 02/12/22 Inhaler] Days each Prazosin [Minipress] 4 mg PO HS 7 Days #28 cap 07/15/22 Sertraline [Zoloft] 200 mg PO DAILY 7 Days #14 tab 07/15/22 chlorproMAZINE [Thorazine] 75 mg PO TID 3 Days #9 tab 07/15/22 Allergies Allergy/AdvReac Type Severity Reaction Status Date / Time egg Allergy Anaphylaxis Verified 09/02/22 15:43 hydromorphone HCl Allergy Itching/Hiv Verified 09/02/22 15:43 [From Dilaudid] es milk Allergy Anaphylaxis Verified 09/02/22 15:43 gabapentin AdvReac Hives Verified 09/02/22 15:43 Review of Systems ROS Statement: Those systems with pertinent positive or pertinent negative responses have been documented in the HPI. ROS Other: All systems not noted in ROS Statement are negative. Past Medical History Past Medical History: Diabetes Mellitus, GERD/Reflux, GI Bleed Additional Past Medical History / Comment(s): borderline personality, schizophrenia, hx attempted suicide, her brother is her guardian, PCOS, Migraines, History of Any Multi-Drug Resistant Organisms: C-DIFF Date of last positivie culture/infection: 2016 MDRO Source:: Stool Past Surgical History: Cholecystectomy, Tonsillectomy Past Anesthesia/Blood Transfusion Reactions: No Reported Reaction Past Psychological History: Anxiety, Depression, PTSD, Schizoaffective Disorder, Schizophrenia Smoking Status: Current every day smoker, Vaper Past Alcohol Use History: Occasional Past Drug Use History: Marijuana - Past Family History Mother Additional Family Medical History / Comment(s): NONE Father Family Medical History: Liver Disease Additional Family Medical History / Comment(s): NONE General Exam Limitations: no limitations General appearance: alert, in no apparent distress Head exam: Present: atraumatic, normocephalic, normal inspection Respiratory exam: Present: normal lung sounds bilaterally. Absent: respiratory distress, wheezes, rales, rhonchi, stridor Cardiovascular Exam: Present: regular rate, normal rhythm, normal heart sounds. Absent: systolic murmur, diastolic murmur, rubs, gallop, clicks Extremities exam: Present: normal inspection, full ROM, normal capillary refill. Absent: tenderness, pedal edema, joint swelling, calf tenderness Neurological exam: Present: alert, oriented X3, CN II-XII intact Expanded Speech: Present: fluid speech Cranial nerves: EOM's Intact: Normal, Facial Sensation: Normal, Facial Palsy with Forehead Movement: Normal, Facial Palsy without Forehead Movement: Normal Cerebellar function: Finger to Nose: Normal, Heel to [place]: Normal Sensory exam: Upper Extremity Light Touch: Normal, Lower Extremity Light Touch: Abnormal Right (decreased sensation over right lateral lower leg above ankle) Motor strength exam: RUE: 5, LUE: 5, RLE: 5, LLE: 5 Psychiatric exam: Present: normal affect, normal mood Skin exam: Present: warm, dry, intact, normal color. Absent: rash Course Vital Signs 09/02/22 09/02/22 15:41 18:45 Temperature 98 F 97.9 F Pulse Rate 102 H 89 Respiratory 20 18 Rate Blood Pressure 114/77 116/81 O2 Sat by Pulse 99 99 Oximetry Medical Decision Making - Medical Decision Making Was pt. sent in by a medical professional or institution (, PA, MANUAL QA TESTER, urgent care, hospital, or detention...) When possible be specific @ -No Did you speak to anyone other than the patient for history (EMS, parent, family, police, friend...)? What history was obtained from this source @ -No Did you review nursing and triage notes (agree or disagree)? Why? @ -I reviewed and agree with nursing and triage notes Were old charts reviewed (outside hosp., previous admission, EMS record, old EKG, old radiological studies, urgent care reports/EKG's, detention records)? Report findings @ -No old charts were reviewed Differential Diagnosis (chest pain, altered mental status, abdominal pain women, abdominal pain men, vaginal bleeding, weakness, fever, dyspnea, syncope, headache, dizziness, GI bleed, back pain, seizure, CVA, palpatations, mental health)? @ -Peripheral neuropathy, spinal cord injury, spinal cord tumor, show, TIA, nerve injury, . This list is not meant to be all-inclusi multiple sclerosis, shingles, Lyme disease, syphilis. This list is not meant to be all-inclusive EKG interpreted by me (3pts min.). @ -As above X-rays interpreted by me (1pt min.). @ -None done CT interpreted by me (1pt min.). @ -None done U/S interpreted by me (1pt. min.). @ -None done What testing was considered but not performed or refused? (CT, X-rays, U/S, l abs)? Why? @ -None What meds were considered but not given or refused? Why? @ -None Did you discuss the management of the patient with other professionals (professionals i.e. , PA, MANUAL QA TESTER, lab, RT, psych nurse, social work program coordinator, cigar wrapper tender automatic, teacher, division officer weapons department, window caser)? Give summary @ -No Was smoking cessation discussed for >3mins.? @ -No Was critical care preformed (if so, how long)? @ -No Were there social determinants of health that impacted care today? How? (Homelessness, low income, unemployed, alcoholism, drug addiction, transportation, low edu. Level, literacy, decrease access to med. care, [facility], rehab)? @ -No Was there de-escalation of care discussed even if they declined (Discuss DNR or withdrawal of care, Hospice)? DNR status @ -No What co-morbidities impacted this encounter? (DM, HTN, Smoking, COPD, CAD, Cancer, CVA, ARF, Chemo, Hep., AIDS, mental health diagnosis, sleep apnea, morbid obesity)? @ -None Was patient admitted / discharged? Hospital course, mention meds given and route, prescriptions, significant lab abnormalities, going to OR and other pertinent info. @ -Discharged patient to follow up with neurology Undiagnosed new problem with uncertain prognosis? @ -No Drug Therapy requiring intensive monitoring for toxicity (Heparin, Nitro, Insulin, Cardizem)? @ -No Were any procedures done? @ -No] Diagnosis/symptom? @ -Right leg numbness Acute, or Chronic, or Acute on Chronic? @ -Acute Uncomplicated (without systemic symptoms) or Complicated (systemic symptoms)? @ -Uncomplicated Side effects of treatment? @ -[No] Exacerbation, Progression, or Severe Exacerbation? @ -[No] Poses a threat to life or bodily function? How? (Chest pain, [place], [place], pneumonia, PE, COPD, DKA, ARF, appy, cholecystitis, CVA, Diverticulitis, Homicidal, Suicidal, threat to staff... and all critical care pts) @ -[No] Dr. Conley is my attending Disposition Clinical Impression: Right leg numbness Disposition: HOME SELF-CARE Condition: Good Instructions (If sedation given, give patient instructions): Paresthesia (ED) Additional Instructions: Follow-up with neurologist in one to 2 days. Return to the emergency department experience new, concerning, or worsening symptoms Is patient prescribed a controlled substance at d/c from ED?: No Referrals: None,Stated [Primary Care Provider] - 1-2 days Jacinto Prabhakar MD [Medical Doctor] - 1-2 days
[2022-09-02 18:46] VITALS: BP 116/81; PULSE 89; RESP 18; TEMP 97.9
== END 2022-09-02 18:46 | disposition home or self-care (01) ==
LOC: EC 15:10
DX: R20.2 Paresthesia of skin (principal); E11.9 Type 2 diabetes mellitus without complications; F41.9 Anxiety disorder, unspecified; F32.A Depression, unspecified; F17.290 Nicotine dependence, other tobacco product, uncomplicated; F12.90 Cannabis use, unspecified, uncomplicated; Z91.012 Allergy to eggs; Z91.011 Allergy to milk products; Z88.5 Allergy status to narcotic agent; Z88.8 Allergy status to other drugs, medicaments and biological substances; Z79.899 Other long term (current) drug therapy
CPT/HCPCS: 99283